=== PATIENT | female | born 1940 | race Caucasian/White ===

== ENCOUNTER → 2016-08-02 | Outpatient (CLI) | payer OTHER ==
[~2016-08-02] MED LIST: ATOR-54 PO; CLON0.5T3 PO; GADAVIST IV PRN; HYDR25TA4 PO; MCRK20 PO; MECL1TAB40 PO; METO25TA3 PO; PRLSR20 PO; VALA500T60 PO
--- NOTE | 2016-08-02 11:22 | DIAGNOSTIC IMAGING REPORT ---
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 Following the IV administration of 8.8 mL of Gadavist contrast, additional enhanced images were obtained. FINDINGS: Sagittal T1, axial diffusion, proton density and T2 weighted axial, coronal FLAIR, and pre and post axial T1-weighted images were acquired. These were supplemented with post gadolinium coronal T1 weighted images. There is an enhancing right-sided extra-axial mass at the rosa clival junction. The mass measures 34 x 25 x 26 mm. The masses demonstrate approximately 1 to 2 mm interval growth in each dimension. There is persistent mass effect on the marta. The mass abuts the basilar artery. There is cavernous sinus invasion. The mass likely encases the trigeminal nerve. The mass partially encases the cavernous carotid. The findings are consistent with a meningioma. Axial diffusion-weighted images reveal no evidence of acute or subacute infarction. There is no evidence of ventricular dilatation. Proton density T2-weighted and FLAIR images reveal minimal foci of increased T2 signal within the white matter, likely on a small vessel basis. There are no abnormal flow voids. With the exception of the suspected meningioma, there are no pathologically enhancing lesions. IMPRESSION: 1. Very minimal increase in the size of the enhancing extra-axial mass at the level of the right rosa clival junction. The mass is again consistent with a meningioma. There is persistent cavernous sinus invasion. There is moderate mass effect on the marta. The mass partially encases the cavernous carotid. The mass abuts the basilar artery. Electronically signed by: Yared Goldman M.D. 08/02/2016 11:20 AM Dictated Date/Time: 08/02/2016 11:12 AM
== END | disposition home or self-care (01) ==
LOC: C.MRIBC 09:50
PROVIDERS: ATTEND Psychiatry & Neurology Neurology
DX: D32.9 Benign neoplasm of meninges, unspecified (principal)

== ENCOUNTER 2020-10-02 10:55 | Inpatient (IN) ==
[2020-10-02] MEDS ORDERED: HYDROmorphone INJ 0.5 MG/0.5 ML SYR IV PRN ×2 (12:49→21:16)
[2020-10-02] MEDS ORDERED: ONDANSETRON INJ 2 MG/ML 2 ML VIAL IV STA ×2 (12:49→14:55)
[2020-10-02 13:05] LABS: Basophils # (auto) 0.02 K/uL (0-0.2); Basophils % (auto) 0.2 %; Eosinophils # (auto) 0.01 K/uL (0-0.5); Eosinophils % (auto) 0.1 %; Hematocrit (blood only) 49.8 % (37-47); Hemoglobin 16.7 g/dL (12.0-16.0); Immature Granulocytes # (auto) 0.03 K/uL (0.00-0.02); Immature Granulocytes % (auto) 0.3 %; Lymphocytes # (auto) 1.58 K/uL (1.2-3.4); Lymphocytes % (auto) 16.4 %; Mean Corpuscular Hemoglobin 29.6 pg (25-34); Mean Corpuscular Hgb Conc 33.5 g/dL (32-36); Mean Corpuscular Volume 88.3 fL (80-100); Mean Platelet Volume 12.1 fL (7.4-10.4); Monocytes # (auto) 0.96 K/uL (0.11-0.59); Monocytes % (auto) 9.9 %; Neutrophils # (auto) 7.05 K/uL (1.4-6.5); Neutrophils % (auto) 73.1 %; Platelet Count 232 K/uL (130-400); RDW Coefficient of Variation 13.5 % (11.5-14.5); RDW Standard Deviation 43.8 fL (36.4-46.3); Red Blood Count 5.64 M/uL (4.2-5.4); White Blood Count 9.65 K/uL (4.8-10.8)
--- NOTE | 2020-10-02 13:27 | Electrocardiogram Report ---
Test Reason : Blood Pressure : / mmHG Vent. Rate : 102 BPM Atrial Rate : 085 BPM P-R Int : 000 ms QRS Dur : 074 ms QT Int : 342 ms P-R-T Axes : 000 017 243 degrees QTc Int : 445 ms Poor data quality, interpretation may be adversely affected Atrial fibrillation with rapid ventricular response Low voltage QRS Nonspecific ST abnormality Abnormal ECG When compared with ECG of 29-AUG-2020 10:52, ST now depressed in Inferior leads Nonspecific T wave abnormality now evident in Lateral leads Confirmed by Arjun Cobos ([id number]) on 10/02/2020 1:27:15 PM Referred By: Confirmed By:Kp Cobos
[2020-10-02 13:28] LABS: Alanine Aminotransferase 24 U/L (12-78); Albumin Level 3.6 gm/dl (3.4-5.0); Aspartate Aminotransferase 21 U/L (15-37); BUN Creatinine Ratio 22.9 (10-20); Blood Urea Nitrogen 18 mg/dl (7-18); Calcium 9.1 mg/dl (8.5-10.1); Carbon Dioxide 26 mmol/L (21-32); Chloride 105 mmol/L (98-107); Creatinine Clr Calc Pharmacy 64.7 ml/min; Est GFR (African American) 80.7 ml/min; Est GFR (Non-African American) 69.6 ml/min; Glucose 134 mg/dl (70-99); Potassium 3.5 mmol/L (3.5-5.1); Sodium 138 mmol/L (136-145)
--- NOTE | 2020-10-02 13:37 | XRay Report ---
XR chest 1V portable HISTORY: 80 years-old Female weakness acute weakness COMPARISON: CT abdomen and pelvis of same day, chest radiograph 08/29/2020 TECHNIQUE: Portable AP view of the chest FINDINGS: Cardiac silhouette is enlarged. Chronic interstitial coarsening. Calcified plaque of the thoracic aor ta. There is no pneumothorax, pleural effusion or lobar airspace consolidation. Degenerative changes of the shoulders and spine. Sigmoidal thoracolumbar scoliosis. IMPRESSION: Cardiomegaly without acute process. ACT 112: Negative or not required by law. The above report was generated using voice recognition software. It may contain grammatical, syntax o r spelling errors. Electronically signed by: Pal Dodson M.D. 10/02/2020 1:36 PM
[2020-10-02 13:38] LABS: Alkaline Phosphatase 88 U/L (45-117); Bilirubin,Total 0.6 mg/dl (0.2-1); Globulin 3.5 gm/dl (2.5-4.0); Total Protein 7.1 gm/dl (6.4-8.2); Troponin I < 0.015 ng/ml (0-0.045)
--- NOTE | 2020-10-02 14:01 | CT Scan Report ---
ABDOMEN AND PELVIS CT WITHOUT CONTRAST CT DOSE: 901.81 mGy.cm HISTORY: Acute upper abdominal pain with nausea and vomiting upper abdominal pain, vomiting TECHNIQUE: Multiaxial CT images of the abdomen and pelvis were performed without contrast. A dose lo wering technique was utilized adhering to the principles of ALARA. COMPARISON STUDY: 05/03/2011 FINDINGS: Cardiomegaly with coronary artery calcifications. Trace layering pleural effusions. Mild de pendent subsegmental bibasilar atelectasis. No pneumatosis or pneumoperitoneum. The unenhanced spleen , pancreas, adrenal glands and gallbladder are unremarkable. Mild hepatic steatosis. Mild cortical thinning of the bilateral kidneys with renal sinus cysts. There are 3 nonobstructing ca lculi of the right kidney which measure up to 6 mm. There are 2 nonobstructing calculi of the left ki dney which measure up to 4 mm. No ureteral calculi or hydronephrosis. Decompressed urinary bladder. T he uterus appears surgically absent. No adnexal mass lesion. Extensive atherosclerosis of the aorta a nd iliac arteries. No aneurysm or adenopathy. Tiny hiatal hernia. Scattered air-fluid levels are noted throughout the large bowel. Noninflamed appe ndix. Numerous mildly dilated air and fluid-filled loops of small bowel measure up to 3.3 cm transver sely with decompressed loops of small bowel seen distally. Transitioned loops of bowel noted within t he anterior upper pelvis on image 324 series 3. Areas of mild interloop edema without significant bow el wall thickening. No acute fracture. Degenerative changes of the spine, pelvis and hips. Thoracolum bar dextroscoliosis. IMPRESSION: 1. Mildly dilated air and fluid-filled loops of small bowel with decompressed distal small bowel is s uggestive of at least a partial small bowel obstruction with transition point within the anterior asp ect of the upper pelvis, likely secondary to adhesions. 2. Normal appendix. 3. Nonobstructing bilateral nephrolithiasis. 4. Trace pleural effusions. 5. Additional findings as above. ACT 112: Negative or not required by law. The above report was generated using voice recognition software. It may contain grammatical, syntax o r spelling errors. Electronically signed by: Pal Dodson M.D. 10/02/2020 2:00 PM
[2020-10-02] MEDS ORDERED: SODIUM CHLORIDE 0.9% 1000ML 1,000 ML IV STA (14:50)
[2020-10-02] MEDS ORDERED: SODIUM CHLORIDE 0.9% 1000ML 500 ML IV ONE (14:50)
--- NOTE | 2020-10-02 16:06 | Emergency Department Note ---
Impression & Plan Partial small bowel obstruction, Upper abdominal pain ED Provider Note INFORMANT: Patient ED PROVIDER(S): Axel Matos MD CHIEF COMPLAINT: Abdominal pain PLAN: Disposition: Admitted Condition: Good Outpatient prescription management: none Referral: None MEDICAL DECISION MAKING: Patient presented to the emergency department because of abdominal pain, nausea and vomiting. She underwent a work-up. CT imaging was performed as well as blood work. Her blood work was unremarkable. The patient's CT scan revealed a partial small bowel obstruction. The patient initially received Zofran and Dilaudid for symptom control which helped. Additional IV fluids and Zofran were ordered after CT imaging revealed the problem. The patient will benefit from further treatment in the hospital. Consultation was made with Dr. Rajan Bloom of the [facility] service. Patient was evaluated in the ER for further management. Triage Nursing notes reviewed and agree them. Vital Signs: reviewed and remarkable for no significant abnormalities Differential diagnosis: Appendicitis, infections, diverticulitis, UTI, obstruction, mesenteric ischemia, aortic pathology, inflammatory bowel disease, renal colic, PUD, pancreatitis, biliary pathology, hernia, volvulus, constipation, as well as other pathologies. Diagnostics interpreted by me: ECG: Twelve-lead ECG reveals atrial fibrillation with mild rapid ventricular response at 102 bpm. Low voltage QRS. Poor R wave progression. No ST elevation or depression. No PVCs. Cardiac Monitoring: Cardiac monitoring ordered by me: The patient was placed on continuous cardiac monitoring and observed. It revealed a atrial fibrillation at 87 bpm. Imaging studies: CT scan concerning for developing partial small bowel obstruction. HPI: The patient is a 80 year old female who presents to the Emergency Room with complaints of abdominal pain, upper. This started over the last month but worsening since eating last night and is radiating to the midline and right upper quadrant. The patient also notes the following associated symptoms, nausea and vomiting. The patient has found no relieving factors. Current pain is rated as 8/10. Pt denies LOC, headache, fevers, chills, diaphoresis, visual changes, neck pain, chest pain, breathing difficulties, back pain, melena, hematochezia, urinary symptoms, numbness, weakness, lymphadenopathy, rash, or other complaints. ROS: See above HPI for pertinent positives & negatives. A total of 10 systems reviewed and were otherwise negative. PAST MEDICAL HISTORY:See Below , COPD, A. fib PAST SURGICAL HISTORY:See Below, FAMILY HISTORY:See Below SOCIAL HISTORY:See Below, HOME MEDICATIONS:See Below ALLERGIES:See Below VITALS:See Below PHYSICAL EXAMINATION: GENERAL: Awake, alert, uncomfortable-appearing, in no distress HENT: Normocephalic, atraumatic. Oropharynx unremarkable. EYES: Normal conjunctiva. Sclera non-icteric. NECK: Inspection normal. Non-tender. Supple. No nuchal rigidity. FROM. No masses. RESPIRATORY: Clear to auscultation. No wheezes. No rales. Normal respiratory effort. CARDIAC: Normal rate. Normal rhythm. No murmurs. No rubs. Extremities warm and well perfused. Pulses equal. No JVD. GI: Soft, non-distended. right upper quadrant and epigastric tenderness to palpation. No rebound or guarding. No masses. RECTAL: Deferred. MUSCULOSKELETAL: Atraumatic. Chest examination reveals no tenderness. The back is symmetrical on inspection without obvious abnormality. There is no CVA tenderness to palpation. No joint edema. LOWER EXTREMITIES: Calves are equal size bilaterally and non-tender. No edema. No discoloration. NEURO: Normal sensorium. No sensory or motor deficits noted. SKIN: No rash or jaundice noted. Axel Matos MD Past Med/Surg History Medical History Cerebral meningioma Chronic anxiety COPD (chronic obstructive pulmonary disease) HTN (hypertension) Hyperlipidemia PAF (paroxysmal atrial fibrillation) Surgical History History of abdominal hysterectomy Family History Father Heart disease Brother Myocardial infarction Sister Ovarian cancer Other Cancer Lung cancer Denies family history of Prostate cancer Breast cancer Colorectal cancer Social History Smoking Status: Former smoker Tobacco Type: Cigarettes Age Started Using Tobacco: 35; Age Quit Using Tobacco: 74; packs per day: 0.75; Years Smoked: 39; Second Hand Exposure: No; Hx Alcohol Use: No Hx Substance Use: No Preferred Language: Citizen Of [place] Communication Ability: Effective Visual Impairment: Limited Hearing Ability: Normal 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 marital status: Current Living Situation: Spouse current occupational status: retired Feels Safe at Home: Yes Childhood Exposure to Second-Hand Smoke: Yes caffeine: Yes Dental Care, Regularly: Yes Physical Activity Frequency: Does not Exercise Physical Activity Frequency Comment: 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 Seatbelt Use: always Sunscreen Use: Yes Do you think of yourself as: straight/heterosexual Allergies Allergies Allergy/AdvReac Type Severity Reaction Status Date / Time aspirin [From Percodan] Allergy Verified 10/02/20 14:21 ciprofloxacin Allergy Verified 10/02/20 14:21 lisinopril Allergy Verified 10/02/20 14:21 peanut Allergy Verified 10/02/20 14:21 oxycodone AdvReac Unknown "makes me Verified 10/02/20 14:21 crazy" Home Meds Home Medications Medication Instructions Recorded Confirmed calcium carbonate 600 mg (1,500 1 tab PO DAILY tab 10/26/18 10/02/20 mg)-vitamin D3 200 unit tablet cholecalciferol (vitamin D3) 75 3,000 units PO DAILY tab 10/26/18 10/02/20 mcg (3,000 unit) tablet clonazepam 0.5 mg tablet 0.5 mg PO BID #60 tab 10/26/18 10/02/20 melatonin ER 10 mg-pyridoxine HCl 1 tab PO HS PRN tab 10/26/18 10/02/20 (B6) 10 mg tab, immed-extend release valacyclovir 500 mg tablet 500 mg PO DAILY PRN tab 10/26/18 10/02/20 epinephrine 0.3 mg/0.3 mL 0.3 mg IM DIRECTED PRN 11/01/18 10/02/20 injection, auto-injector (EpiPen 2-Adria) cyanocobalamin (vitamin B-12) 1,000 mcg PO BID cap 09/29/20 10/02/20 1,000 mcg capsule omeprazole 20 mg capsule,delayed 20 mg PO QAM 10/02/20 10/02/20 release Previous Rx's Medication Instructions Recorded potassium chloride 20 mEq 20 meq PO DAILY #90 tab 01/30/20 tablet,extended release rosuvastatin 10 mg tablet 10 mg PO HS #90 tab 04/30/20 hydrochlorothiazide 12.5 mg tablet 12.5 mg PO DAILY #90 tab 05/26/20 fluticasone propionate 50 2 spray INTRANASAL DAILY #15.8 ml 08/14/20 mcg/actuation nasal spray,suspension (Flonase Allergy Relief) meclizine 12.5 mg tablet 12.5 mg PO QID PRN #30 tab 08/14/20 metoprolol tartrate 50 mg tablet 50 mg PO BID #180 tab 09/11/20 rivaroxaban 20 mg tablet (Xarelto) 20 mg PO QPM #90 tab 09/25/20 Results & Data (ED) Vital Signs Vital Signs - 24 hr 10/02/20 11:18 10/02/20 14:15 Temperature 36.5 C 37.0 C Temperature Source Temporal Artery Scan Oral Pulse Rate 120 H 87 Pulse Rate [Apical] 87 Pulse Rhythm Regular Regular Pulse Rhythm [Apical] Regular Pulse Strength Normal Pulse Strength [Apical] Normal Respiratory Rate 20 16 Respiratory Effort / Characteristics Non-Labored Non-Labored Spontaneous Normal for Patient Respiratory Depth Normal Normal Respiratory Pattern Regular Regular Blood Pressure 119/72 Blood Pressure [Right Arm] 124/86 Blood Pressure Mean 87 Blood Pressure Mean [Right Arm] 98 Blood Pressure Position Sitting Blood Pressure Position [Right Arm] Lying Pulse Oximetry 96 95 Oxygen Delivery Method Room Air Room Air Oxygen Flow Rate 0 Sepsis Recent Fever Within 48 Hours No Sepsis New/Unexplained Change in Mental Status N/A Sepsis Action Taken by Nursing No Action Required Laboratory Data Result diagrams: 10/02/20 12:45 10/02/20 12:45 Lab Results 10/02/20 10/02/20 10/02/20 Range/Units 12:45 12:45 15:11 WBC 9.65 (4.8-10.8) K/uL RBC 5.64 H (4.2-5.4) M/uL Hgb 16.7 H (12.0-16.0) g/dL Hct 49.8 H (37-47) % MCV 88.3 (80-100) fL MCH 29.6 (25-34) pg MCHC 33.5 (32-36) g/dL RDW Std Deviation 43.8 (36.4-46.3) fL RDW Coeff of Vin 13.5 (11.5-14.5) % Plt Count 232 (130-400) K/uL MPV 12.1 H (7.4-10.4) fL Immature Gran % (Auto) 0.3 % Neut % (Auto) 73.1 % Lymph % (Auto) 16.4 % Labette % (Auto) 9.9 % Eos % (Auto) 0.1 % Baso % (Auto) 0.2 % Neut # (Auto) 7.05 H (1.4-6.5) K/uL Lymph # (Auto) 1.58 (1.2-3.4) K/uL [place]ette # (Auto) 0.96 H (0.11-0.59) K/uL Eos # (Auto) 0.01 (0-0.5) K/uL Baso # (Auto) 0.02 (0-0.2) K/uL Immature Gran # (Auto) 0.03 H (0.00-0.02) K/uL Sodium 138 (136-145) mmol/L Potassium 3.5 (3.5-5.1) mmol/L Chloride 105 (98-107) mmol/L Carbon Dioxide 26 (21-32) mmol/L Anion Gap 7.0 (3-11) BUN 18 (7-18) mg/dl Creatinine 0.80 (0.6-1.2) mg/dl Est Cr Clr Drug Dosing 64.7 ml/min Est GFR ( Amer) 80.7 ml/min Est GFR (Non-Af Amer) 69.6 ml/min BUN/Creatinine Ratio 22.9 H (10-20) Glucose 134 H (70-99) mg/dl Calcium 9.1 (8.5-10.1) mg/dl Total Bilirubin 0.6 (0.2-1) mg/dl AST 21 (15-37) U/L ALT 24 (12-78) U/L Alkaline Phosphatase 88 (45-117) U/L Troponin I < 0.015 (0-0.045) ng/ml Total Protein 7.1 (6.4-8.2) gm/dl Albumin 3.6 (3.4-5.0) gm/dl Globulin 3.5 (2.5-4.0) gm/dl Albumin/Globulin Ratio 1.0 (0.9-2) TSH 1.030 (0.300-4.500) uIu/ml COVID-19 Eval Order Covid19 at [facility] Administered Medications Hydromorphone HCl (Hydromorphone Inj 0.5 Mg/0.5 Ml Syr) 0.5 mg IV Q15M PRN PRN Reason: Pain Stop: 10/16/20 12:48 Last Admin: 10/02/20 12:57 Dose: 0.5 mg Documented by: [id number] Sodium Chloride (Nss 1000ml) 1,000 mls @ 125 mls/hr IV .Q8H STA Stop: 10/02/20 22:49 Last Admin: 10/02/20 15:56 Dose: 125 mls/hr Documented by: [id number] Discontinued Medications Sodium Chloride (Nss 1000ml) 500 mls @ 999 mls/hr IV .Q31M ONE Stop: 10/02/20 15:20 Last Infusion: 10/02/20 15:56 Dose: 0 mls/hr Documented by: [id number] Admin: 10/02/20 15:08 Dose: 999 mls/hr Documented by: [id number] Ondansetron HCl (Ondansetron Inj 2 Mg/Ml 2 Ml Vial) 4 mg IV NOW STA Stop: 10/02/20 12:50 Last Admin: 10/02/20 12:57 Dose: 4 mg Documented by: [id number] Ondansetron HCl (Ondansetron Inj 2 Mg/Ml 2 Ml Vial) 4 mg IV NOW STA Stop: 10/02/20 14:56 Last Admin: 10/02/20 15:08 Dose: 4 mg Documented by: [id number] Imaging Data Radiologist's Impression: Chest X-Ray 10/02/20 12:23 XR chest 1V portable HISTORY: 80 years-old Female weakness acute weakness COMPARISON: CT abdomen and pelvis of same day, chest radiograph 08/29/2020 TECHNIQUE: Portable AP view of the chest FINDINGS: Cardiac silhouette is enlarged. Chronic interstitial coarsening. Calcified plaqu e of the thoracic aorta. There is no pneumothorax, pleural effusion or lobar airspace consolidation. Degenerative changes of the shoulders and spine. Sigmoidal thoracolumbar scoliosis. IMPRESSION: Cardiomegaly without acute process. ACT 112: Negative or not required by law. The above report was generated using voice recognition software. It may contain grammatical, syntax or spelling errors. Electronically signed by: Pal Dodson M.D. 10/02/2020 1:36 PM Abdomen/Pelvis CT 10/02/20 12:[address] WITHOUT CONTRAST CT DOSE: 901.81 mGy.cm HISTORY: Acute upper abdominal pain with nausea and vomiting upper abdominal pain, vomiting TECHNIQUE: Multiaxial CT images of the abdomen and pelvis were performed without contrast. A dose lowering technique was utilized adhering to the principles of ALARA. COMPARISON STUDY: 05/03/2011 FINDINGS: Cardiomegaly with coronary artery calcifications. Trace layering pleural effusions. Mild dependent subsegmental bibasilar atelectasis. No pneumatosis or pneumoperitoneum. The unenhanced spleen, pancreas, adrenal glands and gallbladder are unremarkable. Mild hepatic steatosis. Mild cortical thinning of the bilateral kidneys with renal sinus cysts. There are 3 nonobstructing calculi of the right kidney which measure up to 6 mm. There are 2 nonobstructing calculi of the left kidney which measure up to 4 mm. No ureteral calculi or hydronephrosis. Decompressed urinary bladder. The uterus appears surgically absent. No adnexal mass lesion. Extensive atherosclerosis of the aorta and iliac arteries. No aneurysm or adenopathy. Tiny hiatal hernia. Scattered air-fluid levels are noted throughout the large bowel. Noninflamed appendix. Numerous mildly dilated air and fluid-filled loops of small bowel measure up to 3.3 cm transversely with decompressed loops of small bowel seen distally. Transitioned loops of bowel noted within the anterior upper pelvis on image 324 series 3. Areas of mild interloop edema without significant bowel wall thickening. No acute fracture. Degenerative changes of the spine, pelvis and hips. Thoracolumbar dextroscoliosis. IMPRESSION: 1. Mildly dilated air and fluid-filled loops of small bowel with decompressed distal small bowel is suggestive of at least a partial small bowel obstruction with transition point within the anterior aspect of the upper pelvis, likely secondary to adhesions. 2. Normal appendix. 3. Nonobstructing bilateral nephrolithiasis. 4. Trace pleural effusions. 5. Additional findings as above. ACT 112: Negative or not required by law. The above report was generated using voice recognition software. It may contain grammatical, syntax or spelling errors. Electronically signed by: Pal Dodson M.D. 10/02/2020 2:00 PM Discharge Plan Visit Data Chief Complaint: Abdominal Pain Stated Complaint: UPPER ABD PAIN ED Provider: Axel Matos Discharge Problem: Partial small bowel obstruction, Upper abdominal pain Forms Stand Alone Forms: My [facility] Prescriptions Prescriptions: No Action potassium chloride 20 mEq tablet extended release 20 meq PO DAILY Qty: 90 RF: 3 rosuvastatin 10 mg tablet 10 mg PO HS Qty: 90 RF: 3 metoprolol tartrate 50 mg tablet 50 mg PO BID Qty: 180 RF: 3 Xarelto 20 mg tablet 20 mg PO QPM Qty: 90 RF: 3 fluticasone propionate [Flonase Allergy Relief] 50 mcg/actuation spray,suspension 2 spray intranasal DAILY Qty: 15.8 RF: 2 meclizine 12.5 mg tablet 12.5 mg PO QID PRN (Reason: dizziness) Qty: 30 RF: 0 hydrochlorothiazide 12.5 mg tablet 12.5 mg PO DAILY Qty: 90 RF: 3 cyanocobalamin (vitamin B-12) 1,000 mcg capsule 1,000 mcg PO BID RF: 0 clonazepam 0.5 mg tablet 0.5 mg PO BID Qty: 60 RF: 0 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
[2020-10-02] MEDS ORDERED: METOPROLOL TARTRATE 1 MG/ML VIAL IV PRN (18:16)
[2020-10-02] MEDS ORDERED: ALBUT/IPRATROP 3MG/0.5MG NEB 3 ML VIAL NEB PRN (18:18)
--- NOTE | 2020-10-02 18:19 | History & Physical Report ---
Date of Service October 02, 2020 Assessment & Plan (1) Partial small bowel obstruction: Plan: Partial small bowel obstruction/likely secondary to adhesions- NPO NSS + KCl 20 mEq 100 mils per hour Famotidine 20 mg IV every 12 hours Zofran 4 mg IV every 6 hours as needed Zosyn 3.375 mg IV every 8 hours Acetaminophen 1000 mg IV every 8 hours as needed mild pain or fever Dilaudid 0.25 mg IV every 3 hours as needed moderate to severe pain (2) Atrial fibrillation: Plan: Atrial fibrillation/hypertension/chronic anticoagulation- Hold Xarelto, HCTZ and metoprolol tartrate due to n.p.o. status Lopressor 5 mg IV every 4 hours as needed heart rate greater than 110 or systolic blood pressure greater than 160 Patient will likely need to have IV heparin started in the morning, Xarelto last dose was today (3) Chronic anticoagulation: Plan: See above (4) COPD (chronic obstructive pulmonary disease): Plan: DuoNebs every 2 hours as needed (5) Hyperlipidemia: Plan: Hold rosuvastatin (6) HTN (hypertension): Plan: See above History of Present Illness Chief Complaint: The patient presents to the emergency department with 6 weeks of on and off abdominal pain, which she reports will be severe 1 day, and resolved the next day, until finally last evening she developed nausea vomiting x3 and persistent abdominal pain today. Primary Care Provider: Josué Sandhu MD The patient is an 80-year-old female with a past medical history including atrial fibrillation on chronic anticoagulation, osteoporosis, hypertension, chronic anxiety, COPD, cerebral meningioma, hyperlipidemia, PVCs, PACs, peripheral arterial disease and history of hysterectomy. She presents with symptoms as noted above. CT scan of abdomen pelvis revealed a partial small bowel obstruction with transition point in the anterior upper pelvic area, likely secondary to adhesions Allergies Allergy/AdvReac Type Severity Reaction Status Date / Time aspirin [From Percodan] Allergy Verified 10/02/20 14:21 ciprofloxacin Allergy Verified 10/02/20 14:21 lisinopril Allergy Verified 10/02/20 14:21 peanut Allergy Verified 10/02/20 14:21 oxycodone AdvReac Unknown "makes me Verified 10/02/20 14:21 aki" Home Medications Medication Instructions Recorded Confirmed Type calcium carbonate 600 mg (1,500 1 tab PO DAILY tab 10/26/18 10/02/20 History mg)-vitamin D3 200 unit tablet cholecalciferol (vitamin D3) 75 3,000 units PO DAILY tab 10/26/18 10/02/20 History mcg (3,000 unit) tablet clonazepam 0.5 mg tablet 0.5 mg PO BID #60 tab 10/26/18 10/02/20 History melatonin ER 10 mg-pyridoxine HCl 1 tab PO HS PRN tab 10/26/18 10/02/20 History (B6) 10 mg tab, immed-extend release valacyclovir 500 mg tablet 500 mg PO DAILY PRN tab 10/26/18 10/02/20 History epinephrine 0.3 mg/0.3 mL 0.3 mg IM DIRECTED PRN 11/01/18 10/02/20 History injection, auto-injector (EpiPen 2-Adria) potassium chloride 20 mEq 20 meq PO DAILY #90 tab 01/30/20 10/02/20 Rx tablet,extended release rosuvastatin 10 mg tablet 10 mg PO HS #90 tab 04/30/20 10/02/20 Rx hydrochlorothiazide 12.5 mg tablet 12.5 mg PO DAILY #90 tab 05/26/20 10/02/20 Rx fluticasone propionate 50 2 spray INTRANASAL DAILY #15.8 ml 08/14/20 10/02/20 Rx mcg/actuation nasal spray,suspension (Flonase Allergy Relief) meclizine 12.5 mg tablet 12.5 mg PO QID PRN #30 tab 08/14/20 10/02/20 Rx metoprolol tartrate 50 mg tablet 50 mg PO BID #180 tab 09/11/20 10/02/20 Rx rivaroxaban 20 mg tablet (Xarelto) 20 mg PO QPM #90 tab 09/25/20 10/02/20 Rx cyanocobalamin (vitamin B-12) 1,000 mcg PO BID cap 09/29/20 10/02/20 History 1,000 mcg capsule omeprazole 20 mg capsule,delayed 20 mg PO QAM 10/02/20 10/02/20 History release Past Med/Surg History Medical History Cerebral meningioma Chronic anxiety COPD (chronic obstructive pulmonary disease) HTN (hypertension) Hyperlipidemia PAF (paroxysmal atrial fibrillation) Surgical History History of abdominal hysterectomy Family History Father Heart disease Brother Myocardial infarction Sister Ovarian cancer Other Cancer Lung cancer Denies family history of Prostate cancer Breast cancer Colorectal cancer Social History Smoking Status: Former smoker Tobacco Type: Cigarettes Age Started Using Tobacco: 35; Age Quit Using Tobacco: 74; packs per day: 0.75; Years Smoked: 39; Second Hand Exposure: No; Hx Alcohol Use: No Hx Substance Use: No Preferred Language: Martiniquais Communication Ability: Effective Visual Impairment: Limited Hearing Ability: Normal Surgical Device Sales Representative Required: Yes marital status: Current Living Situation: Spouse current occupational status: retired Feels Safe at Home: Yes Childhood Exposure to Second-Hand Smoke: Yes caffeine: Yes Dental Care, Regularly: Yes Physical Activity Frequency: Does not Exercise Physical Activity Frequency Comment: works in [employer] Seatbelt Use: always Sunscreen Use: Yes Do you think of yourself as: straight/heterosexual Review of Systems Review of Systems: The patient denies chest pain, palpitations, shortness of breath, dyspnea on exertion, cough, lower extremity swelling, sore throat, fevers, chills, sweats, blood in urine or stool, dysuria, urinary frequency or urgency, lightheadedness, dizziness, headache, memory loss, loss of consciousness, rash, abnormal bruising or bleeding, imbalance, focal or generalized weakness, numbness or tingling in arms or legs, generalized arthralgias or myalgias, back or neck pain, or night sweats. The review of systems is otherwise negative other than for that already noted above, and at least 10 systems have been reviewed. Physical Exam Physical Exam: The patient is awake, alert and oriented 3, well developed and well nourished, normocephalic and atraumatic, lying in bed and in no acute distress. HEENT--PERRL, EOMI, mucous membranes and oropharynx dry. Neck--supple. No JVD. No bruits. Thyroid normal, trachea midline, no adenopathy. Heart--normal S1 and S2. No murmurs, rubs or gallops. Lungs--clear bilaterally, no respiratory distress, no accessory muscle use. Abdomen--decreased bowel sounds. Mildly firm, mildly distended. Nontender after pain medications Extremities--no cyanosis or clubbing. No edema. Dermatologic--normal skin turgor, normal color, no abnormal lymph nodes, no rash. Neurologic--cranial nerves II through XII grossly intact. Rheumatologic--normal range of motion. Psychiatric--normal affect. Results & Data Results & Data ([facility]) Vital Signs (Past 12 Hours) Vital Signs Temp Pulse Pulse Resp BP BP Pulse Ox 10/02/20 17:20 84 18 119/69 96 10/02/20 14:15 98.6 F 87 87 16 124/86 95 10/02/20 11:18 97.7 F 120 H 20 119/72 96 Laboratory Results Laboratory Results WBC 9.65 K/uL (4.8-10.8) 10/02/20 12:45 RBC 5.64 M/uL (4.2-5.4) H 10/02/20 12:45 Hgb 16.7 g/dL (12.0-16.0) H 10/02/20 12:45 Hct 49.8 % (37-47) H 10/02/20 12:45 MCV 88.3 fL (80-100) 10/02/20 12:45 MCH 29.6 pg (25-34) 10/02/20 12:45 MCHC 33.5 g/dL (32-36) 10/02/20 12:45 RDW Std Deviation 43.8 fL (36.4-46.3) 10/02/20 12:45 RDW Coeff of Vin 13.5 % (11.5-14.5) 10/02/20 12:45 Plt Count 232 K/uL (130-400) 10/02/20 12:45 MPV 12.1 fL (7.4-10.4) H 10/02/20 12:45 Immature Gran % (Auto) 0.3 % 10/02/20 12:45 Neut % (Auto) 73.1 % 10/02/20 12:45 Lymph % (Auto) 16.4 % 10/02/20 12:45 [place] % (Auto) 9.9 % 10/02/20 12:45 Eos % (Auto) 0.1 % 10/02/20 12:45 Baso % (Auto) 0.2 % 10/02/20 12:45 Neut # (Auto) 7.05 K/uL (1.4-6.5) H 10/02/20 12:45 Lymph # (Auto) 1.58 K/uL (1.2-3.4) 10/02/20 12:45 [place] # (Auto) 0.96 K/uL (0.11-0.59) H 10/02/20 12:45 Eos # (Auto) 0.01 K/uL (0-0.5) 08 12:45 Baso # (Auto) 0.02 K/uL (0-0.2) 10/02/20 12:45 Immature Gran # (Auto) 0.03 K/uL (0.00-0.02) H 10/02/20 12:45 Sodium 138 mmol/L (136-145) 10/02/20 12:45 Potassium 3.5 mmol/L (3.5-5.1) 10/02/20 12:45 Chloride 105 mmol/L (98-107) 10/02/20 12:45 Carbon Dioxide 26 mmol/L (21-32) 10/02/20 12:45 Anion Gap 7.0 (3-11) 10/02/20 12:45 BUN 18 mg/dl (7-18) 10/02/20 12:45 Creatinine 0.80 mg/dl (0.6-1.2) 10/02/20 12:45 Est Cr Clr Drug Dosing 64.7 ml/min 10/02/20 12:45 Est GFR ( Amer) 80.7 ml/min 10/02/20 12:45 Est GFR (Non-Af Amer) 69.6 ml/min 10/02/20 12:45 BUN/Creatinine Ratio 22.9 (10-20) H 10/02/20 12:45 Glucose 134 mg/dl (70-99) H 10/02/20 12:45 Calcium 9.1 mg/dl (8.5-10.1) 10/02/20 12:45 Total Bilirubin 0.6 mg/dl (0.2-1) 10/02/20 12:45 AST 21 U/L (15-37) 10/02/20 12:45 ALT 24 U/L (12-78) 10/02/20 12:45 Alkaline Phosphatase 88 U/L (45-117) 10/02/20 12:45 Troponin I < 0.015 ng/ml (0-0.045) 10/02/20 12:45 Total Protein 7.1 gm/dl (6.4-8.2) 10/02/20 12:45 Albumin 3.6 gm/dl (3.4-5.0) 10/02/20 12:45 Globulin 3.5 gm/dl (2.5-4.0) 10/02/20 12:45 Albumin/Globulin Ratio 1.0 (0.9-2) 10/02/20 12:45 TSH 1.030 uIu/ml (0.300-4.500) 10/02/20 12:45 COVID-19 Eval Order Covid19 at [facility] 10/02/20 15:11 SARS-CoV-2 (PCR) NEGATIVE (Negative) 10/02/20 15:11 Impressions Chest X-Ray 10/02/20 12:23 XR chest 1V portable HISTORY: 80 years-old Female weakness acute weakness COMPARISON: CT abdomen and pelvis of same day, chest radiograph 08/29/2020 TECHNIQUE: Portable AP view of the chest FINDINGS: Cardiac silhouette is enlarged. Chronic interstitial coarsening. Calcified plaque of the thoracic aorta. There is no pneumothorax, pleural effusion or lobar airspace consolidation. Degenerative changes of the shoulders and spine. Sigmoidal thoracolumbar scoliosis. IMPRESSION: Cardiomegaly without acute process. ACT 112: Negative or not required by law. The above report was generated using voice recognition software. It may contain grammatical, syntax or spelling errors. Electronically signed by: Pal Dodson M.D. 10/02/2020 1:36 PM Abdomen/Pelvis CT 10/02/20 12:[address] WITHOUT CONTRAST CT DOSE: 901.81 mGy.cm HISTORY: Acute upper abdominal pain with nausea and vomiting upper abdominal pain, vomiting TECHNIQUE: Multiaxial CT images of the abdomen and pelvis were performed without contrast. A dose lowering technique was utilized adhering to the principles of ALARA. COMPARISON STUDY: 05/03/2011 FINDINGS: Cardiomegaly with coronary artery calcifications. Trace layering pleural effusions. Mild dependent subsegmental bibasilar atelectasis. No pneumatosis or pneumoperitoneum. The unenhanced spleen, pancreas, adrenal glands and gallbladder are unremarkable. Mild hepatic steatosis. Mild cortical thinning of the bilateral kidneys with renal sinus cysts. There are 3 nonobstructing calculi of the right kidney which measure up to 6 mm. There are 2 nonobstructing calculi of the left kidney which measure up to 4 mm. No ur eteral calculi or hydronephrosis. Decompressed urinary bladder. The uterus appears surgically absent. No adnexal mass lesion. Extensive atherosclerosis of the aorta and iliac arteries. No aneurysm or adenopathy. Tiny hiatal hernia. Scattered air-fluid levels are noted throughout the large bowel. Noninflamed appendix. Numerous mildly dilated air and fluid-filled loops of small bowel measure up to 3.3 cm transversely with decompressed loops of small bowel seen distally. Transitioned loops of bowel noted within the anterior upper pelvis on image 324 series 3. Areas of mild interloop edema without significant bowel wall thickening. No acute fracture. Degenerative changes of the spine, pelvis and hips. Thoracolumbar dextroscoliosis. IMPRESSION: 1. Mildly dilated air and fluid-filled loops of small bowel with decompressed distal small bowel is suggestive of at least a partial small bowel obstruction with transition point within the anterior aspect of the upper pelvis, likely secondary to adhesions. 2. Normal appendix. 3. Nonobstructing bilateral nephrolithiasis. 4. Trace pleural effusions. 5. Additional findings as above. ACT 112: Negative or not required by law. The above report was generated using voice recognition software. It may contain grammatical, syntax or spelling errors. Electronically signed by: Pal Dodson M.D. 10/02/2020 2:00 PM Code Status & VTE Plan Code Status Full code VTE Prophylaxis Plan VTE Prophylaxis will be ordered: Yes PG Care Time/CCT Total # of Minutes Spent Total Time Spent with Patient: Total time spent is greater than 50% in coordination of care (as documented) at patient's floor/unit and/or counseling patient: Coding Level of Care Code 34464 Initial Inpt Care Lvl 3 Diagnoses Partial small bowel obstruction K56.600 Atrial fibrillation I48.91 Chronic anticoagulation Z79.01 COPD (chronic obstructive pulmonary disease) J44.9 COPD type: unspecified COPD Hyperlipidemia E78.2 Hyperlipidemia type: mixed hyperlipidemia HTN (hypertension) I10 Hypertension type: essential hypertension (1) COPD (chronic obstructive pulmonary disease) COPD type: unspecified COPD Qualified Code(s): J44.9 - Chronic obstructive pulmonary disease, unspecified (2) Hyperlipidemia Hyperlipidemia type: mixed hyperlipidemia Qualified Code(s): E78.2 - Mixed hyperlipidemia (3) HTN (hypertension) Hypertension type: essential hypertension Qualified Code(s): I10 - Essential (primary) hypertension
[2020-10-02] MEDS ORDERED: PIPERACILL/TAZOBAC CONSULT ACTIVE PRN (21:16)
[2020-10-02] MEDS ORDERED: ONDANSETRON INJ 2 MG/ML 2 ML VIAL IV PRN (21:16)
[2020-10-02 22:18] LABS: Appearance Urine Clear (Clear); Bacteria Urine Automated Negative (Negative); Bilirubin Urine Negative (Negative); Blood Urine Negative (Negative); Color Urine Dark Yellow; Epithelial Cell Urine Auto >30 /lpf (0-5); Glucose Urine UA Negative (Negative); Ketones Urine Trace (Negative); Leukocyte Esterase Urine 1+ (Negative); Nitrite Urine Negative (Negative); Protein Urine Negative (Negative); RBC Urine Automated 0-4 /hpf (0-4); Specific Gravity Urine 1.022 (1.000-1.030); Urobilinogen Urine Negative (Negative); pH Urine 5.5 (4.5-7.5)
[2020-10-02] MEDS: clonazePAM 0.5 MG TAB PO PRN (22:29)
[2020-10-02] MEDS: NSS + 20MEQ KCL 20 MEQ/1,000 ML BAG IV SCH (22:29)
[2020-10-02] MEDS: FAMOTIDINE 20 MG in SYRINGE 3 ML IV SCH (22:29)
[2020-10-02] MEDS ORDERED: PIPERACILLIN/TAZOBACTAM 3.375 GM in DEXTROSE 5% 100 ML IV SCH (22:30)
[2020-10-02] MEDS ORDERED: PIPERACILLIN/TAZOBACTAM 4.5 GM in DEXTROSE 5% 100 ML IV ONE (22:30)
[2020-10-02] MEDS: ACETAMINOPHEN 1,000 MG/100 ML VIAL IV PRN (22:32)
[2020-10-03] MEDS: PIPERACILLIN/TAZOBACTAM 4.5 GM in DEXTROSE 5% 100 ML IV SCH ×3 (05:01→20:48)
[2020-10-03] MEDS: NSS + 20MEQ KCL 20 MEQ/1,000 ML BAG IV SCH ×2 (08:49→20:30)
[2020-10-03] MEDS: FAMOTIDINE 20 MG in SYRINGE 3 ML IV SCH ×2 (08:50→23:24)
[2020-10-03] MEDS: clonazePAM 0.5 MG TAB PO PRN (09:00)
[2020-10-03 09:01] LABS: Basophils # (auto) 0.03 K/uL (0-0.2); Basophils % (auto) 0.6 %; Hematocrit (blood only) 44.4 % (37-47); Hemoglobin 14.2 g/dL (12.0-16.0); Immature Granulocytes # (auto) 0.01 K/uL (0.00-0.02); Immature Granulocytes % (auto) 0.2 %; Lymphocytes # (auto) 1.47 K/uL (1.2-3.4); Lymphocytes % (auto) 29.5 %; Mean Corpuscular Volume 90.8 fL (80-100); Mean Platelet Volume 11.7 fL (7.4-10.4); Monocytes # (auto) 0.52 K/uL (0.11-0.59); Monocytes % (auto) 10.4 %; Neutrophils # (auto) 2.85 K/uL (1.4-6.5); Neutrophils % (auto) 57.3 %; Platelet Count 196 K/uL (130-400); RDW Coefficient of Variation 13.9 % (11.5-14.5); RDW Standard Deviation 46.4 fL (36.4-46.3); Red Blood Count 4.89 M/uL (4.2-5.4); White Blood Count 4.98 K/uL (4.8-10.8)
[2020-10-03 09:32] LABS: Albumin Level 2.9 gm/dl (3.4-5.0); BUN Creatinine Ratio 19.5 (10-20); Calcium 8.5 mg/dl (8.5-10.1); Creatinine Clr Calc Pharmacy 77.3 ml/min; Est GFR (African American) 96.2 ml/min; Magnesium 1.9 mg/dl (1.8-2.4); Potassium 3.1 mmol/L (3.5-5.1)
[2020-10-03 10:30] LABS: Bilirubin,Total 0.9 mg/dl (0.2-1); Globulin 2.8 gm/dl (2.5-4.0); Total Protein 5.7 gm/dl (6.4-8.2)
[2020-10-03] MEDS: POTASSIUM CHLORIDE / WTR 10 MEQ/100 ML PLCT IV SCH ×2 (11:13→12:05)
[2020-10-03] MEDS ORDERED: POTASSIUM CHLORIDE CRTAB 20 MEQ TABCR PO STA (11:57)
[2020-10-03] MEDS: ACETAMINOPHEN 1,000 MG/100 ML VIAL IV PRN (12:10)
--- NOTE | 2020-10-03 14:26 | XRay Report ---
XR KUB/Abdomen 1 view CLINICAL HISTORY: f/u SBO COMPARISON STUDY: March 29, 2006. Also correlation is made with CT of abdomen and pelvis performed on October 02, 2020 FINDINGS: Multiple nondilated gas-filled loops of large bowel are seen. There are few gas-filled slightly dilat ed loops of small bowel measuring up to 4.1 cm which could be due to small bowel obstruction. Lumbar dextroscoliosis is seen with severe degenerative changes of the spine. IMPRESSION: 1. Mild dilatation of gas-filled loops of small bowel which could be seen in small bowel obstruction . Continuous follow-up is suggested. ACT 112: Negative or not required by law. The above report was generated using voice recognition software. It may contain grammatical, syntax o r spelling errors. Electronically signed by: Elisa Mckeon DO 10/03/2020 2:25 PM
--- NOTE | 2020-10-03 17:29 | Hospitalist Progress Note ---
Date of Service October 03, 2020 Assessment & Plan (1) Partial small bowel obstruction: Plan: Partial small bowel obstruction/likely secondary to adhesions-improving moving bowels and flatus, no further nausea Still some abd pain but improved NSS + KCl 20 mEq 100 mils per hour Famotidine 20 mg IV every 12 hours Zofran 4 mg IV every 6 hours as needed continue Zosyn 3.375 mg IV every 8 hours Acetaminophen 1000 mg IV every 8 hours as needed mild pain or fever Dilaudid 0.25 mg IV every 3 hours as needed moderate to severe pain follow KUB again in AM (2) Atrial fibrillation: Plan: Atrial fibrillation/hypertension/chronic anticoagulation-rate controlled on tele to low 100s advancing diet to clears restart home Xarelto and metoprolol (3) Chronic anticoagulation: Plan: See above (4) COPD (chronic obstructive pulmonary disease): Plan: DuoNebs every 2 hours as needed no acute issues (5) Hyperlipidemia: Plan: Hold rosuvastatin (6) HTN (hypertension): Plan: BPs controlled restart home metoprolol now that devon po hold home HCTZ (7) Hypokalemia: Plan: replace with IV and po KCl follow BMP, Mag in AM Plan: DVT proph-ambulation Xarelto Dispo-continued stay, possible dc to home tomorrow if continues to improve Admission and Anticipated Discharge Date Admission Date: October 02, 2020 Anticipated date of discharge: 10/04/20 [place]ive [place], had a BM this evening and no further nausea. Still some mild mid abd pain. No CP or SOB. Review of Systems Review of Systems: All systems reviewed & are unremarkable except as noted in HPI & below Physical Exam Constitutional: WD/WN, vitals as above Neck: trachea midline, no thyromegaly Respiratory: normal respiratory effort, lungs clear to auscultation Cardiovascular: RRR, no murmur, no edema Chest (Breasts): Chest: normal inspection of chest Gastrointestinal (Abdomen): Inspection/Auscultation: abdomen normal to inspection and normal bowel sounds; abdomen not distended Percussion/Palpation: + abdomen tender (mid abdomen without guarding) and abdomen soft Musculoskeletal: Extremities: extremities normal to inspection; no cyanosis and no clubbing Skin: no rashes, warm and dry Neurologic: moves all extremities and awake; no focal motor deficits Psychiatric: A+Ox3, euthymic affect Lymphatic: no lymphedema Results & Data Results & Data ([facility]) Vital Signs (Past 12 Hours) Vital Signs Temp Pulse Resp BP Pulse Ox 10/03/20 07:34 37.0 C 101 H 20 105/47 L 90 Laboratory Results 10/03/20 10/03/20 10/02/20 Range/Units 07:52 07:52 22:00 WBC 4.98 (4.8-10.8) K/uL RBC 4.89 (4.2-5.4) M/uL Hgb 14.2 (12.0-16.0) g/dL Hct 44.4 (37-47) % MCV 90.8 (80-100) fL MCH 29.0 (25-34) pg MCHC 32.0 (32-36) g/dL RDW Std Deviation 46.4 H (36.4-46.3) fL RDW Coeff of Vin 13.9 (11.5-14.5) % Plt Count 196 (130-400) K/uL MPV 11.7 H (7.4-10.4) fL Immature Gran % (Auto) 0.2 % Neut % (Auto) 57.3 % Lymph % (Auto) 29.5 % [place] % (Auto) 10.4 % Eos % (Auto) 2.0 % Baso % (Auto) 0.6 % Neut # (Auto) 2.85 (1.4-6.5) K/uL Lymph # (Auto) 1.47 (1.2-3.4) K/uL [place] # (Auto) 0.52 (0.11-0.59) K/uL Eos # (Auto) 0.10 (0-0.5) K/uL Baso # (Auto) 0.03 (0-0.2) K/uL Immature Gran # (Auto) 0.01 (0.00-0.02) K/uL Sodium 142 (136-145) mmol/L Potassium 3.1 L (3.5-5.1) mmol/L Chloride 106 (98-107) mmol/L Carbon Dioxide 30 (21-32) mmol/L Anion Gap 6.0 (3-11) BUN 13 (7-18) mg/dl Creatinine 0.67 (0.6-1.2) mg/dl Est Cr Clr Drug Dosing 77.3 ml/min Est GFR ( Amer) 96.2 ml/min Est GFR (Non-Af Amer) 83.0 ml/min BUN/Creatinine Ratio 19.5 (10-20) Glucose 104 H (70-99) mg/dl Calcium 8.5 (8.5-10.1) mg/dl Magnesium 1.9 (1.8-2.4) mg/dl Total Bilirubin 0.9 (0.2-1) mg/dl AST 19 (15-37) U/L ALT 21 (12-78) U/L Alkaline Phosphatase 68 (45-117) U/L Total Protein 5.7 L (6.4-8.2) gm/dl Albumin 2.9 L (3.4-5.0) gm/dl Globulin 2.8 (2.5-4.0) gm/dl Albumin/Globulin Ratio 1.0 (0.9-2) Urine Color Dark Yellow Urine Appearance Clear (Clear) Urine pH 5.5 (4.5-7.5) Ur Specific [place] 1.022 (1.000-1.030) Urine Protein Negative (Negative) Urine Glucose (UA) Negative (Negative) Urine Ketones Trace H (Negative) Urine Blood Negative (Negative) Urine Nitrite Negative (Negative) Urine Bilirubin Negative (Negative) Urine Urobilinogen Negative (Negative) Ur Leukocyte Esterase 1+ H (Negative) Urine WBC (Auto) 10-30 H (0-5) /hpf Urine RBC (Auto) 0-4 (0-4) /hpf U Hyaline Cast (Auto) 10-30 H (0-5) /lpf U Epithel Cells (Auto) >30 H (0-5) /lpf Urine Bacteria (Auto) Negative (Negative) Diagnostic Findings KUB X-Ray 10/03/20 10:15 XR KUB/Abdomen 1 view CLINICAL HISTORY: f/u SBO COMPARISON STUDY: March 29, 2006. Also correlation is made with CT of abdomen and pelvis performed on October 02, 2020 FINDINGS: Multiple nondilated gas-filled loops of large bowel are seen. There are few gas- filled slightly dilated loops of small bowel measuring up to 4.1 cm which could be due to small bowel obstruction. Lumbar dextroscoliosis is seen with severe degenerative changes of the spine. IMPRESSION: 1. Mild dilatation of gas-filled loops of small bowel which could be seen in small bowel obstruction. Continuous follow-up is suggested. ACT 112: Negative or not required by law. The above report was generated using voice recognition software. It may contain grammatical, syntax or spelling errors. Electronically signed by: Elisa Mckeon DO 10/03/2020 2:25 PM PG Care Time/CCT Total # of Minutes Spent Total Time Spent with Patient: Total time spent is greater than 50% in coordination of care (as documented) at patient's floor/unit and/or counseling patient: Coding Level of Care Code 56783 Subseq Hosp Care Lvl 3 Diagnoses Partial small bowel obstruction K56.600 Atrial fibrillation I48.91 Chronic anticoagulation Z79.01 COPD (chronic obstructive pulmonary disease) J44.9 COPD type: unspecified COPD Hyperlipidemia E78.2 Hyperlipidemia type: mixed hyperlipidemia HTN (hypertension) I10 Hypertension type: essential hypertension Hypokalemia E87.6 (1) COPD (chronic obstructive pulmonary disease) COPD type: unspecified COPD Qualified Code(s): J44.9 - Chronic obstructive pulmonary disease, unspecified (2) Hyperlipidemia Hyperlipidemia type: mixed hyperlipidemia Qualified Code(s): E78.2 - Mixed hyperlipidemia (3) HTN (hypertension) Hypertension type: essential hypertension Qualified Code(s): I10 - Essential (primary) hypertension
[2020-10-03] MEDS ORDERED: SIMETHICONE 80 MG CHEW PO PRN (19:04)
[2020-10-03] MEDS: RIVAROXABAN 20 MG TAB PO SCH (20:32)
[2020-10-03] MEDS: METOPROLOL TARTRATE 50 MG TAB PO SCH (20:32)
[2020-10-04] MEDS: PIPERACILLIN/TAZOBACTAM 4.5 GM in DEXTROSE 5% 100 ML IV SCH ×2 (03:46→11:44)
[2020-10-04] MEDS: NSS + 20MEQ KCL 20 MEQ/1,000 ML BAG IV SCH ×2 (03:47→15:47)
[2020-10-04 06:12] LABS: Basophils # (auto) 0.03 K/uL (0-0.2); Basophils % (auto) 0.5 %; Eosinophils # (auto) 0.12 K/uL (0-0.5); Eosinophils % (auto) 2.2 %; Hematocrit (blood only) 42.9 % (37-47); Hemoglobin 13.8 g/dL (12.0-16.0); Immature Granulocytes # (auto) 0.02 K/uL (0.00-0.02); Immature Granulocytes % (auto) 0.4 %; Lymphocytes # (auto) 1.76 K/uL (1.2-3.4); Lymphocytes % (auto) 31.6 %; Mean Corpuscular Hemoglobin 29.1 pg (25-34); Mean Corpuscular Hgb Conc 32.2 g/dL (32-36); Mean Corpuscular Volume 90.5 fL (80-100); Mean Platelet Volume 11.6 fL (7.4-10.4); Monocytes # (auto) 0.75 K/uL (0.11-0.59); Monocytes % (auto) 13.5 %; Neutrophils # (auto) 2.89 K/uL (1.4-6.5); Neutrophils % (auto) 51.8 %; Platelet Count 193 K/uL (130-400); RDW Standard Deviation 46.5 fL (36.4-46.3); Red Blood Count 4.74 M/uL (4.2-5.4); White Blood Count 5.57 K/uL (4.8-10.8)
[2020-10-04 06:27] LABS: Albumin Level 2.9 gm/dl (3.4-5.0); BUN Creatinine Ratio 17.1 (10-20); Creatinine Clr Calc Pharmacy 81.7 ml/min; Est GFR (African American) 97.7 ml/min; Est GFR (Non-African American) 84.3 ml/min; Magnesium 1.8 mg/dl (1.8-2.4)
[2020-10-04 06:33] LABS: Albumin Globulin Ratio 1.1 (0.9-2); Bilirubin,Total 0.6 mg/dl (0.2-1); Globulin 2.6 gm/dl (2.5-4.0); Total Protein 5.5 gm/dl (6.4-8.2)
[2020-10-04] MEDS: METOPROLOL TARTRATE 50 MG TAB PO SCH ×2 (08:43→20:43)
[2020-10-04] MEDS: clonazePAM 0.5 MG TAB PO PRN ×2 (08:43→20:47)
[2020-10-04] MEDS: FAMOTIDINE 20 MG in SYRINGE 3 ML IV SCH ×2 (08:43→20:45)
--- NOTE | 2020-10-04 09:48 | XRay Report ---
KUB HISTORY: Small bowel obstruction. Follow-up. COMPARISON: 10/02/2020. FINDINGS: No dilated loops of small bowel identified. There is gas within the nondistended colon. S-s haped scoliosis of the thoracolumbar spine. Bilateral nephrolithiasis, unchanged. No ureteral calcul i. No pneumoperitoneum or pneumatosis. IMPRESSION: No dilated loops of small bowel identified. ACT 112: Negative or not required by law. Electronically signed by: Bobby Holland M.D. 10/04/2020 9:47 AM
[2020-10-04] MEDS ORDERED: ACETAMINOPHEN 325 MG TAB PO PRN (14:46)
--- NOTE | 2020-10-04 14:56 | Hospitalist Progress Note ---
Date of Service October 04, 2020 Assessment & Plan (1) Partial small bowel obstruction: Plan: Partial small bowel obstruction/likely secondary to adhesions- now resolved moving bowels numerous times, some scant blood now and soreness of perianal region-likely hemorrhoid; no further nausea Some RLQ abd pain but do not suspect appendicitis-will watch, serial abd exams KUB today resolved SBO continue NSS + KCl 20 mEq but decrease to 75mL/hr Famotidine 20 mg IV every 12 hours Zofran 4 mg IV every 6 hours as needed dc Zosyn change IV APAP to po Dilaudid 0.25 mg IV every 3 hours as needed moderate to severe pain follow KUB again in AM -add HC suppos IL bid for hemorrhoids advance diet to full liquids -replace Mag 1 gram IV x 1 follow BMP, CBC, Mag, Phos in AM (2) Atrial fibrillation: Plan: Atrial fibrillation/hypertension/chronic anticoagulation-rate high 100-120s but had missed 2 doses of metoprolol at least continue Xarelto and metoprolol but may need to increase dose of metoprolol if rates remain high-should improve with time (3) Chronic anticoagulation: Plan: See above (4) COPD (chronic obstructive pulmonary disease): Plan: DuoNebs every 2 hours as needed no acute issues (5) Hyperlipidemia: Plan: Hold rosuvastatin (6) HTN (hypertension): Plan: BPs controlled continue metoprolol hold home HCTZ (7) Hypokalemia: Plan: resolved after replacement Plan: DVT proph-ambulation Xarelto Dispo-continued stay, possible dc to home tomorrow if continues to improve Admission and Anticipated Discharge Date Admission Date: October 02, 2020 Subjective Pt moving her bowels numerous times today, loose and had small amount of blood on last time. Has a very sore bottom and thinks she has a small hemorrhoid forming. Has some pain in right lower abdomen. No further nausea. Feels heart palpitations today. Tele with Afib with rates 100-120s overnight but improving down to 90s today. Review of Systems Review of Systems: All systems reviewed & are unremarkable except as noted in HPI & below Physical Exam Constitutional: WD/WN, vitals as above Eyes: + anicteric sclerae Neck: trachea midline, no thyromegaly Respiratory: normal respiratory effort, lungs clear to auscultation Cardiovascular: RRR, no murmur, no edema Chest (Breasts): Chest: normal inspection of chest Gastrointestinal (Abdomen): Inspection/Auscultation: abdomen normal to inspection and normal bowel sounds; abdomen not distended Percussion/Palpation: + abdomen tender (in RLQ without guarding or rebound,neg Rovsing's sign) and abdomen soft; abdomen not rigid Musculoskeletal: Extremities: extremities normal to inspection; no cyanosis and no clubbing Skin: no rashes, warm and dry Neurologic: moves all extremities and awake; no focal motor deficits Psychiatric: A+Ox3, euthymic affect Lymphatic: no lymphedema Results & Data Results & Data ([facility]) Vital Signs (Past 12 Hours) Vital Signs Temp Pulse Resp BP BP Pulse Ox 10/04/20 11:25 36.6 C 85 18 133/66 92 10/04/20 06:59 36.8 C 83 18 126/63 91 10/04/20 03:15 36.7 C 122 H 18 129/61 93 Laboratory Results 10/04/20 10/04/20 Range/Units 05:22 05:22 WBC 5.57 (4.8-10.8) K/uL RBC 4.74 (4.2-5.4) M/uL Hgb 13.8 (12.0-16.0) g/dL Hct 42.9 (37-47) % MCV 90.5 (80-100) fL MCH 29.1 (25-34) pg MCHC 32.2 (32-36) g/dL RDW Std Deviation 46.5 H (36.4-46.3) fL RDW Coeff of Vin 14.0 (11.5-14.5) % Plt Count 193 (130-400) K/uL MPV 11.6 H (7.4-10.4) fL Immature Gran % (Auto) 0.4 % Neut % (Auto) 51.8 % Lymph % (Auto) 31.6 % [place] % (Auto) 13.5 % Eos % (Auto) 2.2 % Baso % (Auto) 0.5 % Neut # (Auto) 2.89 (1.4-6.5) K/uL Lymph # (Auto) 1.76 (1.2-3.4) K/uL [place] # (Auto) 0.75 H (0.11-0.59) K/uL Eos # (Auto) 0.12 (0-0.5) K/uL Baso # (Auto) 0.03 (0-0.2) K/uL Immature Gran # (Auto) 0.02 (0.00-0.02) K/uL Sodium 144 (136-145) mmol/L Potassium 4.0 D (3.5-5.1) mmol/L Chloride 114 H (98-107) mmol/L Carbon Dioxide 28 (21-32) mmol/L Anion Gap 2.0 L (3-11) BUN 11 (7-18) mg/dl Creatinine 0.64 (0.6-1.2) mg/dl Est Cr Clr Drug Dosing 81.7 ml/min Est GFR ( Amer) 97.7 ml/min Est GFR (Non-Af Amer) 84.3 ml/min BUN/Creatinine Ratio 17.1 (10-20) Glucose 113 H (70-99) mg/dl Calcium 8.0 L (8.5-10.1) mg/dl Phosphorus 3.0 (2.5-4.9) mg/dl Magnesium 1.8 (1.8-2.4) mg/dl Total Bilirubin 0.6 (0.2-1) mg/dl AST 21 (15-37) U/L ALT 25 (12-78) U/L Alkaline Phosphatase 62 (45-117) U/L Total Protein 5.5 L (6.4-8.2) gm/dl Albumin 2.9 L (3.4-5.0) gm/dl Globulin 2.6 (2.5-4.0) gm/dl Albumin/Globulin Ratio 1.1 (0.9-2) Diagnostic Findings KUB image personally reviewed by me and agree with the following report: KUB X-Ray 10/04/20 08:20 KUB HISTORY: Small bowel obstruction. Follow-up. COMPARISON: 10/02/2020. FINDINGS: No dilated loops of small bowel identified. There is gas within the nondistended colon. S-shaped scoliosis of the thoracolumbar spine. Bilateral nephrolithiasis, unchanged. No ureteral calculi. No pneumoperitoneum or pneumatosis. IMPRESSION: No dilated loops of small bowel identified. ACT 112: Negative or not required by law. Electronically signed by: Bobby Holland M.D. 10/04/2020 9:47 AM PG Care Time/CCT Total # of Minutes Spent Total Time Spent with Patient: Total time spent is greater than 50% in coordination of care (as documented) at patient's floor/unit and/or counseling patient: Coding Level of Care Code 61017 Subseq Hosp Care Lvl 3 Diagnoses Partial small bowel obstruction K56.600 Atrial fibrillation I48.91 Chronic anticoagulation Z79.01 COPD (chronic obstructive pulmonary disease) J44.9 COPD type: unspecified COPD Hyperlipidemia E78.2 Hyperlipidemia type: mixed hyperlipidemia HTN (hypertension) I10 Hypertension type: essential hypertension Hypokalemia E87.6 (1) COPD (chronic obstructive pulmonary disease) COPD type: unspecified COPD Qualified Code(s): J44.9 - Chronic obstructive pulmonary disease, unspecified (2) Hyperlipidemia Hyperlipidemia type: mixed hyperlipidemia Qualified Code(s): E78.2 - Mixed hyperlipidemia (3) HTN (hypertension) Hypertension type: essential hypertension Qualified Code(s): I10 - Essential (primary) hypertension
[2020-10-04] MEDS ORDERED: MAGNESIUM SULFATE / D5W 1 GM/100 ML BAG IV ONE (15:30)
[2020-10-04] MEDS: RIVAROXABAN 20 MG TAB PO SCH (15:48)
[2020-10-04] MEDS: HYDROCORTISONE ACETATE 25 MG SUPP PR SCH ×2 (17:12→20:45)
[2020-10-05] MEDS: NSS + 20MEQ KCL 20 MEQ/1,000 ML BAG IV SCH (04:43)
[2020-10-05 05:35] LABS: Basophils # (auto) 0.04 K/uL (0-0.2); Basophils % (auto) 0.5 %; Eosinophils # (auto) 0.12 K/uL (0-0.5); Eosinophils % (auto) 1.4 %; Hematocrit (blood only) 43.1 % (37-47); Hemoglobin 13.9 g/dL (12.0-16.0); Immature Granulocytes # (auto) 0.02 K/uL (0.00-0.02); Immature Granulocytes % (auto) 0.2 %; Lymphocytes # (auto) 1.78 K/uL (1.2-3.4); Lymphocytes % (auto) 21.5 %; Mean Corpuscular Hemoglobin 28.8 pg (25-34); Mean Corpuscular Hgb Conc 32.3 g/dL (32-36); Mean Corpuscular Volume 89.4 fL (80-100); Monocytes # (auto) 0.76 K/uL (0.11-0.59); Monocytes % (auto) 9.2 %; Neutrophils # (auto) 5.56 K/uL (1.4-6.5); Neutrophils % (auto) 67.2 %; Platelet Count 179 K/uL (130-400); RDW Coefficient of Variation 13.9 % (11.5-14.5); RDW Standard Deviation 45.8 fL (36.4-46.3); Red Blood Count 4.82 M/uL (4.2-5.4); White Blood Count 8.28 K/uL (4.8-10.8)
[2020-10-05 06:10] LABS: Albumin Level 2.9 gm/dl (3.4-5.0); BUN Creatinine Ratio 12.4 (10-20); Calcium 8.3 mg/dl (8.5-10.1); Creatinine Clr Calc Pharmacy 91.7 ml/min; Est GFR (African American) 101.5 ml/min; Est GFR (Non-African American) 87.6 ml/min; Magnesium 1.9 mg/dl (1.8-2.4); Potassium 3.8 mmol/L (3.5-5.1)
[2020-10-05 06:12] LABS: Albumin Globulin Ratio 1.1 (0.9-2); Bilirubin,Total 0.6 mg/dl (0.2-1); Globulin 2.7 gm/dl (2.5-4.0); Total Protein 5.6 gm/dl (6.4-8.2)
[2020-10-05] MEDS: clonazePAM 0.5 MG TAB PO PRN ×2 (07:21→21:17)
[2020-10-05] MEDS: METOPROLOL TARTRATE 50 MG TAB PO SCH ×2 (07:21→21:17)
[2020-10-05] MEDS ORDERED: MAGNESIUM SULFATE / D5W 1 GM/100 ML BAG IV ONE (07:50)
[2020-10-05] MEDS ORDERED: FUROSEMIDE 40 MG in SYRINGE 0 ML IV ONE (08:00)
[2020-10-05] MEDS: HYDROCORTISONE ACETATE 25 MG SUPP PR SCH ×2 (08:47→21:18)
[2020-10-05] MEDS: FAMOTIDINE 20 MG in SYRINGE 3 ML IV SCH ×2 (08:50→21:16)
--- NOTE | 2020-10-05 09:34 | Electrocardiogram Report ---
Test Reason : Blood Pressure : / mmHG Vent. Rate : 100 BPM Atrial Rate : 100 BPM P-R Int : 000 ms QRS Dur : 078 ms QT Int : 330 ms P-R-T Axes : 000 057 027 degrees QTc Int : 425 ms Atrial fibrillation Low voltage QRS Poor R wave progression, consider anterior [place] vs. lead placement vs. LVH Abnormal ECG When compared with ECG of 02-OCT-2020 12:35, Nonspecific T wave abnormality, improved in Inferior leads Nonspecific T wave abnormality no longer evident in Lateral leads Confirmed by Gregory Obrien ([id number]) on 10/05/2020 9:33:32 AM Referred By: REFERRED SELF Confirmed By:Gregory Obrine
[2020-10-05] MEDS ORDERED: POTASSIUM CHLORIDE / WTR 10 MEQ/100 ML PLCT IV ONE (11:52)
--- NOTE | 2020-10-05 11:52 | Hospitalist Progress Note ---
Date of Service October 05, 2020 Assessment & Plan (1) Partial small bowel obstruction: Plan: Partial small bowel obstruction/likely secondary to adhesions- was resolved on 10/04, but now worsening pain and nausea again Contines to pass flatus and loose stool though so not likely complete obstruction dc IVFs for crackles, mild hypoxia, and SOB give IV lasix 20mg x 1 make NPO again repeat KUB now COnsult SUrgery in case of need for surgical given recurrent symptoms may need NGT continue Famotidine 20 mg IV every 12 hours continue Zofran 4 mg IV every 6 hours as needed Dilaudid 0.25 mg IV every 3 hours as needed for moderate to severe pain -continue HC suppos ND bid for hemorrhoids follow BMP, CBC, Mag, Phos in AM and replete as needed-give 1 gram Mag and 10 of KCl today (2) Atrial fibrillation: Plan: Permanent atrial fibrillation continues with some uncontrolled rates but may be related to abd pains. Initially had missed a dose of beta sin -continue metoprolol 50mg po bid-will hold off on titrating up for now -continue Xarelto but if not able to tolerate pills, can restart Lovenox therapeutic dosing replete K and Mag (3) Chronic anticoagulation: Plan: See above (4) COPD (chronic obstructive pulmonary disease): Plan: DuoNebs every 2 hours as needed having some SOB today giving IV lasix (5) Hyperlipidemia: Plan: Hold rosuvastatin (6) HTN (hypertension): Plan: BPs controlled continue metoprolol hold home HCTZ (7) Hypokalemia: Plan: improved but keep >/= 4.0 replace today Plan: DVT proph- Xarelto Dispo-continued stay Admission and Anticipated Discharge Date Admission Date: October 02, 2020 Subjective Pt reports SOB this AM and heart palpitations as well as recurrence of exact same pain and nausea that brought her in originally. She is still passing some flatus and had a loose stool this AM. SOB improved with lasix. No chest pain. Abd pain is all across mid abdomen. Tele with atrial fibrillation , rates 80s-110s Review of Systems Review of Systems: All systems reviewed & are unremarkable except as noted in HPI & below Physical Exam Constitutional: WD/WN, vitals as above Eyes: + anicteric sclerae Neck: trachea midline, no thyromegaly Respiratory: normal respiratory effort Auscultation: + crackles (bibasilar); no wheezes Cardiovascular: Rate/Rhythm: regular rate and + irregularly irregular Heart Sounds: no murmur Chest (Breasts): Chest: normal inspection of chest Gastrointestinal (Abdomen): Inspection/Auscultation: abdomen normal to inspection (but some are high pitched) and normal bowel sounds; abdomen not distended Percussion/Palpation: + abdomen tender (across mid abdomen w/o guarding or rebound) and abdomen soft; abdomen not rigid Musculoskeletal: Extremities: extremities normal to inspection; no cyanosis and no clubbing Skin: no rashes, warm and dry Neurologic: moves all extremities and awake; no focal motor deficits Psychiatric: A+Ox3, euthymic affect Lymphatic: no lymphedema Results & Data Results & Data ([facility]) Vital Signs (Past 12 Hours) Vital Signs Temp Pulse Resp BP BP Pulse Ox 10/05/20 11:26 36.5 C 93 H 18 126/70 95 10/05/20 07:33 36.6 C 112 H 18 150/90 H 94 10/05/20 07:00 37.0 C 96 H 19 136/85 94 10/05/20 04:43 36.9 C 112 H 24 149/95 H 95 10/04/20 23:53 36.8 C 83 18 136/84 93 Laboratory Results 10/05/20 10/05/20 10/05/20 Range/Units 08:01 05:26 05:26 WBC 8.28 (4.8-10.8) K/uL RBC 4.82 (4.2-5.4) M/uL Hgb 13.9 (12.0-16.0) g/dL Hct 43.1 (37-47) % MCV 89.4 (80-100) fL MCH 28.8 (25-34) pg MCHC 32.3 (32-36) g/dL RDW Std Deviation 45.8 (36.4-46.3) fL RDW Coeff of Vin 13.9 (11.5-14.5) % Plt Count 179 (130-400) K/uL MPV 11.0 H (7.4-10.4) fL Immature Gran % (Auto) 0.2 % Neut % (Auto) 67.2 % Lymph % (Auto) 21.5 % [place] % (Auto) 9.2 % Eos % (Auto) 1.4 % Baso % (Auto) 0.5 % Neut # (Auto) 5.56 (1.4-6.5) K/uL Lymph # (Auto) 1.78 (1.2-3.4) K/uL [place] # (Auto) 0.76 H (0.11-0.59) K/uL Eos # (Auto) 0.12 (0-0.5) K/uL Baso # (Auto) 0.04 (0-0.2) K/uL Immature Gran # (Auto) 0.02 (0.00-0.02) K/uL Sodium 141 (136-145) mmol/L Potassium 3.8 (3.5-5.1) mmol/L Chloride 112 H (98-107) mmol/L Carbon Dioxide 27 (21-32) mmol/L Anion Gap 2.0 L (3-11) BUN 7 (7-18) mg/dl Creatinine 0.57 L (0.6-1.2) mg/dl Est Cr Clr Drug Dosing 91.7 ml/min Est GFR ( Amer) 101.5 ml/min Est GFR (Non-Af Amer) 87.6 ml/min BUN/Creatinine Ratio 12.4 (10-20) Glucose 112 H (70-99) mg/dl Calcium 8.3 L (8.5-10.1) mg/dl Magnesium 1.9 (1.8-2.4) mg/dl Total Bilirubin 0.6 (0.2-1) mg/dl AST 18 (15-37) U/L ALT 26 (12-78) U/L Alkaline Phosphatase 63 (45-117) U/L Troponin I < 0.015 (0-0.045) ng/ml Total Protein 5.6 L (6.4-8.2) gm/dl Albumin 2.9 L (3.4-5.0) gm/dl Globulin 2.7 (2.5-4.0) gm/dl Albumin/Globulin Ratio 1.1 (0.9-2) PG Care Time/CCT Total # of Minutes Spent Total Time Spent with Patient: Total time spent is greater than 50% in coordination of care (as documented) at patient's floor/unit and/or counseling patient: Coding Level of Care Code 22828 Subseq Hosp Care Lvl 3 Diagnoses Partial small bowel obstruction K56.600 Atrial fibrillation I48.91 Chronic anticoagulation Z79.01 COPD (chronic obstructive pulmonary disease) J44.9 COPD type: unspecified COPD Hyperlipidemia E78.2 Hyperlipidemia type: mixed hyperlipidemia HTN (hypertension) I10 Hypertension type: essential hypertension Hypokalemia E87.6 (1) COPD (chronic obstructive pulmonary disease) COPD type: unspecified COPD Qualified Code(s): J44.9 - Chronic obstructive pulmonary disease, unspecified (2) Hyperlipidemia Hyperlipidemia type: mixed hyperlipidemia Qualified Code(s): E78.2 - Mixed hyperlipidemia (3) HTN (hypertension) Hypertension type: essential hypertension Qualified Code(s): I10 - Essential (primary) hypertension
--- NOTE | 2020-10-05 12:13 | XRay Report ---
KUB HISTORY: Generalized abdominal pain. Follow-up small bowel obstruction. COMPARISON: KUB 10/04/2020. Abdomen and pelvis CT 10/02/2020. FINDINGS: Progressive dilated gas-filled loops of small bowel within the abdomen measuring up to 4.8 cm diameter. This is consistent with a small bowel obstruction. There is a small amount of gas within the nondistended colon. No renal calculi. No ureteral calculi. No pneumoperitoneum or pneumatosis. IMPRESSION: Interval progression of the dilated gas-filled loops of small bowel within the abdomen consistent wit h a small bowel obstruction. ACT 112: Negative or not required by law. Electronically signed by: Bobby Holland M.D. 10/05/2020 12:11 PM
--- NOTE | 2020-10-05 14:27 | Surgery Consultation ---
Date of Consultation October 05, 2020 Assessment & Plan (1) Partial small bowel obstruction: 80 year old female with possible partial sbo, likely secondary to adhesions though history is more of prolonged diarrhea. NPO, may have sips and chips with meds hold xarelto if surgery necessary repeat KUB in am if still symptomatic may perform contrasted study in next few days surgery will follow (2) Atrial fibrillation: (3) Chronic anticoagulation: (4) COPD (chronic obstructive pulmonary disease): (5) Peripheral arterial disease: History of Present Illness Attending Physician: Jess Palomo MD History of Present Illness 80 year old female admitted with n/v/d and abdominal pain. Over the past 6 weeks she has been having diarrhea, worse with certain foods like salad and vegetables. Also feels some bloating. On Tuesday she had symptoms but also worsening upper abdominal pain and vomiting. CT with no oral contrast showed possible partial sbo. She was admitted and felt better over the next 2 days, however today she started having recurrence of symptoms. KUB showed dilated small bowel but air and some stool in colon, consistent with partial sbo. Still having diarrhea and passing flatus. History of hysterectomy for endometriosis. On xarelto for afib. Allergies Allergy/AdvReac Type Severity Reaction Status Date / Time aspirin [From Percodan] Allergy Verified 10/02/20 14:21 ciprofloxacin Allergy Verified 10/02/20 14:21 lisinopril Allergy Verified 10/02/20 14:21 peanut Allergy Verified 10/02/20 14:21 oxycodone AdvReac Unknown "makes me Verified 10/02/20 14:21 crazy" Home Medications Medication Instructions Recorded Confirmed Type calcium carbonate 600 mg (1,500 1 tab PO DAILY tab 10/26/18 10/02/20 History mg)-vitamin D3 200 unit tablet cholecalciferol (vitamin D3) 75 3,000 units PO DAILY tab 10/26/18 10/02/20 History mcg (3,000 unit) tablet clonazepam 0.5 mg tablet 0.5 mg PO BID #60 tab 10/26/18 10/02/20 History melatonin ER 10 mg-pyridoxine HCl 1 tab PO HS PRN tab 10/26/18 10/02/20 History (B6) 10 mg tab, immed-extend release valacyclovir 500 mg tablet 500 mg PO DAILY PRN tab 10/26/18 10/02/20 History epinephrine 0.3 mg/0.3 mL 0.3 mg IM DIRECTED PRN 11/01/18 10/02/20 History injection, auto-injector (EpiPen 2-Adria) potassium chloride 20 mEq 20 meq PO DAILY #90 tab 01/30/20 10/02/20 Rx tablet,extended release rosuvastatin 10 mg tablet 10 mg PO HS #90 tab 04/30/20 10/02/20 Rx hydrochlorothiazide 12.5 mg tablet 12.5 mg PO DAILY #90 tab 05/26/20 10/02/20 Rx fluticasone propionate 50 2 spray INTRANASAL DAILY #15.8 ml 08/14/20 10/02/20 Rx mcg/actuation nasal spray,suspension (Flonase Allergy Relief) meclizine 12.5 mg tablet 12.5 mg PO QID PRN #30 tab 08/14/20 10/02/20 Rx metoprolol tartrate 50 mg tablet 50 mg PO BID #180 tab 09/11/20 10/02/20 Rx rivaroxaban 20 mg tablet (Xarelto) 20 mg PO QPM #90 tab 09/25/20 10/02/20 Rx cyanocobalamin (vitamin B-12) 1,000 mcg PO BID cap 09/29/20 10/02/20 History 1,000 mcg capsule omeprazole 20 mg capsule,delayed 20 mg PO QAM 10/02/20 10/02/20 History release Patient History Medical History Cerebral meningioma Chronic anxiety COPD (chronic obstructive pulmonary disease) HTN (hypertension) Hyperlipidemia PAF (paroxysmal atrial fibrillation) Surgical History History of abdominal hysterectomy Family History Father Heart disease Brother Myocardial infarction Sister Ovarian cancer Other Cancer Lung cancer Denies family history of Prostate cancer Breast cancer Colorectal cancer Social History Smoking Status: Former smoker Tobacco Type: Cigarettes Age Started Using Tobacco: 35; Age Quit Using Tobacco: 74; packs per day: 0.75; Years Smoked: 39; Second Hand Exposure: Yes; Hx Alcohol Use: No Hx Substance Use: No Preferred Language: Lao Communication Ability: Effective Visual Impairment: Limited Hearing Ability: Normal [employer] Station Supervisor Required: No Beliefs That Will Affect Care: None marital status: Current Living Situation: Spouse Current Living Situation Comment: Lives with current occupational status: retired Feels Safe at Home: Yes Childhood Exposure to Second-Hand Smoke: Yes caffeine: Yes Dental Care, Regularly: Yes Physical Activity Frequency: Does not Exercise Physical Activity Frequency Comment: works in [employer] Seatbelt Use: always Sunscreen Use: Yes Do you think of yourself as: straight/heterosexual Assistive Devices: Glasses Review of Systems Review of Systems: All systems reviewed & are unremarkable except as noted in HPI & below Physical Exam Constitutional: WD/WN, vitals as above + obese Respiratory: normal respiratory effort, lungs clear to auscultation Cardiovascular: Rate/Rhythm: + irregularly irregular Gastrointestinal (Abdomen): Inspection/Auscultation: + abdomen distended (mild) Percussion/Palpation: + abdomen tender (minimal upper abdominal ttp) and abdomen soft; no guarding, abdomen not rigid and no hernia Results & Data ([facility]) Vital Signs (Past 12 Hours) Vital Signs Temp Pulse Resp BP Pulse Ox 10/05/20 11:26 36.5 C 93 H 18 126/70 95 10/05/20 07:33 36.6 C 112 H 18 150/90 H 94 10/05/20 07:00 37.0 C 96 H 19 136/85 94 10/05/20 04:43 36.9 C 112 H 24 149/95 H 95 Laboratory Results Laboratory Results - last 24 hr 10/05/20 10/05/20 10/05/20 05:26 05:26 08:01 WBC 8.28 RBC 4.82 Hgb 13.9 Hct 43.1 MCV 89.4 MCH 28.8 MCHC 32.3 RDW Std Deviation 45.8 RDW Coeff of Vin 13.9 Plt Count 179 MPV 11.0 H Immature Gran % (Auto) 0.2 Neut % (Auto) 67.2 Lymph % (Auto) 21.5 [place] % (Auto) 9.2 Eos % (Auto) 1.4 Baso % (Auto) 0.5 Neut # (Auto) 5.56 Lymph # (Auto) 1.78 [place] # (Auto) 0.76 H Eos # (Auto) 0.12 Baso # (Auto) 0.04 Immature Gran # (Auto) 0.02 Sodium 141 Potassium 3.8 Chloride 112 H Carbon Dioxide 27 Anion Gap 2.0 L BUN 7 Creatinine 0.57 L Est Cr Clr Drug Dosing 91.7 Est GFR ( Amer) 101.5 Est GFR (Non-Af Amer) 87.6 BUN/Creatinine Ratio 12.4 Glucose 112 H Calcium 8.3 L Magnesium 1.9 Total Bilirubin 0.6 AST 18 ALT 26 Alkaline Phosphatase 63 Troponin I < 0.015 Total Protein 5.6 L Albumin 2.9 L Globulin 2.7 Albumin/Globulin Ratio 1.1 Diagnostic Findings KUB HISTORY: Generalized abdominal pain. Follow-up small bowel obstruction. COMPARISON: KUB 10/04/2020. Abdomen and pelvis CT 10/02/2020. FINDINGS: Progressive dilated gas-filled loops of small bowel within the abdomen measuring up to 4.8 cm diameter. This is consistent with a small bowel obstruction. There is a small amount of gas within the nondistended colon. No renal calculi. No ureteral calculi. No pneumoperitoneum or pneumatosis. IMPRESSION: Interval progression of the dilated gas-filled loops of small bowel within the abdomen consistent with a small bowel obstruction. ABDOMEN AND PELVIS CT WITHOUT CONTRAST CT DOSE: 901.81 mGy.cm HISTORY: Acute upper abdominal pain with nausea and vomiting upper abdominal pain, vomiting TECHNIQUE: Multiaxial CT images of the abdomen and pelvis were performed without contrast. A dose lowering technique was utilized adhering to the principles of ALARA. COMPARISON STUDY: 05/03/2011 FINDINGS: Cardiomegaly with coronary artery calcifications. Trace layering pleural effusions. Mild dependent subsegmental bibasilar atelectasis. No pneumatosis or pneumoperitoneum. The unenhanced spleen, pancreas, adrenal glands and gallbladder are unremarkable. Mild hepatic steatosis. Mild cortical thinning of the bilateral kidneys with renal sinus cysts. There are 3 nonobstructing calculi of the right kidney which measure up to 6 mm. There are 2 nonobstructing calculi of the left kidney which measure up to 4 mm. No ureteral calculi or hydronephrosis. Decompressed urinary bladder. The uterus appears surgically absent. No adnexal mass lesion. Extensive atherosclerosis of the aorta and iliac arteries. No aneurysm or adenopathy. Tiny hiatal hernia. Scattered air-fluid levels are noted throughout the large bowel. Noninflamed appendix. Numerous mildly dilated air and fluid-filled loops of small bowel measure up to 3.3 cm transversely with decompressed loops of small bowel seen distally. Transitioned loops of bowel noted within the anterior upper pelvis on image 324 series 3. Areas of mild interloop edema without significant bowel wall thickening. No acute fracture. Degenerative changes of the spine, pelvis and hips. Thoracolumbar dextroscoliosis. IMPRESSION: 1. Mildly dilated air and fluid-filled loops of small bowel with decompressed distal small bowel is suggestive of at least a partial small bowel obstruction with transition point within the anterior aspect of the upper pelvis, likely secondary to adhesions. 2. Normal appendix. 3. Nonobstructing bilateral nephrolithiasis. 4. Trace pleural effusions. 5. Additional findings as above. PG Care Time/CCT Total # of Minutes Spent Total Time Spent with Patient: Total time spent is greater than 50% in coordination of care (as documented) at patient's floor/unit and/or counseling patient: Coding Level of Care Code 64772 Initial Inpt Care Lvl 2 Diagnoses Partial small bowel obstruction K56.600 Atrial fibrillation I48.91 Chronic anticoagulation Z79.01 COPD (chronic obstructive pulmonary disease) J44.9 COPD type: unspecified COPD Peripheral arterial disease I73.9 (1) COPD (chronic obstructive pulmonary disease) COPD type: unspecified COPD Qualified Code(s): J44.9 - Chronic obstructive pulmonary disease, unspecified
[2020-10-05] MEDS ORDERED: METOPROLOL TARTRATE 1 MG/ML VIAL IV PRN (16:55)
[2020-10-05] MEDS: MELATONIN 3 MG TAB PO SCH (21:16)
[2020-10-06] MEDS: HYDROCORTISONE ACETATE 25 MG SUPP PR SCH ×3 (08:02→20:11)
[2020-10-06] MEDS: METOPROLOL TARTRATE 50 MG TAB PO SCH ×2 (08:02→20:11)
[2020-10-06] MEDS: FAMOTIDINE 20 MG in SYRINGE 3 ML IV SCH ×2 (08:03→20:10)
[2020-10-06] MEDS: clonazePAM 0.5 MG TAB PO PRN ×2 (08:10→20:15)
--- NOTE | 2020-10-06 09:32 | Surgery Progress Note ---
Date of Service October 06, 2020 Assessment & Plan (1) Partial small bowel obstruction: Plan: KUB with air in colon, no small bowel distention can start clears, advance as devon if does not progress consider SBFT Admission and Anticipated Discharge Date Admission Date: October 02, 2020 Supervising Physician Co-Signing Physician Notes Patient seen and examined, agree with above. questionable partial sbo, multiple loss bm's overnight, no pain today. tolerating clears. abd soft, nt, nd. KUB with no official read but no sbo, +air in colon. advance diet to low fiber as tolerated, may be functional gi issue vs. intermittent psbo. if recurs then sbft or ct with oral and iv contrast. Subjective feels better, had stool in her depends this AM Physical Exam Gastrointestinal (Abdomen): Inspection/Auscultation: abdomen not distended Percussion/Palpation: abdomen soft; abdomen nontender Results & Data ([facility]) Vital Signs (Past 12 Hours) Vital Signs Temp Pulse Pulse Resp BP BP Pulse Ox 10/06/20 08:04 36.8 C 96 H 20 132/86 93 10/06/20 04:38 36.7 C 71 18 119/79 93 10/05/20 23:12 86 10/05/20 22:50 36.4 C L 91 H 18 122/69 91 PG Care Time/CCT Total # of Minutes Spent Total Time Spent with Patient: Total time spent is greater than 50% in coordination of care (as documented) at patient's floor/unit and/or counseling patient: Coding Level of Care Code 49775 Subseq Hosp Care Lvl 1 Diagnoses Partial small bowel obstruction K56.600
--- NOTE | 2020-10-06 12:53 | XRay Report ---
XR KUB/Abdomen 1 view CLINICAL HISTORY: sbo COMPARISON STUDY: October 05, 2020 FINDINGS: Interval resolution of gaseous dilatation of the multiple loops of small bowel. Few nondilated gas-fi lled loops of small bowel measuring up to 2.7 cm in diameter. Gas-filled loops of large bowel are nondilated. IMPRESSION: 1. Interval resolution of the gaseous dilatation of small bowel. ACT 112: Negative or not required by law. The above report was generated using voice recognition software. It may contain grammatical, syntax o r spelling errors. Electronically signed by: Elisa Mckeon DO 10/06/2020 12:52 PM
--- NOTE | 2020-10-06 15:20 | Hospitalist Progress Note ---
Date of Service October 06, 2020 Assessment & Plan (1) Partial small bowel obstruction: Plan: Partial small bowel obstruction/likely secondary to adhesions- was resolved on 10/04 Continues to pass flatus and loose stool clears, advance to full liquids this evening check KUB in AM continue Famotidine 20 mg IV every 12 hours continue Zofran 4 mg IV every 6 hours as needed Dilaudid 0.25 mg IV every 3 hours as needed for moderate to severe pain -continue HC suppos PA bid for hemorrhoids follow BMP, CBC, Mag, Phos in AM and replete as needed (2) Atrial fibrillation: Plan: Permanent atrial fibrillation continues with some uncontrolled rates but may be related to abd pains. Initially had missed a dose of beta sin -continue metoprolol 50mg po bid -continue Xarelto but if not able to tolerate pills, can restart Lovenox therapeutic dosing replete K and Mag (3) Chronic anticoagulation: Plan: See above (4) COPD (chronic obstructive pulmonary disease): Plan: DuoNebs every 2 hours as needed having some SOB today giving IV lasix (5) Hyperlipidemia: Plan: Hold rosuvastatin (6) HTN (hypertension): Plan: BPs controlled continue metoprolol hold home HCTZ (7) Hypokalemia: Plan: stable Plan: DVT proph- Xarelto Dispo-continued stay Admission and Anticipated Discharge Date Admission Date: October 02, 2020 Subjective patient is moving her bowels, diarrhea, less pain, tolerating liquids, c/o some abdominal distension she says she has had diarrhea/loose stools for years she thinks there is correlation with dairy but can get it with all kinds of vegetables as well no fever, no dyspnea, no chest pain d/w general surgery, appreciate their input patient has never seen GI in the clinic, made that suggestion, she agrees with a referral Review of Systems Review of Systems: All systems reviewed & are unremarkable except as noted in Subjective Gastrointestinal: + bloating and + diarrhea/loose stools; no abdominal pain, no nausea, no vomiting and no constipation Physical Exam Constitutional: WD/WN, vitals as above Neck: trachea midline, no thyromegaly Respiratory: normal respiratory effort, lungs clear to auscultation Cardiovascular: RRR, no murmur, no edema Gastrointestinal (Abdomen): normal bowel sounds, soft, nontender, no hepatosplenomegaly Musculoskeletal: no cyanosis or clubbing, extremities motor strength 5/5 Skin: no rashes, warm and dry Neurologic: patellar DTR's 2+ bilat, sensation intact and PERRL, EOMI, accommodation nl, no face palsy, no dysarthria Psychiatric: A+Ox3, euthymic affect Results & Data Results & Data ([facility]) Vital Signs (Past 12 Hours) Vital Signs Temp Pulse Pulse Resp BP BP Pulse Ox 10/06/20 11:04 36.9 C 97 H 20 126/76 94 10/06/20 08:04 36.8 C 96 H 20 132/86 93 10/06/20 08:00 101 H 10/06/20 04:38 36.7 C 71 18 119/79 93 Medications Administered Current Inpatient Medications Acetaminophen (Acetaminophen 325 Mg Tab) 650 mg PO Q4H PRN PRN Reason: Pain Stop: 11/03/20 14:45 Last Admin: 10/05/20 15:05 Dose: 650 mg Documented by: Albuterol (Albut/Ipratrop 3mg/0.5mg Neb 3 Ml Vial) 3 ml NEB Q2H PRN PRN Reason: dyspnea Stop: 11/01/20 18:17 Clonazepam (Clonazepam 0.5 Mg Tab) 0.5 mg PO TID PRN PRN Reason: Anxiety Stop: 11/01/20 21:26 Last Admin: 10/06/20 08:10 Dose: 0.5 mg Documented by: Hydrocortisone (Hydrocortisone Acetate 25 Mg Supp) 25 mg PA BID WILLIAM Stop: 11/03/20 14:49 Last Admin: 10/06/20 08:03 Dose: Not Given Documented by: Hydromorphone HCl (Hydromorphone Inj 0.5 Mg/0.5 Ml Syr) 0.25 mg IV Q3H PRN PRN Reason: Severe Pain Stop: 10/16/20 21:15 Famotidine 20 mg/ Syringe 5 mls @ 2.5 mls/min IV Q12 WILLIAM Stop: 11/01/20 22:29 Last Admin: 10/06/20 08:03 Dose: 2.5 mls/min Documented by: Melatonin (Melatonin 3 Mg Tab) 3 mg PO HS WILLIAM Stop: 11/04/20 20:59 Last Admin: 10/05/20 21:16 Dose: 3 mg Documented by: Metoprolol Tartrate (Metoprolol Tartrate 50 Mg Tab) 50 mg PO BID WILLIAM Stop: 11/02/20 20:59 Last Admin: 10/06/20 08:02 Dose: 50 mg Documented by: Metoprolol Tartrate (Metoprolol Tartrate 1 Mg/Ml Vial) 5 mg IV Q6 PRN PRN Reason: HR>120 Stop: 11/04/20 17:59 Ondansetron HCl (Ondansetron Inj 2 Mg/Ml 2 Ml Vial) 4 mg IV Q6H PRN PRN Reason: Nausea Stop: 11/01/20 21:15 Simethicone (Simethicone 80 Mg Chew) 80 mg PO Q6H PRN PRN Reason: gas pains Stop: 11/02/20 19:03 Last Admin: 10/05/20 03:58 Dose: 80 mg Documented by: PG Care Time/CCT Total # of Minutes Spent Total Time Spent with Patient: Total time spent is greater than 50% in coordination of care (as documented) at patient's floor/unit and/or counseling patient: Coding Level of Care Code 08418 Subseq Hosp Care Lvl 2 Diagnoses Partial small bowel obstruction K56.600 Atrial fibrillation I48.91 Chronic anticoagulation Z79.01 COPD (chronic obstructive pulmonary disease) J44.9 COPD type: unspecified COPD Hyperlipidemia E78.2 Hyperlipidemia type: mixed hyperlipidemia HTN (hypertension) I10 Hypertension type: essential hypertension Hypokalemia E87.6 (1) Hyperlipidemia Hyperlipidemia type: mixed hyperlipidemia Qualified Code(s): E78.2 - Mixed hyperlipidemia (2) COPD (chronic obstructive pulmonary disease) COPD type: unspecified COPD Qualified Code(s): J44.9 - Chronic obstructive pulmonary disease, unspecified (3) HTN (hypertension) Hypertension type: essential hypertension Qualified Code(s): I10 - Essential (primary) hypertension
[2020-10-06] MEDS: MELATONIN 3 MG TAB PO SCH (20:11)
[2020-10-06] MEDS: ENOXAPARIN 100 MG/1ML SYR SQ SCH (23:56)
[2020-10-07] MEDS: HYDROCORTISONE ACETATE 25 MG SUPP PR SCH (08:47)
[2020-10-07] MEDS: FAMOTIDINE 20 MG in SYRINGE 3 ML IV SCH (08:51)
[2020-10-07] MEDS: clonazePAM 0.5 MG TAB PO PRN (08:51)
[2020-10-07] MEDS: METOPROLOL TARTRATE 50 MG TAB PO SCH (08:52)
--- NOTE | 2020-10-07 09:12 | XRay Report ---
PA CHEST WITH ABDOMINAL SERIES CLINICAL HISTORY: Follow-up of bowel obstruction. FINDINGS: A PA chest radiograph is compared to study dated 10/02/2020. The heart is enlarged noting atherosclero tic calcification of the thoracic aorta. The pulmonary vasculature is noncongested. Emphysema and chr onic interstitial thickening is similar to previous. There is bibasilar scarring/atelectasis. No airs pace consolidation or large pleural effusion is identified. No pneumothorax is seen. The skeletal str uctures are osteopenic. The bony thorax is grossly intact. Degenerative change and scoliosis is seen in the thoracic spine. Supine and erect abdominal radiographs are compared to study dated 10/06/2020 and correlated with abdo angel CT dated 10/02/2020. There is no radiographic evidence of bowel obstruction. No evidence of intr aperitoneal free air is seen. There are bilateral nonobstructing renal calculi. The lumbosacral spine and bony pelvis appear intact. There is advanced lumbar sacral spondylosis and scoliosis. IMPRESSION: 1. Cardiomegaly and emphysema with no active disease in the chest. 2. There is no radiographic evidence of bowel obstruction on today's examination. 3. Bilateral nephrolithiasis. ACT 112: Negative or not required by law. Electronically signed by: Malcolm Palmer M.D. 10/07/2020 9:10 AM
[2020-10-07] MEDS: ENOXAPARIN 100 MG/1ML SYR SQ SCH (12:15)
--- NOTE | 2020-10-07 12:25 | Discharge Summary ---
Date of Service October 07, 2020 Admission HPI Per Admitting Provider The patient is an 80-year-old female with a past medical history including atrial fibrillation on chronic anticoagulation, osteoporosis, hypertension, chronic anxiety, COPD, cerebral meningioma, hyperlipidemia, PVCs, PACs, peripheral arterial disease and history of hysterectomy. She presents with symptoms as noted above. CT scan of abdomen pelvis revealed a partial small bowel obstruction with transition point in the anterior upper pelvic area, likely secondary to adhesions Principal Diagnosis Partial small bowel obstruction Chronic diarrhea Discharge Exam Constitutional WD/WN, vitals as above Neck trachea midline, no thyromegaly Respiratory normal respiratory effort, lungs clear to auscultation Cardiovascular RRR, no murmur, no edema Gastrointestinal (Abdomen) normal bowel sounds, soft, nontender, no hepatosplenomegaly Musculoskeletal no cyanosis or clubbing, extremities motor strength 5/5 Skin no rashes, warm and dry Neurologic patellar DTR's 2+ bilat, sensation intact and PERRL, EOMI, accommodation nl, no face palsy, no dysarthria Psychiatric A+Ox3, euthymic affect Discharge Data Allergies Allergy/AdvReac Type Severity Reaction Status Date / Time aspirin [From Percodan] Allergy Verified 10/02/20 14:21 ciprofloxacin Allergy Verified 10/02/20 14:21 lisinopril Allergy Verified 10/02/20 14:21 peanut Allergy Verified 10/02/20 14:21 oxycodone AdvReac Unknown "makes me Verified 10/02/20 14:21 crazy" Consultations 10/02/20 17:27 ED Decision to Admit Stat 10/05/20 11:44 Consult General Surgery Routine Ordered Studies 10/02/20 12:48 CT abd pelvis wo con Stat Hospital Course (1) Partial small bowel obstruction: Partial small bowel obstruction/likely secondary to adhesions- was resolved on 10/04 Continues to pass flatus and loose stool KUB without obstruction tolerating low fiber diet electrolytes stable discharge to home (2) Diarrhea: although she presented with signs of an obstruction, she has been dealing with chronic diarrhea diarrhea x several weeks, maybe months she has tested negative for C diff, negative stool cultures has not seen GI she said she has seen [facility] in [place] in the past she prefers to see [facility] here in [place], will make a referral discussed trying gluten free diet and maybe avoiding lactose information provided on those diets (3) Atrial fibrillation: Permanent atrial fibrillation continues with some uncontrolled rates but may be related to abd pains. Initially had missed a dose of beta sin -continue metoprolol 50mg po bid -continue Xarelto (4) Chronic anticoagulation: See above (5) COPD (chronic obstructive pulmonary disease): DuoNebs every 2 hours as needed having some SOB today giving IV lasix (6) Hyperlipidemia: Hold rosuvastatin (7) HTN (hypertension): BPs controlled continue metoprolol hold home HCTZ (8) Hypokalemia: stable DVT proph- Xarelto Dispo- home Total Time Total Time Spent Total Time Spent (In Minutes): 32 Total Time Includes: Examination of the Patient, Discharge Planning and Medication Reconciliation Discharge Plan Discharge Items Patient Disposition: Home - Self-Care Reason For Visit: SBO Discharge Diagnosis: Partial small bowel obstruction, resolved Chronic diarrhea Condition on Discharge: Good Goals: follow up with gastroenterology for diarrhea work up follow gluten free, lactose free diet as a trial to see if diarrhea improves Activity: Resume your previous activity Driving/Machine Use: No limitations Weightbearing: Full weightbearing Non-emergency contact: Primary Care Provider Call non-emergency contact if: you have any medication questions and your symptoms worsen Follow-up/Referrals: Josué Sandhu MD [Primary Care Provider] - 10/15/20 2:00 pm () Alexander Jacob MD [Physician] - 10/17/20 1:00 pm () Diet: Gluten Free and Lactose Intolerant Addtl Attending Provider Instructions: Medications: no changes at this time Be sure to stay well hydrated, stay active no signs of obstruction on imaging and you have been passing gas and moving bowels as we discussed, can try eliminating lactose and gluten from diet to see if stools improve recommend follow up with gastroenterology, I made a referral to [facility] group please follow up with Dr. Obrien as previously scheduled for management of atrial fibrillation Pending Studies at Discharge: Yes Studies:: stool culture, C diff Stand-Alone Forms: [facility]rem[employer], Smoking Cessation Medications and DC Order Prescriptions: Continued potassium chloride 20 mEq tablet extended release 20 meq PO DAILY Qty: 90 RF: 3 rosuvastatin 10 mg tablet 10 mg PO HS Qty: 90 RF: 3 metoprolol tartrate 50 mg tablet 50 mg PO BID Qty: 180 RF: 3 Xarelto 20 mg tablet 20 mg PO QPM Qty: 90 RF: 3 fluticasone propionate [Flonase Allergy Relief] 50 mcg/actuation spray,suspension 2 spray intranasal DAILY Qty: 15.8 RF: 2 meclizine 12.5 mg tablet 12.5 mg PO QID PRN (Reason: dizziness) Qty: 30 RF: 0 hydrochlorothiazide 12.5 mg tablet 12.5 mg PO DAILY Qty: 90 RF: 3 cyanocobalamin (vitamin B-12) 1,000 mcg capsule 1,000 mcg PO BID RF: 0 clonazepam 0.5 mg tablet 0.5 mg PO TID PRN (Reason: Anxiety) Qty: 60 RF: 0 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) RF: 0 calcium carbonate-vitamin D3 600 mg(1,500mg) -200 unit tablet 1 tab PO DAILY RF: 0 cholecalciferol (vitamin D3) 3,000 unit tablet 3,000 units PO DAILY RF: 0 melatonin-pyridoxine HCl (B6) 10-10 mg tablet,ext release multiphase 1 tab PO HS PRN (Reason: sleep) RF: 0 epinephrine [EpiPen 2-Adria] 0.3 mg/0.3 mL auto-injector 0.3 mg IM DIRECTED PRN (Reason: Anaphylaxis) RF: 0 omeprazole 20 mg capsule,delayed release(DR/EC) 20 mg PO QAM RF: 0 Discharge Orders: Discharge Order (Routine); Ordered 10/07/20 Ordered By: Brenden Hall Admission Data Admit Date/Time: 10/02/20 18:06 Attending Provider: Brenden Hall Admit Provider: Rajan Bloom Primary Care Provider: Josué Sandhu Other Providers: Rajan Bloom ; Joey Ramsey Other Interventions: Discharge Summary Assessment (RN) Last Done: 10/07/20 15:36 Coding Level of Care Code D/C DAY MANAGEMENT >30 MINS Diagnoses Partial small bowel obstruction K56.600 Atrial fibrillation I48.91 Chronic anticoagulation Z79.01 COPD (chronic obstructive pulmonary disease) J44.9 COPD type: unspecified COPD Hyperlipidemia E78.2 Hyperlipidemia type: mixed hyperlipidemia HTN (hypertension) I10 Hypertension type: essential hypertension Hypokalemia E87.6 Diarrhea R19.7
== END 2020-10-07 16:38 | disposition home or self-care (01) | DRG 389 ==
LOC: ED 10:55 → 2N 18:06 → SUATTDRO 18:06 → 2N 19:47 → 2W 10-06 18:26
DX: E87.6 Hypokalemia; I10 Essential (primary) hypertension; I48.20 Chronic atrial fibrillation, unspecified; Z88.5 Allergy status to narcotic agent; Z79.01 Long term (current) use of anticoagulants; D32.9 Benign neoplasm of meninges, unspecified; Z88.6 Allergy status to analgesic agent; R19.7 Diarrhea, unspecified; E78.5 Hyperlipidemia, unspecified; Z87.891 Personal history of nicotine dependence; K56.51 Intestinal adhesions [bands], with partial obstruction; I48.21 Permanent atrial fibrillation; I73.9 Peripheral vascular disease, unspecified; J44.9 Chronic obstructive pulmonary disease, unspecified

== ENCOUNTER 2021-02-05 11:01 | Inpatient (IN) ==
[2021-02-05] MEDS ORDERED: FAMOTIDINE 20MG IV PUSH 20 MG/5 ML SYR IV STA (11:36)
[2021-02-05] MEDS ORDERED: DICYCLOMINE HCL 10 MG/ML 2 ML AMP/VIAL IM ONE (11:36)
[2021-02-05] MEDS ORDERED: SODIUM CHLORIDE 0.9% 1000ML 1,000 ML IV ONE (11:36)
[2021-02-05] MEDS ORDERED: ONDANSETRON INJ 2 MG/ML 2 ML VIAL IV STA (11:36)
[2021-02-05] MEDS ORDERED: ACETAMINOPHEN 1,000 MG/100 ML VIAL IV STA (11:38)
--- NOTE | 2021-02-05 11:42 | Emergency Department Note ---
Impression & Plan Small bowel obstruction, Nausea, vomiting, and diarrhea, Abdominal pain ED Provider Note NAME: OLIVIA ALBERT AGE: 80 SEX: F ARRIVES VIA: Walk-In INFORMANT: Patient ED PROVIDER(S): Reynold Kumar MD CHIEF COMPLAINT: Abdominal pain, n/v/d. PLAN: Disposition: Admit MEDICAL DECISION MAKING: The patient is a pleasant 80-year-old woman with a past medical history of IBS, hypertension, hyperlipidemia, atrial fibrillation on Xarelto who presents to the emergency department for evaluation of right lower quadrant abdominal pain with nausea and vomiting and diarrhea that began last night. The patient reports she was feeling healthy prior to this and in fact had a follow-up from a recent hospitalization with her GI office yesterday and reports she was given an antispasmodic as well as recommendations to use Metamucil. She denies any fevers, chills, cough, congestion, chest pain, shortness of breath, urinary symptoms. She reports she had a similar episode in September where she was admitted and her symptoms resolved. On arrival patient is well-appearing in no acute distress, afebrile stable vital signs. She has mild right lower quadrant discomfort without discrete tenderness. Exam is otherwise unremarkable. EKG without overt acute ischemia. CXR negative for acute cardiopulmonary process. WBC 12.7K, nonspecific. Hbg and platelets wnl. Chemistry without acidosis. LFTs without significant abnormality. Troponin negative/undetectable. Lipase wnl. UA without convincing evidence of infection. Covid-19 RNA, NAAT was negative. CT abd/pelvis demonstrates findings c/w high grade SBO with question of possible close loop obstruction. However, the patient's abdominal exam continues to be benign. Case was discussed with Kiki Grissom, general surgery PAC with Dr. Castillo, general surgery on-call who evaluated the patient at the bedside. Appreciate recommendations for NGT and medicine admission. Case was discussed with Dr. Palomo, [facility] [place], who will evaluate the patient for admission. Unfortunately, the patient was unable to tolerate NG tube placement. Admitting team aware. Triage Nursing notes reviewed and agree them. Prior medical records reviewed Vital Signs: reviewed and remarkable for no significant abnormalities Differential diagnosis: Appendicitis, PID, infections, diverticulitis, UTI, obstruction, mesenteric ischemia, aortic pathology, inflammatory bowel disease, renal colic, PUD, pancreatitis, biliary pathology, hernia, volvulus, constipation, as well as other pathologies. ER treatment provided: See below. Diagnostics interpreted by me: ECG: Atrial fibrillation, 97 bpm, PVCs, no overt ST elevation or depression. Cardiac Monitoring: An order for continuous cardiac monitoring was placed and demonstrated Atrial fibrillation, 97 bpm, PVCs. Laboratory studies: See below Imaging studies: See below Consultation(s): Kiki Grissom, general surgery PAC with Dr. Castillo, general surgery on-call Dr. Palomo, [facility] [place] HPI: The patient is a pleasant 80-year-old woman with a past medical history of IBS, hypertension, hyperlipidemia, atrial fibrillation on Xarelto who presents to the emergency department for evaluation of right lower quadrant abdominal pain with nausea and vomiting and diarrhea that began last night. The patient reports she was feeling healthy prior to this and in fact had a follow-up from a recent hospitalization with her GI office yesterday and reports she was given an antispasmodic as well as recommendations to use Metamucil. She denies any fevers, chills, cough, congestion, chest pain, shortness of breath, urinary symptoms. She reports she had a similar episode in September where she was admitted and her symptoms resolved. ROS: See above HPI for pertinent positives & negatives. A total of 10 systems reviewed and were otherwise negative. PAST MEDICAL HISTORY:See Below PAST SURGICAL HISTORY:See Below FAMILY HISTORY:See Below SOCIAL HISTORY:See Below HOME MEDICATIONS:See Below ALLERGIES:See Below VITALS:See Below PHYSICAL EXAMINATION: GENERAL: Awake, alert, well-appearing, in no distress HENT: Normocephalic, atraumatic. Oropharynx unremarkable. EYES: Normal conjunctiva. Sclera non-icteric. NECK: Supple. No nuchal rigidity. FROM. No JVD. RESPIRATORY: Clear to auscultation. CARDIAC: Regular rate, normal rhythm. Extremities warm and well perfused. Pulses equal. ABDOMEN: Soft, non-distended. Mild right lower quadrant discomfort without discrete tenderness to palpation. No rebound or guarding. No masses. RECTAL: Deferred. MUSCULOSKELETAL: Chest examination reveals no tenderness. The back is symmetrical on inspection without obvious abnormality. There is no CVA tenderness to palpation. No joint edema. LOWER EXTREMITIES: Calves are equal size bilaterally and non-tender. No edema. No discoloration. NEURO: Normal sensorium. No sensory or motor deficits noted. SKIN: No rash or jaundice noted. Reynold Kumar MD Past Med/Surg History Medical History Anxiety Atrial fibrillation dx 6 mo ago; on xarelto; following with Dr. Obrien Cardiac murmur last echo 3 mo ago - Dr. Obrien Cerebral meningioma Dr. Meng monitors annually; last check 10-11 mo ago COPD (chronic obstructive pulmonary disease) GERD (gastroesophageal reflux disease) History of colon polyps History of COVID-19 12/05/20; cough, loss of appetite, loss of taste/smell, fatigue; resolved. History of nephrolithiasis HTN (hypertension) Hx SBO Hyperlipidemia On anticoagulant therapy Osteoporosis Scoliosis Surgical History History of abdominal hysterectomy History of colonoscopy History of elbow surgery Left Family History Father Heart disease Brother Myocardial infarction Sister Ovarian cancer Other Cancer Lung cancer No family history of adverse response to anesthesia Denies family history of Prostate cancer Breast cancer Colorectal cancer Social History Smoking Status: Former smoker Tobacco Type: Cigarettes Age Started Using Tobacco: 35; Age Quit Using Tobacco: 74; packs per day: 0.75; Years Smoked: 39; Second Hand Exposure: No; Hx Alcohol Use: No Hx Substance Use: No Preferred Language: Tajik Communication Ability: Effective Visual Impairment: Limited Hearing Ability: Normal Foot Press Operator Required: No Beliefs That Will Affect Care: None marital status: Current Living Situation: Spouse Current Living Situation Comment: Lives with current occupational status: retired Feels Safe at Home: Yes Childhood Exposure to Second-Hand Smoke: Yes caffeine: Yes Dental Care, Regularly: Yes Physical Activity Frequency: Does not Exercise Physical Activity Frequency Comment: 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 Seatbelt Use: always Sunscreen Use: Yes Do you think of yourself as: straight/heterosexual Assistive Devices: Contacts and Glasses Allergies Allergies Allergy/AdvReac Type Severity Reaction Status Date / Time aspirin [From Percodan] Allergy Swelling Verified 02/05/21 12:45 of Lip/Tongue/Throat ciprofloxacin Allergy Swelling Verified 02/05/21 12:45 of Lip/Tongue/Throat peanut Allergy Swelling Verified 02/05/21 12:45 of Lip/Tongue/Throat oxycodone AdvReac Unknown "makes me Verified 02/05/21 12:45 crazy" apixaban [From Eliquis] AdvReac bloating Verified 02/05/21 12:45 lisinopril AdvReac Cough Verified 02/05/21 12:45 Home Meds Home Medications Medication Instructions Recorded Confirmed calcium carbonate 600 mg-vitamin 1 tab PO QAM tab 10/26/18 02/05/21 D3 5 mcg (200 unit) tablet cholecalciferol (vitamin D3) 75 3,000 units PO QAM tab 10/26/18 02/05/21 mcg (3,000 unit) tablet clonazepam 0.5 mg tablet 0.5 mg PO BID #60 tab 10/26/18 02/05/21 cyanocobalamin (vitamin B-12) 1,000 mcg PO BID cap 09/29/20 02/05/21 1,000 mcg capsule omeprazole 20 mg capsule,delayed 20 mg PO QAM 10/02/20 02/05/21 release hydrochlorothiazide 12.5 mg tablet 12.5 mg PO QAM 11/27/20 02/05/21 potassium chloride 20 mEq 20 meq PO QAM 11/27/20 02/05/21 tablet,extended release Previous Rx's Medication Instructions Recorded rosuvastatin 10 mg tablet 10 mg PO HS #90 tab 04/30/20 metoprolol tartrate 50 mg tablet 50 mg PO BID #180 tab 09/11/20 rivaroxaban 20 mg tablet (Xarelto) 20 mg PO QPM #90 tab 10/29/20 Results & Data (ED) Vital Signs Vital Signs - 24 hr 02/05/21 11:11 02/05/21 12:23 02/05/21 15:05 Temperature 36.4 C L Temperature Source Temporal Artery Scan Pulse Rate 98 H Pulse Rate [Apical] 89 85 Pulse Rhythm [Apical] Irregular Regular Pulse Strength [Apical] Normal Respiratory Rate 20 17 17 Respiratory Effort / Characteristics Non-Labored Spontaneous Respiratory Depth Normal Respiratory Pattern Blood Pressure 141/75 H Blood Pressure [Left Arm] 96/61 L 136/106 H Blood Pressure Mean 97 Blood Pressure Mean [Left Arm] 72 116 Pulse Oximetry 95 94 96 Oxygen Delivery Method Room Air Room Air Room Air Sepsis Recent Fever Within 48 Hours No Sepsis New/Unexplained Change in Mental Status No Sepsis Action Taken by Nursing No Action Required 02/05/21 17:00 Temperature Temperature Source Pulse Rate Pulse Rate [Apical] 70 Pulse Rhythm [Apical] Regular Pulse Strength [Apical] Respiratory Rate 17 Respiratory Effort / Characteristics Non-Labored Spontaneous Respiratory Depth Normal Respiratory Pattern Regular Blood Pressure Blood Pressure [Left Arm] 134/69 Blood Pressure Mean Blood Pressure Mean [Left Arm] 90 Pulse Oximetry 96 Oxygen Delivery Method Room Air Sepsis Recent Fever Within 48 Hours Sepsis New/Unexplained Change in Mental Status Sepsis Action Taken by Nursing Laboratory Data Attestation: I reviewed the patient's lab results. Result diagrams: 02/05/21 12:14 02/05/21 12:14 Lab Results 02/05/21 02/05/21 02/05/21 Range/Units 12:14 12:14 12:17 WBC 12.70 H (4.8-10.8) K/uL RBC 5.57 H (4.2-5.4) M/uL Hgb 16.0 (12.0-16.0) g/dL Hct 49.5 H (37-47) % MCV 88.9 (80-100) fL MCH 28.7 (25-34) pg MCHC 32.3 (32-36) g/dL RDW Std Deviation 47.5 H (36.4-46.3) fL RDW Coeff of Vin 14.7 H (11.5-14.5) % Plt Count 273 (130-400) K/uL MPV 12.6 H (7.4-10.4) fL Immature Gran % (Auto) 0.2 % Neut % (Auto) 74.5 % Lymph % (Auto) 16.1 % [place] % (Auto) 9.0 % Eos % (Auto) 0.1 % Baso % (Auto) 0.1 % Neut # (Auto) 9.46 H (1.4-6.5) K/uL Lymph # (Auto) 2.05 (1.2-3.4) K/uL [place] # (Auto) 1.14 H (0.11-0.59) K/uL Eos # (Auto) 0.01 (0-0.5) K/uL Baso # (Auto) 0.01 (0-0.2) K/uL Immature Gran # (Auto) 0.03 H (0.00-0.02) K/uL Sodium 138 (136-145) mmol/L Potassium 3.3 L (3.5-5.1) mmol/L Chloride 98 (98-107) mmol/L Carbon Dioxide 30 (21-32) mmol/L Anion Gap 10.0 (3-11) BUN 15 (7-18) mg/dl Creatinine 0.98 (0.6-1.2) mg/dl Est Cr Clr Drug Dosing 50.2 ml/min Est GFR ( Amer) 63.1 ml/min Est GFR (Non-Af Amer) 54.5 ml/min BUN/Creatinine Ratio 15.2 (10-20) Glucose 166 H (70-99) mg/dl Calcium 10.3 H (8.5-10.1) mg/dl Phosphorus 3.3 (2.5-4.9) mg/dl Magnesium 1.9 (1.8-2.4) mg/dl Total Bilirubin 1.1 H (0.2-1) mg/dl AST 12 L (15-37) U/L ALT 19 (12-78) Alkaline Phosphatase 86 (45-117) U/L Troponin I < 0.015 (0-0.045) ng/ml Total Protein 8.0 (6.4-8.2) gm/dl Albumin 3.8 (3.4-5.0) gm/dl Globulin 4.2 H (2.5-4.0) gm/dl Albumin/Globulin Ratio 0.9 (0.9-2) Lipase 79 (73-393) U/L Urine Color Urine Appearance (Clear) Urine pH (4.5-7.5) Ur Specific [place] (1.000-1.030) Urine Protein (Negative) Urine Glucose (UA) (Negative) Urine Ketones (Negative) Urine Blood (Negative) Urine Nitrite (Negative) Urine Bilirubin (Negative) Urine Urobilinogen (Negative) Ur Leukocyte Esterase (Negative) SARS-CoV-2, RNA, NAAT NEGATIVE (NEGATIVE) 02/05/21 Range/Units 15:50 WBC (4.8-10.8) K/uL RBC (4.2-5.4) M/uL Hgb (12.0-16.0) g/dL Hct (37-47) % MCV (80-100) fL MCH (25-34) pg MCHC (32-36) g/dL RDW Std Deviation (36.4-46.3) fL RDW Coeff of Vin (11.5-14.5) % Plt Count (130-400) K/uL MPV (7.4-10.4) fL Immature Gran % (Auto) % Neut % (Auto) % Lymph % (Auto) % [place] % (Auto) % Eos % (Auto) % Baso % (Auto) % Neut # (Auto) (1.4-6.5) K/uL Lymph # (Auto) (1.2-3.4) K/uL [place] # (Auto) (0.11-0.59) K/uL Eos # (Auto) (0-0.5) K/uL Baso # (Auto) (0-0.2) K/uL Immature Gran # (Auto) (0.00-0.02) K/uL Sodium (136-145) mmol/L Potassium (3.5-5.1) mmol/L Chloride (98-107) mmol/L Carbon Dioxide (21-32) mmol/L Anion Gap (3-11) BUN (7-18) mg/dl Creatinine (0.6-1.2) mg/dl Est Cr Clr Drug Dosing ml/min Est GFR ( Amer) ml/min Est GFR (Non-Af Amer) ml/min BUN/Creatinine Ratio (10-20) Glucose (70-99) mg/dl Calcium (8.5-10.1) mg/dl Phosphorus (2.5-4.9) mg/dl Magnesium (1.8-2.4) mg/dl Total Bilirubin (0.2-1) mg/dl AST (15-37) U/L ALT (12-78) Alkaline Phosphatase (45-117) U/L Troponin I (0-0.045) ng/ml Total Protein (6.4-8.2) gm/dl Albumin (3.4-5.0) gm/dl Globulin (2.5-4.0) gm/dl Albumin/Globulin Ratio (0.9-2) Lipase (73-393) U/L Urine Color Yellow Urine Appearance Clear (Clear) Urine pH 5.5 (4.5-7.5) Ur Specific [place] > 1.045 H (1.000-1.030) Urine Protein Negative (Negative) Urine Glucose (UA) Negative (Negative) Urine Ketones 1+ H (Negative) Urine Blood Negative (Negative) Urine Nitrite Negative (Negative) Urine Bilirubin Negative (Negative) Urine Urobilinogen Negative (Negative) Ur Leukocyte Esterase Negative (Negative) SARS-CoV-2, RNA, NAAT (NEGATIVE) Administered Medications Lactated Ringer's (Lr) 1,000 mls @ 80 mls/hr IV .[id number] WILLIAM Stop: 03/07/21 17:59 Last Admin: 02/05/21 19:21 Dose: 80 mls/hr Documented by: [id number] Discontinued Medications Dicyclomine HCl (Dicyclomine Hcl 10 Mg/Ml 2 Ml Amp/Vial) 10 mg IM NOW ONE Stop: 02/05/21 11:37 Last Admin: 02/05/21 12:12 Dose: 10 mg Documented by: [id number] Sodium Chloride (Nss 1000ml) 1,000 mls @ 999 mls/hr IV .[id number] ONE Stop: 02/05/21 12:36 Last Infusion: 02/05/21 13:33 Dose: 0 mls/hr Documented by: [id number] Admin: 02/05/21 12:12 Dose: 999 mls/hr Documented by: [id number] Famotidine (Pepcid 20mg Iv Push) 20 mg in 5 mls @ 2.5 mls/min IV NOW STA Stop: 02/05/21 11:37 Last Admin: 02/05/21 12:12 Dose: 2.5 mls/min Documented by: [id number] Acetaminophen (Ofirmev) 1,000 mg in 100 mls @ 400 mls/hr IV NOW STA Stop: 02/05/21 11:52 Last Infusion: 02/05/21 12:28 Dose: 0 mls/hr Documented by: [id number] Admin: 02/05/21 12:13 Dose: 400 mls/hr Documented by: [id number] Potassium Chloride (K Armani / Wtr) 10 meq in 100 mls @ 100 mls/hr IV Q1H WILLIAM; Protocol Stop: 02/05/21 19:56 Last Admin: 02/05/21 21:55 Dose: 100 mls/hr Documented by: [id number] Infusion: 02/05/21 20:21 Dose: 100 mls/hr Documented by: [id number] Admin: 02/05/21 19:21 Dose: 100 mls/hr Documented by: [id number] Ioversol (Optiray 320 100ml) 94 ml IV ONCE ONE Stop: 02/05/21 13:24 Last Admin: 02/05/21 13:24 Dose: 94 ml Documented by: [id number] Morphine Sulfate (Morphine Sulfate 2 Mg/Ml Carp) 2 mg IV NOW STA Stop: 02/05/21 17:56 Last Admin: 02/05/21 18:23 Dose: 2 mg Documented by: [id number] Ondansetron HCl (Ondansetron Inj 2 Mg/Ml 2 Ml Vial) 4 mg IV NOW STA Stop: 02/05/21 11:37 Last Admin: 02/05/21 12:12 Dose: 4 mg Documented by: [id number] Imaging Data Radiologist's Impression: Abdomen/Pelvis CT 02/05/21 11:[address] WITH IV CONTRAST CT DOSE: 812.81 mGy.cm HISTORY: Right lower quadrant pain. Nausea. Vomiting. Diarrhea. TECHNIQUE: Multiaxial CT images of the abdomen and pelvis were performed following the use of intravenous contrast. A dose lowering technique was utilized adhering to the principles of ALARA. COMPARISON STUDY: Abdomen and pelvis CT 10/02/2020. FINDINGS: Trace bilateral pleural effusions. The heart is mildly enlarged. No pneumoperitoneum. No pneumatosis. No fractures within the visualized osseous structures. Multiple gas-filled dilated loops of small bowel seen throughout the abdomen. These measure up to 4 cm in diameter. These have progressed in the interval. There is trace interloop fluid. There is a focal transition point within the mid pelvis on image 331. Distal to this there is a long segment of dilated fluid-filled loop of small bowel with a second transition point in the deep pelvis anterior to the sacrum on image 324. Therefore, these findings are consistent with a high-grade small bowel obstruction could represent a closed loop type obstruction. No bowel wall thickening. The colon is decompressed. Prior hysterectomy. Normal bladder. Normal appendix. Minimal ascites. The liver, gallbladder, pancreas, spleen, and adrenal glands are unremarkable. There are bilateral peripelvic renal cysts and a few bilateral renal calculi. No ureteral stones. There is mild fullness within the left renal collecting system to the level of the ureteropelvic junction. The ureters are normal in course and caliber. IMPRESSION: 1. Multiple dilated fluid-filled loops of small bowel with 2 focal transition points in the pelvis as described above. This has progressed in the interval and is consistent with a high-grade small bowel obstruction. The 2 separate tra nsition points raise the possibility of a closed loop obstruction. Urgent surgical consultation recommended. 2. Minimal ascites. 3. Trace bilateral pleural effusions. 4. Bilateral nephrolithiasis. There is mild fullness within the left renal collecting system which has progressed. However, no ureteral stones identified. ACT 112: Negative or not required by law. Electronically signed by: Bobby Holland M.D. 02/05/2021 1:46 PM Chest X-Ray 02/05/21 11:37 XR chest 1V portable HISTORY: 80 years-old Female Chest Pain acute atypical chest pain COMPARISON: Acute abdominal series radiographs 10/07/2020 TECHNIQUE: Portable AP view of the chest FINDINGS: The cardiac silhouette is enlarged. Atherosclerosis of the aorta. Emphysema with unchanged interstitial coarsening. No pneumothorax, large pleural effusion or lobar airspace consolidation. Degenerative changes of the shoulders and spine. IMPRESSION: 1. Cardiomegaly without acute process. 2. Emphysema with chronic interstitial coarsening. ACT 112: Negative or not required by law. The above report was generated using voice recognition software. It may contain grammatical, syntax or spelling errors. Electronically signed by: Pal Dodson M.D. 02/05/2021 1:14 PM Discharge Plan Visit Data Chief Complaint: Diarrhea Stated Complaint: DIARRHEA, VOMITING ED Provider: Reynold Kumar Discharge Problem: Small bowel obstruction, Nausea, vomiting, and diarrhea, Abdominal pain Discharge Problem: Abdominal pain Qualifiers: Abdominal location: generalized Qualified Code(s): R10.84 - Generalized abdominal pain
[2021-02-05 12:30] LABS: Basophils # (auto) 0.01 K/uL (0-0.2); Basophils % (auto) 0.1 %; Eosinophils # (auto) 0.01 K/uL (0-0.5); Eosinophils % (auto) 0.1 %; Hematocrit (blood only) 49.5 % (37-47); Immature Granulocytes # (auto) 0.03 K/uL (0.00-0.02); Immature Granulocytes % (auto) 0.2 %; Lymphocytes # (auto) 2.05 K/uL (1.2-3.4); Lymphocytes % (auto) 16.1 %; Mean Corpuscular Hemoglobin 28.7 pg (25-34); Mean Corpuscular Hgb Conc 32.3 g/dL (32-36); Mean Corpuscular Volume 88.9 fL (80-100); Mean Platelet Volume 12.6 fL (7.4-10.4); Monocytes # (auto) 1.14 K/uL (0.11-0.59); Neutrophils # (auto) 9.46 K/uL (1.4-6.5); Neutrophils % (auto) 74.5 %; Platelet Count 273 K/uL (130-400); RDW Coefficient of Variation 14.7 % (11.5-14.5); RDW Standard Deviation 47.5 fL (36.4-46.3); Red Blood Count 5.57 M/uL (4.2-5.4)
[2021-02-05 13:02] LABS: Alanine Aminotransferase 19 (12-78); Albumin Level 3.8 gm/dl (3.4-5.0); Aspartate Aminotransferase 12 U/L (15-37); BUN Creatinine Ratio 15.2 (10-20); Blood Urea Nitrogen 15 mg/dl (7-18); Calcium 10.3 mg/dl (8.5-10.1); Carbon Dioxide 30 mmol/L (21-32); Chloride 98 mmol/L (98-107); Creatinine Clr Calc Pharmacy 50.2 ml/min; Est GFR (African American) 63.1 ml/min; Est GFR (Non-African American) 54.5 ml/min; Glucose 166 mg/dl (70-99); Lipase 79 U/L (73-393); Magnesium 1.9 mg/dl (1.8-2.4); Potassium 3.3 mmol/L (3.5-5.1); Sodium 138 mmol/L (136-145)
[2021-02-05 13:07] LABS: Albumin Globulin Ratio 0.9 (0.9-2); Alkaline Phosphatase 86 U/L (45-117); Bilirubin,Total 1.1 mg/dl (0.2-1); Globulin 4.2 gm/dl (2.5-4.0); Phosphorus 3.3 mg/dl (2.5-4.9); Troponin I < 0.015 ng/ml (0-0.045)
--- NOTE | 2021-02-05 13:15 | XRay Report ---
XR chest 1V portable HISTORY: 80 years-old Female Chest Pain acute atypical chest pain COMPARISON: Acute abdominal series radiographs 10/07/2020 TECHNIQUE: Portable AP view of the chest FINDINGS: The cardiac silhouette is enlarged. Atherosclerosis of the aorta. Emphysema with unchanged interstiti al coarsening. No pneumothorax, large pleural effusion or lobar airspace consolidation. Degenerative changes of the shoulders and spine. IMPRESSION: 1. Cardiomegaly without acute process. 2. Emphysema with chronic interstitial coarsening. ACT 112: Negative or not required by law. The above report was generated using voice recognition software. It may contain grammatical, syntax o r spelling errors. Electronically signed by: Pal Dodson M.D. 02/05/2021 1:14 PM
[2021-02-05] MEDS ORDERED: OPTIRAY 320 100ml IV ONE (13:23)
--- NOTE | 2021-02-05 13:47 | CT Scan Report ---
ABDOMEN AND PELVIS CT WITH IV CONTRAST CT DOSE: 812.81 mGy.cm HISTORY: Right lower quadrant pain. Nausea. Vomiting. Diarrhea. TECHNIQUE: Multiaxial CT images of the abdomen and pelvis were performed following the use of intrave nous contrast. A dose lowering technique was utilized adhering to the principles of ALARA. COMPARISON STUDY: Abdomen and pelvis CT 10/02/2020. FINDINGS: Trace bilateral pleural effusions. The heart is mildly enlarged. No pneumoperitoneum. No pn eumatosis. No fractures within the visualized osseous structures. Multiple gas-filled dilated loops o f small bowel seen throughout the abdomen. These measure up to 4 cm in diameter. These have progresse d in the interval. There is trace interloop fluid. There is a focal transition point within the mid p sal on image 331. Distal to this there is a long segment of dilated fluid-filled loop of small niocencio l with a second transition point in the deep pelvis anterior to the sacrum on image 324. Therefore, t hese findings are consistent with a high-grade small bowel obstruction could represent a closed loop type obstruction. No bowel wall thickening. The colon is decompressed. Prior hysterectomy. Normal tammy dder. Normal appendix. Minimal ascites. The liver, gallbladder, pancreas, spleen, and adrenal glands are unremarkable. There are bilateral peripelvic renal cysts and a few bilateral renal calculi. No ur eteral stones. There is mild fullness within the left renal collecting system to the level of the ure teropelvic junction. The ureters are normal in course and caliber. IMPRESSION: 1. Multiple dilated fluid-filled loops of small bowel with 2 focal transition points in the pelvis as described above. This has progressed in the interval and is consistent with a high-grade small bowel obstruction. The 2 separate transition points raise the possibility of a closed loop obstruction. Ur gent surgical consultation recommended. 2. Minimal ascites. 3. Trace bilateral pleural effusions. 4. Bilateral nephrolithiasis. There is mild fullness within the left renal collecting system which chambers s progressed. However, no ureteral stones identified. ACT 112: Negative or not required by law. Electronically signed by: Bobby Holland M.D. 02/05/2021 1:46 PM
[2021-02-05 16:14] LABS: Appearance Urine Clear (Clear); Bilirubin Urine Negative (Negative); Blood Urine Negative (Negative); Color Urine Yellow; Glucose Urine UA Negative (Negative); Ketones Urine 1+ (Negative); Leukocyte Esterase Urine Negative (Negative); Nitrite Urine Negative (Negative); Protein Urine Negative (Negative); Specific Gravity Urine > 1.045 (1.000-1.030); Urobilinogen Urine Negative (Negative); pH Urine 5.5 (4.5-7.5)
--- NOTE | 2021-02-05 16:37 | Surgery Consultation ---
Date of Consultation February 05, 2021 Assessment & Plan (1) Small bowel obstruction: This is an 80y F with a PMH of HTN, Afib on xarelto, COPD, PAD, who presents to the [facility] ED on 02/05/21 with complaints of abdominal pain, nausea/vomiting, and diarrhea. Her abdominal pain/N/V have started yesterday. She reports her diarrhea has been present for some time now and is no worse, she has been following with GI for this. Due to patient's above symptoms she came into the ER this AM for evaluation. A CT a/p shows evidence of small bowel obstruction, raising the possibility of a closed loop obstruction. On examination patient's abdomen is soft, with tenderness to deep palpation across the mid abdomen, worse on the R side. No guarding. Patient's vital signs are stable and HR's currently 80-90's. For now we recommend a trial of conservative management. Will request an NGT for decompression and keep NPO with IVF for bowel rest. Hold Xarelto for now. No plans for acute surgical intervention at this time. We will continue to follow closely. Supervising Physician Co-Signing Physician Notes Dr. Johnson seen in the emergency room and evaluated Agree with above plan I placed the NG tube myself in place to intermittent suction Nonoperative management at the present time History of Present Illness History of Present Illness This is an 80y F with a PMH of HTN, Afib on xarelto, COPD, PAD, who presents to the [facility] ED on 02/05/21 with complaints of abdominal pain, nausea/vomiting, and diarrhea. Patient reports being admitted for a small bowel obstruction back in September which was managed conservatively and she was discharged to home without event. She has since been following with GI for history of diarrhea. Colonoscopy this month was unremarkable. She was recently started on Metamucil and dicyclomine for presumed IBS-D. Patient reports after her appointment with GI yesterday she developed acute onset of abdominal pain, rating it a 9/10 in severity at its worst. Then yesterday evening she started having nausea/vomiting along with her baseline diarrhea. Her symptoms continued into this morning prompting her to come into the ER. A CT a/p has been performed that revealed "multiple dilated fluid-filled loops of small bowel with 2 focal transition points in the pelvis, consistent with a high-grade small bowel obstruction and cannot rule out closed loop." Patient reports this is her second time she has been admitted with an SBO. Her prior abdominal surgical history includes a hysterectomy. She last ate on Tuesday. Last BM was today. She has been vomiting today including copious amounts in the ER. Allergies Allergy/AdvReac Type Severity Reaction Status Date / Time aspirin [From Percodan] Allergy Swelling Verified 02/05/21 12:45 of Lip/Tongue/Throat ciprofloxacin Allergy Swelling Verified 02/05/21 12:45 of Lip/Tongue/Throat peanut Allergy Swelling Verified 02/05/21 12:45 of Lip/Tongue/Throat oxycodone AdvReac Unknown "makes me Verified 02/05/21 12:45 crazy" apixaban [From Eliquis] AdvReac bloating Verified 02/05/21 12:45 lisinopril AdvReac Cough Verified 02/05/21 12:45 Home Medications Medication Instructions Recorded Confirmed Type calcium carbonate 600 mg-vitamin 1 tab PO QAM tab 10/26/18 02/05/21 History D3 5 mcg (200 unit) tablet cholecalciferol (vitamin D3) 75 3,000 units PO QAM tab 10/26/18 02/05/21 H istory mcg (3,000 unit) tablet clonazepam 0.5 mg tablet 0.5 mg PO BID #60 tab 10/26/18 02/05/21 History rosuvastatin 10 mg tablet 10 mg PO HS #90 tab 04/30/20 02/05/21 Rx metoprolol tartrate 50 mg tablet 50 mg PO BID #180 tab 09/11/20 02/05/21 Rx cyanocobalamin (vitamin B-12) 1,000 mcg PO BID cap 09/29/20 02/05/21 History 1,000 mcg capsule omeprazole 20 mg capsule,delayed 20 mg PO QAM 10/02/20 02/05/21 History release rivaroxaban 20 mg tablet (Xarelto) 20 mg PO QPM #90 tab 10/29/20 02/05/21 Rx hydrochlorothiazide 12.5 mg tablet 12.5 mg PO QAM 11/27/20 02/05/21 History potassium chloride 20 mEq 20 meq PO QAM 11/27/20 02/05/21 History tablet,extended release Patient History Medical History Anxiety Atrial fibrillation dx 6 mo ago; on xarelto; following with Dr. Obrien Cardiac murmur last echo 3 mo ago - Dr. Obrien Cerebral meningioma Dr. Meng monitors annually; last check 10-11 mo ago COPD (chronic obstructive pulmonary disease) GERD (gastroesophageal reflux disease) History of colon polyps History of COVID-19 12/05/20; cough, loss of appetite, loss of taste/smell, fatigue; resolved. History of nephrolithiasis HTN (hypertension) Hx SBO Hyperlipidemia On anticoagulant therapy Osteoporosis Scoliosis Surgical History History of abdominal hysterectomy History of colonoscopy History of elbow surgery Left Family History Father Heart disease Brother Myocardial infarction Sister Ovarian cancer Other Cancer Lung cancer No family history of adverse response to anesthesia Denies family history of Prostate cancer Breast cancer Colorectal cancer Social History Smoking Status: Former smoker Tobacco Type: Cigarettes Age Started Using Tobacco: 35; Age Quit Using Tobacco: 74; packs per day: 0.75; Years Smoked: 39; Second Hand Exposure: No; Hx Alcohol Use: No Hx Substance Use: No Preferred Language: Armenian Communication Ability: Effective Visual Impairment: Limited Hearing Ability: Normal Fingerprint Clerk Required: No Beliefs That Will Affect Care: None marital status: Current Living Situation: Spouse Current Living Situation Comment: Lives with current occupational status: retired Feels Safe at Home: Yes Childhood Exposure to Second-Hand Smoke: Yes caffeine: Yes Dental Care, Regularly: Yes Physical Activity Frequency: Does not Exercise Physical Activity Frequency Comment: works in [employer] Seatbelt Use: always Sunscreen Use: Yes Do you think of yourself as: straight/heterosexual Assistive Devices: Contacts and Glasses Review of Systems Constitutional: + chills and + sweats; no fever Respiratory: no dyspnea Cardiovascular: no chest pain Gastrointestinal: + abdominal pain (radiates across the mid abdomen), + bloating, + nausea, + vomiting and + diarrhea/loose stools Physical Exam Physical Exam: awake/alert Constitutional: + obese; no acute distress Respiratory: normal respiratory effort Gastrointestinal (Abdomen): Inspection/Auscultation: + abdomen distended (mild) and + abdominal surgical scar (from hysterectomy) Percussion/Palpation: + abdomen tender (tender across mid abdomen R>L) and abdomen soft; no guarding Results & Data ([facility]) Vital Signs (Past 12 Hours) Vital Signs Temp Pulse Pulse Resp BP BP Pulse Ox 02/05/21 15:05 85 17 136/106 H 96 02/05/21 12:23 89 17 96/61 L 94 02/05/21 11:11 36.4 C L 98 H 20 141/75 H 95 Diagnostic Findings ABDOMEN AND PELVIS CT WITH IV CONTRAST CT DOSE: 812.81 mGy.cm HISTORY: Right lower quadrant pain. Nausea. Vomiting. Diarrhea. TECHNIQUE: Multiaxial CT images of the abdomen and pelvis were performed following the use of intravenous contrast. A dose lowering technique was utilized adhering to the principles of ALARA. COMPARISON STUDY: Abdomen and pelvis CT 10/02/2020. FINDINGS: Trace bilateral pleural effusions. The heart is mildly enlarged. No pneumoperitoneum. No pneumatosis. No fractures within the visualized osseous structures. Multiple gas-filled dilated loops of small bowel seen throughout the abdomen. These measure up to 4 cm in diameter. These have progressed in the interval. There is trace interloop fluid. There is a focal transition point within the mid pelvis on image 331. Distal to this there is a long segment of dilated fluid-filled loop of small bowel with a second transition point in the deep pelvis anterior to the sacrum on image 324. Therefore, these findings are consistent with a high-grade small bowel obstruction could represent a closed loop type obstruction. No bowel wall thickening. The colon is decompressed. Shabnam or hysterectomy. Normal bladder. Normal appendix. Minimal ascites. The liver, gallbladder, pancreas, spleen, and adrenal glands are unremarkable. There are bilateral peripelvic renal cysts and a few bilateral renal calculi. No ureteral stones. There is mild fullness within the left renal collecting system to the level of the ureteropelvic junction. The ureters are normal in course and caliber. IMPRESSION: 1. Multiple dilated fluid-filled loops of small bowel with 2 focal transition points in the pelvis as described above. This has progressed in the interval and is consistent with a high-grade small bowel obstruction. The 2 separate transition points raise the possibility of a closed loop obstruction. Urgent surgical consultation recommended. 2. Minimal ascites. 3. Trace bilateral pleural effusions. 4. Bilateral nephrolithiasis. There is mild fullness within the left renal collecting system which has progressed. However, no ureteral stones identified. ACT 112: Negative or not required by law. Electronically signed by: Bobby Holland M.D. 02/05/2021 1:46 PM PG Care Time/CCT Total # of Minutes Spent Total Time Spent with Patient: Total time spent is greater than 50% in coordination of care (as documented) at patient's floor/unit and/or counseling patient: Coding Level of Care Code 75932 Initial Inpt Care Lvl 1 Diagnoses Small bowel obstruction K56.609
--- NOTE | 2021-02-05 17:20 | History & Physical Report ---
Date of Service February 05, 2021 Assessment & Plan (1) Small bowel obstruction: Plan: High-grade small bowel obstruction seen on CT abdomen/pelvis. Presented with nausea/vomiting in the setting of chronic IBS-D Admitted with a partial small bowel obstruction just 2 months ago which resolved with conservative management Likely secondary to adhesive disease -Admit to medical floor telemetry given ongoing atrial fibrillation and need to be n.p.o. (needs IV rate controlling medications) -Appreciate general surgery consultation -Maintain NG tube to low intermittent suction -Keep n.p.o. -Start maintenance fluids with LR at 80 mL's per hour, may need to add D5 if she remains n.p.o. for more than 24 to 48 hours -Give IV morphine or IV Tylenol as needed for pain -IV Zofran as needed for nausea -Convert home p.o. PPI to IV PPI once daily -Check CBC, CMP, magnesium, phosphorus in the morning and replete electrolytes as needed-give 20 mEq potassium chloride now for hypokalemia (2) Atrial fibrillation: Plan: Permanent atrial fibrillation Holding home Xarelto and metoprolol -Give IV metoprolol scheduled 5 mg IV every 6 hours -Hold off on anticoagulation with Lovenox or heparin drip for now until risk of needing surgical intervention is down -Monitor on telemetry (3) Chronic anticoagulation: Plan: As above, holding Xarelto Start therapeutic Lovenox SQ or heparin drip when risk of need for surgical intervention has gone down (4) Irritable bowel syndrome with diarrhea: Plan: Hold home Bentyl (5) Chronic anxiety: Plan: Hold home clonazepam -Give IV lorazepam as needed (6) HTN (hypertension): Plan: Holding home metoprolol, HCTZ -Giving IV Lopressor as above scheduled (7) COPD (chronic obstructive pulmonary disease): Plan: No acute issues Not on inhalers at home (8) Hyperlipidemia: Plan: Holding home statin (9) Osteoporosis, unspecified: Plan: -Holding home vitamin D and calcium (10) Meningioma: Plan: Followed annually by neurology No acute issues Plan: DVT prophylaxis-SCDs only for now, no anticoagulation in case of need for surgery Disposition-admit to medical telemetry unit History of Present Illness Chief Complaint: Nausea/vomiting/diarrhea, abdominal pain Primary Care Provider: Josué Sandhu MD This patient is an 80-year-old female with a history of partial small bowel obstruction, IBS-D, permanent atrial fibrillation on Xarelto, COPD, HTN, hyperlipidemia, osteoporosis, chronic anxiety, meningioma, endometriosis status post hysterectomy, who presents to the ER with right lower quadrant and periumbilical abdominal pain, nausea/vomiting, and some small amounts of loose stool since last night. She had a colonoscopy about 2 weeks ago and since her last hospitalization for partial SBO, has changed her diet, and has noted an improvement in diarrhea. She was seen by the GI doctor yesterday and was started on Bentyl and Metamucil for IBS-D. A CT abdomen/pelvis performed in the ER shows evidence of small bowel obstruction, and raises the possibility of a closed-loop obstruction. She was seen by the surgeon in the ER and was determined to have a benign abdomen, but recommended NG tube placement for decompression, keeping her n.p.o., and giving IV fluids, holding her Xarelto. On laboratory values, she had a leukocytosis of 12, mild hypokalemia, mildly elevated calcium, and mildly elevated total bilirubin at 1.1. Urinalysis showed evidence of dehydration with 1+ ketones and specific gravity greater than 1.045. Covid-19 test was negative. Allergies Allergy/AdvReac Type Severity Reaction Status Date / Time aspirin [From Percodan] Allergy Swelling Verified 02/05/21 12:45 of Lip/Tongue/Throat ciprofloxacin Allergy Swelling Verified 02/05/21 12:45 of Lip/Tongue/Throat peanut Allergy Swelling Verified 02/05/21 12:45 of Lip/Tongue/Throat oxycodone AdvReac Unknown "makes me Verified 02/05/21 12:45 crazy" apixaban [From Eliquis] AdvReac bloating Verified 02/05/21 12:45 lisinopril AdvReac Cough Verified 02/05/21 12:45 Home Medications Medication Instructions Recorded Confirmed Type calcium carbonate 600 mg-vitamin 1 tab PO QAM tab 10/26/18 02/05/21 History D3 5 mcg (200 unit) tablet cholecalciferol (vitamin D3) 75 3,000 units PO QAM tab 10/26/18 02/05/21 History mcg (3,000 unit) tablet clonazepam 0.5 mg tablet 0.5 mg PO BID #60 tab 10/26/18 02/05/21 History rosuvastatin 10 mg tablet 10 mg PO HS #90 tab 04/30/20 02/05/21 Rx metoprolol tartrate 50 mg tablet 50 mg PO BID #180 tab 09/11/20 02/05/21 Rx cyanocobalamin (vitamin B-12) 1,000 mcg PO BID cap 09/29/20 02/05/21 History 1,000 mcg capsule omeprazole 20 mg capsule,delayed 20 mg PO QAM 10/02/20 02/05/21 History release rivaroxaban 20 mg tablet (Xarelto) 20 mg PO QPM #90 tab 10/29/20 02/05/21 Rx hydrochlorothiazide 12.5 mg tablet 12.5 mg PO QAM 11/27/20 02/05/21 History potassium chloride 20 mEq 20 meq PO QAM 11/27/20 02/05/21 History tablet,extended release Past Med/Surg History Medical History Anxiety Atrial fibrillation dx 6 mo ago; on xarelto; following with Dr. Obrien Cardiac murmur last echo 3 mo ago - Dr. Obrien Cerebral meningioma Dr. Meng monitors annually; last check 10-11 mo ago COPD (chronic obstructive pulmonary disease) GERD (gastroesophageal reflux disease) History of colon polyps History of COVID-19 12/05/20; cough, loss of appetite, loss of taste/smell, fatigue; resolved. History of nephrolithiasis HTN (hypertension) Hx SBO Hyperlipidemia On anticoagulant therapy Osteoporosis Scoliosis Surgical History History of abdominal hysterectomy History of colonoscopy History of elbow surgery Left Family History Father Heart disease Brother Myocardial infarction Sister Ovarian cancer Other Cancer Lung cancer No family history of adverse response to anesthesia Denies family history of Prostate cancer Breast cancer Colorectal cancer Social History Smoking Status: Former smoker Tobacco Type: Cigarettes Age Started Using Tobacco: 35; Age Quit Using Tobacco: 74; packs per day: 0.75; Years Smoked: 39; Second Hand Exposure: No; Hx Alcohol Use: No Hx Substance Use: No Preferred Language: Slovenian Communication Ability: Effective Visual Impairment: Limited Hearing Ability: Normal Operation Agent Required: No Beliefs That Will Affect Care: None marital status: Current Living Situation: Spouse Current Living Situation Comment: Lives with current occupational status: retired Feels Safe at Home: Yes Childhood Exposure to Second-Hand Smoke: Yes caffeine: Yes Dental Care, Regularly: Yes Physical Activity Frequency: Does not Exercise Physical Activity Frequency Comment: works in [employer] Seatbelt Use: always Sunscreen Use: Yes Do you think of yourself as: straight/heterosexual Assistive Devices: Contacts and Glasses Review of Systems Review of Systems: All systems reviewed & are unremarkable except as noted in HPI & below Physical Exam Constitutional: WD/WN, vitals as above Eyes: PERRL, conjunctivae normal, anicteric sclerae ENMT: external ear and nose normal, oropharynx normal Neck: trachea midline, no thyromegaly Respiratory: normal respiratory effort, lungs clear to auscultation Cardiovascular: Rate/Rhythm: regular rate and + irregularly irregular Heart Sounds: no murmur Extremities: no edema Chest (Breasts): Chest: normal inspection of chest Gastrointestinal (Abdomen): Inspection/Auscultation: abdomen normal to inspection and + hypoactive bowel sounds; abdomen not distended Percussion/Palpation: + abdomen tender (In right lower quadrant and periumbilical region without guarding or reboun) and abdomen soft; no guarding Musculoskeletal: Extremities: extremities normal to inspection; no cyanosis and no clubbing Skin: no rashes, warm and dry Neurologic: moves all extremities and awake; no focal motor deficits Psychiatric: A+Ox3, euthymic affect Lymphatic: no lymphedema Results & Data Results & Data ([facility]) Vital Signs (Past 12 Hours) Vital Signs Temp Pulse Pulse Resp BP BP Pulse Ox 02/05/21 15:05 85 17 136/106 H 96 02/05/21 12:23 89 17 96/61 L 94 02/05/21 11:11 36.4 C L 98 H 20 141/75 H 95 Laboratory Results 02/05/21 02/05/21 02/05/21 Range/Units 15:50 12:17 12:14 WBC 12.70 H (4.8-10.8) K/uL RBC 5.57 H (4.2-5.4) M/uL Hgb 16.0 (12.0-16.0) g/dL Hct 49.5 H (37-47) % MCV 88.9 (80-100) fL MCH 28.7 (25-34) pg MCHC 32.3 (32-36) g/dL RDW Std Deviation 47.5 H (36.4-46.3) fL RDW Coeff of Vin 14.7 H (11.5-14.5) % Plt Count 273 (130-400) K/uL MPV 12.6 H (7.4-10.4) fL Immature Gran % (Auto) 0.2 % Neut % (Auto) 74.5 % Lymph % (Auto) 16.1 % [place] % (Auto) 9.0 % Eos % (Auto) 0.1 % Baso % (Auto) 0.1 % Neut # (Auto) 9.46 H (1.4-6.5) K/uL Lymph # (Auto) 2.05 (1.2-3.4) K/uL [place] # (Auto) 1.14 H (0.11-0.59) K/uL Eos # (Auto) 0.01 (0-0.5) K/uL Baso # (Auto) 0.01 (0-0.2) K/uL Immature Gran # (Auto) 0.03 H (0.00-0.02) K/uL Sodium (136-145) mmol/L Potassium (3.5-5.1) mmol/L Chloride (98-107) mmol/L Carbon Dioxide (21-32) mmol/L Anion Gap (3-11) BUN (7-18) mg/dl Creatinine (0.6-1.2) mg/dl Est Cr Clr Drug Dosing ml/min Est GFR ( Amer) ml/min Est GFR (Non-Af Amer) ml/min BUN/Creatinine Ratio (10-20) Glucose (70-99) mg/dl Calcium (8.5-10.1) mg/dl Phosphorus (2.5-4.9) mg/dl Magnesium (1.8-2.4) mg/dl Total Bilirubin (0.2-1) mg/dl AST (15-37) U/L ALT (12-78) Alkaline Phosphatase (45-117) U/L Troponin I (0-0.045) ng/ml Total Protein (6.4-8.2) gm/dl Albumin (3.4-5.0) gm/dl Globulin (2.5-4.0) gm/dl Albumin/Globulin Ratio (0.9-2) Lipase (73-393) U/L Urine Color Yellow Urine Appearance Clear (Clear) Urine pH 5.5 (4.5-7.5) Ur Specific [place] > 1.045 H (1.000-1.030) Urine Protein Negative (Negative) Urine Glucose (UA) Negative (Negative) Urine Ketones 1+ H (Negative) Urine Blood Negative (Negative) Urine Nitrite Negative (Negative) Urine Bilirubin Negative (Negative) Urine Urobilinogen Negative (Negative) Ur Leukocyte Esterase Negative (Negative) SARS-CoV-2, RNA, NAAT NEGATIVE (NEGATIVE) 02/05/21 Range/Units 12:14 WBC (4.8-10.8) K/uL RBC (4.2-5.4) M/uL Hgb (12.0-16.0) g/dL Hct (37-47) % MCV (80-100) fL MCH (25-34) pg MCHC (32-36) g/dL RDW Std Deviation (36.4-46.3) fL RDW Coeff of Vin (11.5-14.5) % Plt Count (130-400) K/uL MPV (7.4-10.4) fL Immature Gran % (Auto) % Neut % (Auto) % Lymph % (Auto) % [place] % (Auto) % Eos % (Auto) % Baso % (Auto) % Neut # (Auto) (1.4-6.5) K/uL Lymph # (Auto) (1.2-3.4) K/uL [place] # (Auto) (0.11-0.59) K/uL Eos # (Auto) (0-0.5) K/uL Baso # (Auto) (0-0.2) K/uL Immature Gran # (Auto) (0.00-0.02) K/uL Sodium 138 (136-145) mmol/L Potassium 3.3 L (3.5-5.1) mmol/L Chloride 98 (98-107) mmol/L Carbon Dioxide 30 (21-32) mmol/L Anion Gap 10.0 (3-11) BUN 15 (7-18) mg/dl Creatinine 0.98 (0.6-1.2) mg/dl Est Cr Clr Drug Dosing 50.2 ml/min Est GFR ( Amer) 63.1 ml/min Est GFR (Non-Af Amer) 54.5 ml/min BUN/Creatinine Ratio 15.2 (10-20) Glucose 166 H (70-99) mg/dl Calcium 10.3 H (8.5-10.1) mg/dl Phosphorus 3.3 (2.5-4.9) mg/dl Magnesium 1.9 (1.8-2.4) mg/dl Total Bilirubin 1.1 H (0.2-1) mg/dl AST 12 L (15-37) U/L ALT 19 (12-78) Alkaline Phosphatase 86 (45-117) U/L Troponin I < 0.015 (0-0.045) ng/ml Total Protein 8.0 (6.4-8.2) gm/dl Albumin 3.8 (3.4-5.0) gm/dl Globulin 4.2 H (2.5-4.0) gm/dl Albumin/Globulin Ratio 0.9 (0.9-2) Lipase 79 (73-393) U/L Urine Color Urine Appearance (Clear) Urine pH (4.5-7.5) Ur Specific [place] (1.000-1.030) Urine Protein (Negative) Urine Glucose (UA) (Negative) Urine Ketones (Negative) Urine Blood (Negative) Urine Nitrite (Negative) Urine Bilirubin (Negative) Urine Urobilinogen (Negative) Ur Leukocyte Esterase (Negative) SARS-CoV-2, RNA, NAAT (NEGATIVE) Diagnostic Findings Abdomen/Pelvis CT 02/05/21 11:[address] WITH IV CONTRAST CT DOSE: 812.81 mGy.cm HISTORY: Right lower quadrant pain. Nausea. Vomiting. Diarrhea. TECHNIQUE: Multiaxial CT images of the abdomen and pelvis were performed following the use of intravenous contrast. A dose lowering technique was utilized adhering to the principles of ALARA. COMPARISON STUDY: Abdomen and pelvis CT 10/02/2020. FINDINGS: Trace bilateral pleural effusions. The heart is mildly enlarged. No pneumoperitoneum. No pneumatosis. No fractures within the visualized osseous structures. Multiple gas-filled dilated loops of small bowel seen throughout the abdomen. These measure up to 4 cm in diameter. These have progressed in the interval. There is trace interloop fluid. There is a focal transition point within the mid pelvis on image 331. Distal to this there is a long segment of dilated fluid-filled loop of small bowel with a second transition point in the deep pelvis anterior to the sacrum on image 324. Therefore, these findings are consistent with a high-grade small bowel obstruction could represent a closed loop type obstruction. No bowel wall thickening. The colon is decompressed. Prior hysterectomy. Normal bladder. Normal appendix. Minimal ascites. The liver, gallbladder, pancreas, spleen, and adrenal glands are unremarkable. There are bilateral peripelvic renal cysts and a few bilateral renal calculi. No ureteral stones. There is mild fullness within the left renal collecting system to the level of the ureteropelvic junction. The ureters are normal in course and caliber. IMPRESSION: 1. Multiple dilated fluid-filled loops of small bowel with 2 focal transition points in the pelvis as described above. This has progressed in the interval and is consistent with a high-grade small bowel obstruction. The 2 separate transition points raise the possibility of a closed loop obstruction. Urgent surgical consultation recommended. 2. Minimal ascites. 3. Trace bilateral pleural effusions. 4. Bilateral nephrolithiasis. There is mild fullness within the left renal collecting system which has progressed. However, no ureteral stones identified. ACT 112: Negative or not required by law. Electronically signed by: Bobby Holland M.D. 02/05/2021 1:46 PM Chest X-Ray 02/05/21 11:37 XR chest 1V portable HISTORY: 80 years-old Female Chest Pain acute atypical chest pain COMPARISON: Acute abdominal series radiographs 10/07/2020 TECHNIQUE: Portable AP view of the chest FINDINGS: The cardiac silhouette is enlarged. Atherosclerosis of the aorta. Emphysema with unchanged interstitial coarsening. No pneumothorax, large pleural effusion or lobar airspace consolidation. Degenerative changes of the shoulders and spine. IMPRESSION: 1. Cardiomegaly without acute process. 2. Emphysema with chronic interstitial coarsening. ACT 112: Negative or not required by law. The above report was generated using voice recognition software. It may contain grammatical, syntax or spelling errors. Electronically signed by: Pal Dodson M.D. 02/05/2021 1:14 PM ECG Additional Comments: ECG on 02/05/2021 at 1224 with atrial fibrillation, rate 97, inferior infarct, not changed much from previous Code Status & VTE Plan Code Status Full code VTE Prophylaxis Plan VTE Prophylaxis will be ordered: Yes PG Care Time/CCT Total # of Minutes Spent Total Time Spent with Patient: Total time spent is greater than 50% in coordination of care (as documented) at patient's floor/unit and/or counseling patient: Coding Level of Care Code 57644 Initial Inpt Care Lvl 3 Diagnoses Small bowel obstruction K56.609 Irritable bowel syndrome with diarrhea K58.0 Meningioma D32.9 Chronic anxiety F41.9 Atrial fibrillation I48.91 Chronic anticoagulation Z79.01 Osteoporosis, unspecified M81.0 HTN (hypertension) I10 Hypertension type: essential hypertension COPD (chronic obstructive pulmonary disease) J44.9 COPD type: unspecified COPD Hyperlipidemia E78.2 Hyperlipidemia type: mixed hyperlipidemia (1) Hyperlipidemia Hyperlipidemia type: mixed hyperlipidemia Qualified Code(s): E78.2 - Mixed hyperlipidemia (2) COPD (chronic obstructive pulmonary disease) COPD type: unspecified COPD Qualified Code(s): J44.9 - Chronic obstructive pulmonary disease, unspecified (3) HTN (hypertension) Hypertension type: essential hypertension Qualified Code(s): I10 - Essential (primary) hypertension
[2021-02-05] MEDS ORDERED: MoRPHine SULFATE 2 MG/ML CARP IV STA (17:55)
[2021-02-05] MEDS: LACTATED RINGER'S 1,000 ML IV SCH (19:21)
[2021-02-05] MEDS: POTASSIUM CHLORIDE / WTR 10 MEQ/100 ML PLCT IV SCH ×2 (19:21→21:55)
[2021-02-05] MEDS ORDERED: ACETAMINOPHEN 1,000 MG/100 ML VIAL IV PRN (21:56)
[2021-02-05] MEDS ORDERED: MoRPHine SULFATE 2 MG/ML CARP IV PRN (21:56)
[2021-02-05] MEDS ORDERED: ACETAMINOPHEN 1000 MG/100 ML IV IV ONE (22:23)
[2021-02-05] MEDS ORDERED: ONDANSETRON INJ 2 MG/ML 2 ML VIAL ONE (22:24)
[2021-02-05] MEDS ORDERED: CHLORASEPTIC 1.4% SOLN 180 ML BTL MT PRN (22:35)
[2021-02-05] MEDS: LORazepam 0.5 MG/1 ML VIAL IV PRN (23:00)
[2021-02-05] MEDS ORDERED: LORazepam 2 MG/4 ML VIAL ONE (23:22)
[2021-02-05] MEDS ORDERED: METOPROLOL TARTRATE 1 MG/ML VIAL IV ONE (23:23)
[2021-02-06] MEDS: METOPROLOL TARTRATE 1 MG/ML VIAL IV SCH ×5 (00:51→23:57)
[2021-02-06] MEDS: ONDANSETRON INJ 2 MG/ML 2 ML VIAL IV PRN (04:12)
[2021-02-06 05:14] LABS: Basophils # (auto) 0.03 K/uL (0-0.2); Basophils % (auto) 0.3 %; Eosinophils # (auto) 0.02 K/uL (0-0.5); Eosinophils % (auto) 0.2 %; Hematocrit (blood only) 45.9 % (37-47); Hemoglobin 14.8 g/dL (12.0-16.0); Immature Granulocytes # (auto) 0.02 K/uL (0.00-0.02); Immature Granulocytes % (auto) 0.2 %; Lymphocytes # (auto) 1.78 K/uL (1.2-3.4); Lymphocytes % (auto) 15.9 %; Mean Corpuscular Hemoglobin 28.8 pg (25-34); Mean Corpuscular Hgb Conc 32.2 g/dL (32-36); Mean Corpuscular Volume 89.3 fL (80-100); Mean Platelet Volume 11.8 fL (7.4-10.4); Monocytes # (auto) 1.25 K/uL (0.11-0.59); Monocytes % (auto) 11.2 %; Neutrophils # (auto) 8.06 K/uL (1.4-6.5); Neutrophils % (auto) 72.2 %; Platelet Count 237 K/uL (130-400); RDW Coefficient of Variation 14.9 % (11.5-14.5); RDW Standard Deviation 49.3 fL (36.4-46.3); Red Blood Count 5.14 M/uL (4.2-5.4); White Blood Count 11.16 K/uL (4.8-10.8)
[2021-02-06 05:40] LABS: Albumin Level 3.2 gm/dl (3.4-5.0); Calcium 9.1 mg/dl (8.5-10.1); Creatinine Clr Calc Pharmacy 65.5 ml/min; Est GFR (African American) 85.9 ml/min; Est GFR (Non-African American) 74.1 ml/min; Potassium 3.6 mmol/L (3.5-5.1)
[2021-02-06 06:08] LABS: Albumin Globulin Ratio 0.9 (0.9-2); Globulin 3.4 gm/dl (2.5-4.0); Magnesium 1.7 mg/dl (1.8-2.4); Phosphorus 3.8 mg/dl (2.5-4.9); Total Protein 6.6 gm/dl (6.4-8.2)
[2021-02-06] MEDS: LACTATED RINGER'S 1,000 ML IV SCH ×2 (06:27→20:15)
--- NOTE | 2021-02-06 08:03 | XRay Report ---
KUB HISTORY: Nausea. Vomiting. Small bowel obstruction. Follow-up. COMPARISON: Abdomen and pelvis CT 02/05/2021. FINDINGS: Multiple dilated gas-filled loops of small bowel are again seen throughout the abdomen tuan uring up to 4.5 cm in diameter. This has slightly progressed compared to the prior CT examination and is consistent with a high-grade small bowel obstruction. There is contrast within the bladder from t he recent CT examination. Bilateral nephrolithiasis again noted. Nasogastric tube terminates at the gastroesophageal junction. No pneumoperitoneum or pneumatosis. IMPRESSION: 1. Multiple dilated gas-filled loops of small bowel within the abdomen which have slightly progressed compared to the prior CT examination. This is consistent with a high-grade small bowel obstruction. 2. Nasogastric tube terminates at the gastroesophageal junction. This should be advanced by approxima tely 10 cm. 3. This report was called/faxed to the referring physician following dictation. ACT 112: Negative or not required by law. Electronically signed by: Bobby Holland M.D. 02/06/2021 8:02 AM
--- NOTE | 2021-02-06 08:07 | Surgery Progress Note ---
Date of Service February 06, 2021 Assessment & Plan (1) Small bowel obstruction: Plan: Patient's white count is 11,000 I do have some concern for persistent small bowel obstruction Her KUB did not show significant improvement I will reassess her It may be that we would be best to proceed with laparotomy and lysis of adhesions She does seem as uncomfortable as admission Admission and Anticipated Discharge Date Admission Date: February 05, 2021 Subjective Patient with moderate NG output Does have some continued nausea and also some pain Her KUB does show dilated area of small bowel consistent with her initial CT scan Review of Systems Review of Systems: All systems reviewed & are unremarkable except as noted in HPI & below Physical Exam Physical Exam: Patient is somewhat anxious and appears somewhat ill Constitutional: well developed; no acute distress Eyes: + anicteric sclerae Respiratory: normal respiratory effort; no respiratory distress Cardiovascular: Rate/Rhythm: regular rate Gastrointestinal (Abdomen): Inspection/Auscultation: + abdomen distended Patient is moderately distended and has decreased bowel sounds Her abdomen is not firm and does not have peritoneal irritation Does have discomfort to deep palpation mid abdomen Musculoskeletal: Head/Neck/Chest: head atraumatic Skin: no rashes, warm and dry Neurologic: awake Psychiatric: Orientation: alert Results & Data ([facility]) Vital Signs (Past 12 Hours) Vital Signs Temp Pulse Pulse Resp BP BP Pulse Ox 02/06/21 07:34 36.8 C 100 H 20 116/73 96 02/06/21 06:18 99 H 120/67 02/06/21 06:05 36.6 C 102 H 20 120/67 94 02/06/21 03:47 37 C 102 H 18 133/76 94 02/05/21 23:00 100 H 142/74 H 02/05/21 21:56 99 H 16 136/48 L 96 PG Care Time/CCT Total # of Minutes Spent Total Time Spent with Patient: Total time spent is greater than 50% in coordination of care (as documented) at patient's floor/unit and/or counseling patient: Coding Level of Care Code None Diagnoses Small bowel obstruction K56.609
[2021-02-06] MEDS ORDERED: cefOXitin 2,000 MG in DEXTROSE 5% 50 ML IV STA (08:30)
--- NOTE | 2021-02-06 08:39 | Anesthesiology Consultation ---
Date of Service February 06, 2021 Assessment & Plan (1) Encounter for pre-operative examination: Chart Review Chart Review: Acceptable Risk for Surgery History Surgery Operation Date: 02/06/21 09:30 Proposed Procedures p Exploratory Laparotomy Abdominal, Lysis of Adhesions, Possible Bowel Resetion - Mane Castillo MD, FACS Height/Weight Height: 5 ft 4 in Weight: 93.6 kg Allergies Allergy/AdvReac Type Severity Reaction Status Date / Time aspirin [From Percodan] Allergy Swelling Verified 02/05/21 12:45 of Lip/Tongue/Throat ciprofloxacin Allergy Swelling Verified 02/05/21 12:45 of Lip/Tongue/Throat peanut Allergy Swelling Verified 02/05/21 12:45 of Lip/Tongue/Throat oxycodone AdvReac Unknown "makes me Verified 02/05/21 12:45 crazy" apixaban [From Eliquis] AdvReac bloating Verified 02/05/21 12:45 lisinopril AdvReac Cough Verified 02/05/21 12:45 Medications Home Medications Medication Instructions Recorded Confirmed Last Taken calcium carbonate 600 mg-vitamin 1 tab PO QAM tab 10/26/18 02/05/21 02/04/21 D3 5 mcg (200 unit) tablet cholecalciferol (vitamin D3) 75 3,000 units PO QAM tab 10/26/18 02/05/21 02/04/21 mcg (3,000 unit) tablet clonazepam 0.5 mg tablet 0.5 mg PO BID #60 tab 10/26/18 02/05/21 02/04/21 rosuvastatin 10 mg tablet 10 mg PO HS #90 tab 04/30/20 02/05/21 02/04/21 metoprolol tartrate 50 mg tablet 50 mg PO BID #180 tab 09/11/20 02/05/21 02/04/21 cyanocobalamin (vitamin B-12) 1,000 mcg PO BID cap 09/29/20 02/05/21 02/04/21 1,000 mcg capsule omeprazole 20 mg capsule,delayed 20 mg PO QAM 10/02/20 02/05/21 02/04/21 release rivaroxaban 20 mg tablet (Xarelto) 20 mg PO QPM #90 tab 10/29/20 02/05/21 02/04/21 hydrochlorothiazide 12.5 mg tablet 12.5 mg PO QAM 11/27/20 02/05/21 02/04/21 potassium chloride 20 mEq 20 meq PO QAM 11/27/20 02/05/21 02/05/21 tablet,extended release Active Medications Generic Name Dose Route Start Last Admin Trade Name Freq PRN Reason Stop Dose Admin Lactated Ringer's 1,000 mls @ 80 mls/hr 02/05/21 18:00 02/06/21 06:27 Lr IV 03/07/21 17:59 80 mls/hr .[id number] WILLIAM Administration Lorazepam 0.5 mg in 1 mls @ 1 mls/min 02/05/21 21:56 02/05/21 23:00 Ativan IV 03/07/21 21:55 1 mls/min Q12 PRN Administration anxiety Acetaminophen 1,000 mg in 100 mls @ 400 mls/hr 02/05/21 21:56 02/06/21 07:02 Ofirmev IV 02/08/21 21:55 Infused Q8H PRN Infusion pain or fever Metoprolol Tartrate 5 mg 02/05/21 23:30 02/06/21 06:18 Metoprolol Tartrate 1 Mg/Ml Vial IV 03/07/21 23:29 5 mg Q6 WILLIAM Administration Ondansetron HCl 4 mg 02/05/21 22:10 02/06/21 04:12 Ondansetron Inj 2 Mg/Ml 2 Ml Vial IV 03/07/21 22:09 4 mg Q6H PRN Administration Nausea And Vomiting Phenol 2 sprays 02/05/21 22:35 02/06/21 03:24 Chloraseptic 1.4% Soln 180 Ml Btl MT 03/07/21 22:34 2 sprays Q8H PRN Administration sore throat Past Medical History Medical History Anxiety Atrial fibrillation dx 6 mo ago; on xarelto; following with Dr. Obrien Cardiac murmur last echo 3 mo ago - Dr. Obrien Cerebral meningioma Dr. Meng monitors annually; last check 10-11 mo ago COPD (chronic obstructive pulmonary disease) GERD (gastroesophageal reflux disease) History of colon polyps History of COVID-19 12/05/20; cough, loss of appetite, loss of taste/smell, fatigue; resolved. History of nephrolithiasis HTN (hypertension) Hx SBO Hyperlipidemia On anticoagulant therapy Osteoporosis Scoliosis Past Family History Family History Father Heart disease Brother Myocardial infarction Sister Ovarian cancer Other Cancer Lung cancer No family history of adverse response to anesthesia Denies family history of Prostate cancer Breast cancer Colorectal cancer Past Surgical History Surgical History History of abdominal hysterectomy History of colonoscopy History of elbow surgery Left Social History Smoking Status: Former smoker tobacco type: cigarettes Do You Dip or Chew Tobacco: No Hx Alcohol Use: No Hx Substance Use: No substance use type: does not use Physical Exam Vital Signs Last Vital Signs Temp 36.8 C 02/06/21 07:34 Pulse 100 H 02/06/21 07:34 Resp 20 02/06/21 07:34 BP 116/73 02/06/21 07:34 Pulse Ox 96 02/06/21 07:34 Testing Laboratory Results 02/06/21 05:03 02/06/21 05:03 Urine Color Yellow 02/05/21 15:50 Urine Appearance Clear (Clear) 02/05/21 15:50 Urine pH 5.5 (4.5-7.5) 02/05/21 15:50 Ur Specific [place] > 1.045 (1.000-1.030) H 02/05/21 15:50 Urine Protein Negative (Negative) 02/05/21 15:50 Urine Glucose (UA) Negative (Negative) 02/05/21 15:50 Urine Ketones 1+ (Negative) H 02/05/21 15:50 Urine Nitrite Negative (Negative) 02/05/21 15:50 Ur Leukocyte Esterase Negative (Negative) 02/05/21 15:50 Electrocardiogram Date: 02/05/21 Findings: + AFIB @ (97) possible inferior infarct Chest X-Ray Date: 02/05/21 Findings: + cardiomegaly emphysema Echocardiogram Date: 09/19/20 EF: 50-55% LV Function: normal Other Findings: + LVH (mild) Valvular Disease: + MR (mild)
[2021-02-06] MEDS ORDERED: ONDANSETRON INJ 2 MG/ML 2 ML VIAL IV PRN ×2 (10:35→17:52)
[2021-02-06] MEDS ORDERED: MoRPHine SULFATE 10 MG/ML CARP/VIAL IV PRN (10:35)
[2021-02-06] MEDS ORDERED: ATROPINE SULFATE 0.1 MG/ML 10ML SYR IV PRN (10:35)
[2021-02-06] MEDS ORDERED: ePHEDrine sulfate 50 MG/ML AMP IV PRN (10:35)
[2021-02-06] MEDS ORDERED: ONDANSETRON INJ 2 MG/ML 2 ML VIAL ONE ×2 (11:12→11:55)
[2021-02-06] MEDS ORDERED: SUCCINYLCHOLINE CHLORIDE 20 MG/ML 10 ML VIAL IV ONE (11:12)
[2021-02-06] MEDS ORDERED: fentaNYL citrate 100 MCG/2 ML VIAL ONE ×2 (11:12→12:00)
[2021-02-06] MEDS ORDERED: DEXAMETHASONE SOD INJ 4 MG/ML VIAL ONE (11:12)
[2021-02-06] MEDS ORDERED: PROPOFOL IV EMULSION 10 MG/ML 20 ML VIAL IV ONE (11:12)
[2021-02-06] MEDS ORDERED: MIDAZOLAM HCL 1 MG/ML 2ML VIAL ONE (11:27)
[2021-02-06] MEDS ORDERED: METOPROLOL TARTRATE 1 MG/ML VIAL IV ONE ×2 (11:38→11:45)
[2021-02-06] MEDS ORDERED: PHENYLEPHRINE 100MCG/ML 5ML SYR ONE (11:46)
[2021-02-06] MEDS ORDERED: LARYING-O-JET KIT (LTA) ONE (11:55)
[2021-02-06] MEDS ORDERED: SUGAMMADEX SODIUM 200 MG/2 ML VIAL IV ONE (11:55)
[2021-02-06] MEDS ORDERED: ROCURONIUM BROMIDE 10 MG/ML 5 ML VIAL IV ONE (11:55)
--- NOTE | 2021-02-06 12:31 | Post Operative Brief Note ---
PG Immediate Post Op with CF Date of Surgery February 06, 2021 Pre & Post Diagnosis Operation Date: 02/06/21 09:30 Pre-Op Diagnosis: Small bowel obstruction Post-Op Diagnosis: small bowel obstruction, small bowel stricture, undigested vegetable matter I identified the patient and participated in the time-out.: Yes Procedure Operation Date: 02/06/21 09:30 Actual Procedures p Laparotomy, Lysis of Adhesions, small bowel resection(Not Applicable) - Mane Castillo MD, FACS Surgeon Mane Castillo MD, FACS Equine [employer] Ngoc Hernandez Estimated Blood Loss 20 Findings Consistent with Post-Op Diagnosis Patient had a stricture of the small bowel and vegetable matter undigested proximal causing bowel obstruction The stricture was likely from pelvic adhesions and chronic inflammation Specimens Specimen Description: A. small bowel (permanent)
[2021-02-06] MEDS: fentaNYL citrate 100 MCG/2 ML VIAL IV PRN ×4 (13:00→13:30)
--- NOTE | 2021-02-06 13:03 | Operative Report (OR) ---
DATE OF OPERATION: 02/06/2021 NAME OF OPERATION: Laparotomy with lysis of adhesions and small bowel resection. PREOPERATIVE DIAGNOSIS: Small-bowel obstruction. POSTOPERATIVE DIAGNOSIS: Small-bowel obstruction with small bowel stricture and undigested vegetable matter. STAFF SURGEON: Mane Castillo MD. STEREOTYPE MOLDER: Pollo Hernandez PA-C. ANESTHESIA: General. DESCRIPTION OF PROCEDURE: The patient was brought in the operating room and placed on the operating table in supine position. Her abdomen was prepped and draped in the usual fashion. Hyde catheter w as placed. Nasogastric tube was in place. A midline incision was made from just above the umbilicus down toward the symphysis pubis, carrying dissection down into the abdomen, encountering a significa nt serous fluid. The small bowel was then traced to the ligament of Treitz, which was dilated and th en distally finding a stricture in the small bowel from likely adhesions in the pelvis and then what appeared to be a mass proximal to this, which was causing an obstruction. The bowel distal to this w as significantly decompressed. The stricture was very significant and I felt that it needed to be re sected. Therefore, the small bowel was resected proximal and distal using the THEO 60 stapler. The e nds were oversewn using 3-0 silk suture. Then, a siin-by-blxr anastomosis was performed using the GI A stapler with the enteric defect closed using a TA 60 stapler. The closure was also oversewn using 3-0 silk suture. A suture was placed in the crotch of the small bowel at the staple line. The site was irrigated. The mesenteric defect closed using 2-0 chromic suture. Then, the fascia reapproximat ed in the abdominal wall using both running and interrupted #1 PDS suture. A 5/8th inch Maxton drai n placed into the subcutaneous space, secured to the skin using 3-0 nylon suture. Then, the skin dona pproximated using cate. Dressing applied. The patient was transferred to recovery room in stable condition. My ophthalmic medical assistant helped with prepping, draping, lysis of adhesion, small bowel resection and closure of the wound. Job ID: [id number]
[2021-02-06] MEDS ORDERED: HYDROmorphone INJ 1 MG/ML SYRINGE ONE (13:51)
--- NOTE | 2021-02-06 14:31 | Anesthesiology Progress Note ---
Date of Service February 06, 2021 Anesthesia Post Procedure Vital Signs Vital Signs: Temp Pulse Pulse Resp BP BP Pulse Ox 02/06/21 14:15 98.1 F 112 H 15 131/83 95 02/06/21 14:05 98.1 F 121 H 16 137/94 94 02/06/21 13:55 98.1 F 122 H 15 134/77 96 02/06/21 13:45 98.1 F 116 H 16 142/66 H 95 02/06/21 13:35 98.1 F 116 H 17 144/66 H 96 02/06/21 13:25 118 H 21 126/77 97 02/06/21 13:15 122 H 22 134/73 97 02/06/21 13:05 112 H 20 139/62 92 02/06/21 12:55 124 H 14 142/76 H 93 02/06/21 12:45 114 H 15 139/75 93 02/06/21 12:39 96.8 F L 80 16 151/72 H 96 02/06/21 07:34 98.2 F 100 H 20 116/73 96 02/06/21 06:18 99 H 120/67 02/06/21 06:05 97.9 F 102 H 20 120/67 94 02/06/21 03:47 98.6 F 102 H 18 133/76 94 02/05/21 23:00 100 H 142/74 H 02/05/21 21:56 99 H 16 136/48 L 96 02/05/21 19:00 89 16 112/77 96 02/05/21 17:00 70 17 134/69 96 02/05/21 15:05 85 17 136/106 H 96 Pain Intensity Abdomen: Pain Intensity: 6 Transfer of Care Handoff Completed per policy Notes Mental Status: alert / awake / arousable and participated in evaluation Patient Amnestic to Procedure: Yes Nausea / Vomiting: adequately controlled Pain: adequately controlled Airway Patency, RR, SpO2: stable & adequate BP & HR: stable & adequate and see Notes below Hydration State: stable & adequate Anesthetic Complications: no major complications apparent and Pt Satisfied with anesthetic care Notes: The patient has been in afib with RVR in PACU. The patient was in afib with RVR prior to the procedure. The patient's vital signs were otherwise stable. The patient denied chest pain or SOB. I spoke to the hospitalist who would be taking care of the patient. The patient would be further evaluated by the hospitalist. The patient was to be sent to telemetry for closer observation. Dr. Castillo was made aware of the patient's status.
[2021-02-06] MEDS ORDERED: PROMETHAZINE HCL 12.5 MG in SODIUM CHLORIDE 0.9% 50 ML IV PRN (17:52)
[2021-02-06] MEDS ORDERED: HYDROmorphone INJ 0.5 MG/0.5 ML SYR IV PRN (17:52)
[2021-02-06] MEDS: PANTOprazole 40 MG in SYRINGE 0 ML IV SCH (18:02)
--- NOTE | 2021-02-06 21:14 | Hospitalist Progress Note ---
Date of Service February 06, 2021 Assessment & Plan (1) Small bowel obstruction: Plan: High-grade small bowel obstruction seen on CT abdomen/pelvis. Presented with nausea/vomiting in the setting of chronic IBS-D Admitted with a partial small bowel obstruction just 2 months ago which resolved with conservative management Likely secondary to adhesive disease -Admit to medical floor telemetry given ongoing atrial fibrillation and need to be n.p.o. (needs IV rate controlling medications) -Appreciate general surgery consultation -Maintain NG tube to low intermittent suction -Keep n.p.o. -Start maintenance fluids with LR at 80 mL's per hour, may need to add D5 if she remains n.p.o. for more than 24 to 48 hours -Give IV morphine or IV Tylenol as needed for pain -IV Zofran as needed for nausea -Convert home p.o. PPI to IV PPI once daily -Check CBC, CMP, magnesium, phosphorus in the morning and replete electrolytes as needed-give 20 mEq potassium chloride now for hypokalemia On 02/06 s/p lysis of adhesions. will resume NPO on NG tube. will check electrolytes in AM may need PPN. (2) Atrial fibrillation: Plan: Permanent atrial fibrillation Holding home Xarelto and metoprolol -Give IV metoprolol scheduled 5 mg IV every 6 hours -Hold off on anticoagulation with Lovenox or heparin drip for now until risk of needing surgical intervention is down -Monitor on telemetry HR remains elevated but adequate at 110-120 (3) Chronic anticoagulation: Plan: As above, holding Xarelto Start therapeutic Lovenox SQ or heparin drip when risk of need for surgical intervention has gone down (4) Irritable bowel syndrome with diarrhea: Plan: Hold home Bentyl (5) Chronic anxiety: Plan: Hold home clonazepam -Give IV lorazepam as needed (6) HTN (hypertension): Plan: Holding home metoprolol, HCTZ -Giving IV Lopressor as above scheduled (7) COPD (chronic obstructive pulmonary disease): Plan: No acute issues Not on inhalers at home (8) Hyperlipidemia: Plan: Holding home statin (9) Osteoporosis, unspecified: Plan: -Holding home vitamin D and calcium (10) Meningioma: Plan: Followed annually by neurology No acute issues Plan: DVT prophylaxis-SCDs only for now, no anticoagulation in case of need for surgery Disposition-admit to medical telemetry unit Admission and Anticipated Discharge Date Admission Date: February 05, 2021 Subjective Patirent reports no new symptoms. Review of Systems Review of Systems: All systems reviewed & are unremarkable except as noted in HPI & below Physical Exam Physical Exam: Constitutional: WD/WN, vitals as above Eyes: PERRL, conjunctivae normal, anicteric sclerae ENMT: external ear and nose normal, oropharynx normal Neck: trachea midline, no thyromegaly Respiratory: normal respiratory effort, lungs clear to auscultation Cardiovascular: Rate/Rhythm: regular rate and + irregularly irregular Heart Sounds: no murmur Extremities: no edema Chest (Breasts): Chest: normal inspection of chest Gastrointestinal (Abdomen): Inspection/Auscultation: abdomen normal to inspection and + hypoactive bowel sounds; abdomen not distended Percussion/Palpation: + abdomen tender (In right lower quadrant and periumbilical region without guarding or reboun) and abdomen soft; no guarding Musculoskeletal: Extremities: extremities normal to inspection; no cyanosis and no clubbing Skin: no rashes, warm and dry Neurologic: moves all extremities and awake; no focal motor deficits Psychiatric: A+Ox3, euthymic affect Lymphatic: no lymphedema Results & Data Results & Data ([facility]) Vital Signs (Past 12 Hours) Vital Signs Temp Pulse Pulse Pulse Resp BP BP 02/06/21 19:36 36.9 C 64 18 02/06/21 18:56 122 H 155/69 H 02/06/21 18:02 122 H 155/69 H 02/06/21 16:55 111 H 18 148/94 H 02/06/21 14:42 114 H 16 140/68 02/06/21 14:15 36.7 C 112 H 15 131/83 02/06/21 14:05 36.7 C 121 H 16 137/94 02/06/21 13:55 36.7 C 122 H 15 134/77 02/06/21 13:45 36.7 C 116 H 16 142/66 H 02/06/21 13:35 36.7 C 116 H 17 144/66 H 02/06/21 13:25 118 H 21 126/77 02/06/21 13:15 122 H 22 134/73 02/06/21 13:05 112 H 20 139/62 02/06/21 12:55 124 H 14 142/76 H 02/06/21 12:45 114 H 15 139/75 02/06/21 12:39 36.0 C L 80 16 151/72 H BP Pulse Ox 02/06/21 19:36 134/75 96 02/06/21 18:56 02/06/21 18:02 02/06/21 16:55 97 02/06/21 14:42 98 02/06/21 14:15 95 02/06/21 14:05 94 02/06/21 13:55 96 02/06/21 13:45 95 02/06/21 13:35 96 02/06/21 13:25 97 02/06/21 13:15 97 02/06/21 13:05 92 02/06/21 12:55 93 02/06/21 12:45 93 02/06/21 12:39 96 PG Care Time/CCT Total # of Minutes Spent Total Time Spent with Patient: Total time spent is greater than 50% in coordination of care (as documented) at patient's floor/unit and/or counseling patient: Coding Level of Care Code 78484 Subseq Hosp Care Lvl 2 Diagnoses Small bowel obstruction K56.609 Atrial fibrillation I48.91 Chronic anticoagulation Z79.01 Irritable bowel syndrome with diarrhea K58.0 Chronic anxiety F41.9 HTN (hypertension) I10 Hypertension type: essential hypertension COPD (chronic obstructive pulmonary disease) J44.9 COPD type: unspecified COPD Hyperlipidemia E78.2 Hyperlipidemia type: mixed hyperlipidemia Osteoporosis, unspecified M81.0 Meningioma D32.9 (1) HTN (hypertension) Hypertension type: essential hypertension Qualified Code(s): I10 - Essential (primary) hypertension (2) COPD (chronic obstructive pulmonary disease) COPD type: unspecified COPD Qualified Code(s): J44.9 - Chronic obstructive pulmonary disease, unspecified (3) Hyperlipidemia Hyperlipidemia type: mixed hyperlipidemia Qualified Code(s): E78.2 - Mixed hyperlipidemia
[2021-02-06] MEDS: LORazepam 0.5 MG/1 ML VIAL IV PRN (21:26)
[2021-02-06] MEDS: HYDROmorphone INJ 0.5 MG/0.5 ML SYR IV PRN (21:31)
--- NOTE | 2021-02-06 22:06 | Electrocardiogram Report ---
Test Reason : Blood Pressure : / mmHG Vent. Rate : 097 BPM Atrial Rate : 120 BPM P-R Int : 000 ms QRS Dur : 078 ms QT Int : 362 ms P-R-T Axes : 000 008 039 degrees QTc Int : 459 ms Atrial fibrillation with premature ventricular or aberrantly conducted complexes Low voltage QRS Inferior infarct , age undetermined Cannot rule out Anterior infarct (cited on or before 05-FEB-2021) Abnormal ECG When compared with ECG of 05-OCT-2020 08:06, No significant change Confirmed by Taiwo Vargas ([id number]) on 02/06/2021 10:05:53 PM Referred By: REFERRED SELF Confirmed By:Taiwo Vargas
[2021-02-07] MEDS: HYDROmorphone INJ 0.5 MG/0.5 ML SYR IV PRN ×2 (03:22→09:42)
[2021-02-07] MEDS: METOPROLOL TARTRATE 1 MG/ML VIAL IV SCH ×3 (05:58→18:00)
[2021-02-07] MEDS: LACTATED RINGER'S 1,000 ML IV SCH ×2 (06:00→16:23)
[2021-02-07 08:23] LABS: Basophils # (auto) 0.01 K/uL (0-0.2); Basophils % (auto) 0.1 %; Eosinophils # (auto) 0.01 K/uL (0-0.5); Eosinophils % (auto) 0.1 %; Hematocrit (blood only) 44.7 % (37-47); Immature Granulocytes # (auto) 0.03 K/uL (0.00-0.02); Immature Granulocytes % (auto) 0.2 %; Lymphocytes # (auto) 1.49 K/uL (1.2-3.4); Lymphocytes % (auto) 12.3 %; Mean Corpuscular Hemoglobin 28.3 pg (25-34); Mean Corpuscular Hgb Conc 31.3 g/dL (32-36); Mean Corpuscular Volume 90.5 fL (80-100); Monocytes # (auto) 1.57 K/uL (0.11-0.59); Monocytes % (auto) 12.9 %; Neutrophils # (auto) 9.04 K/uL (1.4-6.5); Neutrophils % (auto) 74.4 %; Platelet Count 208 K/uL (130-400); RDW Coefficient of Variation 15.1 % (11.5-14.5); RDW Standard Deviation 50.1 fL (36.4-46.3); Red Blood Count 4.94 M/uL (4.2-5.4); White Blood Count 12.15 K/uL (4.8-10.8)
[2021-02-07 09:04] LABS: Albumin Level 2.8 gm/dl (3.4-5.0); BUN Creatinine Ratio 23.7 (10-20); Calcium 8.9 mg/dl (8.5-10.1); Creatinine Clr Calc Pharmacy 79.6 ml/min; Est GFR (African American) 98.2 ml/min; Est GFR (Non-African American) 84.7 ml/min; Magnesium 1.7 mg/dl (1.8-2.4)
[2021-02-07 09:14] LABS: Albumin Globulin Ratio 0.8 (0.9-2); Bilirubin,Total 0.7 mg/dl (0.2-1); Globulin 3.4 gm/dl (2.5-4.0); Phosphorus 2.9 mg/dl (2.5-4.9); Total Protein 6.2 gm/dl (6.4-8.2)
[2021-02-07] MEDS: ONDANSETRON INJ 2 MG/ML 2 ML VIAL IV PRN (09:41)
[2021-02-07] MEDS: HEPARIN SOD 5,000 UNIT/0.5 ML VIAL SQ SCH ×2 (09:43→20:14)
--- NOTE | 2021-02-07 10:47 | Hospitalist Progress Note ---
Date of Service February 07, 2021 Assessment & Plan (1) Small bowel obstruction: Plan: High-grade small bowel obstruction seen on CT abdomen/pelvis. Presented with nausea/vomiting in the setting of chronic IBS-D Admitted with a partial small bowel obstruction just 2 months ago which resolved with conservative management Likely secondary to adhesive disease -Admit to medical floor telemetry given ongoing atrial fibrillation and need to be n.p.o. (needs IV rate controlling medications) -Appreciate general surgery consultation -Maintain NG tube to low intermittent suction -Keep n.p.o. -Start maintenance fluids with LR at 80 mL's per hour, may need to add D5 if she remains n.p.o. for more than 24 to 48 hours -Give IV morphine or IV Tylenol as needed for pain -IV Zofran as needed for nausea -Convert home p.o. PPI to IV PPI once daily -Check CBC, CMP, magnesium, phosphorus in the morning and replete electrolytes as needed-give 20 mEq potassium chloride now for hypokalemia On 02/06 s/p lysis of adhesions. will resume NPO on NG tube. will check electrolytes in AM may need PPN. 02/07 will add PEPCID IV. will limit opiates as patient is taking dilaudid q3h prn. will order tylenol IV around the clock. will only give 0.25 dilaudid for severe pain. Gave above dose one time in afternoon. May do trial of NSAIDs as well. NG tube was also not in the correct location, this was fixed and brown liquid is being suctioned. (2) Atrial fibrillation: Plan: Permanent atrial fibrillation Holding home Xarelto and metoprolol -Give IV metoprolol scheduled 5 mg IV every 6 hours -Hold off on anticoagulation with Lovenox or heparin drip for now until risk of needing surgical intervention is down -Monitor on telemetry HR remains elevated but adequate at 110-120 (3) Chronic anticoagulation: Plan: As above, holding Xarelto Start therapeutic Lovenox SQ or heparin drip when risk of need for surgical intervention has gone down (4) Irritable bowel syndrome with diarrhea: Plan: Hold home Bentyl (5) Chronic anxiety: Plan: Hold home clonazepam -Give IV lorazepam as needed (6) HTN (hypertension): Plan: Holding home metoprolol, HCTZ -Giving IV Lopressor as above scheduled (7) COPD (chronic obstructive pulmonary disease): Plan: No acute issues Not on inhalers at home (8) Hyperlipidemia: Plan: Holding home statin (9) Osteoporosis, unspecified: Plan: -Holding home vitamin D and calcium (10) Meningioma: Plan: Followed annually by neurology No acute issues Plan: DVT prophylaxis-SCDs only for now, no anticoagulation in case of need for surgery Disposition-admit to medical telemetry unit Admission and Anticipated Discharge Date Admission Date: February 05, 2021 Subjective Patient reports feeling better. Less pain. But still not passing any gas or stool. She is complaining of some GERD and states she just took some medication. Review of Systems Review of Systems: All systems reviewed & are unremarkable except as noted in HPI & below Physical Exam Physical Exam: Constitutional: WD/WN, vitals as above Eyes: PERRL, conjunctivae normal, anicteric sclerae ENMT: external ear and nose normal, oropharynx normal Neck: trachea midline, no thyromegaly Respiratory: normal respiratory effort, lungs clear to auscultation Cardiovascular: Rate/Rhythm: regular rate and + irregularly irregular Heart Sounds: no murmur Extremities: no edema Chest (Breasts): Chest: normal inspection of chest Gastrointestinal (Abdomen): Inspection/Auscultation: abdomen normal to inspection and + hypoactive bowel sounds; abdomen not distended Percussion/Palpation: + abdomen tender (In right lower quadrant and periumbilical region without guarding or reboun) and abdomen soft; no guarding Musculoskeletal: Extremities: extremities normal to inspection; no cyanosis and no clubbing Skin: no rashes, warm and dry Neurologic: moves all extremities and awake; no focal motor deficits Psychiatric: A+Ox3, euthymic affect Lymphatic: no lymphedema Results & Data Results & Data ([facility]) Vital Signs (Past 12 Hours) Vital Signs Temp Pulse Pulse Resp BP BP Pulse Ox 02/07/21 05:58 95 H 125/60 02/07/21 05:56 36.6 C 95 H 14 125/60 96 02/07/21 03:06 36.9 C 91 H 18 151/75 H 96 02/06/21 23:57 105 H 114/65 02/06/21 23:05 36.6 C 107 H 18 116/67 95 PG Care Time/CCT Total # of Minutes Spent Total Time Spent with Patient: Total time spent is greater than 50% in coordination of care (as documented) at patient's floor/unit and/or counseling patient: Coding Level of Care Code 67879 Subseq Hosp Care Lvl 2 Diagnoses Small bowel obstruction K56.609 Atrial fibrillation I48.91 Chronic anticoagulation Z79.01 Irritable bowel syndrome with diarrhea K58.0 Chronic anxiety F41.9 HTN (hypertension) I10 Hypertension type: essential hypertension COPD (chronic obstructive pulmonary disease) J44.9 COPD type: unspecified COPD Hyperlipidemia E78.2 Hyperlipidemia type: mixed hyperlipidemia Osteoporosis, unspecified M81.0 Meningioma D32.9 (1) Hyperlipidemia Hyperlipidemia type: mixed hyperlipidemia Qualified Code(s): E78.2 - Mixed hyperlipidemia (2) COPD (chronic obstructive pulmonary disease) COPD type: unspecified COPD Qualified Code(s): J44.9 - Chronic obstructive pulmonary disease, unspecified (3) HTN (hypertension) Hypertension type: essential hypertension Qualified Code(s): I10 - Essential (primary) hypertension
[2021-02-07] MEDS ORDERED: ACETAMINOPHEN 1000 MG/100 ML IV IV SCH (11:00)
--- NOTE | 2021-02-07 11:17 | XRay Report ---
KUB CLINICAL HISTORY: Small bowel obstruction. FINDINGS: 2 AP, portable, supine abdominal radiographs are compared to study dated 02/06/2021. Correl ation is made with abdominal CT dated 02/05/2021. Midline skin clips project over the pelvis. An ente gabriela tube is in place. The tip projects over the gastroesophageal junction with the side holes above t he diaphragm. There is persistent gaseous distention of the small bowel loops which measure up to 4.2 cm. No evidence of intraperitoneal free air is seen. No abnormal abdominal calcifications identified . The skeletal structures are osteopenic and appear intact. There is advanced lumbosacral spondylosis . IMPRESSION: 1. Persistent small bowel obstruction, not significantly changed from yesterday. 2. The side holes of the enteric tube project above the diaphragm. This may need to be advanced. Electronically signed by: Malcolm Palmer M.D. 02/07/2021 11:16 AM
[2021-02-07] MEDS ORDERED: FAMOTIDINE 20 MG in SYRINGE 3 ML IV ONE (11:30)
--- NOTE | 2021-02-07 12:30 | Surgery Progress Note ---
Date of Service February 07, 2021 Assessment & Plan (1) Small bowel obstruction: Plan: POD#1 exlap, small bowel resection WBC 12, HR improving, afebrile Continue NGT to LIWS while awaiting return of bowel function Consider removing ferris later today Out of bed as tolerates, pulmonary toilet Admission and Anticipated Discharge Date Admission Date: February 05, 2021 Supervising Physician Co-Signing Physician Notes Patient seen and examined, agree with above. POD #1 laparotomy with small bowel resection for stricture causing obstruction. Still with some pain. Afebrile stable vitals. Abdomen soft, probably tender to palpation, dressing clean dry and intact. Will keep NG tube, DC Ferris, recommend out of bed to chair and ambulation. Await return of bowel function. Subjective Patient says she is a little sore, but reports her pain is manageable. No bowel function yet. Has some heartburn. Has not been out of bed yet. Physical Exam Physical Exam: awake/alert Gastrointestinal (Abdomen): Inspection/Auscultation: + abdominal surgical incision (surgical dressings in place) Percussion/Palpation: + abdomen tender (roxana-incisional ttp) and abdomen soft Results & Data ([facility]) Vital Signs (Past 12 Hours) Vital Signs Temp Pulse Pulse Resp BP BP Pulse Ox 02/07/21 11:11 36.9 C 88 20 124/74 96 02/07/21 05:58 95 H 125/60 02/07/21 05:56 36.6 C 95 H 14 125/60 96 02/07/21 03:06 36.9 C 91 H 18 151/75 H 96 PG Care Time/CCT Total # of Minutes Spent Total Time Spent with Patient: Total time spent is greater than 50% in coordination of care (as documented) at patient's floor/unit and/or counseling patient: Coding Level of Care Code None Diagnoses Small bowel obstruction K56.609
[2021-02-07] MEDS: PANTOprazole 40 MG in SYRINGE 0 ML IV SCH (12:50)
[2021-02-07] MEDS: ACETAMINOPHEN 1,000 MG/100 ML VIAL IV SCH ×2 (12:52→20:14)
--- NOTE | 2021-02-07 13:29 | XRay Report ---
KUB CLINICAL HISTORY: Small bowel obstruction. FINDINGS: An AP, portable, supine abdominal radiographs are compared is compared to study performed romana burnham this day 02/07/2021. Correlation is made with abdominal CT dated 02/05/2021. Midline skin clip s project over the pelvis. The enteric tube has been advanced. The tip is now coiled in the proximal mid stomach. There is persistent gaseous distention of the small bowel loops. No evidence of intraper itoneal free air is seen. There is a nonobstructing right renal calculus. The skeletal structures are osteopenic and appear intact. There is advanced lumbosacral spondylosis. IMPRESSION: 1. Persistent small bowel obstruction, not significantly changed from today's earlier study. 2. The enteric tube is been advanced. This is now coiled in the proximal to mid stomach Electronically signed by: Malcolm Palmer M.D. 02/07/2021 1:27 PM
[2021-02-07] MEDS ORDERED: HYDROmorphone INJ 0.5 MG/0.5 ML SYR IV STA (16:09)
[2021-02-08] MEDS: METOPROLOL TARTRATE 1 MG/ML VIAL IV SCH ×5 (01:46→23:18)
[2021-02-08] MEDS: LACTATED RINGER'S 1,000 ML IV SCH ×3 (01:47→21:34)
[2021-02-08] MEDS: ACETAMINOPHEN 1,000 MG/100 ML VIAL IV SCH ×3 (03:44→20:25)
[2021-02-08 06:59] LABS: Hematocrit (blood only) 42.8 % (37-47); Hemoglobin 13.4 g/dL (12.0-16.0); Mean Corpuscular Hemoglobin 28.9 pg (25-34); Mean Corpuscular Hgb Conc 31.3 g/dL (32-36); Mean Corpuscular Volume 92.2 fL (80-100); Mean Platelet Volume 11.8 fL (7.4-10.4); Platelet Count 205 K/uL (130-400); RDW Coefficient of Variation 15.1 % (11.5-14.5); RDW Standard Deviation 51.2 fL (36.4-46.3); Red Blood Count 4.64 M/uL (4.2-5.4); White Blood Count 9.76 K/uL (4.8-10.8)
[2021-02-08 07:28] LABS: BUN Creatinine Ratio 17.9 (10-20); Calcium 9.2 mg/dl (8.5-10.1); Creatinine Clr Calc Pharmacy 56.8 ml/min; Est GFR (African American) 70.9 ml/min; Est GFR (Non-African American) 61.2 ml/min; Potassium 3.6 mmol/L (3.5-5.1)
[2021-02-08] MEDS: HEPARIN SOD 5,000 UNIT/0.5 ML VIAL SQ SCH ×2 (07:39→21:32)
[2021-02-08] MEDS: MAGNESIUM SULFATE / D5W 1 GM/100 ML BAG IV SCH ×2 (10:05→13:32)
[2021-02-08] MEDS: PANTOprazole 40 MG in SYRINGE 0 ML IV SCH (10:47)
--- NOTE | 2021-02-08 11:00 | Surgery Progress Note ---
Date of Service February 08, 2021 Assessment & Plan (1) History of resection of small bowel: Plan: POD #2 small bowel resection for stricture and bowel obstruction, doing well. Passing flatus. DC NG tube May have sips and chips Ambulate, out of bed to chair, incentive spirometry Admission and Anticipated Discharge Date Admission Date: February 05, 2021 Subjective 80-year-old female POD #2 laparotomy with small bowel resection and anastomosis for stricture causing obstruction. Sworder abdominal incision, NG tube is bothering her. She is passing flatus. No bowel movement. Physical Exam Constitutional: WD/WN, vitals as above Gastrointestinal (Abdomen): Inspection/Auscultation: + abdominal surgical incision ([place], no infection); abdomen not distended Percussion/Palpation: + abdomen tender (Appropriately tender to palpation) and abdomen soft; no guarding, abdomen not rigid and no hepatosplenomegaly Results & Data ([facility]) Vital Signs (Past 12 Hours) Vital Signs Temp Pulse Pulse Resp BP BP BP 02/08/21 07:46 36.7 C 89 20 145/85 H 02/08/21 07:12 76 02/08/21 06:10 106 H 138/84 02/08/21 03:03 36.9 C 86 18 116/73 02/08/21 01:46 84 121/74 02/08/21 00:34 96 H 02/08/21 00:31 102 H 02/07/21 23:07 37.1 C 91 H 18 105/61 Pulse Ox 02/08/21 07:46 97 02/08/21 07:12 02/08/21 06:10 02/08/21 03:03 98 02/08/21 01:46 02/08/21 00:34 02/08/21 00:31 02/07/21 23:07 98 Laboratory Results Laboratory Results - last 24 hr 02/08/21 02/08/21 06:48 06:48 WBC 9.76 RBC 4.64 Hgb 13.4 Hct 42.8 MCV 92.2 MCH 28.9 MCHC 31.3 L RDW Std Deviation 51.2 H RDW Coeff of Vin 15.1 H Plt Count 205 MPV 11.8 H Sodium 140 Potassium 3.6 Chloride 104 Carbon Dioxide 31 Anion Gap 5.0 BUN 16 Creatinine 0.89 Est Cr Clr Drug Dosing 56.8 Est GFR ( Amer) 70.9 Est GFR (Non-Af Amer) 61.2 BUN/Creatinine Ratio 17.9 Glucose 98 Calcium 9.2 PG Care Time/CCT Total # of Minutes Spent Total Time Spent with Patient: Total time spent is greater than 50% in coordination of care (as documented) at patient's floor/unit and/or counseling patient: Coding Level of Care Code None Diagnoses History of resection of small bowel Z90.49
--- NOTE | 2021-02-08 14:05 | Hospitalist Progress Note ---
Date of Service February 08, 2021 Assessment & Plan (1) Small bowel obstruction: Plan: High-grade small bowel obstruction seen on CT abdomen/pelvis. Presented with nausea/vomiting in the setting of chronic IBS-D -Admitted with a partial small bowel obstruction just 2 months ago which resolved with conservative management -Surgery consulted, s/p lysis of adhesions - NGT on LIS, to be removed today - Per surgery may advance to sips/chips -IV Tylenol as needed for pain -IV Zofran as needed for nausea -Continue PPI - Continue Pepcid (2) Atrial fibrillation: Plan: - Permanent atrial fibrillation - Holding home Xarelto and metoprolol -Give IV metoprolol scheduled 5 mg IV every 6 hours -Hold off on anticoagulation with Lovenox or heparin drip for now until risk of needing surgical intervention is down -Monitor on telemetry - HR mildly elevated today (3) Chronic anticoagulation: Plan: As above, holding Xarelto Resume anticoagulation with heparin vs doac tomorrow if clinically well (4) Irritable bowel syndrome with diarrhea: Plan: Hold home Bentyl (5) Chronic anxiety: Plan: Hold home clonazepam -Give IV lorazepam as needed (6) HTN (hypertension): Plan: Holding home metoprolol, HCTZ -Giving IV Lopressor as above scheduled - Resume oral meds once tolerating PO (7) COPD (chronic obstructive pulmonary disease): Plan: No acute issues Not on inhalers at home (8) Hyperlipidemia: Plan: Holding home statin (9) Osteoporosis, unspecified: Plan: -Holding home vitamin D and calcium (10) Meningioma: Plan: Followed annually by neurology No acute issues Plan: DVT prophylaxis-SCDs only for now, anticipate resume anticoagulation tomorrow if clinically well. Currently on DVT PPX 5K Q12 Disposition-admit to medical telemetry unit Admission and Anticipated Discharge Date Admission Date: February 05, 2021 Subjective Seen at bedside. Reports she has been eating a little bit of gas, but not much and still no bowel movements. The NG tube is uncomfortable to her, she feels she has some throat discomfort but no abdominal pain. No fever/chills/sweats. Eager to clinically progress, otherwise no acute questions or concerns. Review of Systems Review of Systems: All systems reviewed & are unremarkable except as noted in Subjective Physical Exam Physical Exam: General: A&Ox3. NAD. Cooperative. HEENT: Atraumatic, normocephalic.NGT in place. Visual acuity and hearing grossly intact. Pulm: CTAB A&P. -wheezes, -rales, -rhonchi. Symmetrical chest rise. No increase work of breathing. No respiratory distress. Cardiac: RRR, -mrg. Radial pulses intact and symmetrical. Abdominal: Nondistended, mildly tender to palpation. Surgical incision intact with drain in place. No rigidity. No rebound. BS present. Extremities: Warm, dry. Moving equally. Results & Data Results & Data ([facility]) Vital Signs (Past 12 Hours) Vital Signs Temp Pulse Pulse Resp BP BP BP 02/08/21 11:43 36.7 C 103 H 18 149/81 H 02/08/21 07:46 36.7 C 89 20 145/85 H 02/08/21 07:12 76 02/08/21 06:10 106 H 138/84 02/08/21 03:03 36.9 C 86 18 116/73 Pulse Ox 02/08/21 11:43 97 02/08/21 07:46 97 02/08/21 07:12 02/08/21 06:10 02/08/21 03:03 98 PG Care Time/CCT Total # of Minutes Spent Total Time Spent with Patient: Total time spent is greater than 50% in coordination of care (as documented) at patient's floor/unit and/or counseling patient: Coding Level of Care Code 15100 Subseq Hosp Care Lvl 2 Diagnoses Small bowel obstruction K56.609 Atrial fibrillation I48.91 Chronic anticoagulation Z79.01 Irritable bowel syndrome with diarrhea K58.0 Chronic anxiety F41.9 HTN (hypertension) I10 Hypertension type: essential hypertension COPD (chronic obstructive pulmonary disease) J44.9 COPD type: unspecified COPD Hyperlipidemia E78.2 Hyperlipidemia type: mixed hyperlipidemia Osteoporosis, unspecified M81.0 Meningioma D32.9 (1) HTN (hypertension) Hypertension type: essential hypertension Qualified Code(s): I10 - Essential (primary) hypertension (2) COPD (chronic obstructive pulmonary disease) COPD type: unspecified COPD Qualified Code(s): J44.9 - Chronic obstructive pulmonary disease, unspecified (3) Hyperlipidemia Hyperlipidemia type: mixed hyperlipidemia Qualified Code(s): E78.2 - Mixed hyperlipidemia
[2021-02-08] MEDS ORDERED: FAMOTIDINE 20 MG in SYRINGE 3 ML IV PRN (21:00)
[2021-02-08] MEDS: LORazepam 0.5 MG/1 ML VIAL IV PRN (21:37)
[2021-02-09] MEDS: ACETAMINOPHEN 1,000 MG/100 ML VIAL IV SCH (03:30)
[2021-02-09] MEDS: METOPROLOL TARTRATE 1 MG/ML VIAL IV SCH ×3 (05:05→17:10)
[2021-02-09 06:55] LABS: Hematocrit (blood only) 41.8 % (37-47); Mean Corpuscular Hemoglobin 28.7 pg (25-34); Mean Corpuscular Hgb Conc 31.1 g/dL (32-36); Mean Corpuscular Volume 92.3 fL (80-100); Mean Platelet Volume 11.8 fL (7.4-10.4); Platelet Count 194 K/uL (130-400); RDW Coefficient of Variation 14.8 % (11.5-14.5); RDW Standard Deviation 50.2 fL (36.4-46.3); Red Blood Count 4.53 M/uL (4.2-5.4); White Blood Count 7.57 K/uL (4.8-10.8)
--- NOTE | 2021-02-09 06:59 | Hospitalist Progress Note ---
Date of Service February 09, 2021 Assessment & Plan (1) Small bowel obstruction: Plan: Patient is an 80 year old female with PMHx Afib, Meningioma, PAD, Osteoporosis, IBS, COPD, HTN, HLD, who presented with symptoms of worsening abdominal pain, found to be a significant SBO requiring small bowel resection and adhesion lysis on 02/06/21. SBO S/P Small Bowel Resection and Adhesion Lysis -Notable admission 2 months ago for SBO which had resolved with conservative management -CT Ab/Pelv on 02/05 noting multiple dilated fluid-filled loops of small bowel with 2 focal transition points -Surgery consulted - s/p small bowel resection and adhesion lysis on 02/06/21 -NG tube removed 02/08 -Patient cleared for clears, will trial today -Continue Mefoxin post-surgical prophylaxis -Continue PPI -Continue Pepcid -Continue IV tylenol and IV Dilaudid PRN pain -Continue Phenergan -Continue Zofran -PT/OT ordered -Per surgery suspect another 2-3 day stay before discharge Atrial Fibrillation -Continue holding home Xarelto -As patient is 3 days out from surgery, will start prophylaxis with Heparin gtt and monitor closely for bleeding -IV Metoprolol 5mg q6h, plan to transition back to PO as long as patient jose ates intake today -Continue monitor on telemetry IBS -Continue to hold home Bentyl Anxiety -Hold home PO clonazepam -IV Ativan PRN HTN -Hold HCTZ -Continue IV metoprolol, transition to PO when tolerating orals COPD -No acute distress, not requiring oxygen -No inhalers ath ome HLD -Holding home statin Osteoporosis -Holding Vitamin D and calcium Meningioma -Followed annually by neurology -No acute concerns Dispo: MedSurg Telemetry FEN: Clear liquids, LR 100ml/hr DVT: Heparin gtt Code: Full Code (2) History of resection of small bowel: (3) Nausea, vomiting, and diarrhea: (4) Abdominal pain: Admission and Anticipated Discharge Date Admission Date: February 05, 2021 Supervising Physician Co-Signing Physician Notes Patient seen and examined, chart reviewed, case discussed with Dr. Bill and I agree with the assessment and plan as above except as otherwise noted 80-year-old female presented with small bowel obstruction status post laparotomy, lysis of adhesions, small bowel resection 02/06/2021. Passing flatus, diet continue to be advanced per surgery to clear liquids. NGT removed 02/08. Heparin GTT resumed for A. fib, may transition to Xarelto if patient doing well. Home metoprolol was converted to IV, may transition back to p.o. once taking orals adequately and consistently. Blood pressure adequate. At bedside patient is nondistressed, some postsurgical abdominal tenderness overlying her incisions with mild abdominal tenderness but overall doing well, abdomen soft, no rigidity or rebound. Radial pulse intact, irregularly irregular. Potassium slightly low today, repleted. Creatinine stable. Labs/images reviewed. Subjective Patient evaluated at the bedside this AM. Pleasant and noted no acute distress. States that her pain was about a 5/10 currently, states it has been improving. Was able to tolerate ice overnight. Has been passing flatus. Otherwise denies any fever, chills, nausea, SOB, chest pain, headache. Review of Systems Review of Systems: All systems reviewed & are unremarkable except as noted in Subjective Physical Exam Constitutional: WD/WN, vitals as above Eyes: normal visual dorsey by confrontation ENMT: external ear and nose normal, oropharynx normal Respiratory: normal respiratory effort, lungs clear to auscultation Cardiovascular: Rate/Rhythm: + irregularly irregular Heart Sounds: normal S1 and normal S2; no murmur Gastrointestinal (Abdomen): Inspection/Auscultation: abdomen normal to inspection, normal bowel sounds and + abdominal surgical incision (dressing clean and dry ); abdomen not distended Percussion/Palpation: + abdomen tender (mild TTP diffusely) and abdomen soft; no guarding Musculoskeletal: Head/Neck/Chest: normocephalic and head atraumatic Skin: no rashes, warm and dry Psychiatric: A+Ox3, euthymic affect Results & Data Results & Data ([facility]) Vital Signs (Past 12 Hours) Vital Signs Temp Pulse Pulse Resp BP BP Pulse Ox 02/09/21 05:05 92 H 136/78 02/09/21 02:58 36.6 C 92 H 18 136/78 93 02/09/21 00:00 94 H 02/08/21 23:18 95 H 125/84 02/08/21 22:42 36.4 C L 91 H 18 128/84 90 Resident Activity Tracking Resident Involvement: Resident Care Provided Care Provided: Adult Hospital Medicine (1) Abdominal pain Abdominal location: generalized Qualified Code(s): R10.84 - Generalized abdominal pain
[2021-02-09 07:06] LABS: Partial Thromboplastin Ratio 1.1; Partial Thromboplastin Time 29.1 Seconds (21.0-31.0)
[2021-02-09 07:32] LABS: BUN Creatinine Ratio 12.5 (10-20); Calcium 8.6 mg/dl (8.5-10.1); Creatinine Clr Calc Pharmacy 60.1 ml/min; Est GFR (African American) 76.1 ml/min; Est GFR (Non-African American) 65.6 ml/min; Potassium 3.3 mmol/L (3.5-5.1)
--- NOTE | 2021-02-09 08:02 | Surgery Progress Note ---
Date of Service February 09, 2021 Assessment & Plan (1) History of resection of small bowel: Plan: Patient had a stricture of the small bowel with unknown digested vegetable matter obstructing the small bowel The site was resected She seems to be doing very well on ice Passing flatus and moving her bowels We will advance her to clear liquids With her age and operation she will still need 2 to 3 days in the hospital Admission and Anticipated Discharge Date Admission Date: February 05, 2021 Results & Data ([facility]) Vital Signs (Past 12 Hours) Vital Signs Temp Pulse Pulse Resp BP BP Pulse Ox 02/09/21 07:42 36.5 C 96 H 20 133/70 92 02/09/21 05:05 92 H 136/78 02/09/21 02:58 36.6 C 92 H 18 136/78 93 02/09/21 00:00 94 H 02/08/21 23:18 95 H 125/84 02/08/21 22:42 36.4 C L 91 H 18 128/84 90 PG Care Time/CCT Total # of Minutes Spent Total Time Spent with Patient: Total time spent is greater than 50% in coordination of care (as documented) at patient's floor/unit and/or counseling patient: Coding Level of Care Code None Diagnoses History of resection of small bowel Z90.49
[2021-02-09] MEDS: HEPARIN SOD 5,000 UNIT/0.5 ML VIAL SQ SCH (08:45)
[2021-02-09] MEDS: LACTATED RINGER'S 1,000 ML IV SCH ×2 (08:45→15:18)
[2021-02-09] MEDS ORDERED: Heparin IV Adult Wt-Based Standard *NO* Bolus Protocol IV ONE (09:50)
[2021-02-09] MEDS: POTASSIUM CHLORIDE / WTR 10 MEQ/100 ML PLCT IV SCH ×3 (10:29→15:18)
[2021-02-09] MEDS: HEPARIN SODIUM/DEXTROSE 25,000 UNITS/500 ML BAG IV SCH (10:47)
[2021-02-09] MEDS: PANTOprazole 40 MG in SYRINGE 0 ML IV SCH (12:36)
[2021-02-09 17:46] LABS: Partial Thromboplastin Ratio 1.8
[2021-02-09 18:19] LABS: Partial Thromboplastin Time 46.6 Seconds (21.0-31.0)
[2021-02-09] MEDS: LORazepam 0.5 MG/1 ML VIAL IV PRN (21:48)
[2021-02-10] MEDS: METOPROLOL TARTRATE 1 MG/ML VIAL IV SCH ×3 (00:21→12:37)
[2021-02-10] MEDS: HEPARIN SODIUM/DEXTROSE 25,000 UNITS/500 ML BAG IV SCH (04:43)
[2021-02-10 06:31] LABS: Partial Thromboplastin Ratio 2.4
[2021-02-10 06:40] LABS: Partial Thromboplastin Time 62.4 Seconds (21.0-31.0)
[2021-02-10 06:43] LABS: BUN Creatinine Ratio 11.6 (10-20); Calcium 8.9 mg/dl (8.5-10.1); Creatinine Clr Calc Pharmacy 86.2 ml/min; Est GFR (African American) 100.3 ml/min; Est GFR (Non-African American) 86.6 ml/min; Potassium 3.3 mmol/L (3.5-5.1)
[2021-02-10] MEDS ORDERED: HYDROCODONE/ACETAMOPHEN 5/325MG TAB PO PRN (06:51)
--- NOTE | 2021-02-10 07:52 | Surgery Progress Note ---
Date of Service February 10, 2021 Assessment & Plan (1) History of resection of small bowel: Plan: We will advance to full liquids Decrease IV fluids Add p.o. pain medication Monitor progress for 1 to 2 days Likely remove her drain prior to discharge Admission and Anticipated Discharge Date Admission Date: February 05, 2021 Subjective Tolerating some clear liquids Says she is passing flatus Review of Systems Review of Systems: All systems reviewed & are unremarkable except as noted in HPI & below Physical Exam Physical Exam: Patient is awake and alert She is in no distress Constitutional: well developed; no acute distress Eyes: + anicteric sclerae Respiratory: normal respiratory effort; no respiratory distress Cardiovascular: Rate/Rhythm: regular rate Gastrointestinal (Abdomen): Inspection/Auscultation: abdomen not distended Abdomen is relatively soft Has drain in place Musculoskeletal: Head/Neck/Chest: head atraumatic Skin: no rashes, warm and dry Neurologic: awake Psychiatric: Orientation: alert Results & Data ([facility]) Vital Signs (Past 12 Hours) Vital Signs Temp Pulse Resp BP Pulse Ox 02/10/21 07:42 37.0 C 81 18 161/90 H 94 02/10/21 04:00 36.7 C 95 H 18 153/85 H 92 02/10/21 00:01 36.7 C 100 H 14 141/80 H 94 02/09/21 20:02 37.0 C 96 H 18 154/96 H 94 PG Care Time/CCT Total # of Minutes Spent Total Time Spent with Patient: Total time spent is greater than 50% in coordination of care (as documented) at patient's floor/unit and/or counseling patient: Coding Level of Care Code None Diagnoses History of resection of small bowel Z90.49
[2021-02-10] MEDS ORDERED: POTASSIUM CHLORIDE / WTR 10 MEQ/100 ML PLCT IV SCH ×2 (08:00)
[2021-02-10] MEDS ORDERED: POTASSIUM CHLORIDE 20 MEQ/15 ML UDC PO STA (09:14)
--- NOTE | 2021-02-10 09:33 | Hospitalist Progress Note ---
Date of Service February 10, 2021 Assessment & Plan (1) Small bowel obstruction: Plan: Patient is an 80 year old female with PMHx Afib, Meningioma, PAD, Osteoporosis, IBS, COPD, HTN, HLD, who presented with symptoms of worsening abdominal pain, found to be a significant SBO requiring small bowel resection and adhesion lysis on 02/06/21. SBO S/P Small Bowel Resection and Adhesion Lysis -Notable admission 2 months ago for SBO which had resolved with conservative management -CT Ab/Pelv on 02/05 noting multiple dilated fluid-filled loops of small bowel with 2 focal transition points -Surgery consulted - s/p small bowel resection and adhesion lysis on 02/06/21 -NG tube removed 02/08 -Diet advanced to full liquids today, Hold IVF -Continue Mefoxin post-surgical prophylaxis - discontinued -Continue PPI -Continue Pepcid -Continue IV tylenol and IV Dilaudid PRN pain - PO Oxycodone 5-10mg PRN pain added -Continue Phenergan -Continue Zofran -PT/OT ordered -Per surgery suspect another 1-2 day stay before discharge Atrial Fibrillation -As taking PO again and has been stable on heparin gtt, will discontinue Heparin gtt -Resume home Xarelto -Resume home PO metoprolol -Continue monitor on telemetry IBS -Continue to hold home Bentyl Anxiety -Resume home PO clonazepam -Discontinue IV Ativan PRN HTN -Hold HCTZ, blood pressure stable on metoprolol alone -Resume home PO metoprolol -DC IV metoprolol COPD -No acute distress, not requiring oxygen -No inhalers at home HLD -Holding home statin Osteoporosis -Holding Vitamin D and calcium Meningioma -Followed annually by neurology -No acute concerns Dispo: MedSurg Telemetry FEN: Full Liquids DVT: Heparin gtt with transition to Xarelto 9PM 02/10/21 Code: Full (2) History of resection of small bowel: (3) Nausea, vomiting, and diarrhea: (4) Abdominal pain: Admission and Anticipated Discharge Date Admission Date: February 05, 2021 Supervising Physician Co-Signing Physician Notes 80-year-old female presented with small bowel obstruction status post laparotomy, lysis of adhesions, small bowel resection 02/06/2021. Passing flatus, diet advanced and tolerating well. NGT removed 02/08. Patient feels well at bedside today, no complaints, no pain. Abdomen nontender, soft, no rigidity/rebound, radial pulse intact irregularly irregular, symmetrical chest rise. Hemoglobin stable, may transition from heparin GTT back to Xarelto Tolerating medications well, convert IV metoprolol q6h back to home dosing metoprolol 50 twice daily tonight. Blood pressure/heart rate normal. Continue diet advancement per surgery, tolerating well at this time Creatinine stable Potassium slightly low, repleted Progressing towards discharge Subjective Patient evaluated at the bedside this morning. She notes that she had actually just had a bowel movement moments prior to my arrival and over all was feeling well. She stated that she was still having some abdominal pain, but that it was improving as well. She has been able to tolerate a clear liquid diet well. She denies any NVD, SOB, chest pain, chest pressure, fever, chills. Physical Exam Constitutional: WD/WN, vitals as above Eyes: normal visual dorsey by confrontation ENMT: external ear and nose normal, oropharynx normal Respiratory: normal respiratory effort, lungs clear to auscultation Cardiovascular: Rate/Rhythm: + irregularly irregular Heart Sounds: normal S1 and normal S2; no murmur Gastrointestinal (Abdomen): Inspection/Auscultation: abdomen normal to inspection, normal bowel sounds and + abdominal surgical incision (dressing clean and dry ); abdomen not distended Percussion/Palpation: + abdomen tender (mild TTP diffusely) and abdomen soft; no guarding Musculoskeletal: Head/Neck/Chest: normocephalic and head atraumatic Skin: no rashes, warm and dry Psychiatric: A+Ox3, euthymic affect Results & Data Results & Data ([facility]) Vital Signs (Past 12 Hours) Vital Signs Temp Pulse Resp BP Pulse Ox 02/10/21 07:42 37.0 C 81 18 161/90 H 94 02/10/21 04:00 36.7 C 95 H 18 153/85 H 92 02/10/21 00:01 36.7 C 100 H 14 141/80 H 94 Resident Activity Tracking Resident Involvement: Resident Care Provided Care Provided: Adult Hospital Medicine (1) Abdominal pain Abdominal location: generalized Qualified Code(s): R10.84 - Generalized abdominal pain
[2021-02-10] MEDS: PANTOprazole 40 MG in SYRINGE 0 ML IV SCH (12:37)
[2021-02-10] MEDS: HYDROCODONE/ACETAMOPHEN 5/325MG TAB PO PRN ×2 (12:42→21:53)
--- NOTE | 2021-02-10 16:46 | Billing Data ---
Date of Service February 09, 2021 Coding Level of Care Code 32480 Subseq Hosp Care Lvl 2
--- NOTE | 2021-02-10 16:46 | Billing Data ---
Date of Service February 10, 2021 Coding Level of Care Code 70734 Subseq Hosp Care Lvl 2
[2021-02-10] MEDS: METOPROLOL TARTRATE 50 MG TAB PO SCH (21:44)
[2021-02-10] MEDS: RIVAROXABAN 20 MG TAB PO SCH (21:45)
[2021-02-10] MEDS: clonazePAM 0.5 MG TAB PO SCH (21:52)
--- NOTE | 2021-02-11 07:51 | Surgery Progress Note ---
Date of Service February 11, 2021 Assessment & Plan (1) History of resection of small bowel: Plan: Patient is tolerating full liquids She wishes to have more food Her abdomen is stable We will advance her to low fiber Continue supportive care-PT has suggested additional therapy Likely discharge Tuesday Admission and Anticipated Discharge Date Admission Date: February 05, 2021 Results & Data ([facility]) Vital Signs (Past 12 Hours) Vital Signs Temp Pulse Resp BP Pulse Ox 02/11/21 07:44 36.7 C 92 H 20 152/85 H 95 02/10/21 22:50 36.9 C 87 18 131/83 92 PG Care Time/CCT Total # of Minutes Spent Total Time Spent with Patient: Total time spent is greater than 50% in coordination of care (as documented) at patient's floor/unit and/or counseling patient: Coding Level of Care Code None Diagnoses History of resection of small bowel Z90.49
[2021-02-11 08:05] LABS: Partial Thromboplastin Ratio 1.3; Partial Thromboplastin Time 35.5 Seconds (21.0-31.0)
[2021-02-11 08:27] LABS: BUN Creatinine Ratio 9.3 (10-20); Calcium 8.9 mg/dl (8.5-10.1); Creatinine Clr Calc Pharmacy 84.4 ml/min; Est GFR (African American) 99.8 ml/min; Est GFR (Non-African American) 86.1 ml/min; Potassium 3.4 mmol/L (3.5-5.1)
[2021-02-11] MEDS ORDERED: POTASSIUM CHLORIDE CRTAB 20 MEQ TABCR PO STA (08:41)
[2021-02-11] MEDS: clonazePAM 0.5 MG TAB PO SCH ×2 (08:55→20:38)
[2021-02-11] MEDS: METOPROLOL TARTRATE 50 MG TAB PO SCH ×2 (08:56→20:38)
[2021-02-11] MEDS: PANTOprazole 40 MG in SYRINGE 0 ML IV SCH (11:41)
--- NOTE | 2021-02-11 13:20 | Hospitalist Progress Note ---
Date of Service February 11, 2021 Assessment & Plan (1) Small bowel obstruction: Plan: Patient is an 80 year old female with PMHx Afib, Meningioma, PAD, Osteoporosis, IBS, COPD, HTN, HLD, who presented with symptoms of worsening abdominal pain, found to be a significant SBO requiring small bowel resection and adhesion lysis on 02/06/21. SBO S/P Small Bowel Resection and Adhesion Lysis -Notable admission 2 months ago for SBO which had resolved with conservative management -CT Ab/Pelv on 02/05 noting multiple dilated fluid-filled loops of small bowel with 2 focal transition points -Surgery consulted - s/p small bowel resection and adhesion lysis on 02/06/21 -NG tube removed 02/08 -Diet advanced to low fiber, Hold IVF -Continue Mefoxin post-surgical prophylaxis - discontinued -Continue PPI -Continue Pepcid -Continue IV tylenol and IV Dilaudid PRN pain -PO Oxycodone 5-10mg PRN pain -Continue Phenergan -Continue Zofran -PT/OT ordered -Per surgery suspect discharge at in 2 days Atrial Fibrillation -Heparin gtt discontinued as taking PO -Continue home Xarelto -Continue home PO metoprolol -Continue monitor on telemetry IBS -Continue to hold home Bentyl Anxiety -Continue home PO clonazepam -Discontinued IV Ativan PRN HTN -Hold HCTZ, blood pressure stable on metoprolol alone -Continue home PO metoprolol -DC IV metoprolol COPD -No acute distress, not requiring oxygen -No inhalers at home HLD -Holding home statin Osteoporosis -Holding Vitamin D and calcium Meningioma -Followed annually by neurology -No acute concerns Dispo: MedSurg Telemetry FEN: Low fiber diet DVT: Heparin gtt with transition to Xarelto 9PM 02/10/21 Code: Full (2) History of resection of small bowel: (3) Nausea, vomiting, and diarrhea: (4) Abdominal pain: Admission and Anticipated Discharge Date Admission Date: February 05, 2021 Supervising Physician Co-Signing Physician Notes 80-year-old female presented with small bowel obstruction status post laparotomy, lysis of adhesions, small bowel resection 02/06/2021. Passing flatus, diet advanced and tolerating well. NGT removed 02/08. Continues to feel well at bedside today, no complaints, no pain. Abdomen nontender, soft, no rigidity/rebound, radial pulse intact irregularly irregular and slightly tachycardic symmetrical chest rise. Continue Xarelto Tolerating medications well, continue metoprolol 50 twice daily. Slightly tachycardic today. Continue to encourage diet, improving, appears near euvolemic. Home hydrochlorothiazide held, blood pressure uptrending may resume in a.m. Continue diet advancement to low fiber per surgery, tolerating well at this time. For surgery anticipate will need to be observed for approximately 2 more days, but is progressing well and may be ready for discharge on Tuesday. Creatinine stable Progressing towards discharge Subjective Patient evaluated at the bedside. She notes she is feeling well and has been tolerating a full liquid diet appropriately. She notes today that she has continued passing flatus and has felt as though she needed to have a bowel movement several times, though it has primarily been gas. She notes improvement in her abdominal pain/discomfort as well. Denies any fever, chills, SOB, chest pain, nausea, vomiting, dysuria. Review of Systems Review of Systems: All systems reviewed & are unremarkable except as noted in Subjective Physical Exam Constitutional: WD/WN, vitals as above Eyes: normal visual dorsey by confrontation ENMT: external ear and nose normal, oropharynx normal Respiratory: normal respiratory effort, lungs clear to auscultation Cardiovascular: Rate/Rhythm: + irregularly irregular Heart Sounds: normal S1 and normal S2; no murmur Gastrointestinal (Abdomen): Inspection/Auscultation: abdomen normal to in spection, normal bowel sounds and + abdominal surgical incision (dressing clean and dry ); abdomen not distended Percussion/Palpation: + abdomen tender (mild TTP diffusely, improved) and abdomen soft; no guarding Musculoskeletal: Head/Neck/Chest: normocephalic and head atraumatic Skin: no rashes, warm and dry Psychiatric: A+Ox3, euthymic affect Results & Data Results & Data ([facility]) Vital Signs (Past 12 Hours) Vital Signs Temp Pulse Resp BP Pulse Ox 02/11/21 12:10 37.1 C 98 H 20 132/81 93 02/11/21 07:44 36.7 C 92 H 20 152/85 H 95 Resident Activity Tracking Resident Involvement: Resident Care Provided Care Provided: Adult [facility] Medicine (1) Abdominal pain Abdominal location: generalized Qualified Code(s): R10.84 - Generalized abdominal pain
[2021-02-11] MEDS: RIVAROXABAN 20 MG TAB PO SCH (16:18)
--- NOTE | 2021-02-11 16:42 | Billing Data ---
Date of Service February 11, 2021 Coding Level of Care Code 47497 Subseq Hosp Care Lvl 2
[2021-02-11] MEDS ORDERED: ACETAMINOPHEN 325 MG TAB PO PRN (22:06)
[2021-02-11] MEDS ORDERED: MELATONIN 3 MG TAB PO PRN (22:08)
[2021-02-12] MEDS ORDERED: traMADol HCL 50 MG TABLET PO PRN (04:59)
[2021-02-12 06:26] LABS: Hematocrit (blood only) 44.1 % (37-47); Hemoglobin 13.9 g/dL (12.0-16.0); Mean Corpuscular Hemoglobin 29.1 pg (25-34); Mean Corpuscular Hgb Conc 31.5 g/dL (32-36); Mean Corpuscular Volume 92.3 fL (80-100); Platelet Count 243 K/uL (130-400); RDW Coefficient of Variation 14.9 % (11.5-14.5); RDW Standard Deviation 50.6 fL (36.4-46.3); Red Blood Count 4.78 M/uL (4.2-5.4); White Blood Count 9.77 K/uL (4.8-10.8)
--- NOTE | 2021-02-12 06:41 | Hospitalist Progress Note ---
Date of Service February 12, 2021 Assessment & Plan Admission and Anticipated Discharge Date Admission Date: February 05, 2021 Results & Data Results & Data ([facility]) Vital Signs (Past 12 Hours) Vital Signs Temp Pulse Pulse Resp BP Pulse Ox 02/12/21 04:06 36.6 C 8 L 18 128/78 93 02/12/21 00:01 89 02/11/21 23:17 36.8 C 84 18 100/71 95 02/11/21 19:28 36.8 C 90 18 125/66 95
[2021-02-12 07:02] LABS: Partial Thromboplastin Ratio 1.3; Partial Thromboplastin Time 33.6 Seconds (21.0-31.0)
[2021-02-12 07:28] LABS: BUN Creatinine Ratio 8.2 (10-20); Calcium 9.7 mg/dl (8.5-10.1); Est GFR (African American) 95.8 ml/min; Est GFR (Non-African American) 82.6 ml/min; Potassium 3.5 mmol/L (3.5-5.1)
[2021-02-12] MEDS: clonazePAM 0.5 MG TAB PO SCH (08:00)
[2021-02-12] MEDS: METOPROLOL TARTRATE 50 MG TAB PO SCH (08:01)
[2021-02-12] MEDS ORDERED: hydroCHLOROthiazide 25 MG TAB PO SCH (09:00)
--- NOTE | 2021-02-12 10:16 | Surgery Progress Note ---
Date of Service February 12, 2021 Assessment & Plan (1) History of resection of small bowel: Plan: Patient tolerating low fiber diet. + bowel function. No abdominal complaints Abdomen is soft, non tender, non distended Midline incision with cate and nu gauze packing to superior and inferior portion of wound. Change wound dressing daily may need home health care to help her with incision pt.ot cleared for home Okay for discharge from our standpoint, f/u in clinic within 1-2 weeks for staple removal Admission and Anticipated Discharge Date Admission Date: February 05, 2021 Subjective Patient is doing well. Tolerating a diet. + bowel function. Denies belly pain/nausea/vomiting. Was up today working with PT/OT Physical Exam Physical Exam: awake/alert Gastrointestinal (Abdomen): Inspection/Auscultation: + abdominal surgical incision (c/d/i with cate and packing in place); abdomen not distended Percussion/Palpation: abdomen soft; abdomen nontender Results & Data ([facility]) Vital Signs (Past 12 Hours) Vital Signs Temp Pulse Pulse Resp BP Pulse Ox 02/12/21 07:09 36.7 C 89 18 134/79 93 02/12/21 04:06 36.6 C 8 L 18 128/78 93 02/12/21 00:01 89 02/11/21 23:17 36.8 C 84 18 100/71 95 PG Care Time/CCT Total # of Minutes Spent Total Time Spent with Patient: Total time spent is greater than 50% in coordination of care (as documented) at patient's floor/unit and/or counseling patient: Coding Level of Care Code None Diagnoses History of resection of small bowel Z90.49
--- NOTE | 2021-02-12 11:10 | Discharge Summary ---
Date of Service February 12, 2021 Admission HPI Per Admitting Provider This patient is an 80-year-old female with a history of partial small bowel obstruction, IBS-D, permanent atrial fibrillation on Xarelto, COPD, HTN, hyperlipidemia, osteoporosis, chronic anxiety, meningioma, endometriosis status post hysterectomy, who presents to the ER with right lower quadrant and periumbilical abdominal pain, nausea/vomiting, and some small amounts of loose stool since last night. She had a colonoscopy about 2 weeks ago and since her last hospitalization for partial SBO, has changed her diet, and has noted an improvement in diarrhea. She was seen by the GI doctor yesterday and was starte d on Bentyl and Metamucil for IBS-D. A CT abdomen/pelvis performed in the ER shows evidence of small bowel obstruction, and raises the possibility of a closed-loop obstruction. She was seen by the surgeon in the ER and was determined to have a benign abdomen, but recommended NG tube placement for decompression, keeping her n.p.o., and giving IV fluids, holding her Xarelto. On laboratory values, she had a leukocytosis of 12, mild hypokalemia, mildly elevated calcium, and mildly elevated total bilirubin at 1.1. Urinalysis showed evidence of dehydration with 1+ ketones and specific gravity greater than 1.045. Covid-19 test was negative. Admission Exam Per Admitting Provider Constitutional: WD/WN, vitals as above Eyes: PERRL, conjunctivae normal, anicteric sclerae ENMT: external ear and nose normal, oropharynx normal Neck: trachea midline, no thyromegaly Respiratory: normal respiratory effort, lungs clear to auscultation Cardiovascular: Rate/Rhythm: regular rate and + irregularly irregular Heart Sounds: no murmur Extremities: no edema Chest (Breasts): Chest: normal inspection of chest Gastrointestinal (Abdomen): Inspection/Auscultation: abdomen normal to inspection and + hypoactive bowel sounds; abdomen not distended Percussion/Palpation: + abdomen tender (In right lower quadrant and periumbilical region without guarding or reboun) and abdomen soft; no guarding Musculoskeletal: Extremities: extremities normal to inspection; no cyanosis and no clubbing Skin: no rashes, warm and dry Neurologic: moves all extremities and awake; no focal motor deficits Psychiatric: A+Ox3, euthymic affect Lymphatic: no lymphedema Principal Diagnosis SBO Discharge Exam Constitutional WD/WN, vitals as above Eyes normal visual dorsey by confrontation ENMT external ear and nose normal, oropharynx normal Respiratory normal respiratory effort, lungs clear to auscultation Cardiovascular Rate/Rhythm: + irregularly irregular Heart Sounds: normal S1 and normal S2; no murmur Gastrointestinal (Abdomen) Inspection/Auscultation: abdomen normal to inspection, normal bowel sounds and + abdominal surgical incision (CDI); abdomen not distended Percussion/Palpation: + abdomen tender (minimally TTP diffusely, improved) and abdomen soft; no guarding Musculoskeletal Head/Neck/Chest: normocephalic and head atraumatic Skin no rashes, warm and dry Psychiatric A+Ox3, euthymic affect Discharge Data Allergies Allergy/AdvReac Type Severity Reaction Status Date / Time aspirin [From Percodan] Allergy Swelling Verified 02/05/21 12:45 of Lip/Tongue/Throat ciprofloxacin Allergy Swelling Verified 02/05/21 12:45 of Lip/Tongue/Throat peanut Allergy Swelling Verified 02/05/21 12:45 of Lip/Tongue/Throat oxycodone AdvReac Unknown "makes me Verified 02/05/21 12:45 crazy" apixaban [From Eliquis] AdvReac bloating Verified 02/05/21 12:45 lisinopril AdvReac Cough Verified 02/05/21 12:45 Consultations 02/05/21 16:35 ED Decision to Admit Stat Procedures Performed Operation Date: 02/06/21 09:30 Actual Procedures p Laparotomy, Lysis of Adhesions, small bowel resection(Not Applicable) - Mane Castillo MD, FACS Ordered Studies 02/05/21 11:36 CT abd pelvis IV con only Stat Hospital Course (1) Small bowel obstruction: Patient is an 80 year old female with PMHx Afib, Meningioma, PAD, Osteoporosis, IBS, COPD, HTN, HLD, who presented with symptoms of worsening abdominal pain, found to be a significant SBO requiring small bowel resection and adhesion lysis on 02/06/21. SBO S/P Small Bowel Resection and Adhesion Lysis -Notable admission 2 months ago for SBO which had resolved with conservative management -CT Ab/Pelv on 02/05 noting multiple dilated fluid-filled loops of small bowel with 2 focal transition points -Surgery consulted - s/p small bowel resection and adhesion lysis on 02/06/21 -NG tube removed 02/08 -Mefoxin post-surgical prophylaxis - discontinued -Continued PPI -Continued Pepcid -Continued IV tylenol and IV Dilaudid PRN pain while inpatient -PO Oxycodone 5-10mg PRN pain while inpatient -Continued Phenergan -Continued Zofran -PT/OT ordered -Tolerated advancing diet, discharged home on PO Tramadol for pain control -Follow up with General Surgery Atrial Fibrillation -Heparin gtt was started after surgical intervention for prophylaxis, transitioned to home Xarelto -Continued home PO metoprolol -Continued monitor on telemetry IBS -Held home Bentyl Anxiety -Continued home PO clonazepam -Discontinued IV Ativan PRN HTN -Resumed home metoprolol and HCTZ after surgery COPD -No acute distress, not requiring oxygen -No inhalers at home HLD -Held home statin Osteoporosis -Held Vitamin D and calcium Meningioma -Followed annually by neurology -No acute concerns (2) History of resection of small bowel: (3) Nausea, vomiting, and diarrhea: (4) Abdominal pain: Total Time Total Time Spent Total Time Spent (In Minutes): see attending attestation Discharge Plan Discharge Items Patient Disposition: Home - Self-Care Reason For Visit: DIARRHEA, VOMITING Discharge Diagnosis: exploratory laparotomy, small bowel resection, for small bowel obstruction Activity: Per Instructions section Activity Comment: light activity for 4 weeks Lifting: No more than 10 pounds Bathing Comment: may shower; no soaking in tubs/pools Sexual Activity: When tolerated Exercise/Sports: Wait until after follow-up appointment Exercise Comment: wait 4 weeks Driving/Machine Use: no driving while having pain or while taking narcotics for pain Non-emergency contact: Primary Care Provider and Surgeon Call non-emergency contact if: you have any medication questions, your symptoms worsen, your pain is not controlled, your pain is concerning for you, you have a fever, your temperature is above 101.5, your wound has increased redness, your wound has increased drainage and your wound pain has increased Follow-up/Referrals: Josué Sandhu MD [Primary Care Provider] - 03/09/21 9:00 am (The office will call you if a sooner appointment becomes available.) Mane Castillo MD, FACS [Physician] - 03/04/21 9:15 am Diet: Low Fiber Addtl Attending Provider Instructions: Ms. Black, It was our pleasure caring for you at [facility] in regards to your small bowel obstruction from 02/05 - 02/12/21. While in the hospital, you were found to have a significant small bowel obstruction that required surgical intervention to correct. You have been eating and stooling well since the procedure. Please follow up with your surgeon after discharge. Please see below for instructions from your surgeon in regards to care for your wound in addition to reasons for calling your surgeon or PCP. SPECIAL CARE INSTRUCTIONS: * Cover incisions and change daily for comfort/drainage. * May use ibuprofen for pain as tolerated. * Expect some swelling and bruising. Call your doctor if: * Temperature above 101 degrees * Pain not relieved by pain medicine ordered * There is increased drainage or redness from any incision * You have any unanswered questions or concerns [phone]. Dressing should be changed daily. Pack top and bottom portions of midline wound daily with wet-to-dry nu-gauze, cover full incision with dry 4x4 gauze, and adhere with medipore tape. FOLLOW UP VISIT: If not already scheduled, please call the office for a follow-up visit. OFFICE PHONE NUMBER: Dr. Castillo Office Pending Studies at Discharge: Yes Studies:: surgical pathology Stand-Alone Forms: [facility], Smoking Cessation Medications and DC Order Prescriptions: New tramadol 50 mg tablet 50 - 100 mg PO .[id number] PRN (Reason: mod-severe pain, initial therapy, max 6tabs/day) Qty: 10 RF: 0 Continued rosuvastatin 10 mg tablet 10 mg PO HS Qty: 90 RF: 3 metoprolol tartrate 50 mg tablet 50 mg PO BID Qty: 180 RF: 3 Xarelto 20 mg tablet 20 mg PO QPM Qty: 90 RF: 3 cyanocobalamin (vitamin B-12) 1,000 mcg capsule 1,000 mcg PO BID RF: 0 clonazepam 0.5 mg tablet 0.5 mg PO BID Qty: 60 RF: 0 calcium carbonate-vitamin D3 600 mg(1,500mg) -200 unit tablet 1 tab PO QAM RF: 0 cholecalciferol (vitamin D3) 3,000 unit tablet 3,000 units PO QAM RF: 0 hydrochlorothiazide 12.5 mg tablet 12.5 mg PO QAM RF: 0 potassium chloride 20 mEq tablet extended release 20 meq PO QAM RF: 0 omeprazole 20 mg capsule,delayed release(DR/EC) 20 mg PO QAM RF: 0 Discharge Orders: Discharge Order (Routine); Ordered 02/12/21 Ordered By: Rafael Bill Admission Data Admit Date/Time: 02/05/21 17:55 Attending Provider: Josué Sethi Admit Provider: Jess Palomo Primary Care Provider: Josué Sandhu Other Providers: Jess Palomo Other Interventions: Discharge Summary Assessment (RN) Last Done: 02/12/21 12:56 Supervising Physician Co-Signing Physician Notes Patient seen and examined, chart reviewed, case discussed with Dr. Bill and I agree with the assessment and plan as above except as otherwise noted General: A&Ox3. NAD. Cooperative. HEENT: Atraumatic, normocephalic. Pulm: CTAB A&P. -wheezes, -rales, -rhonchi. Symmetrical chest rise. No increase work of breathing. No respiratory distress. Cardiac: Irregularly irregular, with normal rate at time of assessment. Abdominal: Surgical site intact, C/D/I well-healing without discharge, erythema, purulence. Appropriately and minimally tender at surgical site, otherwise abdomen soft, nontender. Patient is an 80 year old female who presented with worsening abdominal pain, was treated for SBO status post small bowel resection 02/06 with lysis of adhesions and to clinically progressed well throughout admission. Following lysis of adhesions NG tube was removed, patient was continued on antiacid therapy pain control as needed and slow advancement of diet. Diet was prescribed safely advanced through low fiber with good tolerance. She was followed by general surgery who felt she was also safe for discharge home and outpatient follow-up on day of discharge. During mission her home Xarelto was transiently held perioperatively, postop. Had heparin resumed, and then was transitioned back to home Xarelto. She is discharged with follow-up to her PCP and surgical team. Total time spent preparing discharge day of discharge 35 minutes including review of labs and images, direct patient care, coordination of care, documentation, and review of case with resident provider Resident Activity Tracking Resident Involvement: Resident Care Provided Care Provided: Adult Hospital Medicine
--- NOTE | 2021-02-12 18:47 | Billing Data ---
Date of Service February 12, 2021 Coding Level of Care Code D/C DAY MANAGEMENT >30 MINS
== END 2021-02-12 14:03 | disposition home or self-care (01) | DRG 330 ==
LOC: ED 11:01 → SUATTDRO 17:55 → EDINP 17:55 → 2N 02-06 19:19

== ENCOUNTER 2022-10-06 09:13 | Inpatient (IN) ==
--- NOTE | 2022-10-06 10:04 | Emergency Department Note ---
Impression & Plan Acute exacerbation of CHF (congestive heart failure), SOLIMAN (dyspnea on exertion) ED Provider Note NAME: OLIVIA ALBERT AGE: 82 SEX: F : 1940 ARRIVES VIA: Walk-In INFORMANT: Patient, ED PROVIDER(S): Gian Haddad MD CHIEF COMPLAINT: SOB MEDICAL DECISION MAKING: Patient presents due to concern for shortness of breath and SOLIMAN. IV was established blood was obtained along with a chest x-ray EKG and troponin and BNP. Patient has a normal white count H&H and platelet count. The patient's kidney function is unremarkable with normal electrolytes. Troponin is not elevated BNP of 407. The patient has had weight gain approximately 5 to 6 kg since her last weight check. Patient was ordered 40 of IV Lasix. I did inform the patient and family of findings and recommendations. Patient will stay in the hospital. I did speak the on-call hospital service Dr. Thomas and the patient was admitted to the medicine service Prior /Outside records reviewed: I reviewed a cardiology visit from Dr. Obrien from June 2022. Patient has known history of paroxysmal A-fib hypertension hyperlipidemia. 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 Patient is on Xarelto as well as metoprolol tartrate. Patient does take a diuretic hydrochlorothiazide. Differential diagnosis: Reactive airway disease, pneumonia, pneumothorax, COPD, CHF, infections, cardiac ischemia, pulmonary embolism, musculoskeletal, gastrointestinal, as well as other pathologies. Diagnostics, as interpreted by me: ECG: A-fib, ventricular rate of 60, normal axis, normal QRS duration, no obvious ST elevations Cardiac monitoring: An order was placed for continuous cardiac monitoring. The monitor shows a rate of 55 with irregularly irregular rhythm. Patient was placed on pulse oximetry Medical decision rules: None Imaging studies: See below I informally reviewed the patient's chest x-ray which does not show obvious pneumothorax. HPI: Patient presents due to concern for shortness of breath ongoing and prog ressively worse over the last several days with associated SOLIMAN and orthopnea. Patient does state that she salts all of her food and has noticed some increasing leg swelling. She states that she has had weight gain ever since she had surgery. The patient has had chronic shortness of breath ever since she had COVID but this seems worse. The patient denies any upper respiratory symptoms cough fever or congestion. Patient is compliant with her medications and took all of her medications this morning including her metoprolol and hydrochlorothiazide. Patient denies any abdominal pain. She has had occasional nausea. PAST MEDICAL HISTORY: See Below PAST SURGICAL HISTORY: See Below SOCIAL HISTORY: See Below HOME MEDICATIONS: See Below ALLERGIES: See Below VITALS: See Below PHYSICAL EXAMINATION: GENERAL: NAD, non-toxic. EYE EXAM: Normal conjunctiva. PERRL, no anisocoria and EOM's grossly intact w/o pain. OROPHARYNX: Moist mucus membranes, grossly normal dentition. NECK: Supple, no nuchal rigidity, no adenopathy, non-tender. No signs of meningismus. FROM of the neck with good chin to chest and neck extension. No stridor. LUNGS: Trace bibasilar crackles noted normal chest wall mechanics. HEART: Bradycardic and irregularly irregular, no MRG. ABDOMEN: Abdomen soft, non-tender, no masses, no rebound or guarding. BACK: No CVA TTP. SKIN: No rashes and no bruising. UPPER EXTREMITIES: Upper extremities are grossly normal. LOWER EXTREMITIES: Grossly normal, 1+ symmetric lower extremity edema without any calf pain or erythema NEURO EXAM: A&O x3, cranial nerves II-XII grossly intact, normal speech, moves all 4 extremities. Past Med/Surg History Medical History Anxiety Atrial fibrillation on xarelto; following with Dr. Obrien Cardiac murmur hx-"told I no longer have it"; f/u Dr. Obrien Cerebral meningioma Dr. Meng monitors annually; last check 2021 COPD (chronic obstructive pulmonary disease) pt denies "never told I had this" GERD (gastroesophageal reflux disease) History of colon polyps History of COVID-19 12/05/20; cough, loss of appetite, loss of taste/smell, fatigue; resolved. History of nephrolithiasis HTN (hypertension) Hx SBO sx to correct Hyperlipidemia Hypokalemia On anticoagulant therapy Osteoporosis Scoliosis Surgical History History of abdominal hysterectomy History of bowel resection (02/06/21) Laparotomy with lysis of adhesions and small bowel resection. Dr. Castillo 02/06/2021 History of colonoscopy History of elbow surgery Left History of resection of small bowel Family History Father Heart disease Brother Myocardial infarction Sister Ovarian cancer Other Cancer Lung cancer No family history of adverse response to anesthesia Denies family history of Prostate cancer Breast cancer Colorectal cancer Social History Smoking Status: Former smoker Tobacco Type: Cigarettes Age Started Using Tobacco: 35; Age Quit Using Tobacco: 74; packs per day: 0.75; Second Hand Exposure: No; Do You Dip or Chew Tobacco: No; Hx Alcohol Use: No Hx Substance Use: No Preferred Language: Citizen Of [place] Communication Ability: Effective Visual Impairment: Limited Hearing Ability: Normal [place] Required: No Beliefs That Will Affect Care: None marital status: Current Living Situation: Spouse Current Living Situation Comment: Lives with current occupational status: retired Feels Safe at Home: Yes Childhood Exposure to Second-Hand Smoke: Yes Diet: regular caffeine: Yes Dental Care, Regularly: Yes Physical Activity Frequency: Does not Exercise Physical Activity Frequency Comment: works in [employer] Seatbelt Use: always Sunscreen Use: Yes Do you think of yourself as: straight/heterosexual Assistive Devices: Contacts and Glasses Allergies Allergies Allergy/AdvReac Type Severity Reaction Status Date / Time aspirin [From Percodan] Allergy Swelling Verified 09/15/22 09:39 of Lip/Tongue/Throat ciprofloxacin Allergy Swelling Verified 09/15/22 09:39 of Lip/Tongue/Throat peanut Allergy Swelling Verified 09/15/22 09:39 of Lip/Tongue/Throat oxycodone AdvReac Unknown "makes me Verified 09/15/22 09:39 crazy" apixaban [From Eliquis] AdvReac bloating Verified 09/15/22 09:39 lisinopril AdvReac Cough Verified 09/15/22 09:39 Home Meds Home Medications Medication Instructions Recorded Confirmed calcium carbonate 600 mg-vitamin 1 tab PO QAM 10/26/18 10/06/22 D3 5 mcg (200 unit) tablet cholecalciferol (vitamin D3) 75 3,000 units PO QAM 10/26/18 10/06/22 mcg (3,000 unit) tablet clonazepam 0.5 mg tablet 0.5 mg PO BID #60 tabs 10/26/18 10/06/22 cyanocobalamin (vitamin B-12) 1,000 mcg PO BID 09/29/20 10/06/22 1,000 mcg capsule clotrimazole-betamethasone 1 1 applic topical HS PRN Skin 09/13/22 10/06/22 %-0.05 % topical cream Irritation metoprolol tartrate 50 mg tablet 75 mg PO BID 09/13/22 10/06/22 potassium chloride 20 mEq 20 meq PO QAM 09/13/22 10/06/22 tablet,extended release Previous Rx's Medication Instructions Recorded rivaroxaban 20 mg tablet (Xarelto) 20 mg PO QPM #90 tabs 11/02/21 rosuvastatin 10 mg tablet 10 mg PO HS #90 tabs 05/24/22 hydrochlorothiazide 12.5 mg tablet 12.5 mg PO QAM #90 tabs 06/02/22 omeprazole 20 mg capsule,delayed 20 mg PO QAM #90 caps 08/26/22 release Results & Data (ED) Vital Signs Vital Signs - 24 hr 10/06/22 09:26 10/06/22 09:48 10/06/22 09:13 Temperature 36.6 C Temperature Source Temporal Artery Scan Pulse Rate 65 46 L Pulse Rate [Apical] Pulse Rhythm [Apical] Pulse Strength [Apical] Respiratory Rate 18 Respiratory Effort / Characteristics Non-Labored Spontaneous Respiratory Depth Normal Respiratory Pattern Regular Blood Pressure 138/73 Blood Pressure [Left Arm] Blood Pressure Mean 94 Blood Pressure Mean [Left Arm] Pulse Oximetry 95 95 Oxygen Delivery Method Room Air Room Air Sepsis Recent Fever Within 48 Hours No Sepsis New/Unexplained Change in Mental Status No Sepsis Action Taken by Nursing No Action Required 10/06/22 09:13 10/06/22 09:53 10/06/22 09:53 Temperature Temperature Source Pulse Rate 56 L Pulse Rate [Apical] 52 L Pulse Rhythm [Apical] Regular Pulse Strength [Apical] Normal Respiratory Rate 23 18 Respiratory Effort / Characteristics Non-Labored Respiratory Depth Normal Respiratory Pattern Regular Blood Pressure Blood Pressure [Left Arm] 159/82 H Blood Pressure Mean Blood Pressure Mean [Left Arm] 107 Pulse Oximetry 95 94 95 Oxygen Delivery Method Room Air Room Air Room Air Sepsis Recent Fever Within 48 Hours Sepsis New/Unexplained Change in Mental Status Sepsis Action Taken by Nursing 10/06/22 11:50 10/06/22 12:38 10/06/22 14:00 Temperature Temperature Source Pulse Rate Pulse Rate [Apical] 48 L 52 L 65 Pulse Rhythm [Apical] Pulse Strength [Apical] Respiratory Rate 18 18 29 H Respiratory Effort / Characteristics Non-Labored Respiratory Depth Normal Respiratory Pattern Regular Blood Pressure Blood Pressure [Left Arm] 152/80 H 127/57 L 147/57 H Blood Pressure Mean Blood Pressure Mean [Left Arm] 104 80 87 Pulse Oximetry 95 95 98 Oxygen Delivery Method Room Air Room Air Room Air Sepsis Recent Fever Within 48 Hours Sepsis New/Unexplained Change in Mental Status Sepsis Action Taken by Care Home Medications Current Medication List: was personally reviewed by me Laboratory Data Attestation: I reviewed the patient's lab results. 10/06/22 09:48 10/06/22 09:48 Lab Results 10/06/22 10/06/22 10/06/22 Range/Units 09:48 09:48 09:48 WBC 6.73 (4.8-10.8) K/ul RBC 5.25 (4.20-5.40) M/uL Hgb 13.7 (12.0-16.0) g/dl Hct 43.3 (37.0-47.0) % MCV 82.5 (80.0-100.0) fL MCH 26.1 (25.0-34.0) pg MCHC 31.6 L (32.0-36.0) g/dL RDW Std Deviation 43.0 (36.4-46.3) fL RDW Coeff of Vin 14.4 (11.5-14.5) % Plt Count 238 (130-400) K/uL MPV 12.0 (9.4-12.4) fL Immature Gran % (Auto) 0.4 % Neut % (Auto) 62.8 % Lymph % (Auto) 22.1 % [place] % (Auto) 11.6 % Eos % (Auto) 1.8 % Baso % (Auto) 1.3 % Neut # (Auto) 4.22 (1.40-6.50) K/uL Lymph # (Auto) 1.49 (1.2-3.4) K/uL [place] # (Auto) 0.78 H (0.11-0.59) K/uL Eos # (Auto) 0.12 (0-0.50) K/uL Baso # (Auto) 0.09 (0-0.2) K/uL Immature Gran # (Auto) 0.03 (0.01-0.20) K/uL PT 12.8 H (9.0-12.0) Seconds INR 1.2 H (0.9-1.1) APTT 37.0 H (21.0-31.0) Seconds PTT Ratio 1.3 Sodium 139 (136-145) mmol/L Potassium 4.4 (3.5-5.1) mmol/L Chloride 105 (98-107) mmol/L Carbon Dioxide 27 (21-32) mmol/L Anion Gap 7 (3-11) BUN 14 (6-23) mg/dl Creatinine 0.73 (0.6-1.2) mg/dl Est Cr Clr Drug Dosing Not Reportable Est GFR ( Amer) 88.9 ml/min Est GFR (Non-Af Amer) 76.7 ml/min BUN/Creatinine Ratio 19.2 (10-20) Glucose 130 H (70-99(Fasting)) mg/dl Calcium 9.2 (8.6-10.3) mg/dl Total Bilirubin 0.8 (0.2-1.0) mg/dl AST 14 (13-39) U/L ALT 12 (7-52) U/L Alkaline Phosphatase 77 (34-104) U/L Troponin I High Sens 7.7 (0-14) pg/ml B-Natriuretic Peptide (0-100) pg/ml Total Protein 6.6 (6.0-8.3) gm/dl Albumin 4.0 (3.4-5.0) gm/dl Globulin 2.6 (2.5-4.0) gm/dl Albumin/Globulin Ratio 1.5 (0.9-2) 10/06/22 Range/Units 09:48 WBC (4.8-10.8) K/ul RBC (4.20-5.40) M/uL Hgb (12.0-16.0) g/dl Hct (37.0-47.0) % MCV (80.0-100.0) fL MCH (25.0-34.0) pg MCHC (32.0-36.0) g/dL RDW Std Deviation (36.4-46.3) fL RDW Coeff of Vin (11.5-14.5) % Plt Count (130-400) K/uL MPV (9.4-12.4) fL Immature Gran % (Auto) % Neut % (Auto) % Lymph % (Auto) % [place] % (Auto) % Eos % (Auto) % Baso % (Auto) % Neut # (Auto) (1.40-6.50) K/uL Lymph # (Auto) (1.2-3.4) K/uL [place] # (Auto) (0.11-0.59) K/uL Eos # (Auto) (0-0.50) K/uL Baso # (Auto) (0-0.2) K/uL Immature Gran # (Auto) (0.01-0.20) K/uL PT (9.0-12.0) Seconds INR (0.9-1.1) APTT (21.0-31.0) Seconds PTT Ratio Sodium (136-145) mmol/L Potassium (3.5-5.1) mmol/L Chloride (98-107) mmol/L Carbon Dioxide (21-32) mmol/L Anion Gap (3-11) BUN (6-23) mg/dl Creatinine (0.6-1.2) mg/dl Est Cr Clr Drug Dosing Est GFR ( Amer) ml/min Est GFR (Non-Af Amer) ml/min BUN/Creatinine Ratio (10-20) Glucose (70-99(Fasting)) mg/dl Calcium (8.6-10.3) mg/dl Total Bilirubin (0.2-1.0) mg/dl AST (13-39) U/L ALT (7-52) U/L Alkaline Phosphatase (34-104) U/L Troponin I High Sens (0-14) pg/ml B-Natriuretic Peptide 407 H (0-100) pg/ml Total Protein (6.0-8.3) gm/dl Albumin (3.4-5.0) gm/dl Globulin (2.5-4.0) gm/dl Albumin/Globulin Ratio (0.9-2) Administered Medications Discontinued Medications Furosemide (Furosemide 40 Mg/4 Ml Vial) 40 mg IV ONE ONE Stop: 10/06/22 11:19 Last Admin: 10/06/22 11:26 Dose: 40 mg Documented By: [facility] Imaging Data Radiologist's Impression: Chest X-Ray 10/06/22 09:53 XR chest 1V portable HISTORY: 82 years-old Female Chest pain, nonspecific COMPARISON: 02/05/2021 TECHNIQUE: AP view of the chest FINDINGS: Cardiac silhouette is enlarged. Atherosclerosis of the aorta. Mild chronic interstitial coarsening with emphysema. There is no pneumothorax, pleural effusion, airspace consolidation or pulmonary edema. Sigmoidal thoracolumbar scoliosis. IMPRESSION: 1. Cardiomegaly without acute process. 2. Emphysema. ACT 112: Negative or not required by law. The above report was generated using voice recognition software. It may contain grammatical, syntax or spelling errors. Electronically signed by: Pal Dodson M.D. 10/06/2022 10:52 AM Discharge Plan Visit Data Chief Complaint: Shortness of Breath/Dyspnea Stated Complaint: SOB, SWELLING IN LEGS + FEET, NAUSEA ED Provider: Gian Haddad Discharge Problem: Acute exacerbation of CHF (congestive heart failure), SOLIMAN (dyspnea on exertion) Forms Stand Alone Forms: [email or web address] Prescriptions Prescriptions: No Action Xarelto 20 mg tablet 20 mg PO QPM Qty: 90 3RF Rx Instructions: must administer with evening meal rosuvastatin 10 mg tablet 10 mg PO HS Qty: 90 3RF hydrochlorothiazide 12.5 mg tablet 12.5 mg PO QAM Qty: 90 3RF omeprazole 20 mg capsule,delayed release(DR/EC) 20 mg PO QAM Qty: 90 3RF cyanocobalamin (vitamin B-12) 1,000 mcg capsule 1,000 mcg PO BID clonazepam 0.5 mg tablet 0.5 mg PO BID Qty: 60 calcium carbonate-vitamin D3 600 mg(1,500mg) -200 unit tablet 1 tab PO QAM cholecalciferol (vitamin D3) 3,000 unit tablet 3,000 units PO QAM clotrimazole-betamethasone 1-0.05 % cream 1 applic topical HS PRN (Reason: Skin Irritation) Rx Instructions: Apply small/pea-sized amount topically before bed metoprolol tartrate 50 mg tablet 75 mg PO BID Rx Instructions: TAKE ONE AND ONE-HALF TABLETS BY MOUTH TWICE DAILY potassium chloride 20 mEq tablet extended release 20 meq PO QAM Rx Instructions: TAKE 1 TABLET BY MOUTH ONCE DAILY Referrals Referrals: Rafael Bill DO [Primary Care Provider] -
[2022-10-06 10:21] LABS: Basophils # (auto) 0.09 K/uL (0-0.2); Basophils % (auto) 1.3 %; Eosinophils # (auto) 0.12 K/uL (0-0.50); Eosinophils % (auto) 1.8 %; Hematocrit (blood only) 43.3 % (37.0-47.0); Hemoglobin 13.7 g/dl (12.0-16.0); Immature Granulocytes # (auto) 0.03 K/uL (0.01-0.20); Immature Granulocytes % (auto) 0.4 %; Lymphocytes # (auto) 1.49 K/uL (1.2-3.4); Lymphocytes % (auto) 22.1 %; Mean Corpuscular Hemoglobin 26.1 pg (25.0-34.0); Mean Corpuscular Hgb Conc 31.6 g/dL (32.0-36.0); Mean Corpuscular Volume 82.5 fL (80.0-100.0); Monocytes # (auto) 0.78 K/uL (0.11-0.59); Monocytes % (auto) 11.6 %; Neutrophils # (auto) 4.22 K/uL (1.40-6.50); Neutrophils % (auto) 62.8 %; Platelet Count 238 K/uL (130-400); RDW Coefficient of Variation 14.4 % (11.5-14.5); Red Blood Count 5.25 M/uL (4.20-5.40); White Blood Count 6.73 K/ul (4.8-10.8)
--- NOTE | 2022-10-06 10:53 | XRay Report ---
XR chest 1V portable HISTORY: 82 years-old Female Chest pain, nonspecific COMPARISON: 02/05/2021 TECHNIQUE: AP view of the chest FINDINGS: Cardiac silhouette is enlarged. Atherosclerosis of the aorta. Mild chronic interstitial coarsening wi th emphysema. There is no pneumothorax, pleural effusion, airspace consolidation or pulmonary edema. Sigmoidal thoracolumbar scoliosis. IMPRESSION: 1. Cardiomegaly without acute process. 2. Emphysema. ACT 112: Negative or not required by law. The above report was generated using voice recognition software. It may contain grammatical, syntax o r spelling errors. Electronically signed by: Pal Dodson M.D. 10/06/2022 10:52 AM
[2022-10-06 10:54] LABS: INR 1.2 (0.9-1.1); Partial Thromboplastin Ratio 1.3; Prothrombin Time 12.8 Seconds (9.0-12.0)
[2022-10-06 11:05] LABS: Alanine Aminotransferase 12 U/L (7-52); Albumin Globulin Ratio 1.5 (0.9-2); Alkaline Phosphatase 77 U/L (34-104); Anion Gap 7 (3-11); Aspartate Aminotransferase 14 U/L (13-39); BUN Creatinine Ratio 19.2 (10-20); Bilirubin,Total 0.8 mg/dl (0.2-1.0); Blood Urea Nitrogen 14 mg/dl (6-23); Calcium 9.2 mg/dl (8.6-10.3); Carbon Dioxide 27 mmol/L (21-32); Chloride 105 mmol/L (98-107); Est GFR (African American) 88.9 ml/min; Est GFR (Non-African American) 76.7 ml/min; Globulin 2.6 gm/dl (2.5-4.0); Glucose 130 mg/dl (70-99(Fasting)); Potassium 4.4 mmol/L (3.5-5.1); Sodium 139 mmol/L (136-145); Total Protein 6.6 gm/dl (6.0-8.3)
[2022-10-06 11:12] LABS: Troponin I High Sensitivity 7.7 pg/ml (0-14)
[2022-10-06] MEDS ORDERED: FUROSEMIDE 40 MG/4 ML VIAL IV ONE (11:18)
--- NOTE | 2022-10-06 13:53 | History & Physical Report ---
Date of Service October 06, 2022 Assessment & Plan (1) Dyspnea on exertion: Plan: Acute/unstable - uncertain risk - HD stable, not hypoxic, tachypneic, and no active wheezing at present - Obs to med/tele - Has h/o COPD but not on any maintenance medications, suspect sx represent acute exacerbation of COPD - Pulmicort and Formoterol nebulized BID - Duonebs q4 prn dyspnea/wheezing - Defer steroids at this time - Add Mucinex 600mg BID - Obtain echocardiogram - Repeat HS trop @ 1530 - Continue daily ASA, no allergy despite it being documented as such (2) Chronic anxiety: Plan: Chronic/stable - Continue Clonazepam 0.5mg BID (3) Atrial fibrillation: Plan: Chronic/stable - Rate controlled - Continue Metoprolol Tartrate 75mg BID + Xarelto (4) HTN (hypertension): Plan: Chronic/stable - BP well controlled on Metoprolol and HCTZ Plan Xarelto will provide adequate VTE ppx. AM labs have been ordered. Above plan of care has been d/w Dr. Thomas who has also seen and evaluated this patient. Further orders will be implemented as warranted. History of Present Illness Chief Complaint: dyspnea Primary Care Provider: Rafael Bill DO Eitan Black is a pleasant 82 yo F with a pmhx of atrial fibrillation, HTN, PAD, anxiety, and COPD who presented to the ER today c/o dyspnea x 1 week. She indicates that she "gets this from time to time ever since she had COVID-19". She indicates that she had COVID "a long time ago." She has a h/o COPD but she was never made aware of this diagnosis. She has had pulmonary function testing done but is unsure when. She does not routinely see pulmonology and does not take any inhalers. She quit smoking ~10 years ago but prior to that was a smoker of >30 years of ~ 1ppd. She denies having a h/o CHF. She admits to having intermittent wheezing, dyspnea worse with exertion, and dry cough. Denies fever, chills. Has had some worsening lower extremity swelling but denies PND, orthopnea, or chest pain. Has had some nausea w/o vomiting. Her last echocardiogram was in 2020. Her chronic medical problems are controlled and she is compliant with medications. Today, she came to the ER due to the persistent dyspnea. She does indicate that she had wheezing last evening and used her 's nebulizer with Albuterol and her breathing felt better afterwards. Her ER w/u demonstrated a BNP of 407, negative HS trop of 7.7, nonacute EKG, and CXR showing cardiomegaly w/o acute process and emphysema. She was medicated with a dose of Lasix 40mg IV x1 and admission was requested for further evaluation. Allergies Allergy/AdvReac Type Severity Reaction Status Date / Time aspirin [From Percodan] Allergy Swelling Verified 09/15/22 09:39 of Lip/Tongue/Throat ciprofloxacin Allergy Swelling Verified 09/15/22 09:39 of Lip/Tongue/Throat peanut Allergy Swelling Verified 09/15/22 09:39 of Lip/Tongue/Throat oxycodone AdvReac Unknown "makes me Verified 09/15/22 09:39 crazy" apixaban [From Eliquis] AdvReac bloating Verified 09/15/22 09:39 lisinopril AdvReac Cough Verified 09/15/22 09:39 Home Medications Medication Instructions Recorded Confirmed Type calcium carbonate 600 mg-vitamin 1 tab PO QAM 10/26/18 10/06/22 History D3 5 mcg (200 unit) tablet cholecalciferol (vitamin D3) 75 3,000 units PO QAM 10/26/18 10/06/22 History mcg (3,000 unit) tablet clonazepam 0.5 mg tablet 0.5 mg PO BID #60 tabs 10/26/18 10/06/22 History cyanocobalamin (vitamin B-12) 1,000 mcg PO BID 09/29/20 10/06/22 History 1,000 mcg capsule rivaroxaban 20 mg tablet (Xarelto) 20 mg PO QPM #90 tabs 11/02/21 10/06/22 Rx rosuvastatin 10 mg tablet 10 mg PO HS #90 tabs 05/24/22 10/06/22 Rx hydrochlorothiazide 12.5 mg tablet 12.5 mg PO QAM #90 tabs 06/02/22 10/06/22 Rx omeprazole 20 mg capsule,delayed 20 mg PO QAM #90 caps 08/26/22 10/06/22 Rx release clotrimazole-betamethasone 1 1 applic topical HS PRN Skin 09/13/22 10/06/22 H istory %-0.05 % topical cream Irritation metoprolol tartrate 50 mg tablet 75 mg PO BID 09/13/22 10/06/22 History potassium chloride 20 mEq 20 meq PO QAM 09/13/22 10/06/22 History tablet,extended release Past Med/Surg History Medical History Anxiety Atrial fibrillation on xarelto; following with Dr. Obrien Cardiac murmur hx-"told I no longer have it"; f/u Dr. Obrien Cerebral meningioma Dr. Meng monitors annually; last check 2021 COPD (chronic obstructive pulmonary disease) pt denies "never told I had this" GERD (gastroesophageal reflux disease) History of colon polyps History of COVID-19 12/05/20; cough, loss of appetite, loss of taste/smell, fatigue; resolved. History of nephrolithiasis HTN (hypertension) Hx SBO sx to correct Hyperlipidemia Hypokalemia On anticoagulant therapy Osteoporosis Scoliosis Surgical History History of abdominal hysterectomy History of bowel resection (02/06/21) Laparotomy with lysis of adhesions and small bowel resection. Dr. Castillo 01/21 History of colonoscopy History of elbow surgery Left History of resection of small bowel Family History Father Heart disease Brother Myocardial infarction Sister Ovarian cancer Other Cancer Lung cancer No family history of adverse response to anesthesia Denies family history of Prostate cancer Breast cancer Colorectal cancer Social History Smoking Status: Former smoker Tobacco Type: Cigarettes Age Started Using Tobacco: 35; Age Quit Using Tobacco: 74; packs per day: 0.75; Second Hand Exposure: No; Do You Dip or Chew Tobacco: No; Hx Alcohol Use: No Hx Substance Use: No Preferred Language: Lithuanian Communication Ability: Effective Visual Impairment: Limited Hearing Ability: Normal Job Site Supervisor Required: No Beliefs That Will Affect Care: None marital status: Current Living Situation: Spouse Current Living Situation Comment: Lives with current occupational status: retired Feels Safe at Home: Yes Childhood Exposure to Second-Hand Smoke: Yes Diet: regular caffeine: Yes Dental Care, Regularly: Yes Physical Activity Frequency: Does not Exercise Physical Activity Frequency Comment: 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 Seatbelt Use: always Sunscreen Use: Yes Do you think of yourself as: straight/heterosexual Assistive Devices: Contacts and Glasses Review of Systems Review of Systems: All systems reviewed and are unremarkable except as noted in HPI and below. Denies fever, chills, fatigue, headache, nasal congestion, sore throat, chest pain, palpitations, orthopnea, PND, abdominal pain, v/d, constipation, dysuria, hematuria, frequency, back pain, joint pain, easy bruising or bleeding, skin lesions or rashes. Physical Exam Physical Exam: GENERAL: 82 yo well-developed, well-nourished elderly F. NAD. LUNGS: Nonlabored. Decreased air exchange. No wheezes, rales, rhonchi appreciated. CARDIOVASCULAR: Irregularly irregular with CVR. No appreciable m/g/r ABDOMEN: Soft, non-tender and non-distended. Bowel sounds normoactive x 4 quad. EXTREMITIES: +1 b/l LE edema. Non-tender. Peripheral pulses +2/4. NEUROLOGIC: A&O x3. No focal neurological deficits. CN II-XII grossly intact. PSYCHIATRIC: Cooperative. Appropriate mood and affect. SKIN: Warm, dry, intact. No rashes or lesions. Results & Data Results & Data Vital Signs (Past 12 Hours) Vital Signs Temp Pulse Pulse Resp BP BP Pulse Ox 10/06/22 12:38 52 L 18 127/57 L 95 10/06/22 11:50 48 L 18 152/80 H 95 10/06/22 09:53 56 L 18 95 10/06/22 09:53 94 10/06/22 09:13 52 L 23 159/82 H 95 10/06/22 09:13 95 10/06/22 09:48 46 L 10/06/22 09:26 36.6 C 65 18 138/73 95 O2 Del Method 10/06/22 12:38 Room Air 10/06/22 11:50 Room Air 10/06/22 09:53 Room Air 10/06/22 09:53 Room Air 10/06/22 09:13 Room Air 10/06/22 09:13 Room Air 10/06/22 09:48 10/06/22 09:26 Room Air Laboratory Results 10/06/22 09:48 10/06/22 09:48 Diagnostic Findings Chest X-Ray 10/06/22 09:53 XR chest 1V portable HISTORY: 82 years-old Female Chest pain, nonspecific COMPARISON: 02/05/2021 TECHNIQUE: AP view of the chest FINDINGS: Cardiac silhouette is enlarged. Atherosclerosis of the aorta. Mild chronic interstitial coarsening with emphysema. There is no pneumothorax, pleural effusion, airspace consolidation or pulmonary edema. Sigmoidal thoracolumbar scoliosis. IMPRESSION: 1. Cardiomegaly without acute process. 2. Emphysema. ACT 112: Negative or not required by law. The above report was generated using voice recognition software. It may contain grammatical, syntax or spelling errors. Electronically signed by: Pal Dodson M.D. 10/06/2022 10:52 AM Supervising Physician Co-Signing Physician Notes Patient was seen and examined independently I discussed the case with Luis DELVALLE I reviewed pertinent past medical social family history and also the plan of care and agree with the plan of care. Patient was seen in the emergency department in the presence of her family respiratory distress was much improved she disclosed to me of a significant smoking history and likely has an element of COPD. She is well versed in this as her has a similar diagnosis. 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 She is pending an echocardiogram. Her lungs just at this time are clear without wheezes her heart is regular without murmurs her extremities are with trace edema We will continue with the possible dual diagnosis of diastolic heart failure and COPD pending echocardiogram we will not prescribe additional diuretics unless patient appears in distress Any exceptions will be noted below PG Care Time/CCT Total # of Minutes Spent Total Time Spent with Patient: Total time spent is greater than 50% in coordination of care (as documented) at patient's floor/unit and/or counseling patient: Coding Level of Care Code 34122 INT INP/OBS CARE 2/55MIN Diagnoses Dyspnea on exertion R06.09 Chronic anxiety F41.9 Atrial fibrillation I48.91 HTN (hypertension) I10 Hypertension type: essential hypertension (4) HTN (hypertension) Hypertension type: essential hypertension Qualified Code(s): I10 - Essential (primary) hypertension
--- NOTE | 2022-10-06 15:49 | Electrocardiogram Report ---
Test Reason : Blood Pressure : / mmHG Vent. Rate : 060 BPM Atrial Rate : 000 BPM P-R Int : 000 ms QRS Dur : 072 ms QT Int : 422 ms P-R-T Axes : 000 030 025 degrees QTc Int : 422 ms Atrial fibrillation Low voltage QRS Poor R wave progression, consider anterior NE vs. lead placement vs. LVH Abnormal ECG When compared with ECG of 05-FEB-2021 12:24, Vent. rate has decreased BY 37 BPM Nonspecific T wave abnormality, worse in Lateral leads Confirmed by Gregory Obrien ([id number]) on 10/06/2022 3:49:00 PM Referred By: Confirmed By:Gregory Obrien
[2022-10-06] MEDS ORDERED: ALBUT/IPRATROP 3MG/0.5MG NEB 3 ML VIAL NEB PRN (19:04)
[2022-10-06] MEDS ORDERED: ALUMINUM/MAGNESIUM SUSP 30 ML UDC PO PRN (19:04)
[2022-10-06] MEDS ORDERED: MAGNESIUM HYDROXIDE SUSP 30 ML UDC PO PRN (19:04)
[2022-10-06] MEDS ORDERED: ONDANSETRON INJ 2 MG/ML 2 ML VIAL IV PRN (19:04)
[2022-10-06] MEDS ORDERED: CLOTRIMAZOLE/BETAMETHASONE CR 15 GM TUBE EXT PRN (19:04)
[2022-10-06] MEDS ORDERED: ACETAMINOPHEN 325 MG TAB PO PRN (19:04)
[2022-10-06] MEDS ORDERED: POLYETHYLENE (MIRALAX) 17 GM PACK PO PRN (19:04)
[2022-10-06] MEDS: CYANOCOBALAMIN (B-12) 500 MCG TABLET PO SCH (19:59)
[2022-10-06] MEDS: ROSUVASTATIN CALCIUM 10 MG TAB PO SCH (19:59)
[2022-10-06] MEDS: METOPROLOL TARTRATE 25 MG TAB PO SCH (19:59)
[2022-10-06] MEDS: guaiFENesin 600 MG TABCR PO SCH (19:59)
[2022-10-06] MEDS: RIVAROXABAN 20 MG TAB PO SCH (20:00)
[2022-10-06] MEDS: clonazePAM 0.5 MG TAB PO SCH (20:02)
[2022-10-06] MEDS: FORMOTEROL 20 MCG/2 ML VIAL NEB SCH (20:32)
[2022-10-06] MEDS: BUDESONIDE 0.5 MG/2 ML VIAL (PULMICORT) NEB SCH (20:32)
[2022-10-07] MEDS: FORMOTEROL 20 MCG/2 ML VIAL NEB SCH (07:16)
[2022-10-07] MEDS: BUDESONIDE 0.5 MG/2 ML VIAL (PULMICORT) NEB SCH (07:16)
[2022-10-07 07:57] LABS: Basophils # (auto) 0.07 K/uL (0-0.2); Basophils % (auto) 0.8 %; Eosinophils # (auto) 0.15 K/uL (0-0.50); Eosinophils % (auto) 1.8 %; Hematocrit (blood only) 44.9 % (37.0-47.0); Hemoglobin 14.3 g/dl (12.0-16.0); Immature Granulocytes # (auto) 0.02 K/uL (0.01-0.20); Immature Granulocytes % (auto) 0.2 %; Lymphocytes # (auto) 2.13 K/uL (1.2-3.4); Lymphocytes % (auto) 25.8 %; Mean Corpuscular Hemoglobin 26.5 pg (25.0-34.0); Mean Corpuscular Hgb Conc 31.8 g/dL (32.0-36.0); Mean Corpuscular Volume 83.1 fL (80.0-100.0); Mean Platelet Volume 11.9 fL (9.4-12.4); Monocytes # (auto) 1.02 K/uL (0.11-0.59); Monocytes % (auto) 12.4 %; Neutrophils # (auto) 4.85 K/uL (1.40-6.50); Platelet Count 230 K/uL (130-400); RDW Coefficient of Variation 14.6 % (11.5-14.5); RDW Standard Deviation 43.8 fL (36.4-46.3); White Blood Count 8.24 K/ul (4.8-10.8)
[2022-10-07 08:13] LABS: BUN Creatinine Ratio 20.3 (10-20); Calcium 9.4 mg/dl (8.6-10.3); Creatinine Clr Calc Pharmacy 66.5 ml/min; Est GFR (African American) 87.4 ml/min; Est GFR (Non-African American) 75.4 ml/min; Magnesium 2.1 mg/dl (1.7-2.4); Potassium 3.9 mmol/L (3.5-5.1)
[2022-10-07] MEDS: CHOLECALCIFEROL 1,000 UNITS 25 MCG TAB PO SCH (08:13)
[2022-10-07] MEDS: ASPIRIN 81 MG ECTAB PO SCH (08:13)
[2022-10-07] MEDS: CALCIUM 600MG + VIT D 400 IU TAB PO SCH (08:13)
[2022-10-07] MEDS: hydroCHLOROthiazide 25 MG TAB PO SCH (08:14)
[2022-10-07] MEDS: POTASSIUM CHLORIDE CRTAB 20 MEQ TABCR PO SCH (08:14)
[2022-10-07] MEDS: METOPROLOL TARTRATE 25 MG TAB PO SCH ×2 (08:15→20:03)
[2022-10-07] MEDS: PANTOprazole 40 MG TAB PO SCH (08:15)
[2022-10-07] MEDS: CYANOCOBALAMIN (B-12) 500 MCG TABLET PO SCH ×2 (08:15→20:04)
[2022-10-07] MEDS: clonazePAM 0.5 MG TAB PO SCH ×2 (08:16→20:04)
--- NOTE | 2022-10-07 11:21 | XCELERA ---
[id number]
[2022-10-07] MEDS: guaiFENesin 600 MG TABCR PO SCH ×2 (12:15→20:03)
[2022-10-07] MEDS ORDERED: predniSONE 20 MG TAB PO STA (14:36)
--- NOTE | 2022-10-07 15:19 | Hospitalist Progress Note ---
Date of Service October 07, 2022 Assessment & Plan (1) Dyspnea on exertion: Plan: Acute/unstable - uncertain risk - patient improved at rest but still dyspneic with exertion - Has h/o COPD but not on any maintenance medications, suspect sx represent acute exacerbation of COPD - instituting Breo to consolidate inhaled medications, adding prednisone p.o., check CTA for PE although likelihood is low given anticoagulation - Duonebs q4 prn dyspnea/wheezing - Mucinex 600mg BID - echocardiography is without any decrease in ejection fraction or concern for significant diastolic dysfunction, telemetry monitoring did not show any tachyarrhythmia associate with her dyspnea - troponin negative x2 - Continue daily ASA, no allergy despite it being documented as such (2) Chronic anxiety: Plan: Chronic/stable - Continue Clonazepam 0.5mg BID (3) Atrial fibrillation: Plan: Chronic/stable - Rate controlled - Continue Metoprolol Tartrate 75mg BID + Xarelto (4) HTN (hypertension): Plan: Chronic/stable - BP well controlled on Metoprolol and HCTZ Plan Xarelto will provide adequate VTE ppx. Admission and Anticipated Discharge Date Admission Date: October 06, 2022 Subjective Patient was comfortable in bed however with ambulation she became extremely dyspneic she did not become hypoxic. With the degree of dyspnea she did not feel comfortable going home similarly her family was present and felt the same Physical Exam Physical Exam: patient comfortable at rest rate controlled atrial fibrillation no significant wheezes heard on pulmonary examination Results & Data Results & Data Vital Signs (Past 12 Hours) Vital Signs Temp Pulse Pulse Resp BP BP Pulse Ox 10/07/22 10:50 98.4 F 53 L 16 102/45 L 91 10/07/22 07:56 97.5 F L 60 18 130/74 96 10/07/22 06:00 59 L 10/07/22 07:18 60 16 95 10/07/22 04:00 97.9 F 67 18 121/74 92 O2 Del Method 10/07/22 10:50 Room Air 10/07/22 07:56 Room Air 10/07/22 06:00 10/07/22 07:18 Room Air 10/07/22 04:00 Room Air Laboratory Results reviewed CBC reviewed chemistry PG Care Time/CCT Total # of Minutes Spent Total Time Spent with Patient: Total time spent is greater than 50% in coordination of care (as documented) at patient's floor/unit and/or counseling patient: Coding Level of Care Code 40713 SUB INP/OBS CARE 3/50MIN Diagnoses Dyspnea on exertion R06.09 Chronic anxiety F41.9 Atrial fibrillation I48.91 HTN (hypertension) I10 Hypertension type: essential hypertension (4) HTN (hypertension) Hypertension type: essential hypertension Qualified Code(s): I10 - Essential (primary) hypertension
[2022-10-07] MEDS ORDERED: IOVERSOL 350 MG 125mL Prefilled Syringe IV ONE (15:21)
--- NOTE | 2022-10-07 15:51 | CT Scan Report ---
CT angio chest PE protocol CLINICAL HISTORY: PE TECHNIQUE: Multidetector row helical CT of the chest was performed with angiographic protocol. Leal l and sagittal reformations were obtained. Coronal and sagittal MIPS were obtained from the axial tommie a set and were submitted for review. Automated dose lowering techniques and/or adjustment according to patient size were utilized for this exam. CT DOSE: 985.10 mGy.cm Comparison: Comparison is made to CT abdomen pelvis 02/05/2021 FINDINGS: Lungs and pleura: Interstitial thickening is seen. 3 mm nodules are seen in the left lower lobe (seri es 4 image 77) and in the right lower lobe (image 114). Heart and pericardium: Cardiomegaly is seen with biatrial enlargement. Vessels: No evidence of pulmonary embolism. Mediastinum and valeria: Unremarkable. Chest wall and lower neck: Unremarkable. Abdomen: A hiatal hernia is seen. Cholelithiasis is seen. Bones: Degenerative changes in the thoracic spine. IMPRESSION: 1. No acute abnormality and in particular no evidence of pulmonary embolus. 2. Emphysema and atelectasis is seen with a few interstitial changes. 3. Tiny pulmonary nodules as above. These are unchanged from prior CT. ACT 112: Negative or not required by law. Electronically signed by: Brenden Hansen M.D. 10/07/2022 3:49 PM
[2022-10-07] MEDS: RIVAROXABAN 20 MG TAB PO SCH (17:11)
[2022-10-07] MEDS: ROSUVASTATIN CALCIUM 10 MG TAB PO SCH (20:03)
[2022-10-08] MEDS: guaiFENesin 600 MG TABCR PO SCH ×2 (09:21→20:39)
[2022-10-08] MEDS: PANTOprazole 40 MG TAB PO SCH (09:21)
[2022-10-08] MEDS: CYANOCOBALAMIN (B-12) 500 MCG TABLET PO SCH ×2 (09:21→20:39)
[2022-10-08] MEDS: CALCIUM 600MG + VIT D 400 IU TAB PO SCH (09:21)
[2022-10-08] MEDS: hydroCHLOROthiazide 25 MG TAB PO SCH (09:21)
[2022-10-08] MEDS: CHOLECALCIFEROL 1,000 UNITS 25 MCG TAB PO SCH (09:21)
[2022-10-08] MEDS: ASPIRIN 81 MG ECTAB PO SCH (09:21)
[2022-10-08] MEDS: predniSONE 20 MG TAB PO SCH (09:21)
[2022-10-08] MEDS: METOPROLOL TARTRATE 25 MG TAB PO SCH ×2 (09:21→20:40)
[2022-10-08] MEDS: FLUTICASONE/VILANTEROL 100/25MCG 14 PUFFS/INHALER INH SCH (09:22)
[2022-10-08] MEDS: clonazePAM 0.5 MG TAB PO SCH ×2 (09:23→20:39)
[2022-10-08] MEDS: POTASSIUM CHLORIDE CRTAB 20 MEQ TABCR PO SCH (09:23)
[2022-10-08] MEDS ORDERED: FUROSEMIDE INJ 20 MG/2 ML VIAL IV ONE (15:44)
--- NOTE | 2022-10-08 17:23 | Hospitalist Progress Note ---
Date of Service October 08, 2022 Assessment & Plan (1) Dyspnea on exertion: Plan: Acute/unstable - uncertain risk - patient improved at rest but still dyspneic with exertion - Has h/o COPD but not on any maintenance medications, suspect sx represent acute exacerbation of COPD - instituting Breo to consolidate inhaled medications, adding prednisone p.o.,negative CTA for PE( although likelihood was low given anticoagulation) - Duonebs q4 prn dyspnea/wheezing - Mucinex 600mg BID - echocardiography is without any decrease in ejection fraction or concern for significant diastolic dysfunction, telemetry monitoring did not show any tachyarrhythmia associate with her dyspnea - troponin negative x2 - Continue daily ASA, no allergy despite it being documented as such (2) Chronic anxiety: Plan: Chronic/stable - Continue Clonazepam 0.5mg BID (3) Atrial fibrillation: Plan: Chronic/stable - Rate controlled - Continue Metoprolol Tartrate 75mg BID + Xarelto (4) HTN (hypertension): Plan: Chronic/stable - BP well controlled on Metoprolol and HCTZ given additional lasix in afternoon 10/08/22 Plan Xarelto will provide adequate VTE ppx. Admission and Anticipated Discharge Date Admission Date: October 07, 2022 Subjective Patient was comfortable in bed however with ambulation she became extremely dyspneic in on 818 became hypoxic per nurses records. Did not perform a two- step as the patient feels she is not able to go home today due to her degree of dyspnea although cardiac function looks to be good we will give a dose of diuretic today Physical Exam Physical Exam: patient comfortable at rest rate controlled atrial fibrillation no significant wheezes heard on pulmonary examination Results & Data Results & Data Vital Signs (Past 12 Hours) Vital Signs Temp Pulse Pulse Pulse Resp BP Pulse Ox 10/08/22 15:40 97.9 F 74 16 126/68 92 10/08/22 13:00 108 H 10/08/22 11:56 98.1 F 63 24 136/61 95 10/08/22 08:00 67 10/08/22 07:36 97.7 F 63 17 122/63 92 O2 Del Method 10/08/22 15:40 Room Air 10/08/22 13:00 10/08/22 11:56 Room Air 10/08/22 08:00 10/08/22 07:36 Room Air PG Care Time/CCT Total # of Minutes Spent Total Time Spent with Patient: Total time spent is greater than 50% in coordination of care (as documented) at patient's floor/unit and/or counseling patient: Coding Level of Care Code 35884 SUB INP/OBS CARE 2/35MIN Diagnoses Dyspnea on exertion R06.09 Chronic anxiety F41.9 Atrial fibrillation I48.91 HTN (hypertension) I10 Hypertension type: essential hypertension (4) HTN (hypertension) Hypertension type: essential hypertension Qualified Code(s): I10 - Essential (primary) hypertension
[2022-10-08] MEDS ORDERED: FUROSEMIDE 40 MG/4 ML VIAL IV ONE (18:04)
[2022-10-08] MEDS: RIVAROXABAN 20 MG TAB PO SCH (18:07)
[2022-10-08] MEDS: ROSUVASTATIN CALCIUM 10 MG TAB PO SCH (20:40)
[2022-10-09] MEDS: CHOLECALCIFEROL 1,000 UNITS 25 MCG TAB PO SCH (08:40)
[2022-10-09] MEDS: CALCIUM 600MG + VIT D 400 IU TAB PO SCH (08:40)
[2022-10-09] MEDS: ASPIRIN 81 MG ECTAB PO SCH (08:40)
[2022-10-09] MEDS: predniSONE 20 MG TAB PO SCH (08:40)
[2022-10-09] MEDS: METOPROLOL TARTRATE 25 MG TAB PO SCH (08:40)
[2022-10-09] MEDS: PANTOprazole 40 MG TAB PO SCH (08:40)
[2022-10-09] MEDS: hydroCHLOROthiazide 25 MG TAB PO SCH (08:40)
[2022-10-09] MEDS: CYANOCOBALAMIN (B-12) 500 MCG TABLET PO SCH (08:41)
[2022-10-09] MEDS: FLUTICASONE/VILANTEROL 100/25MCG 14 PUFFS/INHALER INH SCH (08:41)
[2022-10-09] MEDS: guaiFENesin 600 MG TABCR PO SCH (08:41)
[2022-10-09] MEDS: POTASSIUM CHLORIDE CRTAB 20 MEQ TABCR PO SCH (08:42)
[2022-10-09] MEDS: clonazePAM 0.5 MG TAB PO SCH (08:42)
[2022-10-09 08:52] LABS: Creatinine Clr Calc Pharmacy 62.8 ml/min; Est GFR (African American) 82.1 ml/min; Est GFR (Non-African American) 70.8 ml/min
--- NOTE | 2022-10-09 11:08 | Pulmonary Consultation ---
Date of Consultation October 09, 2022 Assessment & Plan (1) SOLIMAN (dyspnea on exertion): (2) KAYLAN (obstructive sleep apnea): (3) Hypercapnic respiratory failure, chronic: Plan Impression: 82-year-old female with prior diagnosis of mild sleep disordered breathing. She is admitted with shortness of breath. Her last PFTs performed over 10 years ago did not demonstrate significant airflow obstruction. Review of her serum bicarbonate does reveal it to be markedly elevated at 35 suggestive of hypercarbic respiratory failure chronic potentially overlap syndrome versus obesity hypoventilation syndrome. This may be contributing to the patient's shortness of breath. Her atrial fibrillation and potential diastolic dysfunction are also likely contributing. Recommendations: 1. We will obtain room air blood gas. If that confirms hypercarbia, the patient can be set up with AVAPS or nocturnal BiPAP. She can follow-up with Dr. Duran in the outpatient setting. 2. Recommend repeating the patient's PFTs on an outpatient setting. She does not appear overtly bronchospastic currently and I am not sure we can attribute all of her symptoms to COPD at this point in time. I will stop her steroids. 3. Weight loss recommended. Consultation with bariatric medicine may be appropriate. 4. Patient is likely suffering some component of deconditioning. A walking program may be beneficial. 5. Optimization of the patient's cardiovascular status is recommended. The resting heart rate of 105 is likely going to exacerbate potential diastolic dysfunction. Would target heart rate less than 75. Management per primary service. The above recommendations and plan were discussed with the patient. Questions were answered to the best my ability. She expressed understanding and is in agreement with the plan as outlined History of Present Illness Attending Physician: Rafael Thomas MD History of Present Illness Asked by hospitalist to assist in evaluation management of this patient admitted with shortness of breath and presumptive COPD. History is obtained from discussion with the patient as well as review the electronic medical record. The patient is an 82-year-old female who is followed previously by Dr. Chau. She last had PFTs in September 2020 and at that point time these demonstrated an FEV1 of 2.04 L or 93% predicted with an FVC of 2.87 L or 100% predicted and a ratio of 71. No change after administration of bronchodilators. Lung volumes were hyperinflated and diffusion capacity was decreased at 67% predicted. She has been seen by Dr. Duran in the sleep center was recently diagnosed with mild sleep disordered breathing. She states she was ordered positive pressure ventilation back in June but apparently there were some difficulties getting the machine and she never followed through with it. She is open to the prospect of using noninvasive positive pressure ventilation at night. Patient does have about a 75-uuls-nmcp history of tobacco exposure. She quit smoking about 10 years ago. She does not wheeze or experience significant sputum production. She does not cough on a regular basis. She reports that she sleeps well at night. The patient presented to the emergency room 10/06/2022 with complaints of increased shortness of breath. She had an echocardiogram performed. She was placed on nebulized Perforomist and formoterol. Echocardiogram was obtained. She did not improve clinically and pulmonary consultation was requested. The patient does not use oxygen at home at baseline. Allergies Allergy/AdvReac Type Severity Reaction Status Date / Time aspirin [From Percodan] Allergy Swelling Verified 09/15/22 09:39 of Lip/Tongue/Throat ciprofloxacin Allergy Swelling Verified 09/15/22 09:39 of Lip/Tongue/Throat peanut Allergy Swelling Verified 09/15/22 09:39 of Lip/Tongue/Throat oxycodone AdvReac Unknown "makes me Verified 09/15/22 09:39 crazy" apixaban [From Eliquis] AdvReac bloating Verified 09/15/22 09:39 lisinopril AdvReac Cough Verified 09/15/22 09:39 Home Medications Medication Instructions Recorded Confirmed Type calcium carbonate 600 mg-vitamin 1 tab PO QAM 10/26/18 10/06/22 History D3 5 mcg (200 unit) tablet cholecalciferol (vitamin D3) 75 3,000 units PO QAM 10/26/18 10/06/22 History mcg (3,000 unit) tablet clonazepam 0.5 mg tablet 0.5 mg PO BID #60 tabs 10/26/18 10/06/22 History cyanocobalamin (vitamin B-12) 1,000 mcg PO BID 09/29/20 10/06/22 History 1,000 mcg capsule rivaroxaban 20 mg tablet (Xarelto) 20 mg PO QPM #90 tabs 11/02/21 10/06/22 Rx rosuvastatin 10 mg tablet 10 mg PO HS #90 tabs 05/24/22 10/06/22 Rx hydrochlorothiazide 12.5 mg tablet 12.5 mg PO QAM #90 tabs 06/02/22 10/06/22 Rx omeprazole 20 mg capsule,delayed 20 mg PO QAM #90 caps 08/26/22 10/06/22 Rx release clotrimazole-betamethasone 1 1 applic topical HS PRN Skin 09/13/22 10/06/22 History %-0.05 % topical cream Irritation metoprolol tartrate 50 mg tablet 75 mg PO BID 09/13/22 10/06/22 History potassium chloride 20 mEq 20 meq PO QAM 09/13/22 10/06/22 History tablet,extended release fluticasone furoate 100 1 inh inhalation DAILY #60 ea 10/08/22 Rx mcg-vilanterol 25 mcg/dose inhalation powder (Breo Ellipta) Patient History Medical History Anxiety Atrial fibrillation on xarelto; following with Dr. Obrien Cardiac murmur hx-"told I no longer have it"; f/u Dr. Obrien Cerebral meningioma Dr. Meng monitors annually; last check 2021 COPD (chronic obstructive pulmonary disease) pt denies "never told I had this" GERD (gastroesophageal reflux disease) History of colon polyps History of COVID-19 12/05/20; cough, loss of appetite, loss of taste/smell, fatigue; resolved. History of nephrolithiasis HTN (hypertension) Hx SBO sx to correct Hyperlipidemia Hypokalemia On anticoagulant therapy Osteoporosis Scoliosis Surgical History History of abdominal hysterectomy History of bowel resection (02/06/21) Laparotomy with lysis of adhesions and small bowel resection. Dr. Castillo 02/06/2021 History of colonoscopy History of elbow surgery Left History of resection of small bowel Family History Father Heart disease Brother Myocardial infarction Sister Ovarian cancer Other Cancer Lung cancer No family history of adverse response to anesthesia Denies family history of Prostate cancer Breast cancer Colorectal cancer Social History Smoking Status: Former smoker Tobacco Type: Cigarettes Age Started Using Tobacco: 35; Age Quit Using Tobacco: 74; packs per day: 0.75; Second Hand Exposure: No; Do You Dip or Chew Tobacco: No; Hx Alcohol Use: No Hx Substance Use: No Preferred Language: Slovenian Communication Ability: Effective Visual Impairment: Limited Hearing Ability: Normal [employer] Required: No Beliefs That Will Affect Care: None marital status: Current Living Situation: Spouse Current Living Situation Comment: Lives with current occupational status: retired Feels Safe at Home: Yes Safety Concerns: Feels Safe At This Time Childhood Exposure to Second-Hand Smoke: Yes Diet: regular caffeine: Yes Dental Care, Regularly: Yes Physical Activity Frequency: Does not Exercise Physical Activity Frequency Comment: works in [employer] Seatbelt Use: always Sunscreen Use: Yes Do you think of yourself as: straight/heterosexual Assistive Devices: None Review of Systems Review of Systems: All systems reviewed & are unremarkable except as noted in Subjective Physical Exam Constitutional: WD/WN, vitals as above + morbidly obese Neck: trachea midline, no thyromegaly Respiratory: normal respiratory effort, lungs clear to auscultation Cardiovascular: RRR, no murmur, no edema Gastrointestinal (Abdomen): normal bowel sounds, soft, nontender, no hepatosplenomegaly Musculoskeletal: Extremities: extremities normal to inspection Skin: no rashes, warm and dry Neurologic: Nonfocal exam Lymphatic: no cervical lymphadenopathy Results & Data Results & Data Vital Signs (Past 12 Hours) Vital Signs Temp Pulse Pulse Resp BP BP Pulse Ox 10/09/22 08:28 63 10/09/22 08:28 10/09/22 07:30 36.5 C 61 18 118/72 95 10/09/22 03:00 36.5 C 60 16 123/75 94 10/09/22 01:47 O2 Del Method 10/09/22 08:28 10/09/22 08:28 Room Air 10/09/22 07:30 Room Air 10/09/22 03:00 Room Air 10/09/22 01:47 Room Air Critical Care Results & Data Vital Signs (Past 12 Hours) Vital Signs Temp Pulse Pulse Resp BP BP Pulse Ox 10/09/22 08:28 63 10/09/22 08:28 10/09/22 07:30 36.5 C 61 18 118/72 95 10/09/22 03:00 36.5 C 60 16 123/75 94 10/09/22 01:47 O2 Del Method 10/09/22 08:28 10/09/22 08:28 Room Air 10/09/22 07:30 Room Air 10/09/22 03:00 Room Air 10/09/22 01:47 Room Air Lab & Micro Results (Past 24 Hours) No Data to Display Creatinine 0.78 mg/dl (0.6-1.2) 10/09/22 Estimated GFR ( Amer) 82.1 ml/min 10/09/22 Estimated GFR (Non-Af Amer) 70.8 ml/min 10/09/22 No Data to Display Diagnostic Findings (Past 24 Hours) Prior clinical notes were reviewed in the electronic medical record. A total of 50 minutes was spent review these records. Echocardiogram from 10/06/2022 showed normal LV function without regional wall motion abnormalities. Borderline concentric LVH with an EF of 50 to 55%. Mild TR. Diastolic filling parameters were not obtainable due to patient being in atrial fibrillation. CT angiogram 10/07/2022 independently reviewed. No evidence of PE. Emphysematous changes with atelectasis at the bases. I & O Totals 24 Hours 10/08/22 10/09/22 10/10/22 06:59 06:59 06:59 Intake Total 1280 / 1280 940 / 940 Balance 1280 / 1280 940 / 940 Cumulative 10/06/22 09:13 thru 10/09/22 06:11 Intake Total 2570 Output Total 800 Balance 1770 RT Ventilator Mngmt (Last Documented) Ventilator Ordered Settings Respiratory Rate 18 10/09/22 07:30 Ventilator - PT Measurements Respiratory Rate 18 PG Care Time/CCT Total # of Minutes Spent Total Time Spent with Patient: Total time spent is greater than 50% in coordination of care (as documented) at patient's floor/unit and/or counseling patient: Coding Level of Care Code 39053 INT INP/OBS CARE 3/75MIN Diagnoses SOLIMAN (dyspnea on exertion) R06.09 KAYLAN (obstructive sleep apnea) G47.33 Hypercapnic respiratory failure, chronic J96.12
[2022-10-09 12:16] LABS: Base Excess ABG 6.7 mEq/L (-9-1.8); HCO3 ABG 30 mmol/L (19-24); Oxygen Saturation ABG 97.3 % (90-95); PCO2 ABG 39 mmHg (35-46); PO2 ABG 76 mmHg (80-95)
[2022-10-09 12:17] LABS: Allen Test Neg (Pos)
--- NOTE | 2022-10-09 12:54 | CT Scan Report ---
ABDOMEN AND PELVIS CT WITHOUT CONTRAST CT DOSE: 1282.24 mGy.cm HISTORY: Acute left-sided flank pain eval left kidney stone TECHNIQUE: Multiaxial CT images of the abdomen and pelvis were performed without contrast. A dose lo wering technique was utilized adhering to the principles of ALARA. COMPARISON STUDY: CT chest 10/07/2022, CT abdomen and pelvis 04/26/2022 FINDINGS: Cardiac silhouette is enlarged. Atherosclerosis of the aorta. Trace pleural effusions. Mild subsegmental bibasilar atelectasis versus scarring. No free air. The unenhanced spleen, pancreas and adrenal glands are unremarkable. Cholelithiasis. Unremarkable liver. Cortical thinning of the kidneys with areas of parenchymal scarring and bilateral perinephric strandi ng. There are least 2 nonobstructing calculi left kidney measuring up to 6 mm. 2 nonobstructing calcu li of the right kidney measure up to 3 mm. Bilateral renal sinus cysts. There is an irregular 8 x 7 x 5 mm calculus of the right ureteropelvic junction resulting in mild hydronephrosis. Decompressed uri nary bladder. Hysterectomy. Atherosclerosis of the aorta. No lymphadenopathy. No bowel obstruction or bowel wall thickening. Colonic diverticulosis. Mild fecal retention. Normal a ppendix. Unremarkable soft tissues. Lumbar levoscoliosis. No acute fracture. IMPRESSION: 1. 8 mm calculus of the right ureteropelvic junction results in mild hydronephrosis. 2. Nonobstructing bilateral nephrolithiasis. 3. Cholelithiasis. 4. Colonic diverticulosis. 5. Additional findings as above. ACT 112: Negative or not required by law. The above report was generated using voice recognition software. It may contain grammatical, syntax o r spelling errors. Electronically signed by: Pal Dodson M.D. 10/09/2022 12:53 PM
--- NOTE | 2022-10-09 16:02 | Discharge Summary ---
Date of Service October 09, 2022 Admission HPI Per Admitting Provider Eitan Black is a pleasant 82 yo F with a pmhx of atrial fibrillation, HTN, PAD, anxiety, and COPD who presented to the ER today c/o dyspnea x 1 week. She indicates that she "gets this from time to time ever since she had COVID-19". She indicates that she had COVID "a long time ago." She has a h/o COPD but she was never made aware of this diagnosis. She has had pulmonary function testing done but is unsure when. She does not routinely see pulmonology and does not take any inhalers. She quit smoking ~10 years ago but prior to that was a smoker of >30 years of ~ 1ppd. She denies having a h/o CHF. She admits to having intermittent wheezing, dyspnea worse with exertion, and dry cough. Denies fever, chills. Has had some worsening lower extremity swelling but denies PND, orthopnea, or chest pain. Has had some nausea w/o vomiting. Her last echocardiogram was in 2020. Her chronic medical problems are controlled and she is compliant with medications. Today, she came to the ER due to the persistent dyspnea. She does indicate that she had wheezing last evening and used her 's nebulizer with Albuterol and her breathing felt better afterwards. Her ER w/u demonstrated a BNP of 407, negative HS trop of 7.7, nonacute EKG, and CXR showing cardiomegaly w/o acute process and emphysema. She was medicated with a dose of Lasix 40mg IV x1 and admission was requested for further evaluation. Principal Diagnosis Dyspnea on exertion, copd afib Discharge Exam irregular rate controlled, although pulmonary medicine cites better rate control as a goal, pt typically has heart rates in the 60's but does go higher with exertion. Concern for increasing b sin to lower resting heart rate and cause side affects Discharge Data Allergies Allergy/AdvReac Type Severity Reaction Status Date / Time aspirin [From Percodan] Allergy Swelling Verified 09/15/22 09:39 of Lip/Tongue/Throat ciprofloxacin Allergy Swelling Verified 09/15/22 09:39 of Lip/Tongue/Throat peanut Allergy Swelling Verified 09/15/22 09:39 of Lip/Tongue/Throat oxycodone AdvReac Unknown "makes me Verified 09/15/22 09:39 crazy" apixaban [From Eliquis] AdvReac bloating Verified 09/15/22 09:39 lisinopril AdvReac Cough Verified 09/15/22 09:39 Consultations 10/06/22 11:46 ED Decision to Admit Stat 10/09/22 08:58 Consult Pulmonology Routine Ordered Studies 10/07/22 14:37 CT angio chest PE protocol Stat 10/09/22 11:09 CT Abd and Pelvis [CT abd pelvis wo con] Routine Hospital Course (1) Dyspnea on exertion: Acute stable - uncertain risk 2 step walking oxygen test did not have pt require home oxygen abd on RA did not suggest co2 retention - Has h/o COPD but not on any maintenance medications, suspect sx represent acute exacerbation of COPD - negative CTA for PE( although likelihood was low given anticoagulation) -discharge home on Advair and close pulmonary follow up - echocardiography is without any decrease in ejection fraction or concern for significant diastolic dysfunction, telemetry monitoring did not show any tachyarrhythmia associate with her dyspnea - troponin negative x2 - Continue daily ASA, no allergy despite it being documented as such (2) Chronic anxiety: Chronic/stable - Continue Clonazepam 0.5mg BID (3) Atrial fibrillation: Chronic/stable - Rate controlled - Continue Metoprolol Tartrate 75mg BID + Xarelto (4) HTN (hypertension): Chronic/stable - BP well controlled on Metoprolol and HCTZ given additional lasix in afternoon 10/08/22 Plan will need outpatient follow-up with pulmonary medicine prior to discharge patient had back pain was concerned it might be renal colic. Her back pain was left-sided. CT scan was obtained with a right-sided kidney stone at the UPJ junction but no left-sided kidney stone mild hydronephrosis was noted without decrement in renal function Total Time Total Time Spent Total Time Spent (In Minutes): it required greater than 30 minutes to prepare this patient for discharge Discharge Plan Discharge Items Patient Disposition: Home - Self-Care Reason For Visit: DYSPNEA Discharge Diagnosis: copd exacerbation Activity: Per Instructions section Activity Comment: limit exertion until follow up with primary care Non-emergency contact: Primary Care Provider and Hand Paint Mixer Call non-emergency contact if: your symptoms worsen Follow-up/Referrals: Gil Gómez PA-C [Hospitalist] - (Pulmonary appointment Office will reach out to schedule) Landy,Rafael, DO [Primary Care Provider] - Diet: Low Sodium (2gm) Addtl Attending Provider Instructions: your lung issues are likely still combination of your heart and your lung and they work TLA work together. You likely do have a diagnosis of COPD. He will be given an inhaler. We did check pricing for inhalers and this seems to be the best pricing given your current healthcare insurance situation. We would asked that you limit intentional exercising and do follow-up with your primary care and likely a follow-up with pulmonology to have outpatient pulmonary function test the arterial blood gas that Dr. Mendes had ordered did not show a retention of carbon dioxide which is favorable for you you still may find you become short of breath when you exert yourself therefore you need to reduce the amount of exertion you do at this point time and we maximize your health care and likely could even consider having you on a supervised exercise program such as cardiopulmonary rehab which is offered at [facility] your concerns of left-sided back pain being associate with kidney stone have not been confirmed by CT scan you do have a kidney stone on the right but not on the left causing immediate issues however if it moves it could create pain on the right side Pending Studies at Discharge: No Stand-Alone Forms: My [facility], Smoking Cessation Medications and DC Order Prescriptions: New fluticasone propion-salmeterol [Advair Diskus] 250-50 mcg/dose blister with device 1 inh inhalation BID Qty: 60 0RF Continued Xarelto 20 mg tablet 20 mg PO QPM Qty: 90 3RF Rx Instructions: must administer with evening meal rosuvastatin 10 mg tablet 10 mg PO HS Qty: 90 3RF hydrochlorothiazide 12.5 mg tablet 12.5 mg PO QAM Qty: 90 3RF omeprazole 20 mg capsule,delayed release(DR/EC) 20 mg PO QAM Qty: 90 3RF cyanocobalamin (vitamin B-12) 1,000 mcg capsule 1,000 mcg PO BID clonazepam 0.5 mg tablet 0.5 mg PO BID Qty: 60 calcium carbonate-vitamin D3 600 mg(1,500mg) -200 unit tablet 1 tab PO QAM cholecalciferol (vitamin D3) 3,000 unit tablet 3,000 units PO QAM clotrimazole-betamethasone 1-0.05 % cream 1 applic topical HS PRN (Reason: Skin Irritation) Rx Instructions: Apply small/pea-sized amount topically before bed metoprolol tartrate 50 mg tablet 75 mg PO BID Rx Instructions: TAKE ONE AND ONE-HALF TABLETS BY MOUTH TWICE DAILY potassium chloride 20 mEq tablet extended release 20 meq PO QAM Rx Instructions: TAKE 1 TABLET BY MOUTH ONCE DAILY Discharge Orders: Discharge Order (Routine); Ordered 10/09/22 Ordered By: Rafael Thomas Admission Data Admit Date/Time: 10/07/22 15:19 Attending Provider: Rafael Thomas Admit Provider: Rafael Thomas Primary Care Provider: Rafael Bill Other Providers: Rafael Thomas ; Chang Mendes Coding Level of Care Code 06393 INP/OBS DISCH >30 MIN Diagnoses Dyspnea on exertion R06.09 Chronic anxiety F41.9 Atrial fibrillation I48.91 HTN (hypertension) I10 Hypertension type: essential hypertension
== END 2022-10-09 16:59 | disposition home or self-care (01) | DRG 191 ==
LOC: ED 09:13 → EDINP 09:13 → 2W 21:18

== ENCOUNTER 2024-04-06 06:05 | Observation (INO) ==
[2024-04-06] MEDS: ONDANSETRON INJ 2 MG/ML 2 ML VIAL IV STA ×2 (06:33→07:21)
[2024-04-06] MEDS: MoRPHine SULFATE 4 MG/ML 1 ML CARP\\VIAL IV PRN (06:33)
[2024-04-06 06:43] LABS: Basophils # (auto) 0.05 K/uL (0.00-0.20); Basophils % (auto) 0.5 %; Eosinophils # (auto) 0.06 K/uL (0.00-0.50); Eosinophils % (auto) 0.6 %; Hematocrit (blood only) 43.3 % (37.0-47.0); Hemoglobin 13.1 g/dl (12.0-16.0); Immature Granulocytes # (auto) 0.04 K/uL (0.01-0.20); Immature Granulocytes % (auto) 0.4 %; Lymphocytes # (auto) 0.85 K/uL (1.20-3.40); Lymphocytes % (auto) 7.9 %; Mean Corpuscular Hemoglobin 23.9 pg (25.0-34.0); Mean Corpuscular Hgb Conc 30.3 g/dL (32.0-36.0); Mean Platelet Volume 11.7 fL (9.4-12.4); Monocytes # (auto) 0.43 K/uL (0.11-0.59); Neutrophils # (auto) 9.27 K/uL (1.40-6.50); Neutrophils % (auto) 86.6 %; Platelet Count 264 K/uL (130-400); RDW Coefficient of Variation 16.3 % (11.5-14.5); RDW Standard Deviation 46.3 fL (36.4-46.3); Red Blood Count 5.48 M/uL (4.20-5.40)
--- NOTE | 2024-04-06 06:48 | Emergency Department Note ---
Impression & Plan Hydronephrosis, Calculus, ureteral, Acute left flank pain ED Provider Note NAME: OLIVIA ALBERT AGE: 83 SEX: F : 1940 ARRIVES VIA: Ambulance INFORMANT: Patient, ED PROVIDER(S): Gregory Manriquez DO CHIEF COMPLAINT: Flank pain HPI: The patient is an 83-year-old female who presented to the emergency department for an evaluation of flank pain. The patient has a history of kidney stones. She had a similar episode at the beginning of the year. She has had nausea and vomiting. She denies having any chest pain or difficulty breathing. She denies having fever. ROS: See above HPI for pertinent positives & negatives. A total of 10 systems reviewed and were otherwise negative. PAST MEDICAL HISTORY: See Below PAST SURGICAL HISTORY: See Below FAMILY HISTORY: See Below SOCIAL HISTORY: See Below HOME MEDICATIONS: See Below ALLERGIES: See Below VITALS: See Below PHYSICAL EXAMINATION: GENERAL: The patient is awake and alert. The patient is very anxious and appears uncomfortable. EYES: The conjunctivae are clear. The pupils are round and reactive. EARS, NOSE, MOUTH AND THROAT: The nose is without any evidence of any deformity. NECK: The neck is nontender and supple. RESPIRATORY: Normal respiratory effort is noted there is no evidence of wheezing rhonchi or rales CARDIOVASCULAR: Irregular rhythm was noted there no murmurs rubs or gallops normal S1 normal S2. GASTROINTESTINAL: The abdomen is soft. Abdomen is nontender. BACK: There is left CVA tenderness to percussion. There is no specific midline tenderness. MUSCULOSKELETAL/EXTREMITIES: There is no evidence of gross deformity full range of motion is noted in the hips and shoulders. SKIN: There is no obvious evidence of any rash. There are no petechiae, pallor or cyanosis noted. NEUROLOGIC: Patient is awake alert and oriented x3 MEDICAL DECISION MAKING: The patient is an 83-year-old female who does have a history of kidney stones who presented to the emergency department for an evaluation of flank pain. The patient was treated with IV fluids and IV pain medication. She was reevaluated multiple times. I discussed the patient's laboratory and radiographic studies with her. She was found to have a ureteral calculus which was not significant in size but was resultant and hydronephrosis. She was reevaluated multiple times. On reevaluation she continued to have ongoing symptoms. I do not feel that she would be a good candidate for outpatient management. Therefore I discussed her condition with the on-call [facility] hospitalist. They have agreed to evaluate the patient in the emergency department for further management and disposition. The patient's urine did show some white blood cells. There was no nitrates. I feel that it would be prudent to follow her symptoms to determine if antibiotics are needed. Triage Nursing notes reviewed. Prior medical records reviewed Vital Signs: reviewed and remarkable for elevated blood pressure. Differential diagnosis: Renal colic, UTI, appendicitis, diverticulitis, mesenteric ischemia, aortic pathology, infections, inflammatory bowel disease, PUD, biliary pathology, as well as other pathologies. ER treatment provided: See below Diagnostics interpreted by me: ECG: EKG was obtained in the emergency department. My interpretation is atrial fibrillation at 66 bpm. There is no ectopy. Nonspecific ST abnormalities were noted. This was compared to a tracing from November 11, 2022. No changes were noted. Cardiac Monitoring: An order was placed for continuous cardiac monitoring. The monitor shows a rate of 69 bpm with sinus rhythm. Laboratory studies: As stated above and show below. Imaging studies: See below. Radiographic imaging was reviewed by myself Consultation(s): I discussed this case with RICHY who is on for the [facility] group. Past Med/Surg History Problem List Acute left flank pain (Acute) Calculus, ureteral (Acute) Hydronephrosis (Acute) Left ureteral stone Left nephrolithiasis Incomplete bladder emptying Type 2 diabetes mellitus Vertigo (Chronic) Meningioma (Chronic) Dizziness (Chronic) Peripheral arterial disease (Chronic) Cerebral meningioma (Chronic) Chronic anxiety (Chronic) Vertigo (Chronic) Palpitations (Chronic) PAC (premature atrial contraction) (Chronic) PVC (premature ventricular contraction) (Chronic) Osteoporosis, unspecified Chronic anticoagulation Atrial fibrillation Fatigue Diarrhea Encounter for pre-operative examination Diarrhea Irritable bowel syndrome with diarrhea Small bowel obstruction (Acute) Nausea, vomiting, and diarrhea (Acute) Abdominal pain (Acute) Sleep related hypoventilation in conditions classified elsewhere Lower urinary tract symptoms (LUTS) Hx of urethral stricture KAYLAN (obstructive sleep apnea) Perimenopausal atrophic vaginitis Dyspnea on exertion Acute exacerbation of CHF (congestive heart failure) (Acute) SOLIMAN (dyspnea on exertion) (Acute) Hypercapnic respiratory failure, chronic Right ureteral calculus Hydronephrosis HTN (hypertension) (Chronic) Hyperlipidemia (Chronic) COPD (chronic obstructive pulmonary disease) (Chronic) Anxiety History of resection of small bowel History of bowel resection Laparotomy with lysis of adhesions and small bowel resection Medical History Elevated hemoglobin A1c A1C 6.7% on 11/04/22 labs, no noted hx of diabetes or prediabetes per review of available records Sleep apnea Tested, waiting to get device History of dyspnea recently admitted on 10/06/22 to [facility], for dyspnea with exertion History of COVID-19 11/2020- cough, loss of appetite, loss of taste/smell, fatigue > resolved GERD (gastroesophageal reflux disease) Osteoporosis Scoliosis History of nephrolithiasis Cerebral meningioma Under surveillance by neuro annually, stable per 2021 Brain MRI Cardiac murmur Echo 09/2022: Mild TR Atrial fibrillation Taking Xarelto Following with Dr. Obrien Surgical History Hx of bilateral cataract extraction History of elbow surgery Left History of colonoscopy History of abdominal hysterectomy Family History Father Heart disease Brother Myocardial infarction Sister Ovarian cancer Other Cancer Lung cancer No family history of adverse response to anesthesia Denies family history of Prostate cancer Breast cancer Colorectal cancer Stroke Social History Smoking Status: Former smoker Tobacco Type: Cigarettes Age Started Using Tobacco: 35; Age Quit Using Tobacco: 74; packs per day: 0.75; Second Hand Exposure: Yes (hx as child); Do You Dip or Chew Tobacco: No; Hx Alcohol Use: No Hx Substance Use: No Preferred Language: Croatian Communication Ability: Effective Visual Impairment: Limited Hearing Ability: Normal Roving Frame Tender Required: No Beliefs That Will Affect Care: None marital status: Current Living Situation: Spouse Current Living Situation Comment: Lives with current occupational status: retired How many Children do You have: 1 Feels Safe at Home: Yes Childhood Exposure to Second-Hand Smoke: Yes Diet: regular caffeine: Yes during the past year weight has: increased > 10 lbs Dental Care, Regularly: Yes Physical Activity Frequency: Does not Exercise Physical Activity Frequency Comment: works in [employer] Seatbelt Use: always Sunscreen Use: Yes Do you think of yourself as: straight/heterosexual Assistive Devices: Glasses and Walker Allergies Allergies Allergy/AdvReac Type Severity Reaction Status Date / Time aspirin [From Percodan] Allergy Swelling Verified 02/09/24 11:47 of Lip/Tongue/Throat ciprofloxacin Allergy Swelling Verified 02/09/24 11:47 of Lip/Tongue/Throat peanut Allergy Swelling Verified 02/09/24 11:47 of Lip/Tongue/Throat oxycodone AdvReac Unknown "makes me Verified 02/09/24 11:47 crazy" apixaban [From Eliquis] AdvReac bloating Verified 02/09/24 11:47 lisinopril AdvReac Cough Verified 02/09/24 11:47 Home Meds Home Medications Medication Instructions Recorded Confirmed calcium 600 mg (as 1 tab PO QAM 10/26/18 04/06/24 carbonate)-vitamin D3 5 mcg (200 unit) tablet cholecalciferol (vitamin D3) 75 3,000 units PO QAM 10/26/18 04/06/24 mcg (3,000 unit) tablet cyanocobalamin (vitamin B-12) 1,000 mcg PO BID 09/29/20 04/06/24 1,000 mcg capsule clonazepam 0.5 mg tablet 0.25 - 0.5 mg PO BID #60 tabs 01/18/24 04/06/24 Breo Ellipta 1 puff inhalation QAM 04/06/24 04/06/24 metoprolol tartrate 50 mg tablet 75 mg PO BID 04/06/24 04/06/24 potassium chloride 20 mEq 20 meq PO DAILY 04/06/24 04/06/24 tablet,extended release rosuvastatin 10 mg tablet 10 mg PO HS 04/06/24 04/06/24 Previous Rx's Medication Instructions Recorded hydrochlorothiazide 12.5 mg tablet 12.5 mg PO QAM #90 tabs 06/01/23 albuterol sulfate 90 mcg/actuation 1 inh inhalation QID PRN shortness 07/11/23 aerosol inhaler of breath or wheezing #8.5 grams semaglutide 0.25 mg or 0.5 mg (2 0.5 mg (0.736 mL) subcut Q7D 4 09/07/23 mg/3 mL) subcutaneous pen injector weeks #3 mL (Ozempic) omeprazole 40 mg capsule,delayed 40 mg PO QAM #90 caps 10/13/23 release rivaroxaban 20 mg tablet (Xarelto) 20 mg PO QPM #90 tabs 01/02/24 Results & Data (ED) Vital Signs Vital Signs - 24 hr 04/06/24 06:00 04/06/24 06:10 04/06/24 06:15 Temperature 36.5 C Temperature Source Oral Pulse Rate 62 57 L Pulse Rate [Right Finger] 53 L Pulse Rate from SpO2 Sensor Pulse Rhythm Pulse Rhythm [Right Finger] Irregular Pulse Strength [Right Finger] Normal Respiratory Rate 20 20 Respiratory Effort / Characteristics Non-Labored Spontaneous Non-Labored Respiratory Depth Normal Normal Respiratory Pattern Regular Regular Blood Pressure Blood Pressure [Right Arm] 144/64 H Blood Pressure Mean Blood Pressure Mean [Right Arm] 90 Blood Pressure Position [Right Arm] Lying Pulse Oximetry 96 96 Oxygen Delivery Method Room Air Room Air Oxygen Flow Rate Sepsis Recent Fever Within 48 Hours No Sepsis New/Unexplained Change in Mental Status N/A Sepsis Action Taken by Nursing No Action Required 04/06/24 06:24 04/06/24 08:06 Temperature Temperature Source Pulse Rate 65 61 Pulse Rate [Right Finger] Pulse Rate from SpO2 Sensor 59 L Pulse Rhythm Irregular Pulse Rhythm [Right Finger] Pulse Strength [Right Finger] Respiratory Rate 17 23 Respiratory Effort / Characteristics Respiratory Depth Respiratory Pattern Blood Pressure 160/80 H Blood Pressure [Right Arm] Blood Pressure Mean 106 Blood Pressure Mean [Right Arm] Blood Pressure Position [Right Arm] Pulse Oximetry 97 96 Oxygen Delivery Method Room Air Nasal Cannula Oxygen Flow Rate 2 Sepsis Recent Fever Within 48 Hours Sepsis New/Unexplained Change in Mental Status Sepsis Action Taken by Half-Way Medications Current Medication List: was personally reviewed by me Laboratory Data Attestation: I reviewed the patient's lab results. 04/06/24 06:13 04/06/24 06:13 Lab Results 04/06/24 04/06/24 Range/Units 06:13 08:23 WBC 10.70 (4.8-10.8) K/ul RBC 5.48 H (4.20-5.40) M/uL Hgb 13.1 (12.0-16.0) g/dl Hct 43.3 (37.0-47.0) % MCV 79.0 L (80.0-100.0) fL MCH 23.9 L (25.0-34.0) pg MCHC 30.3 L (32.0-36.0) g/dL RDW Std Deviation 46.3 (36.4-46.3) fL RDW Coeff of Vin 16.3 H (11.5-14.5) % Plt Count 264 (130-400) K/uL MPV 11.7 (9.4-12.4) fL Immature Gran % (Auto) 0.4 % Neut % (Auto) 86.6 % Lymph % (Auto) 7.9 % [place] % (Auto) 4.0 % Eos % (Auto) 0.6 % Baso % (Auto) 0.5 % Neut # (Auto) 9.27 H (1.40-6.50) K/uL Lymph # (Auto) 0.85 L (1.20-3.40) K/uL [place] # (Auto) 0.43 (0.11-0.59) K/uL Eos # (Auto) 0.06 (0.00-0.50) K/uL Baso # (Auto) 0.05 (0.00-0.20) K/uL Immature Gran # (Auto) 0.04 (0.01-0.20) K/uL PT 14.2 H (9.0-12.0) Seconds INR 1.3 H (0.9-1.1) APTT 39 H (21-31) Seconds PTT Ratio 1.4 Sodium 142 (136-145) mmol/L Potassium 3.6 (3.5-5.1) mmol/L Chloride 108 H (98-107) mmol/L Carbon Dioxide 27 (21-32) mmol/L Anion Gap 7 (3-11) BUN 20 (6-23) mg/dl Creatinine 1.03 (0.6-1.2) mg/dl Est Cr Clr Drug Dosing 46.7 ml/min eGFR 53.95 BUN/Creatinine Ratio 19.4 (10-20) Glucose 179 H (70-99(Fasting)) mg/dl Calcium 9.2 (8.6-10.3) mg/dl Total Bilirubin 0.5 (0.2-1.0) mg/dl AST 12 L (13-39) U/L ALT 7 (7-52) U/L Alkaline Phosphatase 79 (34-104) U/L Troponin I High Sens 8.9 (0-14) pg/ml Total Protein 6.7 (6.0-8.3) gm/dl Albumin 4.0 (3.4-5.0) gm/dl Globulin 2.7 (2.5-4.0) gm/dl Albumin/Globulin Ratio 1.5 (0.9-2) Lipase 28 (11-82) U/L Urine Color Nehal Urine Appearance Turbid A (Clear) Urine pH 5.0 (4.5-7.5) Ur Specific [place] 1.027 (1.000-1.030) Urine Protein 2+ H (Negative) Urine Glucose (UA) Negative (Negative) Urine Ketones Trace H (Negative) Urine Blood 3+ H (Negative) Urine Nitrite Negative (Negative) Urine Bilirubin 1+ H (Negative) Urine Urobilinogen Negative (Negative) Ur Leukocyte Esterase 1+ H (Negative) Urine WBC (Auto) 11-20 H (0-5) /hpf Urine RBC (Auto) >20 H (0-2) /hpf U Hyaline Cast (Auto) 6-10 H (0-2) /lpf U Epithel Cells (Auto) 3-5 H (0-2) /hpf Urine Bacteria (Auto) None Seen (None Seen) Urine Mucus Present A (None Prsent) Administered Medications Potassium Chloride 40 meq/ (Sodium Chloride) 1,020 mls @ 120 mls/hr IV .Q8H30M [facility] Stop: 04/06/24 19:14 Last Admin: 04/06/24 11:23 Dose: 120 mls/hr Documented By: SRL Metoprolol Tartrate (Metoprolol Tartrate 25 Mg Tab) 75 mg PO BID [facility] Stop: 05/06/24 12:31 Last Admin: 04/06/24 13:12 Dose: 75 mg Documented By: SRL Discontinued Medications Sodium Chloride (Nss) 500 mls @ 80 mls/hr IV .Q6H15M [facility] Stop: 04/06/24 16:29 Last Admin: 04/06/24 10:29 Dose: Not Given Documented By: SRL Morphine Sulfate (Morphine Sulfate 4 Mg/Ml 1 Ml Carp\\Vial) 4 mg IV Q15M PRN PRN Reason: Pain Stop: 04/20/24 06:23 Last Admin: 04/06/24 11:22 Dose: 4 mg Documented By: Admin: 04/06/24 07:21 Dose: 4 mg Documented By: L Admin: 04/06/24 06:33 Dose: 4 mg Documented By: PAG Ondansetron HCl (Ondansetron Inj 2 Mg/Ml 2 Ml Vial) 4 mg IV NOW STA Stop: 04/06/24 06:25 Last Admin: 04/06/24 06:33 Dose: 4 mg Documented By: PAG Ondansetron HCl (Ondansetron Inj 2 Mg/Ml 2 Ml Vial) 4 mg IV NOW STA Stop: 04/06/24 07:09 Last Admin: 04/06/24 07:21 Dose: 4 mg Documented By: SRL Tamsulosin HCl (Tamsulosin Hcl 0.4 Mg Cap) 0.4 mg PO NOW ONE Stop: 04/06/24 10:12 Last Admin: 04/06/24 11:23 Dose: 0.4 mg Documented By: L Imaging Data Attestation: I personally reviewed and interpreted this imaging study as follows: My Impression: CT of the abdomen and pelvis was obtained in the emergency department. My interpretation is hydronephrosis on the left with a ureteral calculus, final report below. Radiologist's Impression: Abdomen/Pelvis CT 04/06/24 06:24 EXAM: CT abd pelvis wo con CLINICAL HISTORY: left flank pain TECHNIQUE: Non-contrast CT of the abdomen and pelvis was performed, with the following protocol: axial images, and reconstructed coronal and sagittal images. No intravenous contrast was administered. One of the following dose reduction techniques was utilized for this exam: Automated exposure control, adjustment of the mA and/or kV according to patient size, and use of iterative reconstruction. COMPARISON: Comparison is made with prior CT dated 06/14/2023. FINDINGS: Abdomen: Liver: Normal in size, shape, and density. No focal lesions, cysts, or masses were identified. Gallbladder and Biliary System: The gallbladder is normal in size and shape. No wall thickening, pericholecystic fluid, or gallstones were identified. Pancreas: Pancreatic head, body, and tail are visualized and appear normal in size and density. No pancreatic masses or calcifications were noted. Spleen: Normal in size, shape, and density. No splenic lesions or masses were identified. Kidneys and Adrenal Glands: Obstructive calculus of 3 mm in left mid ureter and causing upstream mild hydroureteronephrosis. Left perinephric fat stranding seen. Few non obstructive calculi of 2-3 mm at upper, mid poles of right kidney and 3-4 mm at upper, lower poles of left kidney. Both kidneys are normal in size, shape, and position. Cortical thickness is within normal limits. Adrenal glands are unremarkable. Appendix: The appendix is normal in size without roxana appendiceal fat stranding, and without an appendicolith. No evidence of appendiceal abscess or perforation. Pelvis: Urinary Bladder: Minimally distended. No intraluminal lesions. Uterus and ovaries: Not visualised properly. Vagina: Normal in contour and wall thickness. Cervix: No evidence of mass or abnormal thickening. Peritoneal and Retroperitoneal Structures: No free fluid or abnormal fluid collections were identified within the abdomen or pelvis. No lymphadenopathy was noted. Moderate atherosclerotic wall calcifications in abdominal aorta and its branches. Bowel: Small hiatus hernia. Anastomotic sutures in small bowel loops in umbilical region. The visualized bowel loops are normal in caliber and appearance. No evidence of bowel obstruction or wall thickening. Bones and Soft Tissues: Small fat containing umbilical hernia. Moderate spondylotic changes in thoracolumbar spine with kyphoscoliotic deformity. Pelvic bones and soft tissues are unremarkable. No fractures or abnormal masses were identified. Visualised thorax shows mild bilateral pleural effusion. IMPRESSION: 1. Obstructive calculus of 3 mm in left mid ureter and causing upstream mild hydroureteronephrosis, new finding. 2. Few non obstructive calculi of 2-3 mm at upper, mid poles of right kidney and 3-4 mm at upper, lower poles of left kidney, stable. Electronically signed by Laura Moreno 04-06-2024 08:20 AM Discharge Plan Visit Data Chief Complaint: Flank Pain Stated Complaint: BACK/FLANK PAIN, FX OF KIDNEY STONES ED Provider: Gregory Manriquez Discharge Problem: Hydronephrosis, Calculus, ureteral, Acute left flank pain Patient Disposition: Admitted As Inpatient Discharge Instructions Interventions: ED Discharge Assessment Last Done: 04/06/24 13:18 Discharge Problem: Hydronephrosis Qualifiers: Hydronephrosis type: with ureteral calculous obstruction Qualified Code(s): N 13.2 - Hydronephrosis with renal and ureteral calculous obstruction
[2024-04-06 06:59] LABS: Albumin Globulin Ratio 1.5 (0.9-2); BUN Creatinine Ratio 19.4 (10-20); Bilirubin,Total 0.5 mg/dl (0.2-1.0); Calcium 9.2 mg/dl (8.6-10.3); Creatinine Clr Calc Pharmacy 46.7 ml/min; Globulin 2.7 gm/dl (2.5-4.0); Potassium 3.6 mmol/L (3.5-5.1); Total Protein 6.7 gm/dl (6.0-8.3)
[2024-04-06 07:05] LABS: Troponin I High Sensitivity 8.9 pg/ml (0-14)
[2024-04-06 07:17] LABS: INR 1.3 (0.9-1.1); Partial Thromboplastin Ratio 1.4; Partial Thromboplastin Time 39 Seconds (21-31); Prothrombin Time 14.2 Seconds (9.0-12.0)
--- NOTE | 2024-04-06 08:20 | CT Scan Report ---
EXAM: CT abd pelvis wo con CLINICAL HISTORY: left flank pain TECHNIQUE: Non-contrast CT of the abdomen and pelvis was performed, with the following protocol: axial images, and reconstructed coronal and sagittal images. No intravenous contrast was administered. One of the following dose reduction techniques was utilized for this exam: Automated exposure control, adjustment of the mA and/or kV according to patient size, and use of iterative reconstruction. COMPARISON: Comparison is made with prior CT dated 06/14/2023. FINDINGS: Abdomen: Liver: Normal in size, shape, and density. No focal lesions, cysts, or masses were identified. Gallbladder and Biliary System: The gallbladder is normal in size and shape. No wall thickening, pericholecystic fluid, or gallstones were identified. Pancreas: Pancreatic head, body, and tail are visualized and appear normal in size and density. No pancreatic masses or calcifications were noted. Spleen: Normal in size, shape, and density. No splenic lesions or masses were identified. Kidneys and Adrenal Glands: Obstructive calculus of 3 mm in left mid ureter and causing upstream mild hydroureteronephrosis. Left perinephric fat stranding seen. Few non obstructive calculi of 2-3 mm at upper, mid poles of right kidney and 3-4 mm at upper, lower poles of left kidney. Both kidneys are normal in size, shape, and position. Cortical thickness is within normal limits. Adrenal glands are unremarkable. Appendix: The appendix is normal in size without roxana appendiceal fat stranding, and without an appendicolith. No evidence of appendiceal abscess or perforation. Pelvis: Urinary Bladder: Minimally distended. No intraluminal lesions. Uterus and ovaries: Not visualised properly. Vagina: Normal in contour and wall thickness. Cervix: No evidence of mass or abnormal thickening. Peritoneal and Retroperitoneal Structures: No free fluid or abnormal fluid collections were identified within the abdomen or pelvis. No lymphadenopathy was noted. Moderate atherosclerotic wall calcifications in abdominal aorta and its branches. Bowel: Small hiatus hernia. Anastomotic sutures in small bowel loops in umbilical region. The visualized bowel loops are normal in caliber and appearance. No evidence of bowel obstruction or wall thickening. Bones and Soft Tissues: Small fat containing umbilical hernia. Moderate spondylotic changes in thoracolumbar spine with kyphoscoliotic deformity. Pelvic bones and soft tissues are unremarkable. No fractures or abnormal masses were identified. Visualised thorax shows mild bilateral pleural effusion. IMPRESSION: 1. Obstructive calculus of 3 mm in left mid ureter and causing upstream mild hydroureteronephrosis, new finding. 2. Few non obstructive calculi of 2-3 mm at upper, mid poles of right kidney and 3-4 mm at upper, lower poles of left kidney, stable. Electronically signed by Laura Moreno 04-06-2024 08:20 AM
[2024-04-06 09:01] LABS: Appearance Urine Turbid (Clear); Bacteria Urine Automated None Seen (None Seen); Bilirubin Urine 1+ (Negative); Blood Urine 3+ (Negative); Glucose Urine UA Negative (Negative); Ketones Urine Trace (Negative); Leukocyte Esterase Urine 1+ (Negative); Mucus Urine Present (None Prsent); Nitrite Urine Negative (Negative); Protein Urine 2+ (Negative); RBC Urine Automated >20 /hpf (0-2); Specific Gravity Urine 1.027 (1.000-1.030); Urobilinogen Urine Negative (Negative)
[2024-04-06 09:02] LABS: Color Urine Amber
--- NOTE | 2024-04-06 09:26 | History & Physical Report ---
Date of Service April 06, 2024 Assessment & Plan (1) Left nephrolithiasis: (2) Atrial fibrillation: Martha Laird is a pleasant 83-year-old female with PMH of kidney stones, urethral stricture, small bowel resection, COPD, HTN, HLD, KAYLAN, and T2DM. She presented via EMS on the morning of 04/06 for acute onset of left-sided flank pain, nausea, and vomiting. Patient does have a history of kidney stones, and this feels similar to prior episodes. She reports the pain started at 3 AM this morning, and woke her from sleep. She characterized it as a sharp pain in her left flank and left lower back with radiation around the flank. The pain comes in waves, and she rates it 10/10 at its worst. #Obstructive nephrolithiasis No leukocytosis; afebrile on arrival UA negative for infection A/P CT revealed a 3 mm obstructive calculus in the left mid ureter with mild hydroureteronephrosis Urology consult appreciated Urine strainer Tamsulosin 0.4 mg p.o. QAM IV pain control PRN One episode of transient hypoxia in the ED likely secondary to morphine administration Continuous pulse oximetry IV antiemetics PRN IV fluid maintenance Hold HCTZ while receiving fluids #Atrial fibrillation Rate controlled Continue Xarelto, metoprolol #Prediabetes Last A1c 6.1% on 01/18/2024 Hold semaglutide Will plan to advance to T2DM diet BSG ACHS Adjust regimen as needed Chronic stable conditions: GERD-omeprazole HLD-rosuvastatin Anxiety-clonazepam Disposition: Admit to [facility] Full code N.p.o. pending urology eval VTE PPx: Xarelto History of Present Illness Chief Complaint: Left-sided flank pain, nausea, and vomiting Primary Care Provider: Rafael Bill DO Eitan is a pleasant 83-year-old female with PMH of kidney stones, urethral stricture, small bowel resection, COPD, HTN, HLD, KAYLAN, and T2DM. She presented via EMS on the morning of 04/06 for acute onset of left-sided flank pain, nausea, and vomiting. Patient does have a history of kidney stones, and this feels similar to prior episodes. She reports the pain started at 3 AM this morning, and woke her from sleep. She characterized it as a sharp pain in her left flank and left lower back with radiation around the flank. The pain comes in waves, and she rates it 10/10 at its worst. The pain is so bad that she has had nausea, vomiting, dry heaves, and cold sweats. She did not take any pain medicine prior to coming into the ED. Patient did not take her regular morning medicines today; no recent change in medications. Her last meal was the evening of 04/05. Additionally, she takes Xarelto for her atrial fibrillation, and took it last night. She does not use up on oxygen at baseline or CPAP at night. Patient denies smoking, tobacco use, or recent alcohol use. Patient is hyperten sive at 160/80 at time of admission; SpO2 96% on 2L NC. ED course: Morphine sulfate 4 mg IV x 2 Zofran 4 mg IV x 2 ROS: Patient endorses left-sided flank pain, nausea, vomiting, dry heaves, cold swe ats, dark urine (potential hematuria, but patient is not sure), constipation, and lower back pain. Patient denies fever, chills, dizziness, lightheadedness, headache, chest pain, chest palpitations, pleuritic CP, SOB, cough, right sided abdominal pain, diarrhea, burning with urination, dysuria, melena, or blood in the stool. Allergies Allergy/AdvReac Type Severity Reaction Status Date / Time aspirin [From Percodan] Allergy Swelling Verified 02/09/24 11:47 of Lip/Tongue/Throat ciprofloxacin Allergy Swelling Verified 02/09/24 11:47 of Lip/Tongue/Throat peanut Allergy Swelling Verified 02/09/24 11:47 of Lip/Tongue/Throat oxycodone AdvReac Unknown "makes me Verified 02/09/24 11:47 crazy" apixaban [From Eliquis] AdvReac bloating Verified 02/09/24 11:47 lisinopril AdvReac Cough Verified 02/09/24 11:47 Home Medications Medication Instructions Recorded Confirmed Type calcium 600 mg (as 1 tab PO QAM 10/26/18 04/06/24 History carbonate)-vitamin D3 5 mcg (200 unit) tablet cholecalciferol (vitamin D3) 75 3,000 units PO QAM 10/26/18 04/06/24 History mcg (3,000 unit) tablet cyanocobalamin (vitamin B-12) 1,000 mcg PO BID 09/29/20 04/06/24 History 1,000 mcg capsule hydrochlorothiazide 12.5 mg tablet 12.5 mg PO QAM #90 tabs 06/01/23 04/06/24 Rx albuterol sulfate 90 mcg/actuation 1 inh inhalation QID PRN shortness 07/11/23 04/06/24 Rx aerosol inhaler of breath or wheezing #8.5 grams semaglutide 0.25 mg or 0.5 mg (2 0.5 mg (0.736 mL) subcut Q7D 4 09/07/23 04/06/24 Rx mg/3 mL) subcutaneous pen injector weeks #3 mL (Ozempic) omeprazole 40 mg capsule,delayed 40 mg PO QAM #90 caps 10/13/23 04/06/24 Rx release rivaroxaban 20 mg tablet (Xarelto) 20 mg PO QPM #90 tabs 01/02/24 04/06/24 Rx clonazepam 0.5 mg tablet 0.25 - 0.5 mg PO BID #60 tabs 01/18/24 04/06/24 History Breo Ellipta 1 puff inhalation QAM 04/06/24 04/06/24 History metoprolol tartrate 50 mg tablet 75 mg PO BID 04/06/24 04/06/24 History potassium chloride 20 mEq 20 meq PO DAILY 04/06/24 04/06/24 History tablet,extended release rosuvastatin 10 mg tablet 10 mg PO HS 04/06/24 04/06/24 History Past Med/Surg History Problem List Left ureteral stone Left nephrolithiasis Incomplete bladder emptying Type 2 diabetes mellitus Vertigo (Chronic) Meningioma (Chronic) Dizziness (Chronic) Peripheral arterial disease (Chronic) Cerebral meningioma (Chronic) Chronic anxiety (Chronic) Vertigo (Chronic) Palpitations (Chronic) PAC (premature atrial contraction) (Chronic) PVC (premature ventricular contraction) (Chronic) Osteoporosis, unspecified Chronic anticoagulation Atrial fibrillation Fatigue Diarrhea Encounter for pre-operative examination Diarrhea Irritable bowel syndrome with diarrhea Small bowel obstruction (Acute) Nausea, vomiting, and diarrhea (Acute) Abdominal pain (Acute) Sleep related hypoventilation in conditions classified elsewhere Lower urinary tract symptoms (LUTS) Hx of urethral stricture KAYLAN (obstructive sleep apnea) Perimenopausal atrophic vaginitis Dyspnea on exertion Acute exacerbation of CHF (congestive heart failure) (Acute) SOLIMAN (dyspnea on exertion) (Acute) Hypercapnic respiratory failure, chronic Right ureteral calculus Hydronephrosis HTN (hypertension) (Chronic) Hyperlipidemia (Chronic) COPD (chronic obstructive pulmonary disease) (Chronic) Anxiety History of resection of small bowel History of bowel resection Laparotomy with lysis of adhesions and small bowel resection Medical History Elevated hemoglobin A1c A1C 6.7% on 11/04/22 labs, no noted hx of diabetes or prediabetes per review of available records Sleep apnea Tested, waiting to get device History of dyspnea recently admitted on 10/06/22 to [facility], for dyspnea with exertion History of COVID-19 11/2020- cough, loss of appetite, loss of taste/smell, fatigue > resolved GERD (gastroesophageal reflux disease) Osteoporosis Scoliosis History of nephrolithiasis Cerebral meningioma Under surveillance by neuro annually, stable per 2021 Brain MRI Cardiac murmur Echo 09/2022: Mild TR Atrial fibrillation Taking Xarelto Following with Dr. Obrien Surgical History Hx of bilateral cataract extraction History of elbow surgery Left History of colonoscopy History of abdominal hysterectomy Family History Father Heart disease Brother Myocardial infarction Sister Ovarian cancer Other Cancer Lung cancer No family history of adverse response to anesthesia Denies family history of Prostate cancer Breast cancer Colorectal cancer Stroke Social History Smoking Status: Former smoker Tobacco Type: Cigarettes Age Started Using Tobacco: 35; Age Quit Using Tobacco: 74; packs per day: 0.75; Second Hand Exposure: Yes (hx as child); Do You Dip or Chew Tobacco: No; Hx Alcohol Use: No Hx Substance Use: No Preferred Language: Peruvian Communication Ability: Effective Visual Impairment: Limited Hearing Ability: Normal Laboratory Animal Caretaker Required: No Beliefs That Will Affect Care: None marital status: Current Living Situation: Spouse Current Living Situation Comment: Lives with current occupational status: retired How many Children do You have: 1 Feels Safe at Home: Yes Childhood Exposure to Second-Hand Smoke: Yes Diet: regular caffeine: Yes during the past year weight has: increased > 10 lbs Dental Care, Regularly: Yes Physical Activity Frequency: Does not Exercise Physical Activity Frequency 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: 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 Seatbelt Use: always Sunscreen Use: Yes Do you think of yourself as: straight/heterosexual Assistive Devices: Glasses and Walker Review of Systems Review of Systems: See HPI above Physical Exam Physical Exam: General: Mild distress secondary to left flank pain; pleasant affect; at bedside; non-toxic appearing; well-nourished; cooperative; SpO2 96% on 2L NC HEENT: normocephalic, atraumatic; no scleral icterus; PERRLA; vision and hearing grossly intact Neck: supple; no lymphadenopathy; trachea midline Skin: warm, dry without signs of tenting; no cyanosis; no rashes, bruising, lesions, or erythema noted CV: chest wall NTP; irregularly irregular rhythm; S1/S2 normal; no murmurs/rubs/gallops; pulses intact and symmetric at radial, DP, and PT Lungs: no acute respiratory distress; symmetrical chest wall expansion; clear breath sounds across all lung dorsey w/o adventitious sounds; no wheezing ABD: Soft, NTP in all 4 quadrants; BS present; no rebound/guarding; no distention Left flank: Tender to palpation; no rashes or bruises appreciated on the left f lank Back: Positive left CVA tenderness; negative right CVA tenderness MSK: no tics or fasciculations; no edema noted in the LEs b/l, nonerythematous Neuro: A&Ox3; normal mood and affect; fluent speech; no focal deficits; sensation intact and symmetric in lower extremities bilaterally Results & Data Results & Data Vital Signs (Past 12 Hours) Vital Signs Temp Pulse Pulse Resp BP BP Pulse Ox 04/06/24 08:06 61 23 160/80 H 96 04/06/24 06:24 65 17 97 04/06/24 06:15 57 L 04/06/24 06:10 36.5 C 62 20 96 04/06/24 06:00 53 L 20 144/64 H 96 O2 Del Method O2 Flow Rate 04/06/24 08:06 Nasal Cannula 2 04/06/24 06:24 Room Air 04/06/24 06:15 04/06/24 06:10 Room Air 04/06/24 06:00 Room Air Laboratory Results Abnormal lab results 04/06/24 04/06/24 Range/Units 06:13 08:23 RBC 5.48 H (4.20-5.40) M/uL MCV 79.0 L (80.0-100.0) fL MCH 23.9 L (25.0-34.0) pg MCHC 30.3 L (32.0-36.0) g/dL RDW Coeff of Vin 16.3 H (11.5-14.5) % Neut # (Auto) 9.27 H (1.40-6.50) K/uL Lymph # (Auto) 0.85 L (1.20-3.40) K/uL PT 14.2 H (9.0-12.0) Seconds INR 1.3 H (0.9-1.1) APTT 39 H (21-31) Seconds Chloride 108 H (98-107) mmol/L Glucose 179 H (70-99(Fasting)) mg/dl AST 12 L (13-39) U/L Urine Appearance Turbid A (Clear) Urine Protein 2+ H (Negative) Urine Ketones Trace H (Negative) Urine Blood 3+ H (Negative) Urine Bilirubin 1+ H (Negative) Ur Leukocyte Esterase 1+ H (Negative) Urine WBC (Auto) 11-20 H (0-5) /hpf Urine RBC (Auto) >20 H (0-2) /hpf U Hyaline Cast (Auto) 6-10 H (0-2) /lpf U Epithel Cells (Auto) 3-5 H (0-2) /hpf Urine Mucus Present A (None Prsent) Diagnostic Findings Abdomen/Pelvis CT 04/06/24 06:24 EXAM: CT abd pelvis wo con CLINICAL HISTORY: left flank pain TECHNIQUE: Non-contrast CT of the abdomen and pelvis was performed, with the following protocol: axial images, and reconstructed coronal and sagittal images. No intravenous contrast was administered. One of the following dose reduction techniques was utilized for this exam: Automated exposure control, adjustment of the mA and/or kV according to patient size, and use of iterative reconstruction. COMPARISON: Comparison is made with prior CT dated 06/14/2023. FINDINGS: Abdomen: Liver: Normal in size, shape, and density. No focal lesions, cysts, or masses were identified. Gallbladder and Biliary System: The gallbladder is normal in size and shape. No wall thickening, pericholecystic fluid, or gallstones were identified. Pancreas: Pancreatic head, body, and tail are visualized and appear normal in size and density. No pancreatic masses or calcifications were noted. Spleen: Normal in size, shape, and density. No splenic lesions or masses were identified. Kidneys and Adrenal Glands: Obstructive calculus of 3 mm in left mid ureter and causing upstream mild hydroureteronephrosis. Left perinephric fat stranding seen. Few non obstructive calculi of 2-3 mm at upper, mid poles of right kidney and 3-4 mm at upper, lower poles of left kidney. Both kidneys are normal in size, shape, and position. Cortical thickness is within normal limits. Adrenal glands are unremarkable. Appendix: The appendix is normal in size without roxana appendiceal fat stranding, and without an appendicolith. No evidence of appendiceal abscess or perforation. Pelvis: Urinary Bladder: Minimally distended. No intraluminal lesions. Uterus and ovaries: Not visualised properly. Vagina: Normal in contour and wall thickness. Cervix: No evidence of mass or abnormal thickening. Peritoneal and Retroperitoneal Structures: No free fluid or abnormal fluid collections were identified within the abdomen or pelvis. No lymphadenopathy was noted. Moderate atherosclerotic wall calcifications in abdominal aorta and its branches. Bowel: Small hiatus hernia. Anastomotic sutures in small bowel loops in umbilical region. The visualized bowel loops are normal in caliber and appearance. No evidence of bowel obstruction or wall thickening. Bones and Soft Tissues: Small fat containing umbilical hernia. Moderate spondylotic changes in thoracolumbar spine with kyphoscoliotic deformity. Pelvic bones and soft tissues are unremarkable. No fractures or abnormal masses were identified. Visualised thorax shows mild bilateral pleural effusion. IMPRESSION: 1. Obstructive calculus of 3 mm in left mid ureter and causing upstream mild hydroureteronephrosis, new finding. 2. Few non obstructive calculi of 2-3 mm at upper, mid poles of right kidney and 3-4 mm at upper, lower poles of left kidney, stable. Electronically signed by Laura Moreno 04-06-2024 08:20 AM ECG Additional Comments: ECG revealed atrial fibrillation at 66 bpm; QTc 429 Code Status & VTE Plan Code Status Full code VTE Prophylaxis Plan VTE Prophylaxis will be ordered: Yes Supervising Physician Co-Signing Physician Notes Patient seen and examined, chart reviewed, case discussed with Bobby Kevin PA-C and I agree with the assessment and plan as above except as otherwise noted Labs and images reviewed Eitan is an 83-year-old female with a past history of kidney stones, urethral s tricture, small bowel resection, KAYLAN, hyperlipidemia, hypertension, DM2 who presented 04/06 for acute onset of left-sided flank pain similar to prior kidney stones. On ER assessment she is hemodynamically stable and without leukocytosis. CTA/P with evidence of left mid ureter obstructive calculus and mild hydro, she does not have an ASH. Due to inadequate pain control and hydro patient was recommended for inpatient monitoring and ongoing pain control. Will maximize medical therapy for 3 mm stone including IVF and Flomax. Monitor renal function daily. UA is contaminated but not infected appearing. Urology was consulted although no indication for stenting at this time, follow creatinine daily. Multimodal pain control with Tylenol, Toradol, breakthrough morphine as needed. She was transiently hypoxic after 4 mg of morphine administration in the ER, no pulmonary symptoms. If she does not have improvement with pain control, expulsion therapy, fluids then will reassess for stenting/urologic procedure at that time. She does have some stomach discomfort radiating from her back and emesis was dark brown but was not frankly black or bloody. Does have a history of bowel resection but has not had any adhesional SBO since. Last bowel movement was yesterday, is having regular bowel movements although these are much harder to pass since being on Ozempic. Discussed for/benefits of Ozempic and to continue to monitor this closely, she takes her doses on Tuesdays. Agree with above. PG Care Time/CCT Total # of Minutes Spent Total Time Spent with Patient: Total time spent is greater than 50% in coordination of care (as documented) at patient's floor/unit and/or counseling patient: C[place] [address] INT INP/OBS CARE 2/55MIN Patient Type Established Medical Decision Making Moderate Complexity Diagnoses Left nephrolithiasis N20.0 Atrial fibrillation I48.91
[2024-04-06] MEDS: SODIUM CHLORIDE 0.9% 500 ML IV SCH (10:29)
[2024-04-06] MEDS: TAMSULOSIN HCL 0.4 MG CAP PO ONE (11:23)
[2024-04-06] MEDS: POTASSIUM CHLORIDE 40 MEQ in SODIUM CHLORIDE 0.45 % 1,000 ML IV SCH (11:23)
--- NOTE | 2024-04-06 11:25 | Urology Consultation ---
<Statement entered by Geo Lebron MD - 04/06/24 12:03> 83-year-old female with intractable pain due to ureterolithiasis. Low suspicion for acute infection at this point, however due to ongoing pain we will plan on left ureteral stent placement. Date of Consultation April 06, 2024 Assessment & Plan (1) Left ureteral stone: 83 yo/F admitted for intractable flank pain, nausea and vomiting secondary to an obstructing 3 mm left ureteral stone. Afebrile and hemodynamically stable Labs reviewed - creatinine 1.03, no leukocytosis UA with 1+ LE, 11-20 WBC, >20 RBC, negative for bacteria CTAP reviewed and discussed Discussed options for stone management including trial of passage with medical expulsive therapy vs surgical intervention with stent placement She continues to have significant flank pain, nausea and vomiting Prefers to have surgical intervention today Ureteral stents discussed in detail Patient understands that stone treatment would take place at a later date Proceed to the OR for cystoscopy and left ureteral stent placement Preop antibiotic ordered Keep NPO for procedure Continue supportive care, pain control and medical management per hospital medicine service History of Present Illness Reason for Consultation: left ureteral stone History of Present Illness 83 yo/F who follows with urology for history of urethral stricture, nephrolithiasis and lower urinary tract symptoms. She presented to ED via EMS on 04/06/24 for evaluation of acute onset left flank pain, nausea and vomiting. On arrival, she was afebrile and hemodynamically stable. Labs- creatinine 1.03, WBC 10.7, Hgb 13.1 UA 3+ blood, 1+ LE, 11-20 WBC, >20 RBC, negative for bacteria CTAP notable for an obstructing 3mm right mid ureteral stone with mild hydronephrosis; additional small nonobstructing renal calculi measuring 2-3 mm bilaterally ED course: IVF, morphine, and ondansetron Patient seen in the emergency department. and daughter present. She reports that pain started abruptly at 3 am. She continues to have significant left flank pain, nausea and vomiting. Voiding spontaneously. No dysuria. No fever or chills. Last ate/drank yesterday evening. Allergies Allergy/AdvReac Type Severity Reaction Status Date / Time aspirin [From Percodan] Allergy Swelling Verified 02/09/24 11:47 of Lip/Tongue/Throat ciprofloxacin Allergy Swelling Verified 02/09/24 11:47 of Lip/Tongue/Throat peanut Allergy Swelling Verified 02/09/24 11:47 of Lip/Tongue/Throat oxycodone AdvReac Unknown "makes me Verified 02/09/24 11:47 crazy" apixaban [From Eliquis] AdvReac bloating Verified 02/09/24 11:47 lisinopril AdvReac Cough Verified 02/09/24 11:47 Home Medications Medication Instructions Recorded Confirmed Type calcium 600 mg (as 1 tab PO QAM 10/26/18 04/06/24 History carbonate)-vitamin D3 5 mcg (200 unit) tablet cholecalciferol (vitamin D3) 75 3,000 units PO QAM 10/26/18 04/06/24 History mcg (3,000 unit) tablet cyanocobalamin (vitamin B-12) 1,000 mcg PO BID 09/29/20 04/06/24 History 1,000 mcg capsule hydrochlorothiazide 12.5 mg tablet 12.5 mg PO QAM #90 tabs 06/01/23 04/06/24 Rx albuterol sulfate 90 mcg/actuation 1 inh inhalation QID PRN shortness 07/11/23 04/06/24 Rx aerosol inhaler of breath or wheezing #8.5 grams semaglutide 0.25 mg or 0.5 mg (2 0.5 mg (0.736 mL) subcut Q7D 4 09/07/23 04/06/24 Rx mg/3 mL) subcutaneous pen injector weeks #3 mL (Ozempic) omeprazole 40 mg capsule,delayed 40 mg PO QAM #90 caps 10/13/23 04/06/24 Rx release rivaroxaban 20 mg tablet (Xarelto) 20 mg PO QPM #90 tabs 01/02/24 04/06/24 Rx clonazepam 0.5 mg tablet 0.25 - 0.5 mg PO BID #60 tabs 01/18/24 04/06/24 History Breo Ellipta 1 puff inhalation QAM 04/06/24 04/06/24 History metoprolol tartrate 50 mg tablet 75 mg PO BID 04/06/24 04/06/24 History potassium chloride 20 mEq 20 meq PO DAILY 04/06/24 04/06/24 History tablet,extended release rosuvastatin 10 mg tablet 10 mg PO HS 04/06/24 04/06/24 History Patient History Medical History Elevated hemoglobin A1c A1C 6.7% on 11/04/22 labs, no noted hx of diabetes or prediabetes per review of available records Sleep apnea Tested, waiting to get device History of dyspnea recently admitted on 10/06/22 to [facility], for dyspnea with exertion History of COVID-19 11/2020- cough, loss of appetite, loss of taste/smell, fatigue > resolved GERD (gastroesophageal reflux disease) Osteoporosis Scoliosis History of nephrolithiasis Cerebral meningioma Under surveillance by neuro annually, stable per 2021 Brain MRI Cardiac murmur Echo 09/2022: Mild TR Atrial fibrillation Taking Xarelto Following with Dr. Obrien Surgical History Hx of bilateral cataract extraction History of elbow surgery Left History of colonoscopy History of abdominal hysterectomy Family History Father Heart disease Brother Myocardial infarction Sister Ovarian cancer Other Cancer Lung cancer No family history of adverse response to anesthesia Denies family history of Prostate cancer Breast cancer Colorectal cancer Stroke Social History Smoking Status: Former smoker Tobacco Type: Cigarettes Age Started Using Tobacco: 35; Age Quit Using Tobacco: 74; packs per day: 0.75; Second Hand Exposure: Yes (hx as child); Do You Dip or Chew Tobacco: No; Hx Alcohol Use: No Hx Substance Use: No Preferred Language: Tamazight Communication Ability: Effective Visual Impairment: Limited Hearing Ability: Normal Structural Welder Required: No Beliefs That Will Affect Care: None marital status: Current Living Situation: Spouse Current Living Situation Comment: Lives with current occupational status: retired How many Children do You have: 1 Feels Safe at Home: Yes Childhood Exposure to Second-Hand Smoke: Yes Diet: regular caffeine: Yes during the past year weight has: increased > 10 lbs Dental Care, Regularly: Yes Physical Activity Frequency: Does not Exercise Physical Activity Frequency Comment: works in [employer] Seatbelt Use: always Sunscreen Use: Yes Do you think of yourself as: straight/heterosexual Assistive Devices: Glasses and Walker Review of Systems Review of Systems: All systems reviewed & are unremarkable except as noted in HPI & below Physical Exam Constitutional: no acute distress and + uncomfortable Respiratory: normal respiratory effort; no respiratory distress and no labored breathing Gastrointestinal (Abdomen): Inspection/Auscultation: abdomen normal to inspection Musculoskeletal: Head/Neck/Chest: normocephalic Neurologic: moves all extremities and awake Psychiatric: Orientation: alert and oriented x 3 Genitourinary: no CVA tenderness Results & Data Vital Signs (Past 12 Hours) Vital Signs Temp Pulse Pulse Resp BP BP Pulse Ox 04/06/24 09:55 69 04/06/24 08:06 61 23 160/80 H 96 04/06/24 06:24 65 17 97 04/06/24 06:15 57 L 04/06/24 06:10 36.5 C 62 20 96 04/06/24 06:00 53 L 20 144/64 H 96 O2 Del Method O2 Flow Rate 04/06/24 09:55 04/06/24 08:06 Nasal Cannula 2 04/06/24 06:24 Room Air 04/06/24 06:15 04/06/24 06:10 Room Air 04/06/24 06:00 Room Air PG Care Time/CCT Total # of Minutes Spent Total Time Spent with Patient: Total time spent is greater than 50% in coordination of care (as documented) at patient's floor/unit and/or counseling patient: Coding Level of Care Code 71014 INT INP/OBS CARE 2/MIN Diagnoses Left ureteral stone N20.1
[2024-04-06] MEDS ORDERED: GLUCOSE 40% GEL 15 GM TUBE PO PRN (12:32)
[2024-04-06] MEDS ORDERED: KETOROLAC TROMETHAMINE 15 MG/ML VIAL IV PRN (12:32)
[2024-04-06] MEDS ORDERED: ALBUTEROL HFA 8 GM INHALER INH PRN (12:32)
[2024-04-06] MEDS ORDERED: DEXTROSE 50% 50 ML SYRINGE IV PRN (12:32)
[2024-04-06] MEDS ORDERED: ONDANSETRON INJ 2 MG/ML 2 ML VIAL IV PRN (12:32)
[2024-04-06] MEDS ORDERED: ACETAMINOPHEN 1,000 MG/100 ML VIAL IV PRN (12:32)
[2024-04-06] MEDS ORDERED: BREO ELLIPTA INH SCH (12:32)
[2024-04-06] MEDS ORDERED: CARBOHYDRATES FOR HYPOGLYCEMIA PO PRN (12:32)
[2024-04-06] MEDS ORDERED: GLUCOSE 10 TAB/TUBE PO PRN (12:32)
[2024-04-06] MEDS ORDERED: MoRPHine SULFATE 2 MG/ML CARP IV PRN (12:32)
[2024-04-06] MEDS ORDERED: GLUCAGON FOR INJ 1 MG VIAL SQ PRN (12:32)
[2024-04-06] MEDS ORDERED: LIDOCAINE 2% 2 ML VIAL/AMP(20MG/ML) INFIL ONE (13:08)
[2024-04-06] MEDS ORDERED: PROPOFOL IV EMULSION 10 MG/ML 20 ML VIAL IV ONE (13:08)
[2024-04-06] MEDS ORDERED: fentaNYL citrate PF 100 MCG/2 ML VIAL ONE (13:08)
[2024-04-06] MEDS: METOPROLOL TARTRATE 25 MG TAB PO SCH (13:12)
--- NOTE | 2024-04-06 13:15 | Electrocardiogram Report ---
Test Reason : Blood Pressure : */* mmHG Vent. 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
[2024-04-06] MEDS: LACTATED RINGER'S 1,000 ML IV SCH (13:45)
--- NOTE | 2024-04-06 14:03 | Anesthesiology Consultation ---
Date of Service April 06, 2024 Assessment & Plan Chart Review Chart Review: Acceptable Risk for Surgery and Patient NOT seen in Pre Admission Testing Consults Requested none ASA [id number] Proposed Anesthesia Anesthesia Type: MAC Risk / Benefits Reviewed With: PT / POA / Parent / Guardian, Accepts Plan and Informed Consent Obtained History Surgery Operation Date: 04/06/24 14:50 Proposed Procedures p Cystoscopy Left Ureteral Stent Placement - Geo Lebron MD Height/Weight Height: 5 ft 2 in Weight: 103.7 kg Allergies Allergy/AdvReac Type Severity Reaction Status Date / Time aspirin [From Percodan] Allergy Swelling Verified 04/06/24 13:28 of Lip/Tongue/Throat ciprofloxacin Allergy Swelling Verified 04/06/24 13:28 of Lip/Tongue/Throat peanut Allergy Swelling Verified 04/06/24 13:28 of Lip/Tongue/Throat oxycodone AdvReac Unknown "makes me Verified 04/06/24 13:28 crazy" apixaban [From Eliquis] AdvReac bloating Verified 04/06/24 13:28 lisinopril AdvReac Cough Verified 04/06/24 13:28 Medications Home Medications Medication Instructions Recorded Confirmed Last Taken calcium 600 mg (as 1 tab PO QAM 10/26/18 04/06/24 11/17/22 10:00 carbonate)-vitamin D3 5 mcg (200 unit) tablet cholecalciferol (vitamin D3) 75 3,000 units PO QAM 10/26/18 04/06/24 11/17/22 10:00 mcg (3,000 unit) tablet cyanocobalamin (vitamin B-12) 1,000 mcg PO BID 09/29/20 04/06/24 11/17/22 10:00 1,000 mcg capsule hydrochlorothiazide 12.5 mg tablet 12.5 mg PO QAM #90 tabs 06/01/23 04/06/24 Unknown albuterol sulfate 90 mcg/actuation 1 inh inhalation QID PRN shortness 07/11/23 04/06/24 Unknown aerosol inhaler of breath or wheezing #8.5 grams semaglutide 0.25 mg or 0.5 mg (2 0.5 mg (0.736 mL) subcut Q7D 4 09/07/23 04/06/24 Unknown mg/3 mL) subcutaneous pen injector weeks #3 mL (Ozempic) omeprazole 40 mg capsule,delayed 40 mg PO QAM #90 caps 10/13/23 04/06/24 Unknown release rivaroxaban 20 mg tablet (Xarelto) 20 mg PO QPM #90 tabs 01/02/24 04/06/24 Unknown clonazepam 0.5 mg tablet 0.25 - 0.5 mg PO BID #60 tabs 01/18/24 04/06/24 Unknown Breo Ellipta 1 puff inhalation QAM 04/06/24 04/06/24 Unknown metoprolol tartrate 50 mg tablet 75 mg PO BID 04/06/24 04/06/24 Unknown potassium chloride 20 mEq 20 meq PO DAILY 04/06/24 04/06/24 Unknown tablet,extended release rosuvastatin 10 mg tablet 10 mg PO HS 04/06/24 04/06/24 Unknown Active Medications Generic Name Dose Route Start Last Admin Trade Name Freq PRN Reason Stop Dose Admin Potassium Chloride 40 meq/ 1,020 mls @ 120 mls/hr 04/06/24 10:45 04/06/24 11:23 Sodium Chloride IV 04/06/24 19:14 120 mls/hr .Q8H30M WILLIAM Administration Lactated Ringer's 1,000 mls @ 15 mls/hr 04/06/24 13:45 04/06/24 13:45 Lr IV 04/07/24 13:44 15 mls/hr .Q24H WILLIAM Administration Metoprolol Tartrate 75 mg 04/06/24 12:32 04/06/24 13:12 Metoprolol Tartrate 25 Mg Tab PO 05/06/24 12:31 75 mg BID WILLIAM Administration NPO Date Last Intake of Fluids: 04/06/24 Time Last Intake of Fluids: 11:00 Last Intake of Fluids Comment: water Date Last Intake of Solids: 04/05/24 Time Last Intake of Solids: 17:00 Past Medical History Medical History Elevated hemoglobin A1c A1C 6.7% on 11/04/22 labs, no noted hx of diabetes or prediabetes per review of available records Sleep apnea Tested, waiting to get device History of dyspnea recently admitted on 10/06/22 to [facility], for dyspnea with exertion History of COVID-19 11/2020- cough, loss of appetite, loss of taste/smell, fatigue > resolved GERD (gastroesophageal reflux disease) Osteoporosis Scoliosis History of nephrolithiasis Cerebral meningioma Under surveillance by neuro annually, stable per 2021 Brain MRI Cardiac murmur Echo 09/2022: Mild TR Atrial fibrillation Taking Xarelto Following with Dr. Obrien Exercise / Class Metabolic Activity III < 4 Walking/Shop/Light housework Past Family History Family History Father Heart disease Brother Myocardial infarction Sister Ovarian cancer Other Cancer Lung cancer No family history of adverse response to anesthesia Denies family history of Prostate cancer Breast cancer Colorectal cancer Stroke Past Surgical History Surgical History Hx of bilateral cataract extraction History of elbow surgery Left History of colonoscopy History of abdominal hysterectomy Past Anesthesia History No Hx of Anesthesia Complications and No Family Hx of Anesthesia Complications History of PONV No Hx of PONV and No Hx of Motion Sickness Social History Smoking Status: Former smoker tobacco type: cigarettes Do You Dip or Chew Tobacco: No Hx Alcohol Use: No Hx Substance Use: No substance use type: does not use Physical Exam Vital Signs Last Vital Signs Temp 36.5 C 04/06/24 13:28 Pulse 68 04/06/24 13:28 Resp 20 04/06/24 13:28 BP 160/69 H 04/06/24 13:28 Pulse Ox 96 04/06/24 13:28 O2 Del Method Room Air 04/06/24 13:28 O2 Flow Rate 2 04/06/24 08:06 Constitutional + morbidly obese; no acute distress ENMT Mouth: + dentition abnormality, + dental caries, + poor dentition, + chipped teeth and + loose teeth Thyromental Distance: < 3.5 Finger Breadths Mallampati Class: II Neck normal visual inspection and trachea midline; neck extension not limited Respiratory normal respiratory effort Auscultation: + diminished lung sounds Cardiovascular Rate/Rhythm: + abnormal rate (A FIB/irreg.) and + abnormal rhythm (A Fib/Irreg) Heart Sounds: no murmur Vessels: no carotid bruit Musculoskeletal Spine: normal cervical ROM and no pain with cervical ROM Extremities: extremities normal to inspection; full ROM of extremities Neurologic moves all extremities Motor/Sensory: no sensory deficit Psychiatric Orientation: alert and oriented x 3 Testing Laboratory Results 04/06/24 06:13 04/06/24 06:13 PT 14.2 Seconds (9.0-12.0) H 04/06/24 06:13 INR 1.3 (0.9-1.1) H 04/06/24 06:13 APTT 39 Seconds (21-31) H 04/06/24 06:13 Urine Color Nehal 04/06/24 08:23 Urine Appearance Turbid (Clear) A 04/06/24 08:23 Urine pH 5.0 (4.5-7.5) 04/06/24 08:23 Ur Specific [place] 1.027 (1.000-1.030) 04/06/24 08:23 Urine Protein 2+ (Negative) H 04/06/24 08:23 Urine Glucose (UA) Negative (Negative) 04/06/24 08:23 Urine Ketones Trace (Negative) H 04/06/24 08:23 Urine Nitrite Negative (Negative) 04/06/24 08:23 Ur Leukocyte Esterase 1+ (Negative) H 04/06/24 08:23 Urine WBC (Auto) 11-20 /hpf (0-5) H 04/06/24 08:23 Urine RBC (Auto) >20 /hpf (0-2) H 04/06/24 08:23 U Hyaline Cast (Auto) 6-10 /lpf (0-2) H 04/06/24 08:23 U Epithel Cells (Auto) 3-5 /hpf (0-2) H 04/06/24 08:23 Urine Bacteria (Auto) None Seen (None Seen) 04/06/24 08:23 Electrocardiogram Date: 04/06/24 Findings: + AFIB @ (@ 66;low voltage QRS;? septal infarct) Chest X-Ray Date: 03/30/24 Findings: + NAD, + cardiomegaly and + atherosclerosis of thoracic aorta Echocardiogram Date: 10/07/22 EF: 50% LV Function: normal RWMA: + none Other Findings: + LVH Valvular Disease: + no significant valvular disease mild tr
[2024-04-06] MEDS ORDERED: ATROPINE SULFATE 0.1 MG/ML 10ML SYR IV PRN (14:07)
[2024-04-06] MEDS ORDERED: fentaNYL citrate PF 100 MCG/2 ML VIAL IV PRN (14:07)
[2024-04-06] MEDS ORDERED: PROMETHAZINE HCL 6.25 MG in SODIUM CHLORIDE 0.9% 50 ML IV PRN (14:07)
[2024-04-06] MEDS ORDERED: NALOXONE HCL 0.4 MG/1 ML VIAL/CARP IV PRN (14:07)
[2024-04-06] MEDS ORDERED: ePHEDrine sulfate 50 MG/ML AMP IV PRN (14:07)
[2024-04-06] MEDS: ceFAZolin 2000MG 2,000 MG/15 ML SYR IV ONE (14:07)
[2024-04-06] MEDS ORDERED: PROMETHAZINE HCL INJ 25 MG/ML 1 ML VIAL ONE (14:10)
[2024-04-06] MEDS ORDERED: DEXAMETHASONE SOD INJ 4 MG/ML VIAL ONE (14:15)
[2024-04-06] MEDS ORDERED: ONDANSETRON INJ 2 MG/ML 2 ML VIAL ONE (14:15)
[2024-04-06] MEDS: DIATRIZOATE MEGLUMINE 30% 100ML VIAL INSTIL ONE (14:26)
--- NOTE | 2024-04-06 14:33 | Operative Report ---
PG Post Operative Report Pre & Post Diagnosis Operation Date: 04/06/24 14:50 Pre-Op Diagnosis: Back/Flank Pain, left ureteral stone Post-Op Diagnosis: Back/Flank Pain, left ureteral stone I identified the patient and participated in the time-out.: Yes Procedure Operation Date: 04/06/24 14:50 Actual Procedures p Cystoscopy, left retrograde pyelogram, left Ureteral Stent Placement(Left) - Geo Lebron MD Surgeon Geo Lebron MD [employer] None Estimated Blood Loss 0 Findings Consistent with Post-Op Diagnosis Specimens None Drains 6 Singaporean by 24 cm double-J ureteral stent to the left ureter Anesthesia Type MAC Complications none Disposition Accompanied Patient To Recovery: Yes Disposition: Recovery Room Indications This is an 83-year-old female who presented to the emergency department with left flank pain and was found to have a left ureteral stone. Due to intractable pain, she is brought to the OR for left ureteral stent placement. Description of Procedure The patient was identified in the holding area and informed consent was confirmed. She was marked on the left side, then was taken to the operating room where anesthesia was initiated. She was placed in the dorsal lithotomy position with all pressure points appropriately padded. She was prepped and draped in the usual sterile fashion and a preoperative timeout was performed. A well-lubricated cystoscope was inserted per urethra and panendoscopy was performed. The urethra was normal in appearance. The bladder was of normal size with ureteral orifices in orthotopic position. The left ureteral orifice was identified and cannulated with a 5 Singaporean open- ended catheter. A retrograde pyelogram was performed demonstrating the distal ureter was normal in course and caliber. This extended up to the proximal ureter and then there was some hydronephrosis of the kidney. A 0.038" ZIPwire was advanced to the level of the kidney under fluoroscopic guidance. Over the wire, a 6 Singaporean x 24 centimeter double-J ureteral stent was advanced. When the wire was removed, the proximal curl was visualized in the kidney with x-ray, and the distal curl visualized in the bladder with the cystoscope. Initially there was drainage of blood-tinged urine through the stent, but this cleared and had a more turbid appearance afterwards. At this point the bladder was drained and all instrumentation was removed. The patient was then awakened from anesthesia and was brought to the PACU in stable condition. I attest to the content of the Intraoperative Record and any orders documented therein. Any exceptions are noted below.
--- NOTE | 2024-04-06 14:45 | Fluoroscopy Report ---
FL retrograde includes kub CLINICAL HISTORY: RETROGRADE COMPARISON STUDY: CT of the abdomen and pelvis April 06, 2024 at 6:40 AM. FLUOROSCOPY TIME: 8 seconds. Ka,r: 2.77 mGy FLUOROSCOPIC IMAGES: 4 FINDINGS: Fluoroscopy was provided during left retrograde pyelogram with left ureteral stent insertio n. Proximal aspect of the stent is within the left renal pelvis. IMPRESSION: Fluoroscopy provided during left retrograde pyelogram with left ureteral stent insertion . ACT 112: Negative or not required by law. Electronically signed by: Federico Ewing M.D. 04/06/2024 2:44 PM
--- NOTE | 2024-04-06 15:08 | Anesthesiology Progress Note ---
Date of Service April 06, 2024 Anesthesia Post Procedure Vital Signs Vital Signs: Temp Pulse Pulse Resp BP BP BP 04/06/24 15:00 36.3 C L 68 18 140/56 L 04/06/24 14:50 73 20 136/57 L 04/06/24 14:39 37.6 C H 68 18 130/59 L 04/06/24 13:28 36.5 C 68 20 160/69 H 04/06/24 09:55 69 04/06/24 08:06 61 23 160/80 H 04/06/24 06:24 65 17 04/06/24 06:15 57 L 04/06/24 06:10 36.5 C 62 20 04/06/24 06:00 53 L 20 144/64 H Pulse Ox O2 Del Method O2 Flow Rate 04/06/24 15:00 98 Room Air 04/06/24 14:50 92 Room Air 04/06/24 14:39 96 Oxymask 6 04/06/24 13:28 96 Room Air 04/06/24 09:55 04/06/24 08:06 96 Nasal Cannula 2 04/06/24 06:24 97 Room Air 04/06/24 06:15 04/06/24 06:10 96 Room Air 04/06/24 06:00 96 Room Air Pain Intensity Left Flank: Pain Intensity: 3 Transfer of Care Handoff Completed per policy Notes Mental Status: alert / awake / arousable Patient Amnestic to Procedure: Yes Nausea / Vomiting: adequately controlled Pain: adequately controlled Airway Patency, RR, SpO2: stable & adequate BP & HR: stable & adequate Hydration State: stable & adequate Anesthetic Complications: no major complications apparent
[2024-04-06] MEDS: clonazePAM 0.5 MG TAB PO SCH (21:06)
[2024-04-06] MEDS: RIVAROXABAN 15 MG TAB PO SCH (21:06)
[2024-04-06] MEDS: ROSUVASTATIN CALCIUM 10 MG TAB PO SCH (21:06)
[2024-04-07 07:08] VITALS: TEMP 97.9
[2024-04-07 07:29] LABS: Basophils # (auto) 0.03 K/uL (0.00-0.20); Basophils % (auto) 0.2 %; Eosinophils # (auto) 0.01 K/uL (0.00-0.50); Eosinophils % (auto) 0.1 %; Hematocrit (blood only) 40.6 % (37.0-47.0); Hemoglobin 12.4 g/dl (12.0-16.0); Immature Granulocytes # (auto) 0.16 K/uL (0.01-0.20); Immature Granulocytes % (auto) 0.9 %; Lymphocytes # (auto) 1.44 K/uL (1.20-3.40); Lymphocytes % (auto) 7.9 %; Mean Corpuscular Hemoglobin 24.7 pg (25.0-34.0); Mean Corpuscular Hgb Conc 30.5 g/dL (32.0-36.0); Mean Corpuscular Volume 80.7 fL (80.0-100.0); Mean Platelet Volume 11.6 fL (9.4-12.4); Monocytes # (auto) 1.45 K/uL (0.11-0.59); Monocytes % (auto) 7.9 %; Neutrophils # (auto) 15.23 K/uL (1.40-6.50); Platelet Count 276 K/uL (130-400); RDW Coefficient of Variation 16.6 % (11.5-14.5); Red Blood Count 5.03 M/uL (4.20-5.40); White Blood Count 18.32 K/ul (4.8-10.8)
[2024-04-07 07:49] LABS: BUN Creatinine Ratio 24.8 (10-20); Calcium 9.1 mg/dl (8.6-10.3); Creatinine Clr Calc Pharmacy 47.7 ml/min; Potassium 3.9 mmol/L (3.5-5.1)
[2024-04-07] MEDS ORDERED: ACETAMINOPHEN 500 MG TAB PO PRN (08:19)
[2024-04-07] MEDS: POTASSIUM CHLORIDE CRTAB 20 MEQ TABCR PO SCH (08:23)
[2024-04-07] MEDS: TAMSULOSIN HCL 0.4 MG CAP PO SCH (08:23)
[2024-04-07] MEDS: PANTOprazole 40 MG TAB PO SCH (08:23)
--- NOTE | 2024-04-07 10:05 | Urology Progress Note ---
Date of Service April 07, 2024 Assessment & Plan (1) Left ureteral stone: (2) Hydronephrosis: Plan She is recovering appropriately from cystoscopy and left ureteral stent placement Leukocytosis may be related to inflammatory response after surgery, however cannot rule out infection Since she is feeling well with no other signs of infection, I think would be reasonable to discharge home on course of antibiotics with return precautions Urology will coordinate outpatient follow-up for definitive stone removal. Admission and Anticipated Discharge Date Admission Date: April 06, 2024 Subjective Feeling well this morning Denies any fevers or chills overnight Having a little bit of pressure from the stent, but overall less pain than from the stone. WBC elevated to 18 today, creatinine normal at 1.01. Urine from 04/06/2024 with moderate counts of 3 types of organisms present. Physical Exam Physical Exam: Well-appearing, NAD Results & Data Vital Signs (Past 12 Hours) Vital Signs Temp Pulse Resp BP Pulse Ox O2 Del Method 04/07/24 08:22 51 L 04/07/24 07:03 36.6 C 59 L 16 121/71 93 Room Air 04/07/24 04:06 36.7 C 64 18 100/50 L 92 Room Air 04/06/24 23:45 36.8 C 65 18 103/61 92 Room Air PG Care Time/CCT Total # of Minutes Spent Total Time Spent with Patient: Total time spent is greater than 50% in coordination of care (as documented) at patient's floor/unit and/or counseling patient: Coding Level of Care Code 90207 SUB INP/OBS CARE 03/17MIN Diagnoses Left ureteral stone N20.1 Hydronephrosis N13.2 Hydronephrosis type: with ureteral calculous obstruction (2) Hydronephrosis Hydronephrosis type: with ureteral calculous obstruction Qualified Code(s): N13.2 - Hydronephrosis with renal and ureteral calculous obstruction
--- NOTE | 2024-04-07 10:06 | Discharge Summary ---
Discharge Summary Date of Service April 07, 2024 Principal Dx & Hospital Course #1 = Principal Diagnosis (1) Left nephrolithiasis: (2) Atrial fibrillation: Plan #Obstructive nephrolithiasis Eitan is a pleasant 83-year-old female with PMH of kidney stones, urethral stricture, small bowel resection, COPD, HTN, HLD, KAYLAN, and T2DM. She presented 04/06 for acute onset of left-sided flank pain, nausea, and vomiting. Patient does have a history of kidney stones, and this feels similar to prior episodes. A/P CT revealed a 3 mm obstructive calculus in the left mid ureter with mild hydroureteronephrosis. Patient was initiated on flomax. Seen by urology who took her to the OR on 04/[address] Lebron for Left stent placement. UA not concerning for infection and afebrile, but leukocytosis (18) POD#1, discussed with urology and recommend antibiotics upon discharge. Patient pain is much improved, discharged with daily flomax, Augmentin for UTI (based on prior cultures), prn Pyridium and Tylenol prn for pain. Urology follow up for stent removal. Prior to d/c, patient had episode of flushing with redness of face and neck. No difficulty breathing or itching, tongue not swollen, no wheezing. VSS. She had eaten lunch and has a peanut allergy, but no known exposures to peanuts on lunch tray. Given AM clonazepam dose and Benadryl, re-evaluated in 30 minutes. Remains stable and redness in cheeks improved. Family present at bedside and feels comfortable taking her home (reports 5 RNs in family), pt in agreement to go home. ER precautions provided #Atrial fibrillation- continue Xarelto, metoprolol #Prediabetes - BSG acceptable while inpatient. semaglutide on Tuesdays. GERD-omeprazole HLD-rosuvastatin Anxiety-clonazepam Disposition: Discharged home today with urology follow-up Notes For Next Care Provider Medication Changes From Visit Flomax while stent is in place Pyridium as needed for dysuria Augmentin course for possible UTI Admission HPI Per Admitting Provider Eitan is a pleasant 83-year-old female with PMH of kidney stones, urethral stricture, small bowel resection, COPD, HTN, HLD, KAYLAN, and T2DM. She presented via EMS on the morning of 2/14 for acute onset of left-sided flank pain, nausea, and vomiting. Patient does have a history of kidney stones, and this feels similar to prior episodes. She reports the pain started at 3 AM this morning, and woke her from sleep. She characterized it as a sharp pain in her left flank and left lower back with radiation around the flank. The pain comes in waves, and she rates it 10/10 at its worst. The pain is so bad that she has had nausea, vomiting, dry heaves, and cold sweats. She did not take any pain medicine prior to coming into the ED. Patient did not take her regular morning medicines today; no recent change in medications. Her last meal was the evening of 04/05. Additionally, she takes Xarelto for her atrial fibrillation, and took it last night. She does not use up on oxygen at baseline or CPAP at night. Patient denies smoking, tobacco use, or recent alcohol use. Patient is hypertensive at 160/80 at time of admission; SpO2 96% on 2L NC. ED course: Morphine sulfate 4 mg IV x 2 Zofran 4 mg IV x 2 ROS: Patient endorses left-sided flank pain, nausea, vomiting, dry heaves, cold sweats, dark urine (potential hematuria, but patient is not sure), constipation, and lower back pain. Patient denies fever, chills, dizziness, lightheadedness, headache, chest pain, chest palpitations, pleuritic CP, SOB, cough, right sided abdominal pain, diarrhea, burning with urination, dysuria, melena, or blood in the stool. Discharge Exam General: NAD, VS as above Resp: normal respiratory effort, lungs clear to auscultation CV: RRR, no murmur, Abd: normal bowel sounds, non tender, no hepatosplenomegaly Extremities: Moves all extremities, no edema Neuro: A&O x3, Discharge Plan Discharge Items Patient Disposition: Home - Self-Care Reason For Visit: BACK/FLANK PAIN, FX OF KIDNEY STONES Discharge Diagnosis: Kidney stones Activity: Resume your previous activity Non-emergency contact: Primary Care Provider and Urologist Call non-emergency contact if: you have any medication questions, your symptoms worsen, your pain is not controlled and your temperature is above 101 Follow-up/Referrals: Geo Lebron MD [Physician] - (f/u for stent removal) Rafael Bill DO [Primary Care Provider] - (f/u in one week ) Diet: Carb Consistent or DM2 Addtl Attending Provider Instructions: Ms. Black, You were hospitalized after having pain from a kidney stone. You were taken to the OR by Dr. Lebron on 04/06 and had a stent placed. Your pain has been controlled. We were concerned for an infection based on your labs and have sent antibiotics to the pharmacy. Take these as prescribed and take the entire course. You will need to follow up with urology to have the stent removed. Please call them on Tuesday if you do not hear from them on Tuesday. Their number is listed above. Medication Recommendations: - Take Flomax Daily - this is to help with passage of urine while the stent is in place - You can take tylenol for pain, please follow the instructions on the bottle - Augmentin twice a day for 5 days. This is the antibiotic for possible urinary infection. Please take this with food. No changes to your home medications. CONTACT YOUR PRIMARY CARE PROVIDER if you experience any of the following: Shortness of breath or difficulty breathing Fevers or chills Feeling tired with normal activity or experiencing dizziness or fainting Difficulty following your treatment plan, or difficulty taking medications Contact Urology: - inability to urinate - uncontrolled pain CALL 911 OR GO TO THE EMERGENCY DEPARTMENT if you experience any of the following: Severe abdominal pain or nausea/vomiting Severe chest pain, or chest pain that radiates (moves) to your jaw or arm Sudden, severe shortness of breath or difficulty breathing Thank you for allowing us to participate in your care. Pending Studies at Discharge: No Stand-Alone Forms: [facility], Smoking Cessation Medications and DC Order Prescriptions: New tamsulosin 0.4 mg Capsule 0.4 mg PO QAM Qty: 14 0RF amoxicillin-pot clavulanate 875-125 mg tablet 1 tab PO BID Qty: 14 0RF Continued hydrochlorothiazide 12.5 mg tablet 12.5 mg PO QAM Qty: 90 3RF omeprazole 40 mg capsule,delayed release(DR/EC) 40 mg PO QAM Qty: 90 3RF Xarelto 20 mg tablet 20 mg PO QPM Qty: 90 3RF Rx Instructions: must administer with evening meal cyanocobalamin (vitamin B-12) 1,000 mcg capsule 1,000 mcg PO BID albuterol sulfate 90 mcg/actuation HFA aerosol inhaler 1 inh inhalation QID PRN (Reason: shortness of breath or wheezing) Qty: 8.5 3RF calcium carbonate-vitamin D3 600 mg(1,500mg) -200 unit tablet 1 tab PO QAM cholecalciferol (vitamin D3) 3,000 unit tablet 3,000 units PO QAM clonazepam 0.5 mg tablet 0.25 - 0.5 mg PO BID Qty: 60 Rx Instructions: 0.25 in the AM, 0.5 PM Ozempic 0.25 mg or 0.5 mg (2 mg/3 mL) pen injector 0.5 mg subcut Q7D 28 Days Qty: 3 5RF Breo Ellipta 1 puff inhalation QAM Rx Instructions: per pt, derrickro didnt work for her so she has a breo inhaler, no fill history available for the Breo. Unknown strength metoprolol tartrate 50 mg tablet 75 mg PO BID Rx Instructions: ; TAKE ONE AND ONE-HALF TABLETS BY MOUTH TWICE DAILY rosuvastatin 10 mg tablet 10 mg PO HS Rx Instructions: TAKE 1 TABLET BY MOUTH AT BEDTIME potassium chloride 20 mEq tablet extended release 20 meq PO DAILY Rx Instructions: TAKE 1 TABLET BY MOUTH ONCE DAILY Discharge Orders: Discharge Order (Routine); Ordered 04/07/24 Ordered By: Viry Helton/Other Patient Handouts: Hematuria: Possible Causes, Having a Ureteral Stent Admission Data Admit Date/Time: 04/06/24 09:32 Attending Provider: Jess Palomo Admit Provider: Josué Sethi Primary Care Provider: Rafael Bill Other Providers: Josué Sethi; Geo Lebron Other Interventions: Discharge Summary Assessment (RN) Last Done: 04/07/24 10:24 Hospital Stay Data Consultations 04/06/24 09:10 ED Decision to Admit Stat 04/06/24 09:25 Consult Urology Routine Procedures Performed Operation Date: 04/06/24 14:50 Actual Procedures p Cystoscopy Left Ureteral Stent Placement(Left) - Geo Lebron MD Diagnostic Imagining Performed Retrograde Pyelogram 04/06/24 00:00 FL retrograde includes kub CLINICAL HISTORY: RETROGRADE COMPARISON STUDY: CT of the abdomen and pelvis April 06, 2024 at 6:40 AM. FLUOROSCOPY TIME: 8 seconds. Ka,r: 2.77 mGy FLUOROSCOPIC IMAGES: 4 FINDINGS: Fluoroscopy was provided during left retrograde pyelogram with left ureteral stent insertion. Proximal aspect of the stent is within the left renal pelvis. IMPRESSION: Fluoroscopy provided during left retrograde pyelogram with left ureteral stent insertion. ACT 112: Negative or not required by law. Electronically signed by: Federico Ewing M.D. 04/06/2024 2:44 PM Abdomen/Pelvis CT 04/06/24 06:24 EXAM: CT abd pelvis wo con CLINICAL HISTORY: left flank pain TECHNIQUE: Non-contrast CT of the abdomen and pelvis was performed, with the following protocol: axial images, and reconstructed coronal and sagittal images. No intravenous contrast was administered. One of the following dose reduction techniques was utilized for this exam: Automated exposure control, adjustment of the mA and/or kV according to patient size, and use of iterative reconstruction. COMPARISON: Comparison is made with prior CT dated 06/14/2023. FINDINGS: Abdomen: Liver: Normal in size, shape, and density. No focal lesions, cysts, or masses were identified. Gallbladder and Biliary System: The gallbladder is normal in size and shape. No wall thickening, pericholecystic fluid, or gallstones were identified. Pancreas: Pancreatic head, body, and tail are visualized and appear normal in size and density. No pancreatic masses or calcifications were noted. Spleen: Normal in size, shape, and density. No splenic lesions or masses were identified. Kidneys and Adrenal Glands: Obstructive calculus of 3 mm in left mid ureter and causing upstream mild hydroureteronephrosis. Left perinephric fat stranding seen. Few non obstructive calculi of 2-3 mm at upper, mid poles of right kidney and 3-4 mm at upper, lower poles of left kidney. Both kidneys are normal in size, shape, and position. Cortical thickness is within normal limits. Adrenal glands are unremarkable. Appendix: The appendix is normal in size without roxana appendiceal fat stranding, and without an appendicolith. No evidence of appendiceal abscess or perforation. Pelvis: Urinary Bladder: Minimally distended. No intraluminal lesions. Uterus and ovaries: Not visualised properly. Vagina: Normal in contour and wall thickness. Cervix: No evidence of mass or abnormal thickening. Peritoneal and Retroperitoneal Structures: No free fluid or abnormal fluid collections were identified within the abdomen or pelvis. No lymphadenopathy was noted. Moderate atherosclerotic wall calcifications in abdominal aorta and its branches. Bowel: Small hiatus hernia. Anastomotic sutures in small bowel loops in umbilical region. The visualized bowel loops are normal in caliber and appearance. No evidence of bowel obstruction or wall thickening. Bones and Soft Tissues: Small fat containing umbilical hernia. Moderate spondylotic changes in thoracolumbar spine with kyphoscoliotic deformity. Pelvic bones and soft tissues are unremarkable. No fractures or abnormal masses were identified. Visualised thorax shows mild bilateral pleural effusion. IMPRESSION: 1. Obstructive calculus of 3 mm in left mid ureter and causing upstream mild hydroureteronephrosis, new finding. 2. Few non obstructive calculi of 2-3 mm at upper, mid poles of right kidney and 3-4 mm at upper, lower poles of left kidney, stable. Electronically signed by Laura Moreno 04-06-2024 08:20 AM Pending Results Patient Have Any Pending Studies at Discharge: No Discharge Instructions Given to Patient (Per Discharging Provider) Ms. Black, You were hospitalized after having pain from a kidney stone. You were taken to the OR by Dr. Lebron on 04/06 and had a stent placed. Your pain has been controlled. We were concerned for an infection based on your labs and have sent antibiotics to the pharmacy. Take these as prescribed and take the entire course. You will need to follow up with urology to have the stent removed. Please call them on Tuesday if you do not hear from them on Tuesday. Their number is listed above. Medication Recommendations: - Take Flomax Daily - this is to help with passage of urine while the stent is in place - You can take tylenol for pain, please follow the instructions on the bottle - Augmentin twice a day for 5 days. This is the antibiotic for possible urinary infection. Please take this with food. No changes to your home medications. CONTACT YOUR PRIMARY CARE PROVIDER if you experience any of the following: Shortness of breath or difficulty breathing Fevers or chills Feeling tired with normal activity or experiencing dizziness or fainting Difficulty following your treatment plan, or difficulty taking medications Contact Urology: - inability to urinate - uncontrolled pain CALL 911 OR GO TO THE EMERGENCY DEPARTMENT if you experience any of the following: Severe abdominal pain or nausea/vomiting Severe chest pain, or chest pain that radiates (moves) to your jaw or arm Sudden, severe shortness of breath or difficulty breathing Thank you for allowing us to participate in your care. Supervising Physician Co-Signing Physician Notes PA Supervision Note: I did not personally see or examine the patient today, but I verified all campos points of RUKHSANA Chatterjee's assessment and plan with the following exceptions/additions: None Total Time Total Time Spent Total Time Spent (In Minutes): Time spent day of discharge 40 minutes including direct patient care, medication reconciliation, documentation, review of labs and images, and coordination of care. Coding Level of Care Code 62443 INP/OBS DISCH >30 MIN Diagnoses Left nephrolithiasis N20.0 Atrial fibrillation I48.91
[2024-04-07] MEDS: clonazePAM 0.5 MG TAB PO STA (12:03)
[2024-04-07] MEDS: diphenhydrAMINE Capsule 25 MG CAP PO STA (12:03)
[2024-04-07 12:26] VITALS: BP 112/57; PULSE 70; RESP 18; O2SAT 94
== END 2024-04-07 12:50 | disposition home or self-care (01) | DRG 661 ==
LOC: ED 06:05 → EDINP 09:32 → SUATTDRO 09:32 → INTOOBSV 09:32 → EDINP 13:26 → 3N 15:24